=== PATIENT | female | born 1950 | race Caucasian/White ===

== ENCOUNTER 2018-09-15 07:32 | Day surgery (SDC) | payer MEDICARE ==
[2018-09-11 17:18] VITALS: BMI 37.2
[~2018-09-15 07:32] MED LIST: DEXAMETHASONE SOD PHOSPHATE 10 MG/ML 1 ML VIAL IV ONE; HEPARIN SODIUM,PORCINE 5,000 UNIT/ML 1 ML VIAL SQ ONE; HYDROmorphone 1 MG/ML 1 ML SYRINGE IVP PRN; LACTATED RINGERS 1,000 ML IV SCH; MIDAZOLAM 2 MG/2 ML VIAL IV PRN; NA PHOS,M-B/NA PHOS,DI-BA 133 ML ENEMA RECTAL ONE; ONDANSETRON 4 MG/2 ML VIAL IVP ONE; ceFAZolin IN SWFI 2 GM/20 ML SYRINGE IVP ONE
[2018-09-15] MEDS ORDERED: LIDOCAINE 1% 20 ML VIAL (10MG/ML) FOR IV START INTRADERMA ONE (08:50)
--- NOTE | 2018-09-15 08:50 | P.GSHP ---
History of Present Illness H&P Date: 09/15/18 Chief Complaint: Rectal mass This is a 68-year-old female who presents today for transanal resection of a rectal mass. Patient was recently diagnosed with a neck roll inflammatory mass of the colon. This was diagnosed on colonoscopy. Patient had a very small sample performed. Patient presents today for a larger biopsy of this mass. Past Medical History Past Medical History: Cancer, GERD/Reflux Additional Past Medical History / Comment(s): Hx Cervical cancer in the ; Varicose Veins History of Any Multi-Drug Resistant Organisms: None Reported Past Surgical History: Adenoidectomy, Appendectomy, Hernia Repair, Tonsillectomy Additional Past Surgical History / Comment(s): recent EGD,colonoscopy Past Anesthesia/Blood Transfusion Reactions: No Reported Reaction Smoking Status: Never smoker - Past Family History Mother Family Medical History: No Reported History Medications and Allergies Home Medications Medication Instructions Recorded Confirmed Type Ranitidine HCl [Zantac] 150 mg PO BID #20 tab 05/03/16 09/15/18 Rx Aspirin [Adult Low Dose Aspirin EC] 81 mg PO DAILY 08/28/18 09/11/18 History Multivitamins, Thera [Multivitamin 1 tab PO DAILY 08/28/18 09/15/18 History (formulary)] Acetaminophen [Tylenol Arthritis] 650 mg PO Q6H PRN 09/11/18 09/15/18 History Allergies Allergy/AdvReac Type Severity Reaction Status Date / Time ciprofloxacin [From Cipro] Allergy Rash/Hives Verified 09/11/18 17:03 ciprofloxacin HCl Allergy Rash/Hives Verified 09/11/18 17:03 [From Cipro] Surgical - Exam Vital Signs Temp Pulse Resp BP Pulse Ox 99.8 F H 77 16 153/70 98 09/15/18 08:05 09/15/18 08:05 09/15/18 08:05 09/15/18 08:05 09/15/18 08:05 - General well developed, no distress - Eyes PERRL - ENT normal pinna - Neck no masses - Respiratory normal expansion - Cardiovascular Rhythm: regular - Abdomen Abdomen: soft, non tender Assessment and Plan Assessment: Rectal mass. We'll perform transanal excision.
[2018-09-15] MEDS ORDERED: fentaNYL (PF) 50 MCG/ML 2 ML AMP ONE (09:20)
[2018-09-15] MEDS ORDERED: LIDOCAINE 1% INJ 10MG/ML (20 ML MDV) ONE (09:20)
[2018-09-15] MEDS ORDERED: PROPOFOL 10 MG/ML 20 ML VIAL IV ONE (09:20)
[2018-09-15] MEDS ORDERED: SUCCINYLCHOLINE CHLORIDE 100 MG/5 ML SYR IV ONE (09:20)
[2018-09-15] MEDS ORDERED: MIDAZOLAM 2 MG/2 ML VIAL ONE (09:20)
[2018-09-15] MEDS ORDERED: KETOROLAC 30 MG/ML 1 ML VIAL ONE (09:20)
--- NOTE | 2018-09-15 10:06 | P.OP ---
Date of Procedure: 09/15/18 Preoperative Diagnosis: Echo mass Postoperative Diagnosis: Rectal mass Procedure(s) Performed: Transanal excision of chronic inflammatory mass Anesthesia: DANISH Surgeon: Ajay Samuels Estimated Blood Loss (ml): 20 Pathology: other (Necrotic tumor mass) Condition: stable Description of Procedure: The patient's placed on the operative table in the prone jackknife position she received general anesthesia. The bivalved anal retractors placed in the anus. The inflammatory necrotic rectal mass was located approximately 10 cm from anal verge. This was grasped with a pair of Allis clamps. Several pieces of the tumor were removed just with the Allis clamp. The tumor was quite necrotic. The specimen sent to pathology. Surgicel powder was placed on the inflammatory mass for hemostasis. There is no bleeding seen. Top procedure well she was sent to recovery in stable condition.
[2018-09-15 10:24] VITALS: TEMP 97.6
[2018-09-15] MEDS ORDERED: LACTATED RINGERS 1,000 ML IV ONE (10:36)
[2018-09-15 14:41] VITALS: BP 137/83; PULSE 96; RESP 18
== END 2018-09-15 16:30 | disposition home or self-care (01) ==
LOC: OR 07:32
PROVIDERS: ATTEND Surgery
DX: C20 Malignant neoplasm of rectum (principal); I96 Gangrene, not elsewhere classified; K21.9 Gastro-esophageal reflux disease without esophagitis; Z85.41 Personal history of malignant neoplasm of cervix uteri; Z79.82 Long term (current) use of aspirin; Z79.899 Other long term (current) drug therapy; Z88.1 Allergy status to other antibiotic agents
CPT/HCPCS: 88309; 45171; J2250; J1644; J1100; J2405; J2001; J3010; J1885; J0330; J2704; J0690

== ENCOUNTER → 2018-09-23 | Outpatient (CLI) | payer MEDICARE ==
[2018-09-23 15:06] LABS: Blood Urea Nitrogen 9 mg/dL (7-17)
--- NOTE | 2018-09-23 22:10 | CT ---
EXAMINATION TYPE: CT abdomen pelvis w con DATE OF EXAM: 09/23/2018 COMPARISON: NONE HISTORY: 68-year-old female abnormal biopsy from colonoscopy, rectal cancer. Hx of cervical CA TECHNIQUE: Contiguous axial scanning of the abdomen and pelvis following administration of 100 ml Iso sonja 300 IV contrast. Delayed images through the kidneys and coronal/sagittal reconstructions perform ed. CT DLP: 1530.5 mGycm Automated exposure control for dose reduction was used. FINDINGS: Heart normal size without pericardial effusion. Strandy atelectasis at the right base and inferior li ngula. No pleural effusion. No focal liver lesion or biliary ductal dilatation. Portal venous system is patent. Gallbladder, adrenal glands, spleen, and pancreas show no gross abnormality. Symmetric uptake and excretion of contrast from both kidneys. Hypodense lesion is present in each kid kendy, largest measuring 1.3 cm posteriorly on the right, both too small fractured CT characterization and probably representing cysts. There is a right paramedian mid abdominal wall hernia with a sac containing mesenteric fat in a short loop of small bowel. The hernia sac measures 4.1 cm in the neck measures 2.7 cm wide. There is some mild adjacent fat stranding in the subcutaneous fat and small bowel proximal to this herniated loop m easures up to 2.8 cm and is filled with fluid. Oral contrast has not yet reached this level. The ente shaun limb from the distal ileum and is relatively collapsed. There is a staple line at the mid transverse colon from prior resection and anastomosis. There is irregular appearance with soft tissue thickening at the rectum which could reflect underlyin g neoplasm or postsurgical change and further clinical correlation is recommended. This spans approxi mately 4.8 cm. There is presacral edema. Mildly prominent right renal lymph node is borderline in siz e at 1.5 cm. Otherwise, no mesenteric or retroperitoneal lymphadenopathy although evidence for any additional pelv ic lymphadenopathy. Uterus is either absent or very small compatible with postmenopausal state. Small ovaries are suggest ed. Bones: Degenerative changes at the hips and pubic symphysis. Heterogeneous density of the visualized sacrum could reflect sequela of prior injury or severe underlying osteopenia. IMPRESSION: 1. IRREGULAR AND THICKENED APPEARANCE TO THE RECTUM SPANNING 4.8 CM LIKELY CORRESPONDS TO THE PATIENT 'S BIOPSY-PROVEN RECTAL CANCER. 2. BORDERLINE SIZED RIGHT INGUINAL LYMPH NODE AT 1.5 CM IS NONSPECIFIC AND PROBABLY REACTIVE. THIS CA N BE FOLLOWED CLINICALLY 3. RIGHT PARAMEDIAN MID ABDOMINAL WALL HERNIA WITH THE HERNIA NECK MEASURING 2.7 CM WIDE AND THE KARLA IA SAC CONTAINING A SHORT LOOP OF DISTAL ILEUM. THE SMALL BOWEL PROXIMAL TO THIS HERNIA MEASURES PROM INENT AT 2.8 CM AND IS FLUID-FILLED. THE EFFERENT LIMB IS COLLAPSED. A PARTIAL OBSTRUCTION IS DIFFICU LT TO EXCLUDE.
== END | disposition home or self-care (01) ==
LOC: RADCTMAIN 14:35
PROVIDERS: ATTEND Surgery
DX: C20 Malignant neoplasm of rectum (principal); K43.9 Ventral hernia without obstruction or gangrene
CPT/HCPCS: 82565; 84520; 74177; 36415; Q9967

== ENCOUNTER 2018-11-07 09:15 | Inpatient (IN) | payer MEDICARE ==
[~2018-11-07 09:15] MED LIST changes: -HYDROmorphone 1 MG/ML 1 ML SYRINGE IVP PRN; -LACTATED RINGERS 1,000 ML IV SCH; +LIDOCAINE 1% 20 ML VIAL (10MG/ML) FOR IV START INTRADERMA PRN; +MIDAZOLAM (PF) 2 MG/2 ML VIAL IV PRN; -MIDAZOLAM 2 MG/2 ML VIAL IV PRN; -NA PHOS,M-B/NA PHOS,DI-BA 133 ML ENEMA RECTAL ONE; -ONDANSETRON 4 MG/2 ML VIAL IVP ONE; +fentaNYL (PF) 50 MCG/ML 2 ML AMP IV PRN; +fentaNYL (PF) 50 MCG/ML 2 ML AMP IVP PRN; +metroNIDAZOLE-NS PMX 500 MG in SALINE 1 100ML.BAG IVPB ONE
[2018-11-07] MEDS ORDERED: ONDANSETRON 4 MG/2 ML VIAL IVP ONE (11:15)
[2018-11-07] MEDS ORDERED: DEXAMETHASONE SOD PHOSPHATE 10 MG/ML 1 ML VIAL IV ONE (11:15)
[2018-11-07] MEDS: LACTATED RINGERS 1,000 ML IV SCH ×9 (11:15→23:11)
[2018-11-07] MEDS ORDERED: fentaNYL (PF) 50 MCG/ML 2 ML AMP IVP ONE (11:32)
[2018-11-07] MEDS ORDERED: MIDAZOLAM 2 MG/2 ML VIAL IVP ONE (11:32)
--- NOTE | 2018-11-07 11:36 | P.GSHP ---
History of Present Illness H&P Date: 11/07/18 Chief Complaint: Rectal cancer This is a 68-year-old female who's recently diagnosed with rectal cancer. Patient had a previous history of pelvic radiation related to cervical cancer. Patient presents today for low anterior section possible abdominal perineal resection. Patient's aware the risk of colostomy, bladder injury, ureteral injury Past Medical History Past Medical History: Cancer, GERD/Reflux Additional Past Medical History / Comment(s): Hx Cervical cancer in the ; Varicose Veins History of Any Multi-Drug Resistant Organisms: None Reported Past Surgical History: Adenoidectomy, Appendectomy, Hernia Repair, Tonsillectomy Additional Past Surgical History / Comment(s): recent EGD,colonoscopy Past Anesthesia/Blood Transfusion Reactions: No Reported Reaction Additional Past Anesthesia/Blood Transfusion Reaction / Comment(s): WOKE UP DURING COLONOSCOPY Smoking Status: Never smoker - Past Family History Mother Family Medical History: No Reported History Medications and Allergies Home Medications Medication Instructions Recorded Confirmed Type Ranitidine HCl [Zantac] 150 mg PO BID #20 tab 05/03/16 11/07/18 Rx Aspirin [Adult Low Dose Aspirin EC] 81 mg PO DAILY 08/28/18 10/30/18 History Multivitamins, Thera [Multivitamin 1 tab PO DAILY 08/28/18 10/30/18 History (formulary)] Acetaminophen [Tylenol Arthritis] 650 mg PO Q6H PRN 09/11/18 11/07/18 History Allergies Allergy/AdvReac Type Severity Reaction Status Date / Time ciprofloxacin [From Cipro] Allergy Rash/Hives Verified 11/07/18 11:13 ciprofloxacin HCl Allergy Rash/Hives Verified 11/07/18 11:13 [From Cipro] Surgical - Exam Vital Signs Temp Pulse Resp BP Pulse Ox 99.7 F H 79 16 155/74 98 11/07/18 11:13 11/07/18 11:13 11/07/18 11:13 11/07/18 11:13 11/07/18 11:13 - General well developed, well nourished, no distress - Eyes PERRL - ENT normal pinna - Neck no masses - Respiratory normal expansion - Cardiovascular Rhythm: regular - Abdomen Ventral hernia Abdomen: soft, non tender Assessment and Plan Assessment: History of rectal cancer. Patient will undergo low anterior section with possible abdominal perineal resection. Patient is aware the risk of colostomy and injury to the bladder, ureter.
[2018-11-07] MEDS ORDERED: NALOXONE 0.4 MG/ML 1 ML VIAL IV PRN (12:03)
[2018-11-07] MEDS ORDERED: ROCURONIUM BROMIDE 10 MG/ML 10 ML VIAL IV ONE (12:52)
[2018-11-07] MEDS ORDERED: HYDROmorphone (PF) 1 MG/ML ONE (12:52)
[2018-11-07] MEDS ORDERED: PROPOFOL 10 MG/ML 20 ML VIAL IV ONE (12:52)
[2018-11-07] MEDS ORDERED: LIDOCAINE 1% INJ 10MG/ML (20 ML MDV) ONE (12:52)
[2018-11-07] MEDS ORDERED: fentaNYL (PF) 50 MCG/ML 2 ML AMP ONE (12:52)
[2018-11-07] MEDS ORDERED: GLYCOPYRROLATE 0.2 MG/ML 2 ML VIAL ONE (12:52)
[2018-11-07] MEDS ORDERED: MIDAZOLAM 2 MG/2 ML VIAL ONE (12:52)
[2018-11-07] MEDS ORDERED: NEOSTIGMINE 1 MG/ML 10 ML VIAL ONE (12:52)
[2018-11-07] MEDS ORDERED: LACTATED RINGERS 1,000 ML IV ONE (13:35)
[2018-11-07] MEDS ORDERED: ONDANSETRON 4 MG/2 ML VIAL IVP PRN (15:18)
[2018-11-07] MEDS ORDERED: HYDROmorphone 1 MG/ML 1 ML SYRINGE IVP PRN (15:18)
[2018-11-07] MEDS ORDERED: METOCLOPRAMIDE 5 MG/ML 2 ML VIAL IVP PRN (15:18)
--- NOTE | 2018-11-07 15:18 | P.OP ---
Date of Procedure: 11/07/18 Preoperative Diagnosis: Rectal cancer Postoperative Diagnosis: Rectal cancer Procedure(s) Performed: Low anterior section Protective loop ileostomy Repair of incisional hernia Anesthesia: DANISH Surgeon: Ajay Samuels Estimated Blood Loss (ml): 25 Pathology: other (Rectum) Condition: stable Disposition: PACU Description of Procedure: The patient's placed on the operative table in the supine position. She received general anesthesia. Her abdomen and perineum were prepped and draped usual sterile fashion. She was then placed in dorsal 5 position. The abdomen was entered through a low midline incision. The Bookwalter retractors placed in the wound. The abdominal wall was retracted. The abdomen was explored. The liver was palpated there. No evidence of any abnormalities. The small bowel appeared normal. The right colon, transverse colon descending colon and sigmoid colon appeared normal. In the rectum at the peritoneal reflection there was a intraluminal mass. At this point the proximal rectum was transected with a GI stapler and the mesentery was divided. The bowel was packed out of the pelvis. And then the mesial rectum was divided. Peritoneal reflection was divided. And then the Enseal device is used to divide the mesial rectum. The rectal dissection continued approximately 4 cm past the mass. The rectum was then transected with the contour stapler. At this point the proximal rectum was opened with enterotomy in the staple anvil for the 25 mm EEA stapler was placed into the colon. And then the colon was transected with a GI stapler and the mesial colon was divided with the Enseal device. The anvil was then driven through the EEA staple line. The stapler placed into the patient's anus and then the spike was driven through the rectal staple line. The anvil was connected to the stapler the stapler is then closed. The stapler then fired. The stapler then withdrawn. 2 intact tissue rings were withdrawn from the stapler. The proximal colon was then occluded with a hydroureter. Using a rigid sigmoidoscope the rectum was insufflated. There was a small amount of extravasation of air. Due to the extremely low anastomosis. This area could not be sutured. At this point a protective loop ileostomy brought out in the right lower quadrant. The abdomen was irrigated. Using clean instruments the fascia was closed with looped #1 PDS suture. Skin was closed wilton. The ileostomy was matured with 3-0 Vicryl suture. Patient tolerated procedure well and sent to recovery room. Sponge and instrument count was reported as correct.
[2018-11-07] MEDS: ROPIVACAINE 250 MG, HYDROMORPHONE (PF) 5 MG in SODIUM CHLORIDE 0.9% 200 ML EPIDURAL PRN ×2 (15:25→15:59)
[2018-11-07 16:53] LABS: Basophils % (A) 0 %; Eosinophils % (A) 0 %; HCT 41.8 % (34.0-46.0); HGB 13.3 gm/dL (11.4-16.0); Lymphocytes # (A) 0.7 k/uL (1.0-4.8); Lymphocytes % (A) 7 %; MCH 29.2 pg (25.0-35.0); MCHC 31.8 g/dL (31.0-37.0); MCV 91.9 fL (80.0-100.0); Mean Platelet Volume 7.2; Monocytes # (A) 0.1 k/uL (0-1.0); Monocytes % (A) 1 %; Neutrophils # (A) 10.1 k/uL (1.3-7.7); Neutrophils % (A) 92 %; Platelet Count 262 k/uL (150-450); RBC 4.55 m/uL (3.80-5.40); RDW 13.6 % (11.5-15.5)
[2018-11-07 17:07] LABS: Anion Gap 7 mmol/L; Blood Urea Nitrogen 10 mg/dL (7-17); Calcium 8.6 mg/dL (8.4-10.2); Carbon Dioxide 22 mmol/L (22-30); Chloride 110 mmol/L (98-107); Glucose 138 mg/dL (74-99); Potassium 3.8 mmol/L (3.5-5.1); Sodium 139 mmol/L (137-145)
[2018-11-07 17:27] VITALS: BMI 36.3
[2018-11-07] MEDS: D5-0.45% NACL WITH KCL 20MEQ/L 1,000 ML IV SCH (18:04)
[2018-11-07] MEDS: FAMOTIDINE 20 MG/2 ML VIAL IV SCH (21:13)
[2018-11-07] MEDS: ALVIMOPAN 12 MG CAPSULE PO SCH (21:13)
[2018-11-08] MEDS: D5-0.45% NACL WITH KCL 20MEQ/L 1,000 ML IV SCH ×4 (00:55→23:50)
--- NOTE | 2018-11-08 07:12 | P.PN ---
Progress Note - Text Progress Note Date: 11/08/18 Postoperative day # 1 status post low anterior resection ,epidural catheter placed for postoperative analgesia, patient doing well epidural site okay, patient currently on combination of epidural infusion solution of Ropivacaine 0.0625% and Dilaudid 20 g per mL the infusion rate at 10 ml per hour , patient had no motor deficit epidural site okay , vital signs stable ,VAS 3-4 /10 , Assessment and plan= post operative day #1 patient doing well ,pain well controlled , there is no anesthesia related complications
[2018-11-08] MEDS: ROPIVACAINE 250 MG, HYDROMORPHONE (PF) 5 MG in SODIUM CHLORIDE 0.9% 200 ML EPIDURAL PRN (10:18)
[2018-11-08] MEDS: FAMOTIDINE 20 MG/2 ML VIAL IV SCH ×2 (10:20→21:53)
[2018-11-08] MEDS: ALVIMOPAN 12 MG CAPSULE PO SCH ×2 (10:20→21:53)
--- NOTE | 2018-11-08 15:38 | P.CONS ---
History of Present Illness - Reason for Consult Consult date: 11/08/18 Medical management - Chief Complaint Rectal cancer - History of Present Illness This is a 68-year-old female who's recently diagnosed with rectal cancer. Patient had a previous history of pelvic radiation related to cervical cancer. Patient presents today for low anterior section possible abdominal perineal resection. Patient's aware the risk of colostomy, bladder injury, ureteral injury Patient underwent colectomy with colostomy and is postoperative day #1 Review of Systems REVIEW OF SYSTEMS: CONSTITUTIONAL: No fever, no malaise, no fatigue. HEENT: No recent visual problems or hearing problems. Denied any sore throat. CARDIOVASCULAR: No chest pain, orthopnea, PND, no palpitations, no syncope. PULMONARY: No shortness of breath, no cough, no hemoptysis. GASTROINTESTINAL: No diarrhea, no nausea, no vomiting, no abdominal pain. NEUROLOGICAL: No headaches, no weakness, no numbness. HEMATOLOGICAL: Denies any bleeding or petechiae. GENITOURINARY: Denies any burning micturition, frequency, or urgency. MUSCULOSKELETAL/RHEUMATOLOGICAL: Denies any joint pain, swelling, or any muscle pain. ENDOCRINE: Denies any polyuria or polydipsia. The rest of the 14-point review of systems is negative. Past Medical History Past Medical History: Cancer, GERD/Reflux Additional Past Medical History / Comment(s): Hx Cervical cancer in the s; Varicose Veins History of Any Multi-Drug Resistant Organisms: None Reported Past Surgical History: Adenoidectomy, Appendectomy, Hernia Repair, Tonsillectomy Additional Past Surgical History / Comment(s): recent EGD,colonoscopy Past Anesthesia/Blood Transfusion Reactions: No Reported Reaction Additional Past Anesthesia/Blood Transfusion Reaction / Comm: WOKE UP DURING COLONOSCOPY Past Psychological History: No Psychological Hx Reported Smoking Status: Former smoker Past Alcohol Use History: None Reported Past Drug Use History: None Reported - Past Family History Mother Family Medical History: No Reported History Medications and Allergies Home Medications Medication Instructions Recorded Confirmed Type Ranitidine HCl [Zantac] 150 mg PO BID #20 tab 05/03/16 11/07/18 Rx Aspirin [Adult Low Dose Aspirin EC] 81 mg PO DAILY 08/28/18 11/07/18 History Multivitamins, Thera [Multivitamin 1 tab PO DAILY 08/28/18 11/07/18 History (formulary)] Acetaminophen [Tylenol Arthritis] 650 mg PO Q6H PRN 09/11/18 11/07/18 History Allergies Allergy/AdvReac Type Severity Reaction Status Date / Time ciprofloxacin [From Cipro] Allergy Rash/Hives Verified 11/07/18 15:28 ciprofloxacin HCl Allergy Rash/Hives Verified 11/07/18 15:28 [From Cipro] Physical Exam Vitals: Vital Signs Temp Pulse Pulse Resp BP BP Pulse Ox 11/08/18 07:00 98.5 F 94 18 117/80 97 11/08/18 00:35 97.3 F L 16 115/68 98 11/07/18 20:30 97.3 F L 60 16 104/69 100 11/07/18 18:21 65 103/68 100 11/07/18 18:06 59 L 99/67 100 11/07/18 17:51 59 L 103/69 99 11/07/18 17:36 62 14 100/67 99 11/07/18 17:21 64 105/70 100 11/07/18 17:06 58 L 100/68 100 11/07/18 16:51 52 L 102/68 100 11/07/18 16:36 53 L 110/66 100 11/07/18 16:22 97.6 F 53 L 16 101/63 100 11/07/18 15:58 63 16 105/53 92 L 11/07/18 15:41 66 16 118/56 100 11/07/18 15:27 64 16 126/56 100 11/07/18 15:11 97.3 F L 84 16 133/63 100 11/07/18 11:47 82 16 117/57 97 11/07/18 11:13 99.7 F H 79 16 155/74 98 Intake and Output 11/07/18 11/08/18 11/08/18 22:59 06:59 14:59 Intake Total 910 750 Output Total 500 Balance 910 250 Intake: IV 160 Intake, IV Titration 750 750 Amount D5-0.45% NaCl with KCl 750 750 20Meq/l 1,000 ml @ 125 mls/hr IV .Q8H [facility] Rx#: [id number] Output: Urine 500 Other: Voiding Method Indwelling Catheter Indwelling Catheter Weight 92.986 kg - Constitutional General appearance: Present: average body habitus, cooperative, no acute distress - EENT Eyes: Present: anicteric sclerae, EOMI, PERRLA, normal appearance ENT: Present: hearing grossly normal, normal oropharynx Ears: bilateral: normal - Neck Neck: Present: normal ROM. Absent: lymphadenopathy, rigidity, thyromegaly Carotids: negative: bruit present Thyroid: bilateral: normal size, negative: enlarged, nodule - Respiratory Respiratory: bilateral: CTA, negative: rales, rhonchi, wheezing - Cardiovascular Rhythm: regular Heart sounds: normal: S1, S2 Abnormal Heart Sounds: Absent: systolic murmur, diastolic murmur - Gastrointestinal General gastrointestinal: Present: normal bowel sounds, soft. Absent: distended , organomegaly, tenderness - Genitourinary Genitourinary Comment(s): deferred - Integumentary Integumentary: Present: normal turgor. Absent: jaundiced, rash, ulcer - Neurologic Neurologic: Present: CNII-XII intact. Absent: focal deficits - Musculoskeletal Musculoskeletal: Present: gait normal, strength equal bilaterally - Psychiatric Psychiatric: Present: A&O x's 3, appropriate affect, intact judgment & insight Results CBC & Chem 7: 11/07/18 16:08 11/07/18 16:08 Labs: Abnormal Lab Results - Last 24 Hours (Table) 11/07/18 11/07/18 Range/Units 16:08 16:08 WBC 11.0 H (3.8-10.6) k/uL Neutrophils # 10.1 H (1.3-7.7) k/uL Lymphocytes # 0.7 L (1.0-4.8) k/uL Chloride 110 H (98-107) mmol/L Glucose 138 H (74-99) mg/dL Assessment and Plan Assessment: 1. Rectal cancer; patient is status post low anterior resection; POD 1 - Patient has currently epidural catheter for postoperative analgesia and is clinically stable - We will continue with IV fluid hydration and incentive spirometry - Follow the patient with you - Continue with IV Pepcid for GI prophylaxis - Hold home dose of aspirin to stable Time with Patient: Greater than 30
[2018-11-08] MEDS: LACTATED RINGERS 1,000 ML IV SCH (21:51)
[2018-11-09 07:26] LABS: Basophils % (A) 0 %; Eosinophils # (A) 0.1 k/uL (0-0.7); Eosinophils % (A) 0 %; HCT 36.1 % (34.0-46.0); HGB 11.2 gm/dL (11.4-16.0); Lymphocytes # (A) 1.1 k/uL (1.0-4.8); Lymphocytes % (A) 9 %; MCH 28.5 pg (25.0-35.0); Mean Platelet Volume 6.3; Monocytes # (A) 0.9 k/uL (0-1.0); Monocytes % (A) 8 %; Neutrophils # (A) 9.9 k/uL (1.3-7.7); Neutrophils % (A) 82 %; Platelet Count 257 k/uL (150-450); RBC 3.92 m/uL (3.80-5.40); RDW 13.5 % (11.5-15.5); WBC 12.2 k/uL (3.8-10.6)
[2018-11-09] MEDS: ROPIVACAINE 250 MG, HYDROMORPHONE (PF) 5 MG in SODIUM CHLORIDE 0.9% 200 ML EPIDURAL PRN (07:28)
[2018-11-09 07:43] LABS: Anion Gap 3 mmol/L; Blood Urea Nitrogen 8 mg/dL (7-17); Calcium 8.9 mg/dL (8.4-10.2); Carbon Dioxide 29 mmol/L (22-30); Chloride 104 mmol/L (98-107); Glucose 98 mg/dL (74-99); Potassium 4.9 mmol/L (3.5-5.1); Sodium 136 mmol/L (137-145)
[2018-11-09] MEDS: D5-0.45% NACL WITH KCL 20MEQ/L 1,000 ML IV SCH ×2 (10:08→18:23)
[2018-11-09] MEDS: FAMOTIDINE 20 MG/2 ML VIAL IV SCH (10:09)
[2018-11-09] MEDS: ALVIMOPAN 12 MG CAPSULE PO SCH ×2 (10:10→20:03)
--- NOTE | 2018-11-09 11:25 | P.PN ---
Subjective Progress Note Date: 11/08/18 CHIEF COMPLAINT: Colorectal cancer HISTORY OF PRESENT ILLNESS: The patient is a 68-year-old female with low-lying colorectal cancer. She is status post lower anterior resection with protective ileostomy, 11/07/2018. She is postop day 1. Pain is controlled with epidural. No reports of nausea or vomiting. PHYSICAL EXAM: VITAL SIGNS: Reviewed GENERAL: Well-developed in no acute distress. HEENT: No sclera icterus. Extraocular movements grossly intact. Moist buccal mucosa. Head is atraumatic, normocephalic. Hears conversational speech. No nasal drainage. NECK: Supple without lymphadenopathy. CHEST: Non-labored respirations and equal bilateral excursions. CARDIOVASCULAR: Palpable 2+ radial pulses. Regular rate and regular rhythm ABDOMEN: Soft. Nondistended. No peritonitis. Dressing clean dry and intact. Ostomy patent and pink. MUSCULOSKELETAL: No clubbing, cyanosis or edema. NEUROLOGIC: No focal or lateralizing signs. Cranial nerves II through XII grossly intact. PSYCH: Appropriate affect. Alert and oriented to person, place and time. SKIN: Well perfused. Good skin turgor. LABS: Reviewed ASSESSMENT: 1. Colorectal cancer status post low anterior resection PLAN: 1. Continue epidural for optimal pain management 2. Incentive spirometry for pulmonary toilet 3. Ostomy nurse care teaching 4. Ambulation 4 times daily 5. Entereg for bowel function Objective - Vital Signs Vital signs: Vital Signs Temp 98.9 F 11/09/18 07:00 Pulse 86 11/09/18 07:00 Resp 18 11/09/18 07:00 BP 104/69 11/09/18 07:00 Pulse Ox 93 L 11/09/18 07:00 Intake & Output 11/08/18 11/09/18 11/09/18 18:59 06:59 18:59 Intake Total 750 1025 211.667 Output Total 100 1700 Balance 650 1025 -1488.333 Weight 92.986 kg Intake: Intake, IV Titration 750 1025 211.667 Amount D5-0.45% NaCl with KCl 750 1025 20Meq/l 1,000 ml @ 125 mls/hr IV .Q8H [facility] Rx#: [id number] Ropivacaine 250 mg 211.667 Hydromorphone (Pf) 5 mg In Sodium Chloride 0.9% 200 ml @ Per Protocol EPIDURAL .Q0M PRN Rx#: [id number] Output: Urine 100 1700 Other: Voiding Method Indwelling Catheter Indwelling Catheter - Labs CBC & Chem 7: 11/09/18 06:45 11/09/18 06:45 Labs: Abnormal Lab Results - Last 24 Hours (Table) 11/09/18 11/09/18 Range/Units 06:45 06:45 WBC 12.2 H (3.8-10.6) k/uL Hgb 11.2 L (11.4-16.0) gm/dL Neutrophils # 9.9 H (1.3-7.7) k/uL Sodium 136 L (137-145) mmol/L Assessment and Plan (1) Rectal carcinoma Current Visit: Yes Status: Acute Code(s): C20 - MALIGNANT NEOPLASM OF RECTUM SNOMED Code(s): 611984389 (2) S/P colectomy Current Visit: Yes Status: Acute Code(s): Z90.49 - ACQUIRED ABSENCE OF OTHER SPECIFIED PARTS OF DIGESTIVE TRACT SNOMED Code(s): 397699731 (3) Ileostomy status Current Visit: Yes Status: Acute Code(s): Z93.2 - ILEOSTOMY STATUS SNOMED Code(s): 935692250 (4) Morbid obesity due to excess calories Current Visit: Yes Status: Acute Code(s): E66.01 - MORBID (SEVERE) OBESITY DUE TO EXCESS CALORIES SNOMED Code(s): 949442601 (5) BMI 36.0-36.9,adult Current Visit: Yes Status: Acute Code(s): Z68.36 - BODY MASS INDEX (BMI) 36.0-36.9, ADULT SNOMED Code(s): 603586252
--- NOTE | 2018-11-09 11:29 | P.PN ---
Subjective Progress Note Date: 11/09/18 Principal diagnosis: Rectal cancer; status post low anterior resection 68-year-old female who's recently diagnosed with rectal cancer. Patient had a previous history of pelvic radiation related to cervical cancer. Patient presents today for low anterior section possible abdominal perineal resection. Patient's aware the risk of colostomy, bladder injury, ureteral injury 11/09/2018 Patient underwent colectomy with colostomy and is postoperative day #2; patient has been started on clear liquid diet with a plan to advance as tolerated Patient is seen and evaluated in follow-up at bedside; vital signs are reviewed and are stable with a temperature of 98.9 pulse 86 and a blood pressure of 104/ 69; patient is saturating 93% on room air Review of blood work indicates a slight elevation in the blood white blood count of 12.2 with an elevated neutrophils at 9.9 which is improved from yesterday at 10.1; patient is afebrile and has no signs of infection; we will hold off on antibiotics at this time and will continue to monitor CBC closely Objective - Vital Signs Vital signs: Vital Signs Temp 98.9 F 11/09/18 07:00 Pulse 86 11/09/18 07:00 Resp 18 11/09/18 07:00 BP 104/69 11/09/18 07:00 Pulse Ox 93 L 11/09/18 07:00 Intake & Output 11/08/18 11/09/18 11/09/18 18:59 06:59 18:59 Intake Total 750 1025 211.667 Output Total 100 1700 Balance 650 1025 -1488.333 Weight 92.986 kg Intake: Intake, IV Titration 750 1025 211.667 Amount D5-0.45% NaCl with KCl 750 1025 20Meq/l 1,000 ml @ 125 mls/hr IV .Q8H [facility] Rx#: [id number] Ropivacaine 250 mg 211.667 Hydromorphone (Pf) 5 mg In Sodium Chloride 0.9% 200 ml @ Per Protocol EPIDURAL .Q0M PRN Rx#: [id number] Output: Urine 100 1700 Other: Voiding Method Indwelling Catheter Indwelling Catheter - Exam - Constitutional General appearance: Present: average body habitus, cooperative, no acute distress - EENT Eyes: Present: anicteric sclerae, EOMI, PERRLA, normal appearance ENT: Present: hearing grossly normal, normal oropharynx Ears: bilateral: normal - Neck Neck: Present: normal ROM. Absent: lymphadenopathy, rigidity, thyromegaly Carotids: negative: bruit present Thyroid: bilateral: normal size, negative: enlarged, nodule - Respiratory Respiratory: bilateral: CTA, negative: rales, rhonchi, wheezing - Cardiovascular Rhythm: regular Heart sounds: normal: S1, S2 Abnormal Heart Sounds: Absent: systolic murmur, diastolic murmur - Gastrointestinal General gastrointestinal: Present: normal bowel sounds, soft. Absent: distended , organomegaly, tenderness - Genitourinary Genitourinary Comment(s): deferred - Integumentary Integumentary: Present: normal turgor. Absent: jaundiced, rash, ulcer - Neurologic Neurologic: Present: CNII-XII intact. Absent: focal deficits - Musculoskeletal Musculoskeletal: Present: gait normal, strength equal bilaterally - Psychiatric Psychiatric: Present: A&O x's 3, appropriate affect, intact judgment & insight - Labs CBC & Chem 7: 11/09/18 06:45 11/09/18 06:45 Labs: Abnormal Lab Results - Last 24 Hours (Table) 11/09/18 11/09/18 Range/Units 06:45 06:45 WBC 12.2 H (3.8-10.6) k/uL Hgb 11.2 L (11.4-16.0) gm/dL Neutrophils # 9.9 H (1.3-7.7) k/uL Sodium 136 L (137-145) mmol/L Assessment and Plan Assessment: 1. Rectal cancer; patient is status post low anterior resection; POD 1 - Patient has currently epidural catheter for postoperative analgesia and is clinically stable - We will continue with IV fluid hydration and incentive spirometry - Follow the patient with you - Continue with IV Pepcid for GI prophylaxis - Hold home dose of aspirin to stable Time with Patient: Greater than 30
--- NOTE | 2018-11-09 14:35 | P.PN ---
Subjective Progress Note Date: 11/09/18 CHIEF COMPLAINT: Colorectal cancer HISTORY OF PRESENT ILLNESS: The patient is a 68-year-old female with low-lying colorectal cancer. She is status post lower anterior resection with protective ileostomy, 11/07/2018. She is postop day 2. She had spillage from her ostomy bag onto her midline incision. Otherwise, pain is controlled. PHYSICAL EXAM: VITAL SIGNS: Reviewed GENERAL: Well-developed in no acute distress. HEENT: No sclera icterus. Extraocular movements grossly intact. Moist buccal mucosa. Head is atraumatic, normocephalic. Hears conversational speech. No nasal drainage. NECK: Supple without lymphadenopathy. CHEST: Non-labored respirations and equal bilateral excursions. CARDIOVASCULAR: Palpable 2+ radial pulses. Regular rate and regular rhythm ABDOMEN: Soft. Protuberant. Dressing saturated in liquid stool and serosanguinous. Ostomy patent and functioning. MUSCULOSKELETAL: No clubbing, cyanosis or edema. NEUROLOGIC: No focal or lateralizing signs. Cranial nerves II through XII grossly intact. PSYCH: Appropriate affect. Alert and oriented to person, place and time. SKIN: Well perfused. Good skin turgor. LABS: Reviewed ASSESSMENT: 1. Colorectal cancer status post low anterior resection PLAN: 1. Change dressing 2. Will need ostomy nurse care teaching 3. Continue epidural Objective - Vital Signs Vital signs: Vital Signs Temp 98.9 F 11/09/18 07:00 Pulse 86 11/09/18 07:00 Resp 18 11/09/18 07:00 BP 104/69 11/09/18 07:00 Pulse Ox 93 L 11/09/18 07:00 Intake & Output 11/08/18 11/09/18 11/09/18 18:59 06:59 18:59 Intake Total 750 1025 211.667 Output Total 100 1700 Balance 650 1025 -1488.333 Weight 92.986 kg Intake: Intake, IV Titration 750 1025 211.667 Amount D5-0.45% NaCl with KCl 750 1025 20Meq/l 1,000 ml @ 125 mls/hr IV .Q8H [facility] Rx#: [id number] Ropivacaine 250 mg 211.667 Hydromorphone (Pf) 5 mg In Sodium Chloride 0.9% 200 ml @ Per Protocol EPIDURAL .Q0M PRN Rx#: [id number] Output: Urine 100 1700 Other: Voiding Method Indwelling Catheter Indwelling Catheter - Labs CBC & Chem 7: 11/09/18 06:45 11/09/18 06:45 Labs: Abnormal Lab Results - Last 24 Hours (Table) 11/09/18 11/09/18 Range/Units 06:45 06:45 WBC 12.2 H (3.8-10.6) k/uL Hgb 11.2 L (11.4-16.0) gm/dL Neutrophils # 9.9 H (1.3-7.7) k/uL Sodium 136 L (137-145) mmol/L Assessment and Plan (1) Rectal carcinoma Current Visit: Yes Status: Acute Code(s): C20 - MALIGNANT NEOPLASM OF RECTUM SNOMED Code(s): 845713933 (2) S/P colectomy Current Visit: Yes Status: Acute Code(s): Z90.49 - ACQUIRED ABSENCE OF OTHER SPECIFIED PARTS OF DIGESTIVE TRACT SNOMED Code(s): 351996649 (3) Ileostomy status Current Visit: Yes Status: Acute Code(s): Z93.2 - ILEOSTOMY STATUS SNOMED Code(s): 470510757 (4) Morbid obesity due to excess calories Current Visit: Yes Status: Acute Code(s): E66.01 - MORBID (SEVERE) OBESITY DUE TO EXCESS CALORIES SNOMED Code(s): 457369045 (5) BMI 36.0-36.9,adult Current Visit: Yes Status: Acute Code(s): Z68.36 - BODY MASS INDEX (BMI) 36.0-36.9, ADULT SNOMED Code(s): 257260117
[2018-11-09] MEDS: LACTATED RINGERS 1,000 ML IV SCH (17:57)
[2018-11-10] MEDS: D5-0.45% NACL WITH KCL 20MEQ/L 1,000 ML IV SCH ×2 (00:56→15:17)
[2018-11-10] MEDS: ROPIVACAINE 250 MG, HYDROMORPHONE (PF) 5 MG in SODIUM CHLORIDE 0.9% 200 ML EPIDURAL PRN ×2 (03:05→23:10)
[2018-11-10 06:32] LABS: Basophils % (A) 0 %; Eosinophils # (A) 0.1 k/uL (0-0.7); Eosinophils % (A) 1 %; HCT 33.1 % (34.0-46.0); HGB 10.8 gm/dL (11.4-16.0); Lymphocytes # (A) 1.1 k/uL (1.0-4.8); Lymphocytes % (A) 12 %; MCH 29.4 pg (25.0-35.0); MCHC 32.5 g/dL (31.0-37.0); MCV 90.7 fL (80.0-100.0); Mean Platelet Volume 7.2; Monocytes # (A) 0.9 k/uL (0-1.0); Monocytes % (A) 9 %; Neutrophils # (A) 6.9 k/uL (1.3-7.7); Neutrophils % (A) 76 %; Platelet Count 204 k/uL (150-450); RBC 3.65 m/uL (3.80-5.40); RDW 13.6 % (11.5-15.5); WBC 9.1 k/uL (3.8-10.6)
[2018-11-10 06:47] LABS: Anion Gap 2 mmol/L; Blood Urea Nitrogen 4 mg/dL (7-17); Calcium 8.3 mg/dL (8.4-10.2); Carbon Dioxide 30 mmol/L (22-30); Chloride 104 mmol/L (98-107); Glucose 100 mg/dL (74-99); Potassium 4.4 mmol/L (3.5-5.1); Sodium 136 mmol/L (137-145)
--- NOTE | 2018-11-10 06:50 | P.PN ---
Progress Note - Text Progress Note Date: 11/09/18 POD 2 patient denies any complaints Pain well controlled Epidural solution continued at current rate, will remove tmw.
--- NOTE | 2018-11-10 06:51 | P.PN ---
Progress Note - Text Progress Note Date: 11/10/18 POD 3 Epidural will be removed today discuss with primary team
[2018-11-10] MEDS: FAMOTIDINE 20 MG/2 ML VIAL IV SCH (10:29)
[2018-11-10] MEDS: ALVIMOPAN 12 MG CAPSULE PO SCH ×2 (10:29→20:42)
--- NOTE | 2018-11-10 10:45 | P.PN ---
Subjective Progress Note Date: 11/10/18 CHIEF COMPLAINT: Colorectal cancer HISTORY OF PRESENT ILLNESS: The patient is a 68-year-old female with low-lying colorectal cancer. She is status post lower anterior resection with protective ileostomy, 11/07/2018. Patient examined at the bedside this morning. She states her pain is tolerable this morning. She does complain of some pain near her epidural site. Anesthesia is planning to discontinue epidural today. Ostomy with stool noted. WBC 9.1. She is afebrile. PHYSICAL EXAM: VITAL SIGNS: Reviewed GENERAL: Well-developed in no acute distress. HEENT: No sclera icterus. Extraocular movements grossly intact. Moist buccal mucosa. Head is atraumatic, normocephalic. Hears conversational speech. No nasal drainage. NECK: Supple without lymphadenopathy. CHEST: Non-labored respirations and equal bilateral excursions. CARDIOVASCULAR: Palpable 2+ radial pulses. Regular rate and regular rhythm ABDOMEN: Soft. Bowel sounds present. No pain or tenderness noted. Ostomy patent and functioning. MUSCULOSKELETAL: No clubbing, cyanosis or edema. NEUROLOGIC: No focal or lateralizing signs. Cranial nerves II through XII grossly intact. PSYCH: Appropriate affect. Alert and oriented to person, place and time. SKIN: Well perfused. Good skin turgor. LABS: Reviewed ASSESSMENT: 1. Colorectal cancer status post low anterior resection PLAN: 1. May advance diet to full liquid 2. Continue ostomy teaching 3. Anesthesia to remove epidural today. May discontinue pina catheter post epidural removal 4. Possible discharge within the next 24-48 hours Nurse practitioner note has been reviewed by physician. Signing provider agrees with the documented findings, assessment, and plan of care. Objective - Vital Signs Vital signs: Vital Signs Temp 98.7 F 11/10/18 08:12 Pulse 91 11/10/18 08:12 Resp 16 11/10/18 08:12 BP 135/84 11/10/18 08:12 Pulse Ox 95 11/10/18 08:12 Intake & Output 11/09/18 11/10/18 11/10/18 18:59 06:59 18:59 Intake Total 713.182 2147.167 Output Total 5500 2050 700 Balance -5288.333 -728.833 -700 Weight 92.986 kg Intake: Intake, IV Titration 061.955 1443.167 Amount D5-0.45% NaCl with KCl 1125 20Meq/l 1,000 ml @ 125 mls/hr IV .Q8H [facility] Rx#: [id number] Ropivacaine 250 mg 211.667 196.167 Hydromorphone (Pf) 5 mg In Sodium Chloride 0.9% 200 ml @ Per Protocol EPIDURAL .Q0M PRN Rx#: [id number] Output: Urine 5100 1850 450 Stool 400 200 250 Other: Voiding Method Indwelling Catheter Indwelling Catheter - Labs CBC & Chem 7: 11/10/18 06:08 11/10/18 06:08 Labs: Abnormal Lab Results - Last 24 Hours (Table) 11/10/18 11/10/18 Range/Units 06:08 06:08 RBC 3.65 L (3.80-5.40) m/uL Hgb 10.8 L (11.4-16.0) gm/dL Hct 33.1 L (34.0-46.0) % Sodium 136 L (137-145) mmol/L BUN 4 L (7-17) mg/dL Creatinine 0.47 L (0.52-1.04) mg/dL Glucose 100 H (74-99) mg/dL Calcium 8.3 L (8.4-10.2) mg/dL
[2018-11-10] MEDS: FAMOTIDINE 20 MG TAB PO SCH (20:42)
--- NOTE | 2018-11-10 20:48 | P.PN ---
Subjective Progress Note Date: 11/10/18 Progress note being dictated for . Interval history:68-year-old female who's recently diagnosed with rectal cancer. Patient had a previous history of pelvic radiation related to cervical cancer. Patient presents today for low anterior section possible abdominal perineal resection. Patient's aware the risk of colostomy, bladder injury, ureteral injury 11/09/2018 Patient underwent colectomy with colostomy and is postoperative day #2; patient has been started on clear liquid diet with a plan to advance as tolerated Patient is seen and evaluated in follow-up at bedside; vital signs are reviewed and are stable with a temperature of 98.9 pulse 86 and a blood pressure of 104/ 69; patient is saturating 93% on room air Review of blood work indicates a slight elevation in the blood white blood count of 12.2 with an elevated neutrophils at 9.9 which is improved from yesterday at 10.1; patient is afebrile and has no signs of infection; we will hold off on antibiotics at this time and will continue to monitor CBC closely 11/10/2018 afebrile, T-max 100.1, WBCs 9.1. Reports ongoing left leg weakness, epidural scheduled for DC. Pain currently controlled. Tolerating full liquid diet with no nausea, vomiting. Denies lightheadedness dizziness or focal deficits. Denies chest pain, palpitations or shortness of breath. Objective - Vital Signs Vital signs: Vital Signs Temp 97.4 F L 11/10/18 20:04 Pulse 86 11/10/18 20:04 Resp 16 11/10/18 20:04 BP 142/73 11/10/18 20:04 Pulse Ox 92 L 11/10/18 20:04 Intake & Output 11/10/18 11/10/18 11/11/18 06:59 18:59 06:59 Intake Total 1321.167 Output Total 2049 2124 Balance -728.833 -2125 Weight 92.986 kg Intake: Intake, IV Titration 1321.167 Amount D5-0.45% NaCl with KCl 1125 20Meq/l 1,000 ml @ 125 mls/hr IV .Q8H [facility] Rx#: [id number] Ropivacaine 250 mg 196.167 Hydromorphone (Pf) 5 mg In Sodium Chloride 0.9% 200 ml @ Per Protocol EPIDURAL .Q0M PRN Rx#: [id number] Output: Urine 1850 1025 Stool 200 1100 Other: Voiding Method Indwelling Catheter Indwelling Catheter - Exam PHYSICAL EXAM: VITAL SIGNS: As above GENERAL: Sitting up in chair, no acute distress HEENT: Conjunctivae normal. eyes normal. Oral mucosa moist NECK: No JVD. No thyroid enlargement. No LNs CARDIOVASCULAR: S1, S2 muffled. No murmur RESPIRATION: Breath sounds diminished in the bases. No rhonchi or crackles. ABDOMEN: Soft, nontender . Nondistended, status post surgery. Functioning ostomy. LEGS: No edema. no swelling. PSYCHIATRY: Alert and oriented -3, mood and affect normal. NERVOUS SYSTEM: Cranial N 2-12 grossly normal. Moves all 4 limbs. Diffuse weakness greater with left lower extremity. No focal deficits. Skin: no ulcer no rash - Labs CBC & Chem 7: 11/10/18 06:08 11/10/18 06:08 Labs: Abnormal Lab Results - Last 24 Hours (Table) 11/10/18 11/10/18 Range/Units 06:08 06:08 RBC 3.65 L (3.80-5.40) m/uL Hgb 10.8 L (11.4-16.0) gm/dL Hct 33.1 L (34.0-46.0) % Sodium 136 L (137-145) mmol/L BUN 4 L (7-17) mg/dL Creatinine 0.47 L (0.52-1.04) mg/dL Glucose 100 H (74-99) mg/dL Calcium 8.3 L (8.4-10.2) mg/dL Assessment and Plan Assessment: -Rectal cancer; patient is status post low anterior resection -Gastroesophageal reflux disease -History of cervical cancer -Remote history of nicotine abuse Plan: Continue on current medication regime ,monitoring and symptomatic treatment. Aggressive pulmonary toileting with incentive spirometer re- enforced. Pain management/diet advancement as per surgery. Ongoing left leg numbness with close watch of epidural as per anesthesia- surgery mentioned being dc'd today. PT/OT.Ostomy teaching. GI prophylaxis in place. SCDs/ compression stockings for DVT prophylaxis. The impression and plan of care has been dictated as directed. : I performed a history and examination of this patient, discussed the same with the dictator. I agree with the dictator's note ,documented as a scribe. Any additional findings or plans will be noted.
[2018-11-10] MEDS ORDERED: HEPARIN SODIUM,PORCINE 5,000 UNIT/ML 1 ML VIAL SQ SCH (21:00)
[2018-11-10] MEDS: LACTATED RINGERS 1,000 ML IV SCH (21:56)
[2018-11-11] MEDS: D5-0.45% NACL WITH KCL 20MEQ/L 1,000 ML IV SCH ×2 (02:43→10:32)
[2018-11-11 08:10] VITALS: RESP 12
[2018-11-11] MEDS ORDERED: HYDROcodone/APAP 5-325MG 1 EACH TAB PO PRN (08:19)
[2018-11-11] MEDS: FAMOTIDINE 20 MG TAB PO SCH (10:32)
[2018-11-11] MEDS: ALVIMOPAN 12 MG CAPSULE PO SCH (10:32)
--- NOTE | 2018-11-11 10:44 | P.PN ---
Subjective Progress Note Date: 11/11/18 CHIEF COMPLAINT: Colorectal cancer HISTORY OF PRESENT ILLNESS: The patient is a 68-year-old female with low-lying colorectal cancer. She is status post lower anterior resection with protective ileostomy, 11/07/2018. Patient examined at the bedside this morning. She states her pain is tolerable this morning. Her epidural is still infusing. Asked nursing to discontinue epidural ELADIA. Patient tolerating full liquid diet. Ostomy with stool noted. PHYSICAL EXAM: VITAL SIGNS: Reviewed GENERAL: Well-developed in no acute distress. HEENT: No sclera icterus. Extraocular movements grossly intact. Moist buccal mucosa. Head is atraumatic, normocephalic. Hears conversational speech. No nasal drainage. NECK: Supple without lymphadenopathy. CHEST: Non-labored respirations and equal bilateral excursions. CARDIOVASCULAR: Palpable 2+ radial pulses. Regular rate and regular rhythm ABDOMEN: Soft. Bowel sounds present. No pain or tenderness noted. Ostomy patent and functioning. MUSCULOSKELETAL: No clubbing, cyanosis or edema. NEUROLOGIC: No focal or lateralizing signs. Cranial nerves II through XII grossly intact. PSYCH: Appropriate affect. Alert and oriented to person, place and time. SKIN: Well perfused. Good skin turgor. LABS: Reviewed ASSESSMENT: 1. Colorectal cancer status post low anterior resection PLAN: 1. Advance diet 2. Continue ostomy teaching 3. Discontinue epidural 4. Discontinue pina 5. Begin Shushan for pain 6. Increase activity 7. Anticipate discharge this afternoon with home care Nurse practitioner note has been reviewed by physician. Signing provider agrees with the documented findings, assessment, and plan of care. Objective - Vital Signs Vital signs: Vital Signs Temp 97.6 F 11/11/18 08:09 Pulse 85 11/11/18 08:09 Resp 12 11/11/18 08:09 BP 111/70 11/11/18 08:09 Pulse Ox 95 11/11/18 08:09 Intake & Output 11/10/18 11/11/18 11/11/18 18:59 06:59 18:59 Intake Total 480.833 Output Total 4579 291 2700 Balance -2125 -239.167 -2700 Weight 92.986 kg Intake: Intake, IV Titration 200.833 Amount Ropivacaine 250 mg 200.833 Hydromorphone (Pf) 5 mg In Sodium Chloride 0.9% 200 ml @ Per Protocol EPIDURAL .Q0M PRN Rx#: [id number] Oral 280 Output: Urine 1025 2700 Stool 1100 720 Other: Voiding Method Indwelling Catheter Indwelling Catheter - Labs CBC & Chem 7: 11/10/18 06:08 11/10/18 06:08
[2018-11-11 16:14] VITALS: BP 122/74; PULSE 80; TEMP 98.6
--- NOTE | 2018-11-11 23:16 | P.PN ---
Subjective Progress Note Date: 11/11/18 Progress note being dictated for Interval history:68-year-old female who's recently diagnosed with rectal cancer. Patient had a previous history of pelvic radiation related to cervical cancer. Patient presents today for low anterior section possible abdominal perineal resection. Patient's aware the risk of colostomy, bladder injury, ureteral injury 11/09/2018 Patient underwent colectomy with colostomy and is postoperative day #2; patient has been started on clear liquid diet with a plan to advance as tolerated Patient is seen and evaluated in follow-up at bedside; vital signs are reviewed and are stable with a temperature of 98.9 pulse 86 and a blood pressure of 104/ 69; patient is saturating 93% on room air Review of blood work indicates a slight elevation in the blood white blood count of 12.2 with an elevated neutrophils at 9.9 which is improved from yesterday at 10.1; patient is afebrile and has no signs of infection; we will hold off on antibiotics at this time and will continue to monitor CBC closely 11/10/2018 afebrile, T-max 100.1, WBCs 9.1. Reports ongoing left leg weakness, epidural scheduled for DC. Pain currently controlled. Tolerating full liquid diet with no nausea, vomiting. Denies lightheadedness dizziness or focal deficits. Denies chest pain, palpitations or shortness of breath. 11/11/2018 Epidural discontinued this morning. Pain controlled. Tolerating full liquid diet, functioning ostomy. T-max 99.4. Denies chest pain, palpitations or increasing shortness of breath. Denies lightheadedness or dizziness or focal deficits. Objective - Vital Signs Vital signs: Vital Signs Temp 97.6 F 11/11/18 08:09 Pulse 85 11/11/18 08:09 Resp 12 11/11/18 08:09 BP 111/70 11/11/18 08:09 Pulse Ox 95 11/11/18 08:09 Intake & Output 11/10/18 11/11/18 11/11/18 18:59 06:59 18:59 Intake Total 480.833 Output Total 6818 893 2700 Balance -2125 -239.167 -2700 Weight 92.986 kg Intake: Intake, IV Titration 200.833 Amount Ropivacaine 250 mg 200.833 Hydromorphone (Pf) 5 mg In Sodium Chloride 0.9% 200 ml @ Per Protocol EPIDURAL .Q0M PRN Rx#: [id number] Oral 280 Output: Urine 1025 2700 Stool 1100 720 Other: Voiding Method Indwelling Catheter Indwelling Catheter # Voids 0 - Exam PHYSICAL EXAM: VITAL SIGNS: As above GENERAL: Sitting up in chair, visiting with significant other, no acute distress HEENT: Conjunctivae normal. eyes normal. Oral mucosa moist NECK: No JVD. No thyroid enlargement. No LNs CARDIOVASCULAR: S1, S2 muffled. No murmur RESPIRATION: Breath sounds diminished in the bases. No rhonchi or crackles. ABDOMEN: Soft, Nondistended, status post surgery. Functioning ostomy. LEGS: No edema. no swelling. PSYCHIATRY: Alert and oriented -3, mood and affect normal. NERVOUS SYSTEM: Cranial N 2-12 grossly normal. Moves all 4 limbs. No focal deficits. Skin: no rash - Labs CBC & Chem 7: 11/10/18 06:08 11/10/18 06:08 Assessment and Plan Assessment: -Rectal cancer; patient is status post low anterior resection -Gastroesophageal reflux disease -History of cervical cancer -Remote history of nicotine abuse Plan: Continue on current medication regime ,monitoring and symptomatic treatment. Diet advanced as per surgery.Aggressive pulmonary toileting with incentive spirometer re-enforced. Pain management. Increase ambulation as tolerated. Discharge planning in progress for today as per surgery. Follow-up with PCP in 1 week. Further recommendations to follow The impression and plan of care has been dictated as directed. : I performed a history and examination of this patient, discussed the same with the dictator. I agree with the dictator's note ,documented as a scribe. Any additional findings or plans will be noted.
== END 2018-11-11 16:18 | disposition home health service (06) | DRG 331 ==
LOC: 2ORMAIN 10:19 → 4SSUR 14:52
PROVIDERS: ADMIT Surgery; ATTEND Surgery
PROC: 0D1B0Z4 Bypass Ileum to Cutaneous, Open Approach (ICD-10-PCS; 2018-11-07)
PROC: 0DBN0ZZ Excision of Sigmoid Colon, Open Approach (ICD-10-PCS; 2018-11-07)
PROC: 0WQF0ZZ Repair Abdominal Wall, Open Approach (ICD-10-PCS; 2018-11-07)
PROC: 0DBP0ZZ Excision of Rectum, Open Approach (ICD-10-PCS; principal; 2018-11-07 12:30)
DX: C19 Malignant neoplasm of rectosigmoid junction (principal); E66.01 Morbid (severe) obesity due to excess calories; Z68.36 Body mass index [BMI] 36.0-36.9, adult; K21.9 Gastro-esophageal reflux disease without esophagitis; K43.2 Incisional hernia without obstruction or gangrene; Z79.82 Long term (current) use of aspirin; Z85.41 Personal history of malignant neoplasm of cervix uteri; Z87.891 Personal history of nicotine dependence; Z88.1 Allergy status to other antibiotic agents; Z92.3 Personal history of irradiation; K63.5 Polyp of colon
CPT/HCPCS: 80048; 80051; 85025; 85027; 86850; 86870; 86880; 86900; 86901; 86902; 88309

== ENCOUNTER → 2018-11-24 | Outpatient (CLI) | payer MEDICARE ==
[2018-11-24 10:56] VITALS: BP 137/88; PULSE 106; RESP 16; TEMP 98.1
== END ==
LOC: PROCWHC3 10:38
PROVIDERS: ATTEND Surgery
DX: C20 Malignant neoplasm of rectum (principal)
CPT/HCPCS: 99213

== ENCOUNTER 2018-12-13 04:13 | Emergency (ER) | payer MEDICARE ==
[2018-12-13 04:21] VITALS: TEMP 98
[2018-12-13] MEDS ORDERED: SODIUM CHLORIDE 0.9% 1,000 ML IV STA (04:37)
--- NOTE | 2018-12-13 04:37 | ED ---
General Adult HPI - General Chief complaint: Dizziness Stated complaint: Dizziness/Weakness Time Seen by Provider: 12/13/18 04:36 Source: patient, family Mode of arrival: ambulatory Limitations: no limitations - History of Present Illness Initial comments: Cindy is a pleasant 68 yo female who presents to the ED today for evaluation of lightheadedness. Patient reports that she was very busy throughout the day yesterday out running errands with her . She states that she did not drink much fluids due to being so busy. Patient reports that she woke during the night and stood to use the restroom and upon standing felt very lightheaded and as though she would pass out. She was able use the restroom ambulate back to the bathroom. When she woke again during the night use the restroom she again felt very lightheaded and as though she would pass out she became concerned that she would fall to the floor. At this time she alerted her decided to bring her to the hospital for evaluation. Patient states she had no chest pain, palpitations or shortness of breath with these episodes. She does not have any vertiginous symptoms or symptoms of room spinning around her when she turns her head. She reports she is feeling better now resting in bed. - Related Data Home Medications Medication Instructions Recorded Confirmed Multivitamins, Thera [Multivitamin 1 tab PO DAILY 08/28/18 11/24/18 (formulary)] Acetaminophen [Tylenol Arthritis] 650 mg PO Q6H PRN 09/11/18 11/24/18 Previous Rx's Medication Instructions Recorded Ranitidine HCl [Zantac] 150 mg PO BID #20 tab 05/03/16 HYDROcodone/APAP 7.5-325MG [[place] 1 tab PO Q4H PRN 3 Days #18 tab 11/11/18 7.5-325] Allergies Allergy/AdvReac Type Severity Reaction Status Date / Time ciprofloxacin [From Cipro] Allergy Rash/Hives Verified 12/13/18 04:21 ciprofloxacin HCl Allergy Rash/Hives Verified 12/13/18 04:21 [From Cipro] Review of Systems ROS Statement: Those systems with pertinent positive or pertinent negative responses have been documented in the HPI. ROS Other: All systems not noted in ROS Statement are negative. Past Medical History Past Medical History: Cancer, GERD/Reflux Additional Past Medical History / Comment(s): Hx Cervical cancer in the 80s; Varicose Veins History of Any Multi-Drug Resistant Organisms: None Reported Past Surgical History: Adenoidectomy, Appendectomy, Bowel Resection, Hernia Repair, Tonsillectomy Additional Past Surgical History / Comment(s): recent EGD,colonoscopy Past Anesthesia/Blood Transfusion Reactions: No Reported Reaction Additional Past Anesthesia/Blood Transfusion Reaction / Comment(s): WOKE UP DURING COLONOSCOPY Past Psychological History: No Psychological Hx Reported Smoking Status: Former smoker Past Alcohol Use History: None Reported Past Drug Use History: None Reported - Past Family History Mother Family Medical History: No Reported History General Exam - General Exam Comments Initial Comments: Physical Exam GENERAL: Patient is well-developed and well-nourished. Patient is nontoxic and well- hydrated and is in no distress. HENT: Normocephalic, Atraumatic. EYES: PERRL, EOMI PULMONARY: Unlabored respirations. No audible rales rhonchi or wheezing was noted. CARDIOVASCULAR: There is a regular rate and rhythm without any murmurs gallops or rubs. ABDOMEN: Soft and nontender with normal bowel sounds. SKIN: Skin is clear with no lesions or rashes and otherwise unremarkable. : Deferred NEUROLOGIC: Patient is alert and oriented x3. Moving all extremities spontaneously Cranial nerves II through XII grossly intact No nystagmus on evaluation MUSCULOSKELETAL: Normal extremities with adequate strength and full range of motion. No lower extremity swelling or edema. No calf tenderness. PSYCHIATRIC: Normal psychiatric evaluation. Limitations: no limitations Limitations: no limitations Course Vital Signs 12/13/18 12/13/18 12/13/18 04:16 04:26 04:30 Temperature 98 F Pulse Rate 82 92 Respiratory 20 20 Rate Blood Pressure 148/82 150/80 O2 Sat by Pulse 100 92 L 99 Oximetry 12/13/18 12/13/18 12/13/18 05:00 05:30 06:00 Temperature Pulse Rate 72 84 68 Respiratory 19 18 17 Rate Blood Pressure 150/80 146/71 149/73 O2 Sat by Pulse 99 100 Oximetry 12/13/18 06:30 Temperature Pulse Rate 65 Respiratory 19 Rate Blood Pressure 133/55 O2 Sat by Pulse 99 Oximetry EKG Findings - EKG Comments: EKG Findings:: EKG obtained at 4:32 AM, rate is 85 rhythm is sinus there is left axis deviation and there are normal intervals, WA 102, QRS 94, QTC 454 there are no acute ST elevations or depressions and no evidence of acute ischemia or infarction or arrhythmia. Medical Decision Making - Medical Decision Making Patient was seen and evaluated history was obtained from the patient patient with what sounds to be orthostatic hypotension sign labs and imaging were ordered IV fluids were ordered Vital signs were repeated, after IV fluids patient did not have positive orthostatic vital signs D-dimer was elevated, CT angiography of the chest was ordered CT with no evidence of PE or acute pathology - results discussed with patient who is feeling better but reports she got somewhat lightheaded when she stood from CT to walk back to the room - additional 1L IVF ordered Patient feeling better after IVF, agreeable to plan for discharge home All questions pertaining to care were answered to the best of my ability and the patient was discharged home in stable condition. - Lab Data Result diagrams: 12/13/18 04:36 12/13/18 04:36 Lab Results 12/13/18 12/13/18 12/13/18 Range/Units 04:36 04:36 04:36 WBC 5.6 (3.8-10.6) k/uL RBC 5.00 (3.80-5.40) m/uL Hgb 14.3 D (11.4-16.0) gm/dL Hct 44.2 (34.0-46.0) % MCV 88.5 (80.0-100.0) fL MCH 28.5 (25.0-35.0) pg MCHC 32.2 (31.0-37.0) g/dL RDW 13.6 (11.5-15.5) % Plt Count 264 (150-450) k/uL Neutrophils % 64 % Lymphocytes % 22 % Monocytes % 8 % Eosinophils % 3 % Basophils % 1 % Neutrophils # 3.6 (1.3-7.7) k/uL Lymphocytes # 1.3 (1.0-4.8) k/uL Monocytes # 0.5 (0-1.0) k/uL Eosinophils # 0.2 (0-0.7) k/uL Basophils # 0.0 (0-0.2) k/uL PT (9.0-12.0) sec INR (<1.2) APTT (22.0-30.0) sec D-Dimer (<0.60) mg/L FEU Sodium 140 (137-145) mmol/L Potassium 4.4 (3.5-5.1) mmol/L Chloride 108 H (98-107) mmol/L Carbon Dioxide 25 (22-30) mmol/L Anion Gap 7 mmol/L BUN 12 (7-17) mg/dL Creatinine 0.57 (0.52-1.04) mg/dL Est GFR (CKD-EPI)AfAm >90 (>60 ml/min/1.73 sqM) Est GFR (CKD-EPI)NonAf >90 (>60 ml/min/1.73 sqM) Glucose 97 (74-99) mg/dL Calcium 9.4 (8.4-10.2) mg/dL Magnesium 2.1 (1.6-2.3) mg/dL Total Bilirubin 0.6 (0.2-1.3) mg/dL AST 58 H (14-36) U/L ALT 91 H (9-52) U/L Alkaline Phosphatase 70 (38-126) U/L Total Creatine Kinase 62 (30-135) U/L CK-MB (CK-2) 1.4 (0.0-2.4) ng/mL CK-MB (CK-2) Rel Index 2.3 Troponin I <0.012 (0.000-0.034) ng/mL NT-Pro-B Natriuret Pep pg/mL Total Protein 7.0 (6.3-8.2) g/dL Albumin 4.0 (3.5-5.0) g/dL 12/13/18 12/13/18 Range/Units 04:36 04:36 WBC (3.8-10.6) k/uL RBC (3.80-5.40) m/uL Hgb (11.4-16.0) gm/dL Hct (34.0-46.0) % MCV (80.0-100.0) fL MCH (25.0-35.0) pg MCHC (31.0-37.0) g/dL RDW (11.5-15.5) % Plt Count (150-450) k/uL Neutrophils % % Lymphocytes % % Monocytes % % Eosinophils % % Basophils % % Neutrophils # (1.3-7.7) k/uL Lymphocytes # (1.0-4.8) k/uL Monocytes # (0-1.0) k/uL Eosinophils # (0-0.7) k/uL Basophils # (0-0.2) k/uL PT 9.8 (9.0-12.0) sec INR 0.9 (<1.2) APTT 23.2 (22.0-30.0) sec D-Dimer 0.83 H (<0.60) mg/L FEU Sodium (137-145) mmol/L Potassium (3.5-5.1) mmol/L Chloride (98-107) mmol/L Carbon Dioxide (22-30) mmol/L Anion Gap mmol/L BUN (7-17) mg/dL Creatinine (0.52-1.04) mg/dL Est GFR (CKD-EPI)AfAm (>60 ml/min/1.73 sqM) Est GFR (CKD-EPI)NonAf (>60 ml/min/1.73 sqM) Glucose (74-99) mg/dL Calcium (8.4-10.2) mg/dL Magnesium (1.6-2.3) mg/dL Total Bilirubin (0.2-1.3) mg/dL AST (14-36) U/L ALT (9-52) U/L Alkaline Phosphatase (38-126) U/L Total Creatine Kinase (30-135) U/L CK-MB (CK-2) (0.0-2.4) ng/mL CK-MB (CK-2) Rel Index Troponin I (0.000-0.034) ng/mL NT-Pro-B Natriuret Pep 95 pg/mL Total Protein (6.3-8.2) g/dL Albumin (3.5-5.0) g/dL Disposition Clinical Impression: Episodic lightheadedness Disposition: HOME SELF-CARE Condition: Good Instructions (If sedation given, give patient instructions): Dizziness (ED) Is patient prescribed a controlled substance at d/c from ED?: No Referrals: Francois Rincon MD [Primary Care Provider] - 1-2 days
[2018-12-13 04:49] LABS: Basophils % (A) 1 %; Eosinophils # (A) 0.2 k/uL (0-0.7); Eosinophils % (A) 3 %; HCT 44.2 % (34.0-46.0); Lymphocytes # (A) 1.3 k/uL (1.0-4.8); Lymphocytes % (A) 22 %; MCH 28.5 pg (25.0-35.0); MCHC 32.2 g/dL (31.0-37.0); MCV 88.5 fL (80.0-100.0); Mean Platelet Volume 6.3; Monocytes # (A) 0.5 k/uL (0-1.0); Monocytes % (A) 8 %; Neutrophils # (A) 3.6 k/uL (1.3-7.7); Neutrophils % (A) 64 %; Platelet Count 264 k/uL (150-450); RDW 13.6 % (11.5-15.5); WBC 5.6 k/uL (3.8-10.6)
[2018-12-13 04:58] LABS: HGB 14.3 gm/dL (11.4-16.0)
--- NOTE | 2018-12-13 05:00 | XR ---
EXAM: XR Chest, 2 Views CLINICAL HISTORY: ITS.REASON XR Reason: Chest Pain TECHNIQUE: Frontal and lateral views of the chest. COMPARISON: No relevant prior studies available. FINDINGS: Lungs: Unremarkable. No consolidation. Pleural space: Unremarkable. No pneumothorax. Heart: Unremarkable. No cardiomegaly. Mediastinum: Unremarkable. Bones/joints: Degenerative changes of the spine. Vasculature: Ectatic thoracic aortic arch. IMPRESSION: No acute cardiopulmonary disease.
[2018-12-13 05:01] LABS: Anion Gap 7 mmol/L; Calcium 9.4 mg/dL (8.4-10.2); Carbon Dioxide 25 mmol/L (22-30); Chloride 108 mmol/L (98-107); Glucose 97 mg/dL (74-99); Sodium 140 mmol/L (137-145); Total Bilirubin 0.6 mg/dL (0.2-1.3)
[2018-12-13 05:02] LABS: INR 0.9 (<1.2); Partial Thromboplastin Time 23.2 sec (22.0-30.0); Prothrombin Time 9.8 sec (9.0-12.0)
[2018-12-13 05:05] LABS: D-Dimer 0.83 mg/L FEU (<0.60)
[2018-12-13 05:11] LABS: Creatine Kinase 62 U/L (30-135)
[2018-12-13 05:14] LABS: ALT 91 U/L (9-52); AST 58 U/L (14-36); Alkaline Phosphatase 70 U/L (38-126); Blood Urea Nitrogen 12 mg/dL (7-17); Magnesium 2.1 mg/dL (1.6-2.3)
[2018-12-13 05:15] LABS: Potassium 4.4 mmol/L (3.5-5.1)
[2018-12-13 05:24] LABS: Creatine Kinase MB 1.4 ng/mL (0.0-2.4); Troponin I <0.012 ng/mL (0.000-0.034)
--- NOTE | 2018-12-13 06:05 | CT ---
EXAM: CT Angiography Chest With Intravenous Contrast CLINICAL HISTORY: ITS.REASON CT Reason: Pain TECHNIQUE: Axial computed tomographic angiography images of the chest with intravenous contrast using pulmonary embolism protocol. CTDI is 9.2 mGy and DLP is 331.60 mGy-cm. This CT exam was performed using one or more of the following dose reduction techniques: automated exposure control, adjustment of the mA and/or kV according to patient size, and/or use of iterative reconstruction technique. MIP reconstructed images were created and reviewed. COMPARISON: Chest radiography 12/13/[address] abdomen pelvis 09/23/18. FINDINGS: Pulmonary arteries: Unremarkable. No pulmonary embolism. Aorta: No acute findings. No thoracic aortic aneurysm. Lungs: Unremarkable. No mass. No consolidation. Pleural space: Unremarkable. No significant effusion. No pneumothorax. Heart: Unremarkable. No cardiomegaly. No significant pericardial effusion. No evidence of RV dysfunction. Bones/joints: No acute fracture. No dislocation. Soft tissues: Right paramidline small umbilical region hernia which contains fat. Lymph nodes: Unremarkable. No enlarged lymph nodes. IMPRESSION: No PE or other acute cardiopulmonary disease.
[2018-12-13] MEDS ORDERED: SODIUM CHLORIDE 0.9% 1,000 ML IV ONE (06:08)
[2018-12-13 06:51] VITALS: BP 133/55; PULSE 65; RESP 19
== END 2018-12-13 07:15 | disposition home or self-care (01) ==
LOC: EC 04:13
DX: R42 Dizziness and giddiness (principal); R53.1 Weakness; R79.89 Other specified abnormal findings of blood chemistry; Z88.1 Allergy status to other antibiotic agents; Z87.891 Personal history of nicotine dependence; Z85.41 Personal history of malignant neoplasm of cervix uteri; Z90.89 Acquired absence of other organs
CPT/HCPCS: 36415; 93005; 85379; 83880; 80053; 82550; 82553; 83735; 84484; 85025; 85610; 85730; 71046; 71275; 99284; 96360; 96361; Q9967

== ENCOUNTER → 2018-12-25 | Outpatient (CLI) | payer MEDICARE | LOC: LABPAT 11:52 | PROVIDERS: ATTEND Surgery | DX: Z01.812 Encounter for preprocedural laboratory examination (principal) | CPT/HCPCS: 36415; 86850; 86870; 86880; 86900; 86901; 86902 ==

== ENCOUNTER 2019-11-04 08:02 | Day surgery (SDC) | payer MEDICARE ==
[2019-10-29 17:43] VITALS: BMI 29.4
[~2019-11-04 08:02] MED LIST changes: -DEXAMETHASONE SOD PHOSPHATE 10 MG/ML 1 ML VIAL IV ONE; -HEPARIN SODIUM,PORCINE 5,000 UNIT/ML 1 ML VIAL SQ ONE; +LACTATED RINGERS 1,000 ML IV SCH; -MIDAZOLAM (PF) 2 MG/2 ML VIAL IV PRN; -ceFAZolin IN SWFI 2 GM/20 ML SYRINGE IVP ONE; -fentaNYL (PF) 50 MCG/ML 2 ML AMP IV PRN; -fentaNYL (PF) 50 MCG/ML 2 ML AMP IVP PRN; -metroNIDAZOLE-NS PMX 500 MG in SALINE 1 100ML.BAG IVPB ONE
[2019-11-04 08:16] VITALS: TEMP 98.8
[2019-11-04] MEDS ORDERED: LIDOCAINE 1% INJ 10MG/ML (20 ML MDV) ONE (08:58)
[2019-11-04] MEDS ORDERED: PROPOFOL 10 MG/ML 20 ML VIAL IV ONE (08:58)
--- NOTE | 2019-11-04 09:05 | P.GSHP ---
History of Present Illness H&P Date: 11/04/19 Chief Complaint: History of colon cancer This a 69-year-old female been safe for colonoscopy. Patient appears history of colon cancer. She's had a previous low anterior resection. Past Medical History Past Medical History: Cancer, GERD/Reflux, Osteoarthritis (OA) Additional Past Medical History / Comment(s): Hx Cervical cancer in the ; Varicose Veins, rectal cancer 2018, finished chemo 06-05-19 History of Any Multi-Drug Resistant Organisms: None Reported Past Surgical History: Adenoidectomy, Appendectomy, Bowel Resection, Hernia Repair, Tonsillectomy Additional Past Surgical History / Comment(s): EGD,colonoscopy, ileostomy 11/07/18, hiatal hernia repair, reversal ileostomy December 2018 Past Anesthesia/Blood Transfusion Reactions: No Reported Reaction Additional Past Anesthesia/Blood Transfusion Reaction / Comment(s): WOKE UP DURING COLONOSCOPY Smoking Status: Former smoker - Past Family History Mother Family Medical History: AFIB, Hypertension Additional Family Medical History / Comment(s): Memory impairment Father Additional Family Medical History / Comment(s): from blood disorder Medications and Allergies Home Medications Medication Instructions Recorded Confirmed Type Ranitidine HCl [Zantac] 150 mg PO BID #20 tab 05/03/16 11/04/19 Rx Allergies Allergy/AdvReac Type Severity Reaction Status Date / Time ciprofloxacin [From Cipro] Allergy Rash/Hives Verified 10/29/19 17:41 ciprofloxacin HCl Allergy Rash/Hives Verified 10/29/19 17:41 [From Cipro] Surgical - Exam Vital Signs Temp Pulse Resp BP Pulse Ox 98.8 F 93 16 134/65 99 11/04/19 08:15 11/04/19 08:15 11/04/19 08:15 11/04/19 08:15 11/04/19 08:15 - General well developed, well nourished, no distress - Eyes PERRL - ENT normal pinna - Neck no masses - Respiratory normal expansion - Cardiovascular Rhythm: regular - Abdomen Abdomen: soft, non tender Assessment and Plan Assessment: History ON Cancer. We'll perform colonoscopy.
--- NOTE | 2019-11-04 09:16 | P.OP ---
Date of Procedure: 11/04/19 Preoperative Diagnosis: History of rectal cancer Postoperative Diagnosis: Anastomotic stricture No evidence of recurrent cancer Procedure(s) Performed: Colonoscopy Anesthesia: MAC Surgeon: Ajay Samuels Pathology: other (Rectal anastomosis) Condition: stable Disposition: PACU Description of Procedure: The patient's placed on the endoscopy table in the lateral position. She received IV sedation. The digital rectal exam was performed. This revealed an anastomotic stricture. At this point the colonoscope was switched to the pediatric colonoscope. The colonoscope was then placed patient anus and passed throughout the entire colon. Ileocecal valve lesions. The cecum, ascending and transverse colon appeared normal. In the descending colon was a few scattered diverticula. Scope was then brought back into the rectum. There was a slight stricture of the anastomosis. Scope was easily passed through this there was a area of some granulation tissue at the anastomosis there is biopsied. Scope was withdrawn for patient.
[2019-11-04 09:43] VITALS: BP 112/68; PULSE 70; RESP 18
== END 2019-11-04 10:03 | disposition home or self-care (01) ==
LOC: OR 08:02 → EDSTATUS 08:30 → UNDODISIN 10:03 → OR 10:03
PROVIDERS: ATTEND Surgery
DX: K91.858 Other complications of intestinal pouch (principal); K62.4 Stenosis of anus and rectum; K62.6 Ulcer of anus and rectum; K62.89 Other specified diseases of anus and rectum; Z85.048 Personal history of other malignant neoplasm of rectum, rectosigmoid junction, and anus; I83.90 Asymptomatic varicose veins of unspecified lower extremity; K21.9 Gastro-esophageal reflux disease without esophagitis; M19.90 Unspecified osteoarthritis, unspecified site; Z85.41 Personal history of malignant neoplasm of cervix uteri; Z92.21 Personal history of antineoplastic chemotherapy; Z90.49 Acquired absence of other specified parts of digestive tract; Z90.89 Acquired absence of other organs; Z98.890 Other specified postprocedural states; Z87.891 Personal history of nicotine dependence; Z79.899 Other long term (current) drug therapy; Z88.1 Allergy status to other antibiotic agents; Z87.19 Personal history of other diseases of the digestive system; Z82.49 Family history of ischemic heart disease and other diseases of the circulatory system; Z82.0 Family history of epilepsy and other diseases of the nervous system
CPT/HCPCS: 88305; 45380; J2001; J2704

== ENCOUNTER 2020-12-08 07:53 | Day surgery (SDC) | payer MEDICARE ==
[2020-12-05 16:00] VITALS: BMI 29.6
[~2020-12-08 07:53] MED LIST changes: -LIDOCAINE 1% 20 ML VIAL (10MG/ML) FOR IV START INTRADERMA PRN
[2020-12-08 08:51] VITALS: RESP 16; TEMP 98.1
[2020-12-08] MEDS ORDERED: LIDOCAINE 1% (10MG/ML) FOR IV START INTRADERMA ONE (08:57)
[2020-12-08] MEDS ORDERED: PROPOFOL 10 MG/ML 20 ML VIAL IV ONE (09:12)
--- NOTE | 2020-12-08 09:15 | P.GSHP ---
History of Present Illness H&P Date: 12/08/20 Chief Complaint: History of colon cancer This a 62-year-old female with previous history of colon cancer. Patient presents today for colonoscopy. She denies a significant GI complaints. Past Medical History Past Medical History: Cancer, GERD/Reflux, Osteoarthritis (OA) Additional Past Medical History / Comment(s): Hx Cervical cancer in the ; Varicose Veins, rectal cancer 2018, finished chemo 06-05-19 History of Any Multi-Drug Resistant Organisms: None Reported Past Surgical History: Adenoidectomy, Appendectomy, Bowel Resection, Hernia Repair, Tonsillectomy Additional Past Surgical History / Comment(s): EGD,colonoscopy, ileostomy 11/07/18, hiatal hernia repair, reversal ileostomy December 2018 Past Anesthesia/Blood Transfusion Reactions: Previous Problems w/ Anesthesia Additional Past Anesthesia/Blood Transfusion Reaction / Comment(s): WOKE UP DURING COLONOSCOPY Smoking Status: Former smoker - Past Family History Mother Family Medical History: AFIB, Hypertension Additional Family Medical History / Comment(s): Memory impairment Father Additional Family Medical History / Comment(s): from blood disorder Medications and Allergies Home Medications Medication Instructions Recorded Confirmed Type Aspirin [Adult Low Dose Aspirin EC] 81 mg PO DAILY 12/05/20 12/08/20 History Multivitamins, Thera [Multivitamin 1 tab PO DAILY 12/05/20 12/08/20 History (formulary)] Allergies Allergy/AdvReac Type Severity Reaction Status Date / Time ciprofloxacin [From Cipro] Allergy Rash/Hives Verified 12/08/20 08:44 ciprofloxacin HCl Allergy Rash/Hives Verified 12/08/20 08:44 [From Cipro] Surgical - Exam Vital Signs Temp Pulse Resp BP Pulse Ox 98.1 F 102 H 16 158/83 99 12/08/20 08:49 12/08/20 08:49 12/08/20 08:49 12/08/20 08:49 12/08/20 08:49 - General well developed, well nourished, no distress - Eyes PERRL - ENT normal pinna - Neck no masses - Respiratory normal expansion - Cardiovascular Rhythm: regular - Abdomen Abdomen: soft, non tender Assessment and Plan Plan: History of colon cancer. We'll perform colonoscopy.
--- NOTE | 2020-12-08 09:32 | P.OP ---
Date of Procedure: 12/08/20 Preoperative Diagnosis: History of rectal cancer Postoperative Diagnosis: Anastomotic stricture Right colon biopsy Procedure(s) Performed: Colonoscopy Anesthesia: MAC Surgeon: Ajay Samuels Pathology: other (Right colon polyp, rectal biopsy) Condition: stable Disposition: PACU Description of Procedure: The patient's placed on the endoscopy table in the lateral position. She received IV sedation. Digital rectal exam was performed. The anastomosis could be palpated with the digital exam. There appeared to be evidence of stricture. The colonoscope was then substituted for pediatric colonoscope. The flexible scope was then placed patient anus and passed throughout the entire colon. The ileocecal valve was visualized. Scope was withdrawn. In the right colon there was a polyp seen this removed with the snare. The remainder the ascending colon transverse colon descending colon appeared normal. The colorectal anastomosis visualized. There is evidence of scarring. A biopsy of the area performed. There was some minor bleeding seen. The distal rectum was examined this appeared normal. Scope was withdrawn for patient.
[2020-12-08 09:49] VITALS: BP 117/78; PULSE 73
== END 2020-12-08 10:03 | disposition home or self-care (01) ==
LOC: ORWHC2ENDO 07:53
PROVIDERS: ATTEND Surgery
DX: Z12.11 Encounter for screening for malignant neoplasm of colon (principal); D12.2 Benign neoplasm of ascending colon; C20 Malignant neoplasm of rectum; Z98.0 Intestinal bypass and anastomosis status; K21.9 Gastro-esophageal reflux disease without esophagitis; M19.90 Unspecified osteoarthritis, unspecified site; Z85.41 Personal history of malignant neoplasm of cervix uteri; I83.90 Asymptomatic varicose veins of unspecified lower extremity; Z85.048 Personal history of other malignant neoplasm of rectum, rectosigmoid junction, and anus; Z90.89 Acquired absence of other organs; Z90.49 Acquired absence of other specified parts of digestive tract; Z98.890 Other specified postprocedural states; Z87.891 Personal history of nicotine dependence; Z82.49 Family history of ischemic heart disease and other diseases of the circulatory system; Z83.2 Family history of diseases of the blood and blood-forming organs and certain disorders involving the immune mechanism; Z81.8 Family history of other mental and behavioral disorders; Z79.82 Long term (current) use of aspirin; Z88.1 Allergy status to other antibiotic agents
CPT/HCPCS: 88305; 45380; 45385; J2704

== ENCOUNTER 2021-02-22 10:28 | Day surgery (SDC) | payer MEDICARE ==
[2021-02-20 13:34] VITALS: BMI 31.1
[~2021-02-22 10:28] MED LIST changes: +ACETAMINOPHEN TAB 500 MG TAB PO PRN; +HEPARIN SODIUM,PORCINE/PF 5,000 UNIT/0.5 ML SYRINGE SQ PRN; +HYDROmorphone 0.5 MG/0.5 ML SYRINGE IVP PRN; +LIDOCAINE 1% (10MG/ML) FOR IV START INTRADERMA PRN; +MIDAZOLAM 2 MG/2 ML VIAL IV PRN; +Pre Op ABX Message 1 EACH MISC MISCELLANE ONE
[2021-02-22 10:43] VITALS: TEMP 97.8
[2021-02-22] MEDS ORDERED: LACTATED RINGERS 1,000 ML IV ONE (10:43)
[2021-02-22] MEDS ORDERED: ONDANSETRON 4 MG/2 ML VIAL IVP ONE (10:51)
--- NOTE | 2021-02-22 12:26 | P.GSHP ---
History of Present Illness H&P Date: 02/22/21 Chief Complaint: History of rectal cancer This is a 62-year-old female. His rectal cancer. Patient rents today for Port-A-Cath insertion. Past Medical History Past Medical History: Cancer, GERD/Reflux, Osteoarthritis (OA) Additional Past Medical History / Comment(s): Hx Cervical cancer in the , varicose Veins, hx rectal cancer 2018, finished chemo 06-05-19, recent recurrance of rectal cancer. History of Any Multi-Drug Resistant Organisms: None Reported Past Surgical History: Adenoidectomy, Appendectomy, Bowel Resection, Hernia Repair, Tonsillectomy Additional Past Surgical History / Comment(s): EGD, colonoscopies, ileostomy, hiatal hernia repair, reversal of ileostomy. Past Anesthesia/Blood Transfusion Reactions: Previous Problems w/ Anesthesia Additional Past Anesthesia/Blood Transfusion Reaction / Comment(s): WOKE UP DURING COLONOSCOPY X1. Past Psychological History: No Psychological Hx Reported Smoking Status: Former smoker Past Alcohol Use History: None Reported Additional Past Alcohol Use History / Comment(s): Quit smoking in 1973, smoked < 1 pack/week, for 4 yrs. Past Drug Use History: None Reported - Past Family History Mother Family Medical History: AFIB, Hypertension, Memory Impairment Additional Family Medical History / Comment(s): Memory impairment Father Family Medical History: Cancer Additional Family Medical History / Comment(s): " from blood cancer." Medications and Allergies Home Medications Medication Instructions Recorded Confirmed Type Aspirin [Adult Low Dose Aspirin EC] 81 mg PO DAILY 12/05/20 02/20/21 History Multivitamins, Thera [Multivitamin 1 tab PO DAILY 12/05/20 02/20/21 History (formulary)] Allergies Allergy/AdvReac Type Severity Reaction Status Date / Time ciprofloxacin [From Cipro] Allergy Rash/Hives Verified 02/20/21 13:23 ciprofloxacin HCl Allergy Rash/Hives Verified 02/20/21 13:23 [From Cipro] Surgical - Exam Vital Signs Temp Pulse Resp BP Pulse Ox 97.8 F 79 18 163/90 99 02/22/21 10:42 02/22/21 10:42 02/22/21 10:42 02/22/21 10:42 02/22/21 10:42 - General well developed, well nourished, no distress - Eyes PERRL - ENT normal pinna - Neck no masses - Respiratory normal expansion - Cardiovascular Rhythm: regular - Abdomen Abdomen: soft, non tender Assessment and Plan Assessment: History of rectal cancer. We'll perform Port-A-Cath insertion.
[2021-02-22] MEDS ORDERED: MIDAZOLAM 2 MG/2 ML VIAL ONE (13:07)
[2021-02-22] MEDS ORDERED: PROPOFOL 10 MG/ML 20 ML VIAL IV ONE (13:07)
[2021-02-22] MEDS ORDERED: fentaNYL (PF) 50 MCG/ML 2 ML AMP ONE (13:07)
[2021-02-22] MEDS ORDERED: KETAMINE 10 MG/ML 20 ML VIAL ONE (13:07)
[2021-02-22] MEDS ORDERED: SODIUM CHLORIDE 0.9% 50 ML with ceFAZolin 2,000 MG IV ONE ×2 (13:11)
[2021-02-22] MEDS ORDERED: BUPIVACAINE (PF) 0.5% 30 ML VIAL SQ ONE (13:26)
[2021-02-22] MEDS ORDERED: HEPARIN SODIUM,PORCINE 100 UNIT/ML 5 ML VIAL IV ONE (13:27)
--- NOTE | 2021-02-22 13:57 | P.OP ---
Date of Procedure: 02/22/21 Preoperative Diagnosis: History of rectal cancer Postoperative Diagnosis: History of rectal cancer Procedure(s) Performed: Right subclavian Mediport Anesthesia: MAC Surgeon: Ajay Samuels Pathology: none sent Condition: stable Disposition: PACU Description of Procedure: MThe patient was placed on the operating table in the supine position. The patient received IV sedation. The patient's chest was prepped and draped in the usual sterile fashion. A roll had been placed between the shoulder blades in a longitudinal fashion. After prepping and draping the skin was anesthetized 1% local Xylocaine. And then using the Seldinger technique the subclavian vein was cannulated. A wire was placed into the vein and fluoroscopy position the wire at the atrial caval junction. Next the dilator sheath was placed over top the wire and the wire was withdrawn. The catheter was positioned at the atriocaval position. The catheter was placed through the sheath after the dilator was withdrawn. The sheath was then withdrawn. Position of the catheter was confirmed with fluoroscopy. The Port-A-Cath was connected to the catheter. The Port-A-Cath was flushed with saline and then heparinized saline. The skin was closed interrupted 3-0 Monocryl suture. Dermabond was applied. Patient tolerated procedure well and was sent to recovery room stable condition.
[2021-02-22 14:01] VITALS: RESP 16
--- NOTE | 2021-02-22 14:04 | FL ---
EXAMINATION TYPE: FL guided central line placemt DATE OF EXAM: 02/22/2021 CLINICAL HISTORY: Port-A-Cath insertion. TECHNIQUE: Fluoroscopy. COMPARISON: None. FINDINGS: Fluoroscopic guidance was provided during procedure Port-A-Cath insertion performed by Dr. Samuels. A total of 5 seconds of fluoroscopic time was utilized during the procedure and 0 spot im ages saved to PACS. IMPRESSION: As Above.
--- NOTE | 2021-02-22 14:29 | XR ---
EXAMINATION TYPE: XR chest 1V portable DATE OF EXAM: 02/22/2021 COMPARISON: NONE HISTORY: Line placement TECHNIQUE: Single frontal view of the chest is obtained. FINDINGS: Right-sided Mediport catheter seen with the tip overlying the SVC. No sizable pneumothorax . Heart size normal. Hypertrophic and degenerative change of the spine. Atherosclerotic change aorta. No overt failure. No consolidation. IMPRESSION: Right-sided Mediport seen with the tip overlying the SVC and no pneumothorax.
[2021-02-22 14:45] VITALS: BP 114/77; PULSE 65
== END 2021-02-22 15:20 | disposition home or self-care (01) ==
LOC: OR 10:28
PROVIDERS: ATTEND Surgery
DX: C20 Malignant neoplasm of rectum (principal); M19.90 Unspecified osteoarthritis, unspecified site; K21.9 Gastro-esophageal reflux disease without esophagitis; I83.90 Asymptomatic varicose veins of unspecified lower extremity; Z86.19 Personal history of other infectious and parasitic diseases; Z87.891 Personal history of nicotine dependence; Z85.41 Personal history of malignant neoplasm of cervix uteri; Z92.21 Personal history of antineoplastic chemotherapy; Z98.890 Other specified postprocedural states; Z90.89 Acquired absence of other organs; Z80.9 Family history of malignant neoplasm, unspecified; Z90.49 Acquired absence of other specified parts of digestive tract; Z82.49 Family history of ischemic heart disease and other diseases of the circulatory system; Z80.8 Family history of malignant neoplasm of other organs or systems; Z79.82 Long term (current) use of aspirin; Z88.1 Allergy status to other antibiotic agents
CPT/HCPCS: 77001; 71045; 36561; C1788; J2250; J1642; J2405; J0690; J3010; J2704; J1644

== ENCOUNTER → 2021-11-02 | Outpatient (CLI) | payer OTHER ==
--- NOTE | 2021-11-06 13:19 | MM ---
Reason for exam: screening (asymptomatic). Last mammogram was performed 2 years and 7 months ago. History: Patient is postmenopausal and has history of other cancer at age 71. Physical Findings: A clinical breast exam by your physician is recommended on an annual basis and results should be correlated with mammographic findings. MG 3D Screening Mammo W/Cad Bilateral CC, MLO, and XCCL view(s) were taken. Prior study comparison: March 24, 2019, mammogram. September 23, 2013, mammogram. There are scattered fibroglandular densities. No significant changes when compared with prior studies. ASSESSMENT: Benign, BI-RAD 2 RECOMMENDATION: Routine screening mammogram of both breasts in 1 year.
== END | disposition home or self-care (01) ==
LOC: RADMAMWWP 13:10
DX: Z12.31 Encounter for screening mammogram for malignant neoplasm of breast (principal); Z78.0 Asymptomatic menopausal state
CPT/HCPCS: 77063; 77067

== ENCOUNTER → 2022-01-26 | Outpatient (CLI) | payer MEDICARE ==
--- NOTE | 2022-01-27 11:46 | PE ---
EXAMINATION TYPE: PET CT fusion skull to thigh DATE OF EXAM: 01/26/2022 COMPARISON: Outside whole-body CT April 07, 2021 HISTORY: Colorectal cancer had surgical excision September 2021 completed radiation treatment July and chemotherapy in May 2021. TECHNIQUE: Following the intravenous administration of 9.78 mCi of F-18 FDG, whole body images are p erformed from the skull base to the midthigh. Images are reviewed on the computer in the coronal, ax ial, and sagittal planes. Reconstructed rotating images are created on independent workstation and r eviewed on the computer. A localization and attenuation correction CT is performed in conjunction w ith the PET scan. Blood glucose level equals 127. SCAN: Initial Scan FINDINGS: SKULL BASE AND NECK: Cervical paraspinal muscle mild hypermetabolic uptake possible inflammatory dov ology. Prominent uptake at the level of the anterior tongue extending to left of midline. Max SUV is 13.69 CHEST, MEDIASTINUM, AND HILAR REGION: Mild hypermetabolic uptake left thoracic and proximal upper ext remity muscles presumed inflammatory. No additional abnormal hypermetabolic uptake. ABDOMEN AND PELVIS: New right-sided ostomy. New surgical change to the sigmoid rectal colon. Persiste nt central thin-walled fluid collection with nondependent air. Some increased hypermetabolic uptake a long the periphery. For example max SUV left aspect is 5.49 on axial image 189 and max SUV inferior t o this right aspect is 6.29 on axial image 195. Abnormal soft tissue presacral space does not show si gnificant increased hypermetabolic uptake. Nonspecific right pelvic mild hypermetabolic uptake in muscle presumed inflammatory. OSSEOUS STRUCTURES: No areas of abnormal hypermetabolic uptake. OTHER CT: Stable right subclavian Mediport catheter. Mild to moderate coronary artery calcification i n the LAD distribution is redemonstrated. Prominent facet arthropathy in the lower lumbar spine. Sclerosis and trabeculation the sacrum could r eflect post radiation treatment changes. IMPRESSION: Suboptimal study due to muscular uptake. Postsurgical changes to the pelvis with thin-wal led fluid collection in the presacral space containing nondependent air and rim hypermetabolic uptake is concerning for infectious process or developing abscess. Correlate clinically. Abnormal uptake at anterior tongue base is presumed some sort of artifact but should be correlated with direct physical examination. No convincing evidence of residual or new metastatic malignancy.
== END | disposition home or self-care (01) ==
LOC: RADPETMAIN 14:43
PROVIDERS: ATTEND Internal Medicine Hematology & Oncology
DX: C20 Malignant neoplasm of rectum (principal)
CPT/HCPCS: 78815; A9552

== ENCOUNTER 2022-02-06 22:05 | Inpatient (IN) | payer MEDICARE ==
[2022-02-06] MEDS ORDERED: SODIUM CHLORIDE 0.9% 500 ML 500 ML IV STA ×2 (22:11→23:38)
[2022-02-06 22:28] LABS: ABG Base Excess -8.2 mmol/L; ABG HCO3 15 mmol/L (21-25); ABG Oxygen Saturation 99.7 % (94-97); ABG PCO2 20 mmHg (35-45); ABG PH 7.48 (7.35-7.45); ABG PO2 329 mmHg (83-108); ABG TCO2 16 mmol/L (19-24); Allen Test Performed? Yes
[2022-02-06 22:35] LABS: Anisocytosis Slight; Basophils % (A) 0 %; Eosinophils % (A) 0 %; HCT 35.9 % (34.0-46.0); HGB 12.3 gm/dL (11.4-16.0); Lymphocytes # (A) 0.2 k/uL (1.0-4.8); Lymphocytes % (A) 1 %; MCHC 34.4 g/dL (31.0-37.0); MCV 90.2 fL (80.0-100.0); Mean Platelet Volume 9.8; Monocytes # (A) 0.3 k/uL (0-1.0); Monocytes % (A) 2 %; Neutrophils # (A) 17.5 k/uL (1.3-7.7); Neutrophils % (A) 96 %; RBC 3.98 m/uL (3.80-5.40); RDW 17.3 % (11.5-15.5); WBC 18.2 k/uL (3.8-10.6)
[2022-02-06 22:40] LABS: Albumin 3.7 g/dL (3.5-5.0); Calcium 8.8 mg/dL (8.4-10.2); Magnesium 2.2 mg/dL (1.6-2.3); Potassium 5.3 mmol/L (3.5-5.1); Total Bilirubin 0.5 mg/dL (0.2-1.3); Total Protein 6.5 g/dL (6.3-8.2)
--- NOTE | 2022-02-06 22:40 | XR ---
EXAMINATION TYPE: XR chest 1V portable DATE OF EXAM: 02/06/2022 COMPARISON: 02/22/2021 HISTORY: Short of breath TECHNIQUE: Single view FINDINGS: Heart is normal. Lungs are clear of infiltrate. There is no heart failure. There are no hil ar masses. There are chest leads. There is right-sided central venous catheter with the tip in the landis perior vena cava. IMPRESSION: No active cardiopulmonary disease. No change.
[2022-02-06 22:46] LABS: Prothrombin Time 10.6 sec (9.0-12.0)
[2022-02-06 22:55] LABS: Partial Thromboplastin Time 18.8 sec (22.0-30.0)
[2022-02-06 23:18] LABS: Anisocytosis (M) Present; Large Platelets Present; Poikilocytosis (M) Present
[2022-02-06 23:20] LABS: Platelet Count 49 k/uL (150-450)
[2022-02-06] MEDS ORDERED: SODIUM CHLORIDE 0.9% 1,000 ML IV STA (23:38)
--- NOTE | 2022-02-06 23:40 | ED ---
SOB HPI - General Chief Complaint: Shortness of Breath Stated Complaint: REBEKAH Time Seen by Provider: 02/06/22 22:11 Source: EMS Mode of arrival: EMS Limitations: altered mental status - History of Present Illness Initial Comments: This patient is a 71-year-old woman who is transferred to the emergency department by EMS. They state they were called to the patient's home as she was having low blood pressure. On arrival, the patient is not able to give much history. She does not know why family called EMS. When I question her she states she is short of breath but feels better since being placed on oxygen by EMS. She states she has some chronic pains otherwise not able to provide much additional history. - Related Data Home Medications Medication Instructions Recorded Confirmed No Known Home Medications 02/06/22 02/06/22 Allergies Allergy/AdvReac Type Severity Reaction Status Date / Time ciprofloxacin [From Cipro] Allergy Rash/Hives Verified 02/06/22 23:00 ciprofloxacin HCl Allergy Rash/Hives Verified 02/06/22 23:00 [From Cipro] Review of Systems ROS Statement: Those systems with pertinent positive or pertinent negative responses have been documented in the HPI. ROS Other: All systems not noted in ROS Statement are negative. Limitations: ROS unobtainable due to patients medical condition Past Medical History Past Medical History: Cancer, GERD/Reflux, Osteoarthritis (OA) Additional Past Medical History / Comment(s): Hx Cervical cancer in the s, varicose Veins, hx rectal cancer 2018, finished chemo 06-05-19, recent recurrance of rectal cancer. History of Any Multi-Drug Resistant Organisms: None Reported Past Surgical History: Adenoidectomy, Appendectomy, Bowel Resection, Hernia Repair, Tonsillectomy Additional Past Surgical History / Comment(s): EGD, colonoscopies, ileostomy, hiatal hernia repair, reversal of ileostomy. Past Anesthesia/Blood Transfusion Reactions: Previous Problems w/ Anesthesia Additional Past Anesthesia/Blood Transfusion Reaction / Comment(s): WOKE UP DURING COLONOSCOPY X1. Past Psychological History: No Psychological Hx Reported Smoking Status: Former smoker - Past Family History Mother Family Medical History: AFIB, Hypertension, Memory Impairment Additional Family Medical History / Comment(s): Memory impairment Father Family Medical History: Cancer Additional Family Medical History / Comment(s): " from blood cancer." General Exam Limitations: no limitations General appearance: anxious, obtunded, in distress, cachectic Head exam: Present: atraumatic, normocephalic Eye exam: Present: normal appearance, PERRL, EOMI. Absent: scleral icterus, conjunctival injection ENT exam: Present: mucous membranes dry Neck exam: Present: full ROM. Absent: tenderness Respiratory exam: Present: respiratory distress, rhonchi, accessory muscle use. Absent: wheezes, rales, stridor Cardiovascular Exam: Present: normal rhythm, tachycardia, normal heart sounds. Absent: systolic murmur, diastolic murmur, rubs, gallop GI/Abdominal exam: Present: soft, other (Right-sided ileostomy). Absent: distended, tenderness, guarding, rebound, rigid, mass Extremities exam: Present: normal inspection, normal capillary refill. Absent: pedal edema, calf tenderness Back exam: Present: other (There is an approximately 6 cm diameter roughly circular eschar overlying decubitus ulcer on the sacrum. There does not appear to be any secondary infection. No erythema or warmth or drainage). Absent: CVA tenderness (R), CVA tenderness (L), paraspinal tenderness, vertebral tenderness Neurological exam: Present: altered, CN II-XII intact. Absent: oriented X3, motor sensory deficit Skin exam: Present: warm, dry, mottled. Absent: intact (Sacral decubitus ulcer as above), rash Course Vital Signs 02/06/22 02/06/22 02/07/22 22:06 23:21 00:00 Temperature 98.0 F Pulse Rate 120 H 108 H 102 H Respiratory 24 18 18 Rate Blood Pressure 126/102 85/63 96/65 O2 Sat by Pulse 99 100 100 Oximetry 02/07/22 02/07/22 02/07/22 02:00 03:00 04:00 Temperature Pulse Rate 96 99 Respiratory 20 20 Rate Blood Pressure 82/62 88/56 94/58 O2 Sat by Pulse 98 98 Oximetry 02/07/22 02/07/22 02/07/22 04:28 06:00 06:15 Temperature Pulse Rate 114 H Respiratory 20 20 Rate Blood Pressure 73/54 70/51 O2 Sat by Pulse 98 99 Oximetry 02/07/22 02/07/22 02/07/22 06:47 07:00 07:30 Temperature Pulse Rate 102 H 97 Respiratory 16 18 Rate Blood Pressure 81/53 78/51 64/49 O2 Sat by Pulse 99 98 95 Oximetry 02/07/22 02/07/22 02/07/22 07:45 08:45 09:00 Temperature 94.4 F L Pulse Rate 102 H 107 H Respiratory 25 H 19 Rate Blood Pressure 84/26 84/49 88/45 O2 Sat by Pulse 95 98 Oximetry Procedures - Central Line Placement Right Femoral Consent Obtained: verbal consent Patient Placed on Monitor/Pulse Ox: Yes MD Prep: mask, gown, gloves Central Line Prep: Chlorhexidine scrub Local Anesthesia Used: Lidocaine 1% Central Line Lumen Inserted: triple Bloods Obtained for Lab: Yes Central Line Position: good blood return, all ports aspirated, flushed, capped, sutured in place with 2-0 silk Dressing Applied: Tegaderm Patient Tolerated Procedure: well Complications: none - Sepsis Sepsis Focused Exam #1 Sepsis Focused Exam Date: 02/07/22 Sepsis Focused Exam Time: 04:00 Sepsis Focused Exam Complete: Yes Vital Signs & RN Notes Reviewed: Yes Capillary Refill: < 2 Seconds: Fingers Peripheral Pulses: Normal: Radial (R) Skin Color: Flushed Respiratory Exam: rhonchi Cardiovascular Exam: regular rate, normal rhythm Medical Decision Making - Medical Decision Making This patient is a 71-year-old woman brought by ambulance after she had possible episode of hematemesis. The patient is severely cachectic and very dehydrated by exam. Family has arrived and provided additional history that the patient is basically not taking anything by mouth for 4-5 days now. Family is not able to further clarify her history of recurrent cancer stage her treatment. I discussed with them that the patient is severely, critically ill and they state that at this point she is a full code. They would like her to be admitted here in town rather than transferred to . The patient following fluids and oxygen is more alert and does not want to be transferred either at this moment. Patient once alert is only complaining of pain to the low back basically where her sacral decubitus ulcer is. Family reports that the patient is taking an antibiotic for this but they do not know which one it is and they state that she has taken so far 8 of the 10 doses that she was prescribed. The patient had multiple liters fluid bolus. She was intermittently hypotensive and then was hypotensive following the bolus therefore after discussion with family pressors are started. Case also discussed with the sap analyst, Dr. Rodriguez and with regarding the apparent bowel obstruction. Central line is placed to facilitate fluids, antibiotics, pressors after discussion with family regarding risks and benefits. - Lab Data Result diagrams: 02/10/22 04:05 02/10/22 04:05 Lab Results 02/06/22 02/06/22 02/06/22 Range/Units 22:18 22:20 22:20 WBC 18.2 H (3.8-10.6) k/uL RBC 3.98 (3.80-5.40) m/uL Hgb 12.3 (11.4-16.0) gm/dL Hct 35.9 (34.0-46.0) % MCV 90.2 (80.0-100.0) fL MCH 31.0 (25.0-35.0) pg MCHC 34.4 (31.0-37.0) g/dL RDW 17.3 H (11.5-15.5) % Plt Count 49 L (150-450) k/uL MPV 9.8 Neutrophils % 96 % Lymphocytes % 1 % Monocytes % 2 % Eosinophils % 0 % Basophils % 0 % Neutrophils # 17.5 H (1.3-7.7) k/uL Lymphocytes # 0.2 L (1.0-4.8) k/uL Monocytes # 0.3 (0-1.0) k/uL Eosinophils # 0.0 (0-0.7) k/uL Basophils # 0.0 (0-0.2) k/uL Manual Slide Review Performed Large Platelets Present Poikilocytosis (manual Present Anisocytosis Slight Anisocytosis (manual) Present PT 10.6 (9.0-12.0) sec INR 1.0 (<1.2) APTT 18.8 L (22.0-30.0) sec Sample Site rbrac ABG pH 7.48 H (7.35-7.45) ABG pCO2 20 L (35-45) mmHg ABG pO2 329 H (83-108) mmHg ABG HCO3 15 L (21-25) mmol/L ABG Total CO2 16 L (19-24) mmol/L ABG O2 Saturation 99.7 H (94-97) % ABG Base Excess -8.2 mmol/L Isra Test Yes FiO2 60 % Sodium (137-145) mmol/L Potassium (3.5-5.1) mmol/L Chloride (98-107) mmol/L Carbon Dioxide (22-30) mmol/L Anion Gap mmol/L BUN (7-17) mg/dL Creatinine (0.52-1.04) mg/dL Est GFR (CKD-EPI)AfAm (>60 ml/min/1.73 sqM) Est GFR (CKD-EPI)NonAf (>60 ml/min/1.73 sqM) Glucose (74-99) mg/dL Lactic Ac Sepsis Rflx Plasma Lactic Acid Mazin (0.7-2.0) mmol/L Calcium (8.4-10.2) mg/dL Magnesium (1.6-2.3) mg/dL Total Bilirubin (0.2-1.3) mg/dL AST (14-36) U/L ALT (4-34) U/L Alkaline Phosphatase (38-126) U/L Troponin I (0.000-0.034) ng/mL NT-Pro-B Natriuret Pep pg/mL Total Protein (6.3-8.2) g/dL Albumin (3.5-5.0) g/dL 02/06/22 02/06/22 02/06/22 Range/Units 22:20 22:20 22:20 WBC (3.8-10.6) k/uL RBC (3.80-5.40) m/uL Hgb (11.4-16.0) gm/dL Hct (34.0-46.0) % MCV (80.0-100.0) fL MCH (25.0-35.0) pg MCHC (31.0-37.0) g/dL RDW (11.5-15.5) % Plt Count (150-450) k/uL MPV Neutrophils % % Lymphocytes % % Monocytes % % Eosinophils % % Basophils % % Neutrophils # (1.3-7.7) k/uL Lymphocytes # (1.0-4.8) k/uL Monocytes # (0-1.0) k/uL Eosinophils # (0-0.7) k/uL Basophils # (0-0.2) k/uL Manual Slide Review Large Platelets Poikilocytosis (manual Anisocytosis Anisocytosis (manual) PT (9.0-12.0) sec INR (<1.2) APTT (22.0-30.0) sec Sample Site ABG pH (7.35-7.45) ABG pCO2 (35-45) mmHg ABG pO2 (83-108) mmHg ABG HCO3 (21-25) mmol/L ABG Total CO2 (19-24) mmol/L ABG O2 Saturation (94-97) % ABG Base Excess mmol/L Isra Test FiO2 % Sodium 117 L* (137-145) mmol/L Potassium 5.3 H (3.5-5.1) mmol/L Chloride 80 L (98-107) mmol/L Carbon Dioxide 16 L (22-30) mmol/L Anion Gap 21 mmol/L BUN 177 H* (7-17) mg/dL Creatinine 6.47 H (0.52-1.04) mg/dL Est GFR (CKD-EPI)AfAm 7 (>60 ml/min/1.73 sqM) Est GFR (CKD-EPI)NonAf 6 (>60 ml/min/1.73 sqM) Glucose 118 H (74-99) mg/dL Lactic Ac Sepsis Rflx Plasma Lactic Acid Mazin 2.4 H* (0.7-2.0) mmol/L Calcium 8.8 (8.4-10.2) mg/dL Magnesium 2.2 (1.6-2.3) mg/dL Total Bilirubin 0.5 (0.2-1.3) mg/dL AST 30 (14-36) U/L ALT 22 (4-34) U/L Alkaline Phosphatase 61 (38-126) U/L Troponin I 0.132 H* (0.000-0.034) ng/mL NT-Pro-B Natriuret Pep pg/mL Total Protein 6.5 (6.3-8.2) g/dL Albumin 3.7 (3.5-5.0) g/dL 02/06/22 02/06/22 Range/Units 22:20 22:51 WBC (3.8-10.6) k/uL RBC (3.80-5.40) m/uL Hgb (11.4-16.0) gm/dL Hct (34.0-46.0) % MCV (80.0-100.0) fL MCH (25.0-35.0) pg MCHC (31.0-37.0) g/dL RDW (11.5-15.5) % Plt Count (150-450) k/uL MPV Neutrophils % % Lymphocytes % % Monocytes % % Eosinophils % % Basophils % % Neutrophils # (1.3-7.7) k/uL Lymphocytes # (1.0-4.8) k/uL Monocytes # (0-1.0) k/uL Eosinophils # (0-0.7) k/uL Basophils # (0-0.2) k/uL Manual Slide Review Large Platelets Poikilocytosis (manual Anisocytosis Anisocytosis (manual) PT (9.0-12.0) sec INR (<1.2) APTT (22.0-30.0) sec Sample Site ABG pH (7.35-7.45) ABG pCO2 (35-45) mmHg ABG pO2 (83-108) mmHg ABG HCO3 (21-25) mmol/L ABG Total CO2 (19-24) mmol/L ABG O2 Saturation (94-97) % ABG Base Excess mmol/L Isra Test FiO2 % Sodium (137-145) mmol/L Potassium (3.5-5.1) mmol/L Chloride (98-107) mmol/L Carbon Dioxide (22-30) mmol/L Anion Gap mmol/L BUN (7-17) mg/dL Creatinine (0.52-1.04) mg/dL Est GFR (CKD-EPI)AfAm (>60 ml/min/1.73 sqM) Est GFR (CKD-EPI)NonAf (>60 ml/min/1.73 sqM) Glucose (74-99) mg/dL Lactic Ac Sepsis Rflx Y Plasma Lactic Acid Mazin (0.7-2.0) mmol/L Calcium (8.4-10.2) mg/dL Magnesium (1.6-2.3) mg/dL Total Bilirubin (0.2-1.3) mg/dL AST (14-36) U/L ALT (4-34) U/L Alkaline Phosphatase (38-126) U/L Troponin I (0.000-0.034) ng/mL NT-Pro-B Natriuret Pep 9770 pg/mL Total Protein (6.3-8.2) g/dL Albumin (3.5-5.0) g/dL - EKG Data -: EKG Interpreted by Me EKG shows normal: sinus rhythm (With PVC), axis (Indeterminate), intervals (Normal), QRS complexes (Possible old anterior/inferior NE), ST-T waves (Normal) Rate: tachycardia (Rate 108 bpm) Interpretation: other (Low voltage QRS complex) Critical Care Time Critical Care Time: Yes (45 minutes) Disposition Clinical Impression: Altered mental status, Severe dehydration, Acute kidney injury, Gastrointestinal bleeding, Hyponatremia, Leukocytosis, Elevated troponin Disposition: ADMITTED IP TO THIS [facility] Condition: Serious Is patient prescribed a controlled substance at d/c from ED?: No
[2022-02-07] MEDS ORDERED: NALOXONE 0.4 MG/ML 1 ML VIAL IV PRN (01:45)
[2022-02-07] MEDS ORDERED: MORPHINE SULFATE 4 MG/ML SYRINGE IV PRN (01:45)
[2022-02-07] MEDS: SODIUM CHLORIDE 0.9% 1,000 ML IV SCH ×3 (02:22→18:24)
[2022-02-07] MEDS ORDERED: LORazepam 2 MG/ML INJ IV STA (04:02)
[2022-02-07] MEDS ORDERED: SODIUM CHLORIDE 0.9% 500 ML 500 ML IV STA (05:44)
[2022-02-07] MEDS ORDERED: PANTOPRAZOLE 40 MG/10 ML VIAL IVP STA (05:53)
[2022-02-07 06:29] LABS: Anisocytosis Slight; Basophils % (A) 0 %; Eosinophils % (A) 0 %; HCT 33.9 % (34.0-46.0); HGB 11.6 gm/dL (11.4-16.0); Lymphocytes # (A) 0.2 k/uL (1.0-4.8); Lymphocytes % (A) 1 %; MCH 30.9 pg (25.0-35.0); MCHC 34.2 g/dL (31.0-37.0); MCV 90.3 fL (80.0-100.0); Mean Platelet Volume 9.6; Monocytes # (A) 0.5 k/uL (0-1.0); Monocytes % (A) 3 %; Neutrophils # (A) 16.4 k/uL (1.3-7.7); Neutrophils % (A) 96 %; RBC 3.75 m/uL (3.80-5.40); RDW 16.4 % (11.5-15.5); WBC 17.2 k/uL (3.8-10.6)
[2022-02-07 06:34] LABS: Platelet Count 43 k/uL (150-450)
[2022-02-07 06:41] LABS: Appearance,Urine Cloudy (Clear); Bilirubin,Urine Negative (Negative); Blood,Urine Large (Negative); Color,Urine Yellow; Glucose,Urine (UA) Negative (Negative); Ketones,Urine Negative (Negative); Leukocyte Esterase,Urine Negative (Negative); Mucus,Urine Rare /hpf; Nitrite,Urine Negative (Negative); Protein,Urine Trace (Negative); Specific Gravity,Urine 1.015 (1.001-1.035); Urobilinogen,Urine <2.0 mg/dL (<2.0)
[2022-02-07 06:42] LABS: Albumin 3.2 g/dL (3.5-5.0); Calcium 8.4 mg/dL (8.4-10.2); Potassium 5.1 mmol/L (3.5-5.1); Total Bilirubin 0.6 mg/dL (0.2-1.3)
[2022-02-07 06:49] LABS: Bacteria,Urine Rare /hpf
[2022-02-07 06:51] LABS: RBC,Urine 161 /hpf (0-5); WBC,Urine 2 /hpf (0-5)
[2022-02-07 06:52] LABS: Budding Yeast,Urine Many /hpf; Hyaline Casts,Urine 4 /lpf (0-2)
--- NOTE | 2022-02-07 07:01 | CT ---
EXAMINATION TYPE: CT abdomen pelvis wo con DATE OF EXAM: 02/07/2022 COMPARISON: 04/07/2021 and 01/26/2022 HISTORY: GI bleeding CT DLP: 455 mGycm Automated exposure control for dose reduction was used. Images obtained from the diaphragm to the floor of the pelvis without contrast. Lung bases are clear of infiltrate. Heart size is normal. There is no pericardial effusion. There is no pleural effusion. Liver is intact. There is markedly dilated fluid-filled stomach. There are multi ple dilated fluid-filled loops of small bowel in the mid abdomen. The urinary bladder is large and me asures 13.5 cm in length. Lumbar vertebra appear intact. No compression fracture. Bony pelvis appears intact. Hip joint spaces are fairly normal. There is no evidence of free air. There is a stoma over the right side of the mid abdomen.. There is a large bowel fluid down to the rectum. No evidence of free air. There is no adrenal mass. The kidneys show mild bilateral hydronephrosis. No obstructing calculus see n. IMPRESSION: Likely dilated stomach and multiple dilated small bowel loops suggestive of mechanical high-grade bow el obstruction. There is ostomy in the right mid abdomen that should be correlated with the surgical history. This appears to be a loop ileostomy on the CT scan of 01/26/2010. The dilated stomach and bowel is a significant adverse change compared to recent CT scan of 01/26/2022. Dilated urinary bladder and mild hydronephrosis probably related to urinary retention.
[2022-02-07] MEDS: NOREPINEPHRINE 4 MG in SODIUM CHLORIDE 0.9% 250 ML IV SCH ×2 (07:16→15:04)
[2022-02-07 08:19] LABS: Anisocytosis Slight; Basophils % (A) 0 %; Eosinophils % (A) 0 %; HGB 11.4 gm/dL (11.4-16.0); Lymphocytes # (A) 0.2 k/uL (1.0-4.8); Lymphocytes % (A) 1 %; MCH 31.5 pg (25.0-35.0); MCHC 34.6 g/dL (31.0-37.0); MCV 91.2 fL (80.0-100.0); Mean Platelet Volume 10.4; Monocytes # (A) 0.3 k/uL (0-1.0); Monocytes % (A) 2 %; Neutrophils # (A) 14.5 k/uL (1.3-7.7); Neutrophils % (A) 97 %; RBC 3.63 m/uL (3.80-5.40); RDW 17.3 % (11.5-15.5); WBC 15.1 k/uL (3.8-10.6)
[2022-02-07 08:22] LABS: Platelet Count 38 k/uL (150-450)
[2022-02-07 08:29] LABS: Albumin 2.9 g/dL (3.5-5.0); Calcium 7.8 mg/dL (8.4-10.2); Potassium 4.6 mmol/L (3.5-5.1); Total Bilirubin 0.5 mg/dL (0.2-1.3); Total Protein 5.6 g/dL (6.3-8.2)
--- NOTE | 2022-02-07 08:47 | XR ---
EXAMINATION TYPE: XR chest 1V confirm line [facility] DATE OF EXAM: 02/07/2022 COMPARISON: X-ray dated 02/06/2022 HISTORY: Post NGT TECHNIQUE: Single frontal view of the chest is obtained. FINDINGS: Interval insertion of an NG tube with the tip is seen within the distended stomach. Unchan ged position of the right-sided Port-A-Cath with the tip seen at the atriocaval junction. Hyper trans lucent lungs suggestive of COPD. No sizable pleural effusion or definite pneumothorax. No gross cardiomegaly. Aortic atherosclerotic c alcifications. Marked gaseous distention of the bowel in the upper abdomen, ileus cannot be excluded, please correlate clinically. IMPRESSION: As above.
[2022-02-07 08:51] LABS: Glucose,Whole Blood 110 mg/dL (75-99)
[2022-02-07] MEDS ORDERED: FAMOTIDINE 20 MG TAB PO SCH ×2 (09:00)
[2022-02-07] MEDS ORDERED: SODIUM CHLORIDE 0.9% 1,000 ML IV ONE ×3 (09:13→14:17)
[2022-02-07] MEDS ORDERED: SODIUM BICARB 8.4% 50 ML SYR (1 MEQ/ML) IV STA (09:24)
--- NOTE | 2022-02-07 09:27 | P.NPCON ---
History of Present Illness - Reason for Consult acute renal failure, hyponatremia - History of Present Illness Reason for consultation: Acute kidney injury and hyponatremia History of present illness: Patient is a 71-year-old female seen today in consultation for acute kidney injury and hyponatremia. Patient's creatinine on admission was 6.47 and is 5.4 today. Baseline creatinine 0.7 from March 2021. Patient's sodium level was 117 on admission and came up to 123 and then as of 8:15 AM today was 121. Patient presented to the hospital due to low blood pressure and overall not feeling well. She was brought by the EMS. Patient currently has an NG tube in place and she is on vasopressor support. She did receive 3 L of normal saline bolus on admission and is currently maintained on normal saline at 1 30 mL an hour. Omalley catheter will be placed. She underwent CAT scan of the abdomen and pelvis which showed mild bilateral hydronephrosis and also small bowel obstruction. She was having episodes of coffee ground emesis per the nurse. Blood pressure has been in the systolic 60s to 90s. Unsure of home medications. Vital signs are stable. General: Lethargic. HEENT: NG tube noted. LUNGS: Breath sounds decreased. HEART: Tachycardic. ABDOMEN: Distention noted. EXTREMITITES: No edema. Past Medical History Past Medical History: Cancer, GERD/Reflux, Osteoarthritis (OA) Additional Past Medical History / Comment(s): Hx Cervical cancer in the ', varicose Veins, hx rectal cancer 2018, finished chemo 06-05-19, recent recurrance of rectal cancer. History of Any Multi-Drug Resistant Organisms: None Reported Past Surgical History: Adenoidectomy, Appendectomy, Bowel Resection, Hernia Repair, Tonsillectomy Additional Past Surgical History / Comment(s): EGD, colonoscopies, ileostomy, hiatal hernia repair, reversal of ileostomy. Past Anesthesia/Blood Transfusion Reactions: Previous Problems w/ Anesthesia Additional Past Anesthesia/Blood Transfusion Reaction / Comment(s): WOKE UP DURING COLONOSCOPY X1. Past Psychological History: No Psychological Hx Reported Smoking Status: Former smoker - Past Family History Mother Family Medical History: AFIB, Hypertension, Memory Impairment Additional Family Medical History / Comment(s): Memory impairment Father Family Medical History: Cancer Additional Family Medical History / Comment(s): " from blood cancer." Medications and Allergies Home Medications Medication Instructions Recorded Confirmed Type No Known Home Medications 02/06/22 02/06/22 History Allergies Allergy/AdvReac Type Severity Reaction Status Date / Time ciprofloxacin [From [facility]] Allergy Rash/Hives Verified 02/06/22 23:00 ciprofloxacin HCl Allergy Rash/Hives Verified 02/06/22 23:00 [From [facility]] Physical Exam Vitals: Vital Signs Temp Pulse Resp BP Pulse Ox 02/07/22 08:45 102 H 25 H 84/49 95 02/07/22 07:45 84/26 02/07/22 07:30 64/49 95 02/07/22 07:00 97 18 78/51 98 02/07/22 06:47 102 H 16 81/53 99 02/07/22 06:15 70/51 02/07/22 06:00 114 H 20 73/54 99 02/07/22 04:28 20 98 02/07/22 04:00 99 20 94/58 98 02/07/22 03:00 96 20 88/56 98 02/07/22 02:00 82/62 02/07/22 00:00 102 H 18 96/65 100 02/06/22 23:21 108 H 18 85/63 100 02/06/22 22:06 98.0 F 120 H 24 126/102 99 Intake and Output 02/06/22 02/07/22 02/07/22 22:59 06:59 14:59 Intake Total 13.005 Output Total 800 1300 Balance -800 -1286.995 Intake: Intake, IV Titration 13.005 Amount Norepinephrine 4 mg In 13.005 Sodium Chloride 0.9% 250 ml @ 0.05 MCG/KG/MIN 9. 073 mls/hr IV .Q24H [facility] Rx#:[id number] Output: Urine 800 1300 Straight 400 1300 Other: Weight 47.627 kg Results - Lab Results Most recent lab results ABG pH 7.48 (7.35-7.45) H 02/06/22 22:18 ABG pCO2 20 mmHg (35-45) L 02/06/22 22:18 ABG pO2 329 mmHg (83-108) H 02/06/22 22:18 ABG HCO3 15 mmol/L (21-25) L 02/06/22 22:18 ABG O2 Saturation 99.7 % (94-97) H 02/06/22 22:18 Calcium 7.8 mg/dL (8.4-10.2) L 02/07/22 08:15 Magnesium 2.2 mg/dL (1.6-2.3) 02/06/22 22:20 02/07/22 08:15 02/07/22 08:15 Assessment and Plan Plan: Assessment: 1. Acute kidney injury secondary to ATN secondary to hypotension. Creatinine was 6.47 on admission and 5.4 this morning. Creatinine 0.7 in March 2021. Mild bilateral hydronephrosis noted on CAT scan. 2. Small bowel obstruction. Surgery consulted. Has NG tube. 3. Hypovolemic hyponatremia. Improved with IV hydration. 4. Metabolic acidosis secondary to acute kidney injury and lactic acidosis. 5. Shock maintained on Levophed. Plan: Maintain IV fluids. 2 A of sodium bicarb IV push now. Repeat BMP this afternoon. Omalley catheter will be inserted. Strict I's and O's. Follow-up cultures. Kidney ultrasound pending. If shows hydronephrosis, will consult urology. Continue to assess daily for need for renal replacement therapy. Thank you for the consultation. I will continue to follow patient with you during her hospital stay.
[2022-02-07] MEDS ORDERED: HYDROmorphone 1 MG/ML 1 ML SYRINGE ONE (09:40)
[2022-02-07] MEDS ORDERED: HYDROmorphone 1 MG/ML 1 ML SYRINGE IVP STA (09:43)
[2022-02-07] MEDS ORDERED: IPRATROPIUM-ALBUTEROL 3 ML NEB INHALATION PRN (09:50)
[2022-02-07] MEDS: PANTOPRAZOLE 40 MG/10 ML VIAL IVP SCH (10:01)
[2022-02-07] MEDS: PIPERACILLIN-TAZOBACTAM 3.375 GM in SODIUM CHLORIDE 0.9% 100 ML IVPB SCH ×2 (10:02→20:14)
--- NOTE | 2022-02-07 10:05 | US ---
EXAMINATION TYPE: US kidneys/renal and bladder DATE OF EXAM: 02/07/2022 COMPARISON: CT dated 02/07/2022 CLINICAL HISTORY: hydronephrosis. Exam done portable in ICU EXAM MEASUREMENTS: Right Kidney: 8.8 x 4.5 x 4.2 cm Left Kidney: 8.6 x 4.5 x 4.4 cm Difficult and limited study due to patient position and overlying bowel gas Right Kidney: hydronephrosis, 0.5cm echogenic focus inferior pole, 4.8 x 2.4 x 2.4cm hypoechoic area inferior to kidney - ? Renal cyst vs. separate from kidney Left Kidney: visualized portions wnl, limited by overlying bowel gas Bladder: not seen IMPRESSION: Suspected 5 mm right lower renal pole nonobstructing calculus. Slightly dilated right renal collectin g system with dilated right renal pelvis, probably representing extrarenal pelvis however mild hydron ephrosis cannot be excluded. No definite distal obstructing stone on the previous recent CT scan. Rec ommend correlation with urinalysis results and renal function tests. Further renal scintigraphy can b e considered if clinically required. The described cystic structure inferior to the right kidney could represent a fluid-filled bowel. Sub optimal visualization of the left kidney without significant abnormality.
[2022-02-07 11:13] LABS: ABG Base Excess -5.1 mmol/L; ABG HCO3 19 mmol/L (21-25); ABG Oxygen Saturation 99.1 % (94-97); ABG PCO2 27 mmHg (35-45); ABG PH 7.45 (7.35-7.45); ABG PO2 169 mmHg (83-108); ABG TCO2 20 mmol/L (19-24)
--- NOTE | 2022-02-07 11:13 | P.CNPUL ---
History of Present Illness Consult date: 02/07/22 Requesting physician: Juan Bernard Reason for consult: other (Critical care management) Chief complaint: Altered mental status, hypotension History of present illness: This is a 71-year-old female patient who has a known history of R's to arthritis, gastroesophageal reflux disease, colorectal adenocarcinoma diagnosed in November 2020.. She initially had surgery here and had undergone chemot herapy here. She has a right sided Port-A-Cath. She did have proton at [facility] and a second surgery at [facility] with an ileostomy placement. PET scan dated 01/27/2022 revealed a suboptimal study due to muscular uptake. There is postsurgical changes the pelvis within well to fluid collection in the presacral space containing none dependent here and REM hypermetabolic uptake is concerning for infectious process or developing abscess. About 1 week ago her states that she stopped eating and drinking. She presented to the emergency room last evening with altered mental status and shortness of breath. Computed tomography scan of the abdomen and pelvis revealed likely dilated stomach and multiple dilated small bowel loops suggestive of mechanical high-grade bowel obstruction. There is ostomy in the right mid abdomen. Dilated urinary bladder and mild hydronephrosis secondary to urinary retention. Nasogastric tube was inserted and she had 900 mL of coffee-ground return. Chest x-ray reveals no sizable pleural effusions or definitive pneumothorax. No gross cardiomegaly. Marketed gaseous distention of the bowel in the upper abdomen. White count 15.1. Hemoglobin 14.4. Platelet count 38,000. Sodium 121. Potassium 4.6. Bicarb 15. BUN 164. Creatinine 5.40. Glucose 106. Troponin 0.12, 0.14, 0.14. Albumin 2.9. Urinalysis is cloudy with large amount of blood and rare bacteria. She's been initiated on Zosyn. She has received 3-1/2 L of fluid resuscitation. Normal saline at 130 ML's per hour. She is requiring norepinephrine at 0.12 mcg/kg/m. She is on Protonix. She is seen today in the intensive care unit. Her is at the bedside. She is maintaining O2 saturations in the 90s on 2 L/m per nasal cannula. Initial temperature 94.4 axillary. Currently 97.5. Warming blanket has been applied. Current blood pressure 92/55 with a mean of 67. In sinus rhythm with occasional PVCs. Review of Systems ROS unobtainable: due to mental status Past Medical History Past Medical History: Cancer, GERD/Reflux, Osteoarthritis (OA) Additional Past Medical History / Comment(s): Hx Cervical cancer in the 's, varicose Veins, hx rectal cancer 2018, finished chemo 06-05-19, recent recurrance of rectal cancer. History of Any Multi-Drug Resistant Organisms: None Reported Past Surgical History: Adenoidectomy, Appendectomy, Bowel Resection, Hernia Repair, Tonsillectomy Additional Past Surgical History / Comment(s): EGD, colonoscopies, ileostomy, hiatal hernia repair, reversal of ileostomy. Past Anesthesia/Blood Transfusion Reactions: Previous Problems w/ Anesthesia Additional Past Anesthesia/Blood Transfusion Reaction / Comment(s): WOKE UP DURING COLONOSCOPY X1. Past Psychological History: No Psychological Hx Reported Smoking Status: Former smoker - Past Family History Mother Family Medical History: AFIB, Hypertension, Memory Impairment Additional Family Medical History / Comment(s): Memory impairment Father Family Medical History: Cancer Additional Family Medical History / Comment(s): " from blood cancer." Medications and Allergies Home Medications Medication Instructions Recorded Confirmed Type No Known Home Medications 02/06/22 02/06/22 History Allergies Allergy/AdvReac Type Severity Reaction Status Date / Time ciprofloxacin [From Cipro] Allergy Rash/Hives Verified 02/06/22 23:00 ciprofloxacin HCl Allergy Rash/Hives Verified 02/06/22 23:00 [From Cipro] Physical Exam Vitals: Vital Signs Temp Pulse Resp BP Pulse Ox 02/07/22 10:30 85 10 L 92/55 96 02/07/22 10:15 94 10 L 92/55 96 02/07/22 10:00 97.5 F L 90 16 92/55 97 02/07/22 09:45 108 H 13 92/55 97 02/07/22 09:30 86 14 89/67 99 02/07/22 09:15 98 15 97/76 99 02/07/22 09:00 94.4 F L 107 H 19 88/45 98 02/07/22 08:45 102 H 25 H 84/49 95 02/07/22 07:45 84/26 02/07/22 07:30 64/49 95 02/07/22 07:00 97 18 78/51 98 02/07/22 06:47 102 H 16 81/53 99 02/07/22 06:15 70/51 02/07/22 06:00 114 H 20 73/54 99 02/07/22 04:28 20 98 02/07/22 04:00 99 20 94/58 98 02/07/22 03:00 96 20 88/56 98 02/07/22 02:00 82/62 02/07/22 00:00 102 H 18 96/65 100 02/06/22 23:21 108 H 18 85/63 100 02/06/22 22:06 98.0 F 120 H 24 126/102 99 Intake and Output 02/06/22 02/07/22 02/07/22 22:59 06:59 14:59 Intake Total 2421.092 Output Total 800 2280 Balance -800 141.092 Intake: Intake, IV Titration 2421.092 Amount Norepinephrine 4 mg In 61.092 Sodium Chloride 0.9% 250 ml @ 0.05 MCG/KG/MIN 9. 073 mls/hr IV .Q24H [facility] Rx#:[id number] Piperacillin-Tazobactam 3 100 .375 gm In Sodium Chloride 0.9% 100 ml @ 25 mls/hr IVPB Q12HR [facility] Rx #:[id number] Sodium Chloride 0.9% 1, 260 000 ml @ 130 mls/hr IV . Q7H42M [facility] Rx#:[id number] Sodium Chloride 0.9% 1, 1000 000 ml @ 999 mls/hr IV . Q1H1M [facility] Rx#:[id number] Sodium Chloride 0.9% 1, 1000 000 ml @ 999 mls/hr IV . Q1H1M [facility] Rx#:[id number] Output: Gastric Drainage 900 Urine 800 1380 Straight 400 1300 Other: Weight 47.627 kg ABP, PAP, CO, CI - Last 8 Hours Arterial Blood Pressure 87/40 Arterial Blood Pressure 81/40 Arterial Blood Pressure 97/50 Arterial Blood Pressure 103/64 GENERAL EXAM: Arousable, drifts off easily 71-year-old female patient, on 2 L nasal cannula, frail, cachectic. HEAD: Normocephalic. EYES: Normal reaction of pupils, equal size. NOSE: Nasogastric tube secured in place. Clear with pink turbinates. THROAT: No erythema or exudates. NECK: No masses, no JVD. CHEST: Right-sided Port-A-Cath in place. No chest wall deformity. LUNGS: Equal air entry with no crackles, wheeze, rhonchi or dullness. CVS: S1 and S2 normal with no audible murmur, regular rhythm. ABDOMEN: Right-sided ileostomy in place with minimal output No hepatosplenomega ly, normal bowel sounds, no guarding or rigidity. SPINE: No scoliosis or deformity SKIN: No rashes CENTRAL NERVOUS SYSTEM: No focal deficits, tone is normal in all 4 extremities. EXTREMITIES: Right femoral vein triple-lumen catheter in place. Left brachial arterial line in place. There is no peripheral edema. No clubbing, no cyanosis. Peripheral pulses are intact. Results - Laboratory Findings CBC and BMP: 02/07/22 08:15 02/07/22 08:15 ABG ABG pH 7.48 (7.35-7.45) H 02/06/22 22:18 ABG pCO2 20 mmHg (35-45) L 02/06/22 22:18 ABG pO2 329 mmHg (83-108) H 02/06/22 22:18 ABG O2 Saturation 99.7 % (94-97) H 02/06/22 22:18 PT/INR, D-dimer PT 10.6 sec (9.0-12.0) 02/06/22 22:20 INR 1.0 (<1.2) 02/06/22 22:20 Abnormal lab findings: Abnormal Labs 02/06/22 02/06/22 02/06/22 22:18 22:20 22:20 WBC 18.2 H RBC Hct RDW 17.3 H Plt Count 49 L Neutrophils # 17.5 H Lymphocytes # 0.2 L APTT 18.8 L ABG pH 7.48 H ABG pCO2 20 L ABG pO2 329 H ABG HCO3 15 L ABG Total CO2 16 L ABG O2 Saturation 99.7 H Sodium Potassium Chloride Carbon Dioxide BUN Creatinine Glucose POC Glucose (mg/dL) Plasma Lactic Acid Mazin Calcium Troponin I Total Protein Albumin Urine Appearance Urine Protein Urine Blood Urine RBC Urine Bacteria Hyaline Casts Urine Mucus Urine Yeast (Budding) 02/06/22 02/06/22 02/06/22 22:20 22:20 22:20 WBC RBC Hct RDW Plt Count Neutrophils # Lymphocytes # APTT ABG pH ABG pCO2 ABG pO2 ABG HCO3 ABG Total CO2 ABG O2 Saturation Sodium 117 L* Potassium 5.3 H Chloride 80 L Carbon Dioxide 16 L BUN 177 H* Creatinine 6.47 H Glucose 118 H POC Glucose (mg/dL) Plasma Lactic Acid Mazin 2.4 H* Calcium Troponin I 0.132 H* Total Protein Albumin Urine Appearance Urine Protein Urine Blood Urine RBC Urine Bacteria Hyaline Casts Urine Mucus Urine Yeast (Budding) 02/07/22 02/07/22 02/07/22 03:04 06:00 06:00 WBC 17.2 H RBC 3.75 L Hct 33.9 L RDW 16.4 H Plt Count 43 L Neutrophils # 16.4 H Lymphocytes # 0.2 L APTT ABG pH ABG pCO2 ABG pO2 ABG HCO3 ABG Total CO2 ABG O2 Saturation Sodium Potassium Chloride Carbon Dioxide BUN Creatinine Glucose POC Glucose (mg/dL) Plasma Lactic Acid Mazin Calcium Troponin I 0.121 H* 0.141 H* Total Protein Albumin Urine Appearance Urine Protein Urine Blood Urine RBC Urine Bacteria Hyaline Casts Urine Mucus Urine Yeast (Budding) 02/07/22 02/07/22 02/07/22 06:00 06:15 08:15 WBC 15.1 H RBC 3.63 L Hct 33.0 L RDW 17.3 H Plt Count 38 L Neutrophils # 14.5 H Lymphocytes # 0.2 L APTT ABG pH ABG pCO2 ABG pO2 ABG HCO3 ABG Total CO2 ABG O2 Saturation Sodium 123 L Potassium Chloride 87 L Carbon Dioxide 18 L BUN 167 H* Creatinine 5.40 H Glucose 104 H POC Glucose (mg/dL) Plasma Lactic Acid Mazin Calcium Troponin I Total Protein 6.0 L Albumin 3.2 L Urine Appearance Cloudy H Urine Protein Trace H Urine Blood Large H Urine RBC 161 H Urine Bacteria Rare H Hyaline Casts 4 H Urine Mucus Rare H Urine Yeast (Budding) Many H 02/07/22 02/07/22 02/07/22 08:15 08:15 08:15 WBC RBC Hct RDW Plt Count Neutrophils # Lymphocytes # APTT 20.1 L ABG pH ABG pCO2 ABG pO2 ABG HCO3 ABG Total CO2 ABG O2 Saturation Sodium 121 L Potassium Chloride 90 L Carbon Dioxide 15 L BUN 164 H* Creatinine 5.40 H Glucose 106 H POC Glucose (mg/dL) Plasma Lactic Acid Mazin Calcium 7.8 L Troponin I 0.144 H* Total Protein 5.6 L Albumin 2.9 L Urine Appearance Urine Protein Urine Blood Urine RBC Urine Bacteria Hyaline Casts Urine Mucus Urine Yeast (Budding) 02/07/22 08:50 WBC RBC Hct RDW Plt Count Neutrophils # Lymphocytes # APTT ABG pH ABG pCO2 ABG pO2 ABG HCO3 ABG Total CO2 ABG O2 Saturation Sodium Potassium Chloride Carbon Dioxide BUN Creatinine Glucose POC Glucose (mg/dL) 110 H Plasma Lactic Acid Mazin Calcium Troponin I Total Protein Albumin Urine Appearance Urine Protein Urine Blood Urine RBC Urine Bacteria Hyaline Casts Urine Mucus Urine Yeast (Budding) - Diagnostic Findings Chest x-ray: image reviewed Assessment and Plan Assessment: 1 Acute mechanical high-grade bowel obstruction. Nasogastric tube placed with 900 ML's of immediate coffee-ground fluid returned. 2 Acute renal failure secondary to acute tubular necrosis from hypotension and dehydration and poor appetite 1 week. With presenting creatinine 6.47, currently 5.40 3 Hyponatremia with presenting sodium 117. Currently 121. 4 Troponin leak. 5 Lactic acidosis secondary to above 6 Leukocytosis secondary to blood 7 Thrombocytopenia initial platelets 49,000, currently 38,000 8 History of colorectal cancer initially diagnosed in 2018, with previous surgery 2 with a right-sided ileostomy. Status post chemotherapy, proton therapy 9 New-onset brief episode of atrial fibrillation 10 History of osteoarthritis 11 History of gastroesophageal reflux disease 12 History of cervical cancer back in the 1980s 13 Former smoker Plan: The patient was seen and evaluated CAT scan, chest x-ray, labs reviewed Continue Zosyn Add DuoNeb inhalations Continue GI prophylaxis Left brachial arterial line inserted Continue with fluid resuscitation Titrate the norepinephrine as tolerated Plan is for surgical intervention later today Patient is definitely high risk and may return to the ICU on the mechanical ventilator The patient's was at the bedside and spoke with Dr. Rodriguez in detail Prognosis is guarded We will continue to follow and make further recommendations based on her clinical status I have personally seen and examined the patient, performed the documentation and the assessment and plan as written. Number of minutes spent on the visit: 20.
[2022-02-07 11:15] LABS: Allen Test Performed? no
[2022-02-07] MEDS: IPRATROPIUM-ALBUTEROL 3 ML NEB INHALATION SCH ×3 (11:59→19:39)
--- NOTE | 2022-02-07 12:17 | P.GSCN ---
History of Present Illness Consult date: 02/07/22 Reason for Consult: Abdominal pain History of present illness: This a 71-year-old female who has a 5-7 day history of abdominal pain nausea vom iting. The patient has undergone previous colon cancer surgery at [facility] in September this year. She has an ileostomy. The patient's states that she has not been eating or drinking for prostate 5-7 days. The patient was worked up and returned. Patient has a high-grade small bowel structure. The patient was extremely acidotic hypotensive in the emergency. She received fluid resuscitation overnight. She is requiring mucosectomy table and blood pressure. Patient is also hypothyroid. Past Medical History Past Medical History: Cancer, GERD/Reflux, Osteoarthritis (OA) Additional Past Medical History / Comment(s): Hx Cervical cancer in the , varicose Veins, hx rectal cancer 2017, finished chemo 06-05-19, recent recurrance of rectal cancer. History of Any Multi-Drug Resistant Organisms: None Reported Past Surgical History: Adenoidectomy, Appendectomy, Bowel Resection, Hernia Repair, Tonsillectomy Additional Past Surgical History / Comment(s): EGD, colonoscopies, ileostomy, hiatal hernia repair, reversal of ileostomy. Past Anesthesia/Blood Transfusion Reactions: Previous Problems w/ Anesthesia Additional Past Anesthesia/Blood Transfusion Reaction / Comm: WOKE UP DURING CO LONOSCOPY X1. Past Psychological History: No Psychological Hx Reported Smoking Status: Former smoker - Past Family History Mother Family Medical History: AFIB, Hypertension, Memory Impairment Additional Family Medical History / Comment(s): Memory impairment Father Family Medical History: Cancer Additional Family Medical History / Comment(s): " from blood cancer." Medications and Allergies Home Medications Medication Instructions Recorded Confirmed Type No Known Home Medications 02/06/22 02/06/22 History Allergies Allergy/AdvReac Type Severity Reaction Status Date / Time ciprofloxacin [From Cipro] Allergy Rash/Hives Verified 02/06/22 23:00 ciprofloxacin HCl Allergy Rash/Hives Verified 02/06/22 23:00 [From Cipro] Surgical - Exam Vital Signs Temp Pulse Resp BP Pulse Ox 98.0 F 120 H 24 126/102 99 02/06/22 22:06 02/06/22 22:06 02/06/22 22:06 02/06/22 22:06 02/06/22 22:06 - General Patient is unable to give any information. She is obtunded - Abdomen Abdomen is minimally distended. It is diffusely tender. There is no output through the ileostomy. Results - Labs 02/07/22 08:15 02/07/22 08:15 Abnormal Lab Results - Last 24 Hours (Table) 02/06/22 02/06/22 02/06/22 Range/Units 22:18 22:20 22:20 WBC 18.2 H (3.8-10.6) k/uL RBC (3.80-5.40) m/uL Hct (34.0-46.0) % RDW 17.3 H (11.5-15.5) % Plt Count 49 L (150-450) k/uL Neutrophils # 17.5 H (1.3-7.7) k/uL Lymphocytes # 0.2 L (1.0-4.8) k/uL APTT 18.8 L (22.0-30.0) sec ABG pH 7.48 H (7.35-7.45) ABG pCO2 20 L (35-45) mmHg ABG pO2 329 H (83-108) mmHg ABG HCO3 15 L (21-25) mmol/L ABG Total CO2 16 L (19-24) mmol/L ABG O2 Saturation 99.7 H (94-97) % Sodium (137-145) mmol/L Potassium (3.5-5.1) mmol/L Chloride (98-107) mmol/L Carbon Dioxide (22-30) mmol/L BUN (7-17) mg/dL Creatinine (0.52-1.04) mg/dL Glucose (74-99) mg/dL POC Glucose (mg/dL) (75-99) mg/dL Plasma Lactic Acid Mazin (0.7-2.0) mmol/L Calcium (8.4-10.2) mg/dL Troponin I (0.000-0.034) ng/mL Total Protein (6.3-8.2) g/dL Albumin (3.5-5.0) g/dL Urine Appearance (Clear) Urine Protein (Negative) Urine Blood (Negative) Urine RBC (0-5) /hpf Urine Bacteria (None) /hpf Hyaline Casts (0-2) /lpf Urine Mucus (None) /hpf Urine Yeast (Budding) (None) /hpf 02/06/22 02/06/22 02/06/22 Range/Units 22:20 22:20 22:20 WBC (3.8-10.6) k/uL RBC (3.80-5.40) m/uL Hct (34.0-46.0) % RDW (11.5-15.5) % Plt Count (150-450) k/uL Neutrophils # (1.3-7.7) k/uL Lymphocytes # (1.0-4.8) k/uL APTT (22.0-30.0) sec ABG pH (7.35-7.45) ABG pCO2 (35-45) mmHg ABG pO2 (83-108) mmHg ABG HCO3 (21-25) mmol/L ABG Total CO2 (19-24) mmol/L ABG O2 Saturation (94-97) % Sodium 117 L* (137-145) mmol/L Potassium 5.3 H (3.5-5.1) mmol/L Chloride 80 L (98-107) mmol/L Carbon Dioxide 16 L (22-30) mmol/L BUN 177 H* (7-17) mg/dL Creatinine 6.47 H (0.52-1.04) mg/dL Glucose 118 H (74-99) mg/dL POC Glucose (mg/dL) (75-99) mg/dL Plasma Lactic Acid Mazin 2.4 H* (0.7-2.0) mmol/L Calcium (8.4-10.2) mg/dL Troponin I 0.132 H* (0.000-0.034) ng/mL Total Protein (6.3-8.2) g/dL Albumin (3.5-5.0) g/dL Urine Appearance (Clear) Urine Protein (Negative) Urine Blood (Negative) Urine RBC (0-5) /hpf Urine Bacteria (None) /hpf Hyaline Casts (0-2) /lpf Urine Mucus (None) /hpf Urine Yeast (Budding) (None) /hpf 02/07/22 02/07/22 02/07/22 Range/Units 03:04 06:00 06:00 WBC 17.2 H (3.8-10.6) k/uL RBC 3.75 L (3.80-5.40) m/uL Hct 33.9 L (34.0-46.0) % RDW 16.4 H (11.5-15.5) % Plt Count 43 L (150-450) k/uL Neutrophils # 16.4 H (1.3-7.7) k/uL Lymphocytes # 0.2 L (1.0-4.8) k/uL APTT (22.0-30.0) sec ABG pH (7.35-7.45) ABG pCO2 (35-45) mmHg ABG pO2 (83-108) mmHg ABG HCO3 (21-25) mmol/L ABG Total CO2 (19-24) mmol/L ABG O2 Saturation (94-97) % Sodium (137-145) mmol/L Potassium (3.5-5.1) mmol/L Chloride (98-107) mmol/L Carbon Dioxide (22-30) mmol/L BUN (7-17) mg/dL Creatinine (0.52-1.04) mg/dL Glucose (74-99) mg/dL POC Glucose (mg/dL) (75-99) mg/dL Plasma Lactic Acid Mazin (0.7-2.0) mmol/L Calcium (8.4-10.2) mg/dL Troponin I 0.121 H* 0.141 H* (0.000-0.034) ng/mL Total Protein (6.3-8.2) g/dL Albumin (3.5-5.0) g/dL Urine Appearance (Clear) Urine Protein (Negative) Urine Blood (Negative) Urine RBC (0-5) /hpf Urine Bacteria (None) /hpf Hyaline Casts (0-2) /lpf Urine Mucus (None) /hpf Urine Yeast (Budding) (None) /hpf 02/07/22 02/07/22 02/07/22 Range/Units 06:00 06:15 08:15 WBC 15.1 H (3.8-10.6) k/uL RBC 3.63 L (3.80-5.40) m/uL Hct 33.0 L (34.0-46.0) % RDW 17.3 H (11.5-15.5) % Plt Count 38 L (150-450) k/uL Neutrophils # 14.5 H (1.3-7.7) k/uL Lymphocytes # 0.2 L (1.0-4.8) k/uL APTT (22.0-30.0) sec ABG pH (7.35-7.45) ABG pCO2 (35-45) mmHg ABG pO2 (83-108) mmHg ABG HCO3 (21-25) mmol/L ABG Total CO2 (19-24) mmol/L ABG O2 Saturation (94-97) % Sodium 123 L (137-145) mmol/L Potassium (3.5-5.1) mmol/L Chloride 87 L (98-107) mmol/L Carbon Dioxide 18 L (22-30) mmol/L BUN 167 H* (7-17) mg/dL Creatinine 5.40 H (0.52-1.04) mg/dL Glucose 104 H (74-99) mg/dL POC Glucose (mg/dL) (75-99) mg/dL Plasma Lactic Acid Mazin (0.7-2.0) mmol/L Calcium (8.4-10.2) mg/dL Troponin I (0.000-0.034) ng/mL Total Protein 6.0 L (6.3-8.2) g/dL Albumin 3.2 L (3.5-5.0) g/dL Urine Appearance Cloudy H (Clear) Urine Protein Trace H (Negative) Urine Blood Large H (Negative) Urine RBC 161 H (0-5) /hpf Urine Bacteria Rare H (None) /hpf Hyaline Casts 4 H (0-2) /lpf Urine Mucus Rare H (None) /hpf Urine Yeast (Budding) Many H (None) /hpf 02/07/22 02/07/22 02/07/22 Range/Units 08:15 08:15 08:15 WBC (3.8-10.6) k/uL RBC (3.80-5.40) m/uL Hct (34.0-46.0) % RDW (11.5-15.5) % Plt Count (150-450) k/uL Neutrophils # (1.3-7.7) k/uL Lymphocytes # (1.0-4.8) k/uL APTT 20.1 L (22.0-30.0) sec ABG pH (7.35-7.45) ABG pCO2 (35-45) mmHg ABG pO2 (83-108) mmHg ABG HCO3 (21-25) mmol/L ABG Total CO2 (19-24) mmol/L ABG O2 Saturation (94-97) % Sodium 121 L (137-145) mmol/L Potassium (3.5-5.1) mmol/L Chloride 90 L (98-107) mmol/L Carbon Dioxide 15 L (22-30) mmol/L BUN 164 H* (7-17) mg/dL Creatinine 5.40 H (0.52-1.04) mg/dL Glucose 106 H (74-99) mg/dL POC Glucose (mg/dL) (75-99) mg/dL Plasma Lactic Acid Mazin (0.7-2.0) mmol/L Calcium 7.8 L (8.4-10.2) mg/dL Troponin I 0.144 H* (0.000-0.034) ng/mL Total Protein 5.6 L (6.3-8.2) g/dL Albumin 2.9 L (3.5-5.0) g/dL Urine Appearance (Clear) Urine Protein (Negative) Urine Blood (Negative) Urine RBC (0-5) /hpf Urine Bacteria (None) /hpf Hyaline Casts (0-2) /lpf Urine Mucus (None) /hpf Urine Yeast (Budding) (None) /hpf 02/07/22 02/07/22 Range/Units 08:50 11:11 WBC (3.8-10.6) k/uL RBC (3.80-5.40) m/uL Hct (34.0-46.0) % RDW (11.5-15.5) % Plt Count (150-450) k/uL Neutrophils # (1.3-7.7) k/uL Lymphocytes # (1.0-4.8) k/uL APTT (22.0-30.0) sec ABG pH (7.35-7.45) ABG pCO2 27 L (35-45) mmHg ABG pO2 169 H (83-108) mmHg ABG HCO3 19 L (21-25) mmol/L ABG Total CO2 (19-24) mmol/L ABG O2 Saturation 99.1 H (94-97) % Sodium (137-145) mmol/L Potassium (3.5-5.1) mmol/L Chloride (98-107) mmol/L Carbon Dioxide (22-30) mmol/L BUN (7-17) mg/dL Creatinine (0.52-1.04) mg/dL Glucose (74-99) mg/dL POC Glucose (mg/dL) 110 H (75-99) mg/dL Plasma Lactic Acid Mazin (0.7-2.0) mmol/L Calcium (8.4-10.2) mg/dL Troponin I (0.000-0.034) ng/mL Total Protein (6.3-8.2) g/dL Albumin (3.5-5.0) g/dL Urine Appearance (Clear) Urine Protein (Negative) Urine Blood (Negative) Urine RBC (0-5) /hpf Urine Bacteria (None) /hpf Hyaline Casts (0-2) /lpf Urine Mucus (None) /hpf Urine Yeast (Budding) (None) /hpf Diabetes panel 02/06/22 02/07/22 02/07/22 Range/Units 22:20 06:00 08:15 Sodium 117 L* 123 L 121 L (137-145) mmol/L Potassium 5.3 H 5.1 4.6 (3.5-5.1) mmol/L Chloride 80 L 87 L 90 L (98-107) mmol/L Carbon Dioxide 16 L 18 L 15 L (22-30) mmol/L BUN 177 H* 167 H* 164 H* (7-17) mg/dL Creatinine 6.47 H 5.40 H 5.40 H (0.52-1.04) mg/dL Glucose 118 H 104 H 106 H (74-99) mg/dL Calcium 8.8 8.4 7.8 L (8.4-10.2) mg/dL AST 30 35 32 (14-36) U/L ALT 22 22 19 (4-34) U/L Alkaline Phosphatase 61 55 50 (38-126) U/L Total Protein 6.5 6.0 L 5.6 L (6.3-8.2) g/dL Albumin 3.7 3.2 L 2.9 L (3.5-5.0) g/dL Calcium panel 02/06/22 02/07/22 02/07/22 Range/Units 22:20 06:00 08:15 Calcium 8.8 8.4 7.8 L (8.4-10.2) mg/dL Albumin 3.7 3.2 L 2.9 L (3.5-5.0) g/dL Pituitary panel 02/06/22 02/07/22 02/07/22 Range/Units 22: 06:00 08:15 Sodium 117 L* 123 L 121 L (137-145) mmol/L Potassium 5.3 H 5.1 4.6 (3.5-5.1) mmol/L Chloride 80 L 87 L 90 L (98-107) mmol/L Carbon Dioxide 16 L 18 L 15 L (22-30) mmol/L BUN 177 H* 167 H* 164 H* (7-17) mg/dL Creatinine 6.47 H 5.40 H 5.40 H (0.52-1.04) mg/dL Glucose 118 H 104 H 106 H (74-99) mg/dL Calcium 8.8 8.4 7.8 L (8.4-10.2) mg/dL Adrenal panel 02/06/22 02/07/22 02/07/22 Range/Units : 06:00 08:15 Sodium 117 L* 123 L 121 L (137-145) mmol/L Potassium 5.3 H 5.1 4.6 (3.5-5.1) mmol/L Chloride 80 L 87 L 90 L (98-107) mmol/L Carbon Dioxide 16 L 18 L 15 L (22-30) mmol/L BUN 177 H* 167 H* 164 H* (7-17) mg/dL Creatinine 6.47 H 5.40 H 5.40 H (0.52-1.04) mg/dL Glucose 118 H 104 H 106 H (74-99) mg/dL Calcium 8.8 8.4 7.8 L (8.4-10.2) mg/dL Total Bilirubin 0.5 0.6 0.5 (0.2-1.3) mg/dL AST 30 35 32 (14-36) U/L ALT 22 22 19 (4-34) U/L Alkaline Phosphatase 61 55 50 (38-126) U/L Total Protein 6.5 6.0 L 5.6 L (6.3-8.2) g/dL Albumin 3.7 3.2 L 2.9 L (3.5-5.0) g/dL Assessment and Plan Plan: High-grade small bowel obstruction. Severe volume depletion. Patient will receive fluid resuscitation. Have ordered several more liters this morning for her. I had a lengthy discussion with the she's . Her prognosis is very poor. Given the fact that she is hypotensive hypothermic. I did give the option of comfort care. The patient does wish to proceed with surgery. The patient will undergo exploratory laparotomy today.
--- NOTE | 2022-02-07 12:42 | P.HPIM ---
History of Present Illness H&P Date: 02/07/22 This is a 71-year-old female presents to the emergency room from home, family called EMS. Medical history taken from family and patients chart. Patient has not been eating and drinking for about the last week per . Per , she has also not had stool from her ileostomy for the last 4 to 5 days as well, patient has had increasing confusion since last saturday to the point where he sates she did not know where she was. also reports she has an ulcer on her tailbone that was found about 2 weeks ago at home which she has been on oral antibiotics from the [facility], today was the last day of antibiotics. The day before admission patient drank water, had a few bites of banana and had a small amount of emesis per family who reports it seemed dark in color and thought it was blood. Patient follows with dr Titus in the office for history of rectal cancer. Patient was initially diagnosed about 4 years ago and underwent bowel resection with ileostomy with subsequent reversal. She underwent chemoradiation at that time. In October of 2020 there was reoccurrence of cancer, she was taking oral chemo and had a secondy bowel resection with ileostomy placement in September of 2021. Patients surgeon is Dr. Garcia out of [facility], family reports she has been to the office 1 time since surgery, family reports they were planning for ileostomy reversal around March of this year. She presents to the EC with hypotension and shock she is maintained on levophed infusion as well as empiric antibiotic coverage with IV Zosyn. She received 3 L of saline bolus in the EC and is now maintained on saline at 130 mls per hour. Blood cultures are currently pending. Patient had abdominal pelvis CT which did show high-grade mechanical bowel obstruction for which she has NG tube placed and surgical co nsult. There has been 900 mls of output from NG tube so far. Additional labs show sodium 117 which has improved some to 123. Troponin elevation at 0.141, 0.144. BUN today 55, creatinine 5.40 for which nephrology was consulted. There is evidence of some hydronephrosis with possible urinary retention found on computed tomography scan continue bladder ultrasound is requested and pending. Urinalysis showing cloudy urine, trace protein, large blood, RBC 161, rare bacteria, rate mucus, many yeast. Other pertinent medical history includes GERD osteoarthritis, cervical cancer in the 80s, EGD colonoscopies, former smoker very remote not since the . She is afebrile, heart rate 102, blood press ure 84/49, on 5 L nasal cannula which she initially required BiPAP. Patient received IV ativan in the EC as well as IV dilaudid. Upon assessment she is lethargic and not responding to verbal stimuli. She moans with physical touch. Currently tripp hugger has been applied, temperature was 94.4, and has improved to 97.4. Discussed case with oncology who reports that per her most recent PET scan there was no evidence of cancer, possibly some fluid collection around the ileostomy site. Patient will be evaluated by infectious disease as well. She is currently admitted to the intensive care unit. -Reviewed external medication history and recent prescriptions include Unable to complete a review of systems as patient is lethargic and obtunded. PHYSICAL EXAMINATION: GENERAL: The patient is lethargic and obtunded, moaning. Appears frail thin built. HEENT: Pupils are round and equally reacting to light. EOMI. No scleral icterus. No conjunctival pallor. Normocephalic, atraumatic. No pharyngeal erythema. No thyromegaly. CARDIOVASCULAR: S1 and S2 present. No murmurs, rubs, or gallops. PULMONARY: Chest is clear to auscultation, no wheezing or crackles. Diminshed. ABDOMEN: Soft, nontender, distended, hypoactive bowel sounds. No palpable organomegaly. Ileostomy present. MUSCULOSKELETAL: No joint swelling or deformity. EXTREMITIES: No cyanosis, clubbing, or pedal edema. NEUROLOGICAL: Unable to complete neurological exam. SKIN: Ecchymosis on upper chest wall, appears as chronic. Reported sacral decub assessment deferred, tripp hugger in place Assessment and Plan Assessment 1 Acute mechanical high grade obstruction, currently with NG tube placed with 900 mls of output. Patient also had episode of possible coffee ground emesis at home with no stool from the ostomy in 4-5 days. Surgical consult is pending. -Acute renal failure secondary to acute tubular necrosis secondary to hypotension and severe dehydration. Currently with indwelling catheter in place, pending ultrasound for possible hydronephrosis. Nephrology is on consult. Creatinine 5.40. -Elevated troponins, cardiology is on consult. -Hyponatremia, hypovolemic on admission secondary to severe dehydration from poor oral intake. Sodium currently 121 maintained on normal saline at 130 mls per hour -Shock septic vs hypovolemic, blood culture, urine culture currently pending. Patient is monitored in the ICU and is currently maintained on vasopressin support -Lactic acidosis secondary to dehydration -Altered mental status secondary to acute metabolic encephalopathy with significant uremia -Leukocytosis secondary to above -Reported sacral decub -History of colorectal cancer diagnosed in 2018 status post bowel resection x 2, last surgery in Sep with right sided ileostomy present. -History of gastroesophageal reflux disease -History of cervical cancer in the 80s. -Remote history of smoking GI Prophylaxis Full Code Plan Continue on vasopressin support Continue on IV fluids CT scan of chest has been ordered 2D Echo pending Continue empiric coverage with zosyn NG tube in place Patient is scheduled for tentative surgery today for bowel obstruction. Patient is a high risk for surgery which was discussed with in the ICU waiting room. Patient will return to the ICU post surgery for close monitoring. Continue with strict I&O. Complete wound/skin assessment Follow up CMP later today Repeat labs in the morning Multiple consultations including supervisor propellant charge loading, oncology, surgical, nephrology, infectious disease Prognosis guarded. The impression and plan of care has been dictated by Maya Bonilla, Nurse Practitioner as directed. Dr. Clotilde MD I have performed a history and physical examination and medical decision making of this patient, discussed the same with the dictator, and agree with the dictators assessment and plan as written, documented as a scribe. Based on total visit time, I have performed more than 50% of this visit. Past Medical History Past Medical History: Cancer, GERD/Reflux, Osteoarthritis (OA) Additional Past Medical History / Comment(s): Hx Cervical cancer in the 80's, varicose Veins, hx rectal cancer 2018, finished chemo 06-05-19, recent recurrance of rectal cancer. History of Any Multi-Drug Resistant Organisms: None Reported Past Surgical History: Adenoidectomy, Appendectomy, Bowel Resection, Hernia Repair, Tonsillectomy Additional Past Surgical History / Comment(s): EGD, colonoscopies, ileostomy, hiatal hernia repair, reversal of ileostomy. Past Anesthesia/Blood Transfusion Reactions: Previous Problems w/ Anesthesia Additional Past Anesthesia/Blood Transfusion Reaction / Comment(s): WOKE UP DURING COLONOSCOPY X1. Past Psychological History: No Psychological Hx Reported Smoking Status: Former smoker - Past Family History Mother Family Medical History: AFIB, Hypertension, Memory Impairment Additional Family Medical History / Comment(s): Memory impairment Father Family Medical History: Cancer Additional Family Medical History / Comment(s): " from blood cancer." Medications and Allergies Home Medications Medication Instructions Recorded Confirmed Type No Known Home Medications 02/06/22 02/06/22 History Allergies Allergy/AdvReac Type Severity Reaction Status Date / Time ciprofloxacin [From Cipro] Allergy Rash/Hives Verified 02/06/22 23:00 ciprofloxacin HCl Allergy Rash/Hives Verified 02/06/22 23:00 [From Cipro] Physical Exam Vitals: Vital Signs Temp Pulse Resp BP Pulse Ox 02/07/22 08:45 102 H 25 H 84/49 95 02/07/22 07:45 84/26 02/07/22 07:30 64/49 95 02/07/22 07:00 97 18 78/51 98 02/07/22 06:47 102 H 16 81/53 99 02/07/22 06:15 70/51 02/07/22 06:00 114 H 20 73/54 99 02/07/22 04:28 20 98 02/07/22 04:00 99 20 94/58 98 02/07/22 03:00 96 20 88/56 98 02/07/22 02:00 82/62 02/07/22 00:00 102 H 18 96/65 100 02/06/22 23:21 108 H 18 85/63 100 02/06/22 22:06 98.0 F 120 H 24 126/102 99 Intake and Output 02/06/22 02/07/22 02/07/22 22:59 06:59 14:59 Intake Total 13.005 Output Total 800 1300 Balance -800 -1286.995 Intake: Intake, IV Titration 13.005 Amount Norepinephrine 4 mg In 13.005 Sodium Chloride 0.9% 250 ml @ 0.05 MCG/KG/MIN 9. 073 mls/hr IV .Q24H [facility] Rx#:[id number] Output: Urine 800 1300 Straight 400 1300 Other: Weight 47.627 kg Results CBC & Chem 7: 02/07/22 08:15 02/07/22 08:15 Labs: Abnormal Lab Results - Last 24 Hours (Table) 02/06/22 02/06/22 02/06/22 Range/Units 22:18 22:20 22:20 WBC 18.2 H (3.8-10.6) k/uL RBC (3.80-5.40) m/uL Hct (34.0-46.0) % RDW 17.3 H (11.5-15.5) % Plt Count 49 L (150-450) k/uL Neutrophils # 17.5 H (1.3-7.7) k/uL Lymphocytes # 0.2 L (1.0-4.8) k/uL APTT 18.8 L (22.0-30.0) sec ABG pH 7.48 H (7.35-7.45) ABG pCO2 20 L (35-45) mmHg ABG pO2 329 H (83-108) mmHg ABG HCO3 15 L (21-25) mmol/L ABG Total CO2 16 L (19-24) mmol/L ABG O2 Saturation 99.7 H (94-97) % Sodium (137-145) mmol/L Potassium (3.5-5.1) mmol/L Chloride (98-107) mmol/L Carbon Dioxide (22-30) mmol/L BUN (7-17) mg/dL Creatinine (0.52-1.04) mg/dL Glucose (74-99) mg/dL POC Glucose (mg/dL) (75-99) mg/dL Plasma Lactic Acid Mazin (0.7-2.0) mmol/L Calcium (8.4-10.2) mg/dL Troponin I (0.000-0.034) ng/mL Total Protein (6.3-8.2) g/dL Albumin (3.5-5.0) g/dL Urine Appearance (Clear) Urine Protein (Negative) Urine Blood (Negative) Urine RBC (0-5) /hpf Urine Bacteria (None) /hpf Hyaline Casts (0-2) /lpf Urine Mucus (None) /hpf Urine Yeast (Budding) (None) /hpf 02/06/22 02/06/22 02/06/22 Range/Units 22:20 22:20 22:20 WBC (3.8-10.6) k/uL RBC (3.80-5.40) m/uL Hct (34.0-46.0) % RDW (11.5-15.5) % Plt Count (150-450) k/uL Neutrophils # (1.3-7.7) k/uL Lymphocytes # (1.0-4.8) k/uL APTT (22.0-30.0) sec ABG pH (7.35-7.45) ABG pCO2 (35-45) mmHg ABG pO2 (83-108) mmHg ABG HCO3 (21-25) mmol/L ABG Total CO2 (19-24) mmol/L ABG O2 Saturation (94-97) % Sodium 117 L* (137-145) mmol/L Potassium 5.3 H (3.5-5.1) mmol/L Chloride 80 L (98-107) mmol/L Carbon Dioxide 16 L (22-30) mmol/L BUN 177 H* (7-17) mg/dL Creatinine 6.47 H (0.52-1.04) mg/dL Glucose 118 H (74-99) mg/dL POC Glucose (mg/dL) (75-99) mg/dL Plasma Lactic Acid Mazin 2.4 H* (0.7-2.0) mmol/L Calcium (8.4-10.2) mg/dL Troponin I 0.132 H* (0.000-0.034) ng/mL Total Protein (6.3-8.2) g/dL Albumin (3.5-5.0) g/dL Urine Appearance (Clear) Urine Protein (Negative) Urine Blood (Negative) Urine RBC (0-5) /hpf Urine Bacteria (None) /hpf Hyaline Casts (0-2) /lpf Urine Mucus (None) /hpf Urine Yeast (Budding) (None) /hpf 02/07/22 02/07/22 02/07/22 Range/Units 03:04 06:00 06:00 WBC 17.2 H (3.8-10.6) k/uL RBC 3.75 L (3.80-5.40) m/uL Hct 33.9 L (34.0-46.0) % RDW 16.4 H (11.5-15.5) % Plt Count 43 L (150-450) k/uL Neutrophils # 16.4 H (1.3-7.7) k/uL Lymphocytes # 0.2 L (1.0-4.8) k/uL APTT (22.0-30.0) sec ABG pH (7.35-7.45) ABG pCO2 (35-45) mmHg ABG pO2 (83-108) mmHg ABG HCO3 (21-25) mmol/L ABG Total CO2 (19-24) mmol/L ABG O2 Saturation (94-97) % Sodium (137-145) mmol/L Potassium (3.5-5.1) mmol/L Chloride (98-107) mmol/L Carbon Dioxide (22-30) mmol/L BUN (7-17) mg/dL Creatinine (0.52-1.04) mg/dL Glucose (74-99) mg/dL POC Glucose (mg/dL) (75-99) mg/dL Plasma Lactic Acid Mazin (0.7-2.0) mmol/L Calcium (8.4-10.2) mg/dL Troponin I 0.121 H* 0.141 H* (0.000-0.034) ng/mL Total Protein (6.3-8.2) g/dL Albumin (3.5-5.0) g/dL Urine Appearance (Clear) Urine Protein (Negative) Urine Blood (Negative) Urine RBC (0-5) /hpf Urine Bacteria (None) /hpf Hyaline Casts (0-2) /lpf Urine Mucus (None) /hpf Urine Yeast (Budding) (None) /hpf 02/07/22 02/07/22 02/07/22 Range/Units 06:00 06:15 08:15 WBC 15.1 H (3.8-10.6) k/uL RBC 3.63 L (3.80-5.40) m/uL Hct 33.0 L (34.0-46.0) % RDW 17.3 H (11.5-15.5) % Plt Count 38 L (150-450) k/uL Neutrophils # 14.5 H (1.3-7.7) k/uL Lymphocytes # 0.2 L (1.0-4.8) k/uL APTT (22.0-30.0) sec ABG pH (7.35-7.45) ABG pCO2 (35-45) mmHg ABG pO2 (83-108) mmHg ABG HCO3 (21-25) mmol/L ABG Total CO2 (19-24) mmol/L ABG O2 Saturation (94-97) % Sodium 123 L (137-145) mmol/L Potassium (3.5-5.1) mmol/L Chloride 87 L (98-107) mmol/L Carbon Dioxide 18 L (22-30) mmol/L BUN 167 H* (7-17) mg/dL Creatinine 5.40 H (0.52-1.04) mg/dL Glucose 104 H (74-99) mg/dL POC Glucose (mg/dL) (75-99) mg/dL Plasma Lactic Acid Mazin (0.7-2.0) mmol/L Calcium (8.4-10.2) mg/dL Troponin I (0.000-0.034) ng/mL Total Protein 6.0 L (6.3-8.2) g/dL Albumin 3.2 L (3.5-5.0) g/dL Urine Appearance Cloudy H (Clear) Urine Protein Trace H (Negative) Urine Blood Large H (Negative) Urine RBC 161 H (0-5) /hpf Urine Bacteria Rare H (None) /hpf Hyaline Casts 4 H (0-2) /lpf Urine Mucus Rare H (None) /hpf Urine Yeast (Budding) Many H (None) /hpf 02/07/22 02/07/22 02/07/22 Range/Units 08:15 08:15 08:15 WBC (3.8-10.6) k/uL RBC (3.80-5.40) m/uL Hct (34.0-46.0) % RDW (11.5-15.5) % Plt Count (150-450) k/uL Neutrophils # (1.3-7.7) k/uL Lymphocytes # (1.0-4.8) k/uL APTT 20.1 L (22.0-30.0) sec ABG pH (7.35-7.45) ABG pCO2 (35-45) mmHg ABG pO2 (83-108) mmHg ABG HCO3 (21-25) mmol/L ABG Total CO2 (19-24) mmol/L ABG O2 Saturation (94-97) % Sodium 121 L (137-145) mmol/L Potassium (3.5-5.1) mmol/L Chloride 90 L (98-107) mmol/L Carbon Dioxide 15 L (22-30) mmol/L BUN 164 H* (7-17) mg/dL Creatinine 5.40 H (0.52-1.04) mg/dL Glucose 106 H (74-99) mg/dL POC Glucose (mg/dL) (75-99) mg/dL Plasma Lactic Acid Mazin (0.7-2.0) mmol/L Calcium 7.8 L (8.4-10.2) mg/dL Troponin I 0.144 H* (0.000-0.034) ng/mL Total Protein 5.6 L (6.3-8.2) g/dL Albumin 2.9 L (3.5-5.0) g/dL Urine Appearance (Clear) Urine Protein (Negative) Urine Blood (Negative) Urine RBC (0-5) /hpf Urine Bacteria (None) /hpf Hyaline Casts (0-2) /lpf Urine Mucus (None) /hpf Urine Yeast (Budding) (None) /hpf 02/07/22 Range/Units 08:50 WBC (3.8-10.6) k/uL RBC (3.80-5.40) m/uL Hct (34.0-46.0) % RDW (11.5-15.5) % Plt Count (150-450) k/uL Neutrophils # (1.3-7.7) k/uL Lymphocytes # (1.0-4.8) k/uL APTT (22.0-30.0) sec ABG pH (7.35-7.45) ABG pCO2 (35-45) mmHg ABG pO2 (83-108) mmHg ABG HCO3 (21-25) mmol/L ABG Total CO2 (19-24) mmol/L ABG O2 Saturation (94-97) % Sodium (137-145) mmol/L Potassium (3.5-5.1) mmol/L Chloride (98-107) mmol/L Carbon Dioxide (22-30) mmol/L BUN (7-17) mg/dL Creatinine (0.52-1.04) mg/dL Glucose (74-99) mg/dL POC Glucose (mg/dL) 110 H (75-99) mg/dL Plasma Lactic Acid Mazin (0.7-2.0) mmol/L Calcium (8.4-10.2) mg/dL Troponin I (0.000-0.034) ng/mL Total Protein (6.3-8.2) g/dL Albumin (3.5-5.0) g/dL Urine Appearance (Clear) Urine Protein (Negative) Urine Blood (Negative) Urine RBC (0-5) /hpf Urine Bacteria (None) /hpf Hyaline Casts (0-2) /lpf Urine Mucus (None) /hpf Urine Yeast (Budding) (None) /hpf Assessment and Plan Time with Patient: Greater than 30
--- NOTE | 2022-02-07 12:59 | ECHOF ---
Referral Reason:afib runs, critically ill MEASUREMENTS -------- HEIGHT: 157.5 cm WEIGHT: 46.3 kg BP: RVIDd: 2.2 cm (< 3.3) IVSd: 1.1 cm (0.6 - 1.1) LVIDd: 2.8 cm (3.9 - 5.3) LVPWd: 1.5 cm (0.6 - 1.1) IVSs: 1.4 cm LVIDs: 1.1 cm LVPWs: 1.2 cm Ao Diam: 3.4 cm (2.0 - 3.7) AV Cusp: 2.0 cm (1.5 - 2.6) LA Diam: 2.9 cm (2.7 - 3.8) MV EXCURSION: 9.436 mm (> 18.000) MV EF SLOPE: 54 mm/s (70 - 150) EPSS: 0.6 cm MV E Randy: 0.70 m/s MV DecT: 145 ms MV A Randy: 0.84 m/s MV E/A Ratio: 0.84 AR PHT: 412 ms RAP: 5.00 mmHg RVSP: 19.56 mmHg FINDINGS -------- This was a technically adequate study. The left ventricular size is normal. There is mild concentric left ventricular hypertrophy. Overa ll left ventricular systolic function is normal with, an EF between 55 - 60 %. The right ventricle is normal in size. The left atrial size is normal. The right atrial size is normal. The aortic valve is trileaflet and appears structurally normal. Trace amount of aortic regurgitatio n. The mitral valve is normal. There is trace mitral regurgitation. The tricuspid valve appears structurally normal. Trace tricuspid regurgitation present. Right peri tricular systolic pressure is normal at < 35 mmHg. The pulmonic valve was not well visualized. The aortic root size is normal. IVC Not well visulized. There is a small, generalized pericardial effusion present. CONCLUSIONS -------- 1. The left ventricular size is normal. 2. There is mild concentric left ventricular hypertrophy. 3. Overall left ventricular systolic function is normal with, an EF between 55 - 60 %. 4. Trace amount of aortic regurgitation. 5. There is trace mitral regurgitation. 6. Trace tricuspid regurgitation present. 7. There is a small, generalized pericardial effusion present. AUTO TECH: Pina Kwok RDCS
[2022-02-07] MEDS ORDERED: PHENYLEPHRINE-0.9% NACL SYG 1,000 MCG/10 ML SYRINGE ONE (13:35)
[2022-02-07] MEDS ORDERED: fentaNYL (PF) 50 MCG/ML 2 ML AMP ONE (13:35)
[2022-02-07] MEDS ORDERED: ROCURONIUM 10 MG/ML (5 ML VIAL) IV ONE (13:35)
[2022-02-07] MEDS ORDERED: ETOMIDATE 2 MG/ML 10 ML VIAL ONE (13:35)
[2022-02-07] MEDS ORDERED: SODIUM BICARB 8.4% 50 ML SYR (1 MEQ/ML) ONE (13:35)
[2022-02-07] MEDS ORDERED: SUCCINYLCHOLINE CHLORIDE 100 MG/5 ML SYR IV ONE (13:35)
[2022-02-07] MEDS ORDERED: MIDAZOLAM 2 MG/2 ML VIAL ONE (13:35)
--- NOTE | 2022-02-07 14:42 | P.OP ---
Date of Procedure: 02/07/22 Preoperative Diagnosis: Bowel obstruction Postoperative Diagnosis: Bowel obstruction secondary to adhesive band Procedure(s) Performed: Exploratory laparotomy Lysis of adhesion Anesthesia: DANISH Surgeon: Ajay Samuels Estimated Blood Loss (ml): 10 Pathology: none sent Condition: stable Disposition: PACU Description of Procedure: The patient's placed on the operative table in the supine position. She received general endotracheal anesthesia. Her abdomen was prepped and draped in sterile fashion. The skin was incised in the midline position. His left cautery the subcu tissue divided. The fascia was then divided. The abdominal wall retractors placed a wound. The small bowel appeared to be dilated. The small bowel was then followed to the level of an adhesive band next to the ileostomy site. This was causing complete obstruction. Patient had a loop ileostomy in the right upper quadrant. The adhesion was lysed with sharp dissection. The small bowel was then run and the risk asked seen exiting through the ileostomy site. This point the area was irrigated there is no bleeding seen. The fascia was closed with looped #1 PDS suture. The skin was closed wilton. Patient was sent back to the ICU intubated.
[2022-02-07 15:24] LABS: Glucose,Whole Blood 99 mg/dL (75-99)
--- NOTE | 2022-02-07 15:31 | XR ---
EXAMINATION TYPE: XR chest 1V portable DATE OF EXAM: 02/07/2022 COMPARISON: X-ray dated 02/07/2022 at 8:23 AM HISTORY: Endotracheal tube placement TECHNIQUE: Single frontal view of the chest is obtained. FINDINGS: Interval insertion of an endotracheal tube with the tip is about 3.1 cm proximal to the keely. Uncha nged position of the right chest wall Port-A-Cath and NG tube. Less gaseous distention of the stomach with persistent gaseous distention of the small bowel in the upper abdomen. Newly seen free air under the diaphragm, likely related to the recent interval intervention/explorati on. Minimal atelectasis in the left mid to lower lung zones. Unchanged cardiomediastinal silhouette a nd bony thoracic cage. IMPRESSION: Interval changes as described above.
[2022-02-07] MEDS: NOREPINEPHRINE 8 MG in SODIUM CHLORIDE 0.9% 250 ML IV SCH (15:33)
[2022-02-07 15:35] LABS: ABG HCO3 19 mmol/L (21-25); ABG Oxygen Saturation 99.6 % (94-97); ABG PCO2 37 mmHg (35-45); ABG PH 7.32 (7.35-7.45); ABG PO2 >400 mmHg (83-108); ABG TCO2 20 mmol/L (19-24)
[2022-02-07 15:37] LABS: Allen Test Performed? no
[2022-02-07] MEDS: SODIUM CHLORIDE 0.9% 150 ML with VASOPRESSIN 60 UNIT IV SCH ×2 (16:21)
[2022-02-07 16:40] LABS: Anisocytosis Slight; Basophils % (A) 0 %; Eosinophils % (A) 0 %; HCT 29.8 % (34.0-46.0); HGB 10.3 gm/dL (11.4-16.0); Lymphocytes # (A) 0.2 k/uL (1.0-4.8); Lymphocytes % (A) 1 %; MCH 31.6 pg (25.0-35.0); MCHC 34.5 g/dL (31.0-37.0); MCV 91.6 fL (80.0-100.0); Mean Platelet Volume 10.6; Monocytes # (A) 0.3 k/uL (0-1.0); Monocytes % (A) 2 %; Neutrophils # (A) 14.1 k/uL (1.3-7.7); Neutrophils % (A) 97 %; RBC 3.26 m/uL (3.80-5.40); RDW 17.4 % (11.5-15.5); WBC 14.7 k/uL (3.8-10.6)
[2022-02-07 16:42] LABS: Platelet Count 46 k/uL (150-450)
[2022-02-07 16:53] LABS: Albumin 2.3 g/dL (3.5-5.0); Calcium 6.7 mg/dL (8.4-10.2); Potassium 3.6 mmol/L (3.5-5.1); Total Bilirubin 0.5 mg/dL (0.2-1.3); Total Protein 4.6 g/dL (6.3-8.2)
[2022-02-07] MEDS ORDERED: POTASSIUM CHLORIDE 20 MEQ in WATER FOR INJECTION 1 100ML.BAG IVPB ONE ×2 (17:22→19:30)
[2022-02-07] MEDS: DEXTROSE 5% IN WATER 1,000 ML IV SCH (17:29)
--- NOTE | 2022-02-07 18:23 | P.CONS ---
History of Present Illness - Reason for Consult Consult date: 02/07/22 Hx colon adenocarcinoma Requesting physician: Coleman Grace - Chief Complaint severe dehydration - History of Present Illness Ms. Lazcano is a pleasant white female, with overall well-controlled medical problems. The patient had a routine screening colonoscopy on 09/02/18, found to have a large villous mass in the second portion of duodenum, this was biopsied as well as another mass that appeared to be nearly obstructing, in the rectum, at 10 cm from the anal verge. This was necrotic. The duodenal polyp was a tubular adenoma. Other biopsy showed necroinflammatory material with fragments of severely dysplastic colonic mucosa. Repeat procedure on 09/15/18, bulk of t his tumor was a excise transanally. Pathology moderately differentiated adenocarcinoma with extensive necrosis. Staging CT AP, negative except for a borderline right inguinal node at 1.5 cm. EUS [facility] 09/29/18, revealed T3 N0 tumor. NCCN guidelines recommended neoadjuvant Xeloda with r adiation. However, there was concern regarding her ability to have more radiation given her prior history. XRT was contraindicated per Dr. Collazo with pt history. She proceeded to surgery on 11/07/18, LAR, revealing a 6.8 x 3.8 x 1.5 cm, G2, T3 tumor with 0/7 lymph nodes involved She took adjuvant xeloda x 6 cycles, completed 06/05/19. She was then placed on observation. 12/18 f/u colonoscopy and pathology, stricture had been noted and the anastomosis that was biopsied, this came back positive for recurrent colorectal adenocarcinoma. A right colon polyp was also removed, positive for tubular adenoma. PET confirmed local recurrence, no evidence of metastatic disease. EUS at [facility], showing the bulk of the tumor to be intra-mural and extending into the pericolonic fat. There didn't appear to be involvement of adjacent organs or obvious adenopathy. Was referred to colorectal surgery, Dr. Whitlock. Colorectal surgery, felt that while surgery was possible, it was likely not optimal given the local extent of the tumor. It was recommended that the patient have full dose systemic therapy neoadjuvantly, as she had previously been determined not to be a candidate for conventional RT. She started FOLFOX on 03/06/21, completed 8 cycles 06/29/21. She did end up having short course of proton beam radiation, completed in early 08/17. [facility] discussed her case, found to be appropriate for surgery. Surgery 10/17. Path revealed a 3 cm tumor, T3, with 0/8 nodes involved. Margins were n egative. Patient was MSI stable. Pathology indicated no significant response to neoadjuvant treatment. She had an uneventful postoperative course, had an ostomy placed during surgery. However since discharge, she has struggled with appetite, wt maintenance, general failure to thrive. She has lost about 35-40 pounds. Ostomy output is persistently liquid and greenish. She was seen in the office, stool studies were checked, negative. She was given hydration. Antidiarrheals were recommended. Patient did not have any significant response to interventions. PET was done 01/26 to see if there was any recurrence and there was not, concerns for stricture. She is admitted for severe dehydration, failure to thrive. Surgery has seen pt. Review of Systems unable to assess, pt very lethargic, not responding to questions Past Medical History Past Medical History: Cancer, GERD/Reflux, Osteoarthritis (OA) Additional Past Medical History / Comment(s): Hx Cervical cancer in the , varicose Veins, hx rectal cancer 2018, finished chemo 06-05-19, recent recurrance of rectal cancer. History of Any Multi-Drug Resistant Organisms: None Reported Past Surgical History: Adenoidectomy, Appendectomy, Bowel Resection, Hernia Repair, Tonsillectomy Additional Past Surgical History / Comment(s): EGD, colonoscopies, ileostomy, hiatal hernia repair, reversal of ileostomy. Past Anesthesia/Blood Transfusion Reactions: Previous Problems w/ Anesthesia Additional Past Anesthesia/Blood Transfusion Reaction / Comm: WOKE UP DURING COLONOSCOPY X1. Past Psychological History: No Psychological Hx Reported Smoking Status: Former smoker - Past Family History Mother Family Medical History: AFIB, Hypertension, Memory Impairment Additional Family Medical History / Comment(s): Memory impairment Father Family Medical History: Cancer Additional Family Medical History / Comment(s): " from blood cancer." Medications and Allergies Home Medications Medication Instructions Recorded Confirmed Type No Known Home Medications 02/06/22 02/06/22 History Allergies Allergy/AdvReac Type Severity Reaction Status Date / Time ciprofloxacin [From Cipro] Allergy Rash/Hives Verified 02/06/22 23:00 ciprofloxacin HCl Allergy Rash/Hives Verified 02/06/22 23:00 [From [facility]] Physical Exam Vitals: Vital Signs Temp Pulse Resp BP Pulse Ox 02/07/22 07:45 84/26 02/07/22 07:30 64/49 95 02/07/22 07:00 97 18 78/51 98 02/07/22 06:47 102 H 16 81/53 99 02/07/22 06:15 70/51 02/07/22 06:00 114 H 20 73/54 99 02/07/22 04:28 20 98 02/07/22 04:00 99 20 94/58 98 02/07/22 03:00 96 20 88/56 98 02/07/22 02:00 82/62 02/07/22 00:00 102 H 18 96/65 100 02/06/22 23:21 108 H 18 85/63 100 02/06/22 22:06 98.0 F 120 H 24 126/102 99 Intake and Output 02/06/22 02/07/22 02/07/22 22:59 06:59 14:59 Intake Total 13.005 Output Total 800 Balance -800 13.005 Intake: Intake, IV Titration 13.005 Amount Norepinephrine 4 mg In 13.005 Sodium Chloride 0.9% 250 ml @ 0.05 MCG/KG/MIN 9. 073 mls/hr IV .Q24H [facility] Rx#:[id number] Output: Urine 800 Straight 400 Other: Weight 47.627 kg - Constitutional General appearance: no acute distress, thin - EENT Eyes: anicteric sclerae - Neck Neck: no lymphadenopathy - Respiratory Respiratory: bilateral: CTA - Cardiovascular Rhythm: irregularly irregular Heart sounds: normal: S1, S2 Abnormal Heart Sounds: no systolic murmur, no diastolic murmur, no rub, no S3 Gallop, no S4 Gallop, no click, no other leg Peripheral Edema: bilateral: None - Gastrointestinal General gastrointestinal: decreased bowel sounds, soft - Musculoskeletal Musculoskeletal: generalized weakness - Psychiatric Psychiatric: no A&O x's 3, no appropriate affect, no intact judgment & insight Results CBC & Chem 7: 02/07/22 16:30 02/07/22 16:30 Labs: Abnormal Lab Results - Last 24 Hours (Table) 02/06/22 02/06/22 02/06/22 Range/Units 22:18 22:20 22:20 WBC 18.2 H (3.8-10.6) k/uL RBC (3.80-5.40) m/uL Hct (34.0-46.0) % RDW 17.3 H (11.5-15.5) % Plt Count 49 L (150-450) k/uL Neutrophils # 17.5 H (1.3-7.7) k/uL Lymphocytes # 0.2 L (1.0-4.8) k/uL APTT 18.8 L (22.0-30.0) sec ABG pH 7.48 H (7.35-7.45) ABG pCO2 20 L (35-45) mmHg ABG pO2 329 H (83-108) mmHg ABG HCO3 15 L (21-25) mmol/L ABG Total CO2 16 L (19-24) mmol/L ABG O2 Saturation 99.7 H (94-97) % Sodium (137-145) mmol/L Potassium (3.5-5.1) mmol/L Chloride (98-107) mmol/L Carbon Dioxide (22-30) mmol/L BUN (7-17) mg/dL Creatinine (0.52-1.04) mg/dL Glucose (74-99) mg/dL Plasma Lactic Acid Mazin (0.7-2.0) mmol/L Calcium (8.4-10.2) mg/dL Troponin I (0.000-0.034) ng/mL Total Protein (6.3-8.2) g/dL Albumin (3.5-5.0) g/dL Urine Appearance (Clear) Urine Protein (Negative) Urine Blood (Negative) Urine RBC (0-5) /hpf Urine Bacteria (None) /hpf Hyaline Casts (0-2) /lpf Urine Mucus (None) /hpf Urine Yeast (Budding) (None) /hpf 02/06/22 02/06/22 02/06/22 Range/Units 22:20 22:20 22:20 WBC (3.8-10.6) k/uL RBC (3.80-5.40) m/uL Hct (34.0-46.0) % RDW (11.5-15.5) % Plt Count (150-450) k/uL Neutrophils # (1.3-7.7) k/uL Lymphocytes # (1.0-4.8) k/uL APTT (22.0-30.0) sec ABG pH (7.35-7.45) ABG pCO2 (35-45) mmHg ABG pO2 (83-108) mmHg ABG HCO3 (21-25) mmol/L ABG Total CO2 (19-24) mmol/L ABG O2 Saturation (94-97) % Sodium 117 L* (137-145) mmol/L Potassium 5.3 H (3.5-5.1) mmol/L Chloride 80 L (98-107) mmol/L Carbon Dioxide 16 L (22-30) mmol/L BUN 177 H* (7-17) mg/dL Creatinine 6.47 H (0.52-1.04) mg/dL Glucose 118 H (74-99) mg/dL Plasma Lactic Acid Mazin 2.4 H* (0.7-2.0) mmol/L Calcium (8.4-10.2) mg/dL Troponin I 0.132 H* (0.000-0.034) ng/mL Total Protein (6.3-8.2) g/dL Albumin (3.5-5.0) g/dL Urine Appearance (Clear) Urine Protein (Negative) Urine Blood (Negative) Urine RBC (0-5) /hpf Urine Bacteria (None) /hpf Hyaline Casts (0-2) /lpf Urine Mucus (None) /hpf Urine Yeast (Budding) (None) /hpf 02/07/22 02/07/22 02/07/22 Range/Units 03:04 06:00 06:00 WBC 17.2 H (3.8-10.6) k/uL RBC 3.75 L (3.80-5.40) m/uL Hct 33.9 L (34.0-46.0) % RDW 16.4 H (11.5-15.5) % Plt Count 43 L (150-450) k/uL Neutrophils # 16.4 H (1.3-7.7) k/uL Lymphocytes # 0.2 L (1.0-4.8) k/uL APTT (22.0-30.0) sec ABG pH (7.35-7.45) ABG pCO2 (35-45) mmHg ABG pO2 (83-108) mmHg ABG HCO3 (21-25) mmol/L ABG Total CO2 (19-24) mmol/L ABG O2 Saturation (94-97) % Sodium (137-145) mmol/L Potassium (3.5-5.1) mmol/L Chloride (98-107) mmol/L Carbon Dioxide (22-30) mmol/L BUN (7-17) mg/dL Creatinine (0.52-1.04) mg/dL Glucose (74-99) mg/dL Plasma Lactic Acid Mazin (0.7-2.0) mmol/L Calcium (8.4-10.2) mg/dL Troponin I 0.121 H* 0.141 H* (0.000-0.034) ng/mL Total Protein (6.3-8.2) g/dL Albumin (3.5-5.0) g/dL Urine Appearance (Clear) Urine Protein (Negative) Urine Blood (Negative) Urine RBC (0-5) /hpf Urine Bacteria (None) /hpf Hyaline Casts (0-2) /lpf Urine Mucus (None) /hpf Urine Yeast (Budding) (None) /hpf 02/07/22 02/07/22 02/07/22 Range/Units 06:00 06:15 08:15 WBC 15.1 H (3.8-10.6) k/uL RBC 3.63 L (3.80-5.40) m/uL Hct 33.0 L (34.0-46.0) % RDW 17.3 H (11.5-15.5) % Plt Count 38 L (150-450) k/uL Neutrophils # 14.5 H (1.3-7.7) k/uL Lymphocytes # 0.2 L (1.0-4.8) k/uL APTT (22.0-30.0) sec ABG pH (7.35-7.45) ABG pCO2 (35-45) mmHg ABG pO2 (83-108) mmHg ABG HCO3 (21-25) mmol/L ABG Total CO2 (19-24) mmol/L ABG O2 Saturation (94-97) % Sodium 123 L (137-145) mmol/L Potassium (3.5-5.1) mmol/L Chloride 87 L (98-107) mmol/L Carbon Dioxide 18 L (22-30) mmol/L BUN 167 H* (7-17) mg/dL Creatinine 5.40 H (0.52-1.04) mg/dL Glucose 104 H (74-99) mg/dL Plasma Lactic Acid Mazin (0.7-2.0) mmol/L Calcium (8.4-10.2) mg/dL Troponin I (0.000-0.034) ng/mL Total Protein 6.0 L (6.3-8.2) g/dL Albumin 3.2 L (3.5-5.0) g/dL Urine Appearance Cloudy H (Clear) Urine Protein Trace H (Negative) Urine Blood Large H (Negative) Urine RBC 161 H (0-5) /hpf Urine Bacteria Rare H (None) /hpf Hyaline Casts 4 H (0-2) /lpf Urine Mucus Rare H (None) /hpf Urine Yeast (Budding) Many H (None) /hpf 02/07/22 Range/Units 08:15 WBC (3.8-10.6) k/uL RBC (3.80-5.40) m/uL Hct (34.0-46.0) % RDW (11.5-15.5) % Plt Count (150-450) k/uL Neutrophils # (1.3-7.7) k/uL Lymphocytes # (1.0-4.8) k/uL APTT (22.0-30.0) sec ABG pH (7.35-7.45) ABG pCO2 (35-45) mmHg ABG pO2 (83-108) mmHg ABG HCO3 (21-25) mmol/L ABG Total CO2 (19-24) mmol/L ABG O2 Saturation (94-97) % Sodium 121 L (137-145) mmol/L Potassium (3.5-5.1) mmol/L Chloride 90 L (98-107) mmol/L Carbon Dioxide 15 L (22-30) mmol/L BUN 164 H* (7-17) mg/dL Creatinine 5.40 H (0.52-1.04) mg/dL Glucose 106 H (74-99) mg/dL Plasma Lactic Acid Mazin (0.7-2.0) mmol/L Calcium 7.8 L (8.4-10.2) mg/dL Troponin I (0.000-0.034) ng/mL Total Protein 5.6 L (6.3-8.2) g/dL Albumin 2.9 L (3.5-5.0) g/dL Urine Appearance (Clear) Urine Protein (Negative) Urine Blood (Negative) Urine RBC (0-5) /hpf Urine Bacteria (None) /hpf Hyaline Casts (0-2) /lpf Urine Mucus (None) /hpf Urine Yeast (Budding) (None) /hpf Comments: abdomen/bladder ultrasound report reviewed Chest x-ray: report reviewed CT scan - abdomen: report reviewed CT scan - pelvis: report reviewed Assessment and Plan Plan: Dr. Titus discussed the case with the Critical Care team, Internal Medicine and the family. Patient's acute condition appears to be more related to postoperative complications, most suggestive of a stricture. Surgery is seeing the patient and is going to take the patient to surgery as soon as she is hemodynamically stable enough to tolerate. At this time, no evidence to suggest that her condition is related to a progressive malignancy. We will continue to follow up on her hospital course. Agree with the plan of care as directed by Critical Care and multiple specialty Consulting teams. Doctor attests: I performed a history and physical examination of this patient, developed impression and plan of care, discussed with dictator. I agree with dictators note, documented as a scribe.
--- NOTE | 2022-02-07 19:48 | PCN ---
PROCEDURE NOTE OPERATIVE REPORT: Placement of the left brachial arterial line. PREOPERATIVE DIAGNOSIS: Hypotension, bowel obstruction. POSTOPERATIVE DIAGNOSIS: Hypotension, bowel obstruction. ANESTHESIA: None deployed. PROCEDURE DETAILS: The patient was placed in a supine position, the left brachial region was prepared in a sterile fashion and drapes were applied. The left brachial artery was palpated, cannulated easily, and a guidewire was placed. A Cook catheter was inserted over the guidewire, and the guidewire was removed. Good blood flow, good waveform noted, no complications, line was secured using 3.0 silk sutures. MMODL / IJN: [id number] /
[2022-02-07 20:10] LABS: Calcium 6.7 mg/dL (8.4-10.2); Potassium 4.2 mmol/L (3.5-5.1)
--- NOTE | 2022-02-07 23:11 | P.CONS ---
History of Present Illness - Reason for Consult Consult date: 02/07/22 Sepsis Requesting physician: Ac Mabry - Chief Complaint Shortness of breath and weakness x few days - History of Present Illness Patient is 71-year female with a past medical he significant for rectal cancer initially diagnosed about 4 days ago in this patient underwent bowel resection and ileostomy with subsequent reversal, patient underwent chemoradiation therapy at that point in October 2020 patient was noticed to have recurrence of her cancer she was taking oral chemo and had a second bowel resection with ileostomy placement in September 2021 out of [facility] patient has been brought into the ER last night for evaluation of weakness i ncreasing shortness of breath apparently the patient has been eating or drinking for about a week and patient did not have any stool from the ostomy for about 4 to 5 days patient was noticed to have increasing confusion with the center the patient was brought into the ER on arrival to the ER patient was afebrile subsequently have an episode of hypothermia temperature of 94.4 she is hypotensive on multiple pressor support patient did have white count of 15.2 with a left shift did have elevated BUN and creatinine were normal, urine was mildly positive patient did have a abdominal pelvis CT and it shows evidence of dilated stomach and multiple dilated small bowel loops suggestive mechanical hig h-grade bowel obstruction ostomy the right mid abdominal dilated bladder and mild hydronephrosis patient was started on Zosyn she got admitted ICU currently on the vent most information has been obtained from review the chart and talking to nursing staff as the patient could not provide any history Review of Systems Positive points has been mentioned in HPI complete review could not be obtained because patient is sedated on the vent Past Medical History Past Medical History: Cancer, GERD/Reflux, Osteoarthritis (OA) Additional Past Medical History / Comment(s): Hx Cervical cancer in the 's, varicose Veins, hx rectal cancer 2018, finished chemo 06-05-19, recent recurrance of rectal cancer. History of Any Multi-Drug Resistant Organisms: None Reported Past Surgical History: Adenoidectomy, Appendectomy, Bowel Resection, Hernia Repair, Tonsillectomy Additional Past Surgical History / Comment(s): EGD, colonoscopies, ileostomy, hiatal hernia repair, reversal of ileostomy. Past Anesthesia/Blood Transfusion Reactions: Previous Problems w/ Anesthesia Additional Past Anesthesia/Blood Transfusion Reaction / Comm: WOKE UP DURING COLONOSCOPY X1. Past Psychological History: No Psychological Hx Reported Smoking Status: Former smoker - Past Family History Mother Family Medical History: AFIB, Hypertension, Memory Impairment Additional Family Medical History / Comment(s): Memory impairment Father Family Medical History: Cancer Additional Family Medical History / Comment(s): " from blood cancer." Medications and Allergies Home Medications Medication Instructions Recorded Confirmed Type No Known Home Medications 02/06/22 02/06/22 History Allergies Allergy/AdvReac Type Severity Reaction Status Date / Time ciprofloxacin [From Cipro] Allergy Rash/Hives Verified 02/06/22 23:00 ciprofloxacin HCl Allergy Rash/Hives Verified 02/06/22 23:00 [From Cipro] Physical Exam Vitals: Vital Signs Temp Pulse Resp BP Pulse Ox 02/07/22 13:00 97.6 F 91 10 L 99 02/07/22 12:45 81 14 97 02/07/22 12:30 90 16 98 02/07/22 12:15 92 16 97 02/07/22 12:00 97.4 F L 87 14 97 02/07/22 11:45 84 14 97 02/07/22 11:30 85 16 97 02/07/22 11:15 80 14 97 02/07/22 11:00 97.4 F L 81 16 97 02/07/22 10:45 81 16 97 02/07/22 10:30 85 10 L 92/55 96 02/07/22 10:15 94 10 L 92/55 96 02/07/22 10:00 97.5 F L 90 16 92/55 97 02/07/22 09:45 108 H 13 92/55 97 02/07/22 09:30 86 14 89/67 99 02/07/22 09:15 98 15 97/76 99 02/07/22 09:00 94.4 F L 107 H 19 88/45 98 02/07/22 08:45 102 H 25 H 84/49 95 02/07/22 07:45 84/26 02/07/22 07:30 64/49 95 02/07/22 07:00 97 18 78/51 98 02/07/22 06:47 102 H 16 81/53 99 02/07/22 06:15 70/51 02/07/22 06:00 114 H 20 73/54 99 02/07/22 04:28 20 98 02/07/22 04:00 99 20 94/58 98 02/07/22 03:00 96 20 88/56 98 02/07/22 02:00 82/62 02/07/22 00:00 102 H 18 96/65 100 02/06/22 23:21 108 H 18 85/63 100 02/06/22 22:06 98.0 F 120 H 24 126/102 99 Intake and Output 02/06/22 02/07/22 02/07/22 22:59 06:59 14:59 Intake Total 2681.092 Output Total 800 2470 Balance -800 211.092 Intake: Intake, IV Titration 2681.092 Amount Norepinephrine 4 mg In 61.092 Sodium Chloride 0.9% 250 ml @ 0.05 MCG/KG/MIN 9. 073 mls/hr IV .Q24H TIM Rx#:[id number] Piperacillin-Tazobactam 3 100 .375 gm In Sodium Chloride 0.9% 100 ml @ 25 mls/hr IVPB Q12HR TIM Rx #:[id number] Sodium Chloride 0.9% 1, 520 000 ml @ 130 mls/hr IV . Q7H42M TIM Rx#:[id number] Sodium Chloride 0.9% 1, 1000 000 ml @ 999 mls/hr IV . Q1H1M ONE Rx#:[id number] Sodium Chloride 0.9% 1, 1000 000 ml @ 999 mls/hr IV . Q1H1M ONE Rx#:[id number] Output: Gastric Drainage 900 Urine 800 1570 Straight 400 1300 Other: Weight 47.627 kg 47.627 kg ABP, PAP, CO, CI - Last 8 Hours Arterial Blood Pressure 96/52 Arterial Blood Pressure 97/52 Arterial Blood Pressure 100/49 Arterial Blood Pressure 96/51 Arterial Blood Pressure 100/52 Arterial Blood Pressure 94/48 Arterial Blood Pressure 91/46 Arterial Blood Pressure 88/43 Arterial Blood Pressure 86/43 Arterial Blood Pressure 90/43 Arterial Blood Pressure 87/40 Arterial Blood Pressure 81/40 Arterial Blood Pressure 97/50 Arterial Blood Pressure 103/64 GENERAL DESCRIPTION: An elderly female intubated on vent. No tachypnea or accessory muscle of respiration use. HEENT: Shows Pallor , no scleral icterus. Oral mucous membrane is dry. No pharyngeal erythema or thrush NECK: Trachea central, no thyromegaly. LUNGS: Unlabored breathing. Decreased intensive breath sounds. No wheeze or crackle. HEART: S1, S2, regular rate and rhythm. No loud murmur ABDOMEN: Soft, distended midline incision is intact EXTREMITIES: No edema of feet. SKIN: No rash, no masses palpable. NEUROLOGICAL: The patient is sedated on the vent Results CBC & Chem 7: 02/07/22 16:30 02/07/22 22:50 Labs: Abnormal Lab Results - Last 24 Hours (Table) 02/06/22 02/06/22 02/06/22 Range/Units 22:18 22:20 22:20 WBC 18.2 H (3.8-10.6) k/uL RBC (3.80-5.40) m/uL Hct (34.0-46.0) % RDW 17.3 H (11.5-15.5) % Plt Count 49 L (150-450) k/uL Neutrophils # 17.5 H (1.3-7.7) k/uL Lymphocytes # 0.2 L (1.0-4.8) k/uL APTT 18.8 L (22.0-30.0) sec ABG pH 7.48 H (7.35-7.45) ABG pCO2 20 L (35-45) mmHg ABG pO2 329 H (83-108) mmHg ABG HCO3 15 L (21-25) mmol/L ABG Total CO2 16 L (19-24) mmol/L ABG O2 Saturation 99.7 H (94-97) % Sodium (137-145) mmol/L Potassium (3.5-5.1) mmol/L Chloride (98-107) mmol/L Carbon Dioxide (22-30) mmol/L BUN (7-17) mg/dL Creatinine (0.52-1.04) mg/dL Glucose (74-99) mg/dL POC Glucose (mg/dL) (75-99) mg/dL Plasma Lactic Acid Mazin (0.7-2.0) mmol/L Calcium (8.4-10.2) mg/dL Troponin I (0.000-0.034) ng/mL Total Protein (6.3-8.2) g/dL Albumin (3.5-5.0) g/dL Urine Appearance (Clear) Urine Protein (Negative) Urine Blood (Negative) Urine RBC (0-5) /hpf Urine Bacteria (None) /hpf Hyaline Casts (0-2) /lpf Urine Mucus (None) /hpf Urine Yeast (Budding) (None) /hpf 02/06/22 02/06/22 02/06/22 Range/Units 22:20 22:20 22:20 WBC (3.8-10.6) k/uL RBC (3.80-5.40) m/uL Hct (34.0-46.0) % RDW (11.5-15.5) % Plt Count (150-450) k/uL Neutrophils # (1.3-7.7) k/uL Lymphocytes # (1.0-4.8) k/uL APTT (22.0-30.0) sec ABG pH (7.35-7.45) ABG pCO2 (35-45) mmHg ABG pO2 (83-108) mmHg ABG HCO3 (21-25) mmol/L ABG Total CO2 (19-24) mmol/L ABG O2 Saturation (94-97) % Sodium 117 L* (137-145) mmol/L Potassium 5.3 H (3.5-5.1) mmol/L Chloride 80 L (98-107) mmol/L Carbon Dioxide 16 L (22-30) mmol/L BUN 177 H* (7-17) mg/dL Creatinine 6.47 H (0.52-1.04) mg/dL Glucose 118 H (74-99) mg/dL POC Glucose (mg/dL) (75-99) mg/dL Plasma Lactic Acid Mazin 2.4 H* (0.7-2.0) mmol/L Calcium (8.4-10.2) mg/dL Troponin I 0.132 H* (0.000-0.034) ng/mL Total Protein (6.3-8.2) g/dL Albumin (3.5-5.0) g/dL Urine Appearance (Clear) Urine Protein (Negative) Urine Blood (Negative) Urine RBC (0-5) /hpf Urine Bacteria (None) /hpf Hyaline Casts (0-2) /lpf Urine Mucus (None) /hpf Urine Yeast (Budding) (None) /hpf 02/07/22 02/07/22 02/07/22 Range/Units 03:04 06:00 06:00 WBC 17.2 H (3.8-10.6) k/uL RBC 3.75 L (3.80-5.40) m/uL Hct 33.9 L (34.0-46.0) % RDW 16.4 H (11.5-15.5) % Plt Count 43 L (150-450) k/uL Neutrophils # 16.4 H (1.3-7.7) k/uL Lymphocytes # 0.2 L (1.0-4.8) k/uL APTT (22.0-30.0) sec ABG pH (7.35-7.45) ABG pCO2 (35-45) mmHg ABG pO2 (83-108) mmHg ABG HCO3 (21-25) mmol/L ABG Total CO2 (19-24) mmol/L ABG O2 Saturation (94-97) % Sodium (137-145) mmol/L Potassium (3.5-5.1) mmol/L Chloride (98-107) mmol/L Carbon Dioxide (22-30) mmol/L BUN (7-17) mg/dL Creatinine (0.52-1.04) mg/dL Glucose (74-99) mg/dL POC Glucose (mg/dL) (75-99) mg/dL Plasma Lactic Acid Mazin (0.7-2.0) mmol/L Calcium (8.4-10.2) mg/dL Troponin I 0.121 H* 0.141 H* (0.000-0.034) ng/mL Total Protein (6.3-8.2) g/dL Albumin (3.5-5.0) g/dL Urine Appearance (Clear) Urine Protein (Negative) Urine Blood (Negative) Urine RBC (0-5) /hpf Urine Bacteria (None) /hpf Hyaline Casts (0-2) /lpf Urine Mucus (None) /hpf Urine Yeast (Budding) (None) /hpf 02/07/22 02/07/22 02/07/22 Range/Units 06:00 06:15 08:15 WBC 15.1 H (3.8-10.6) k/uL RBC 3.63 L (3.80-5.40) m/uL Hct 33.0 L (34.0-46.0) % RDW 17.3 H (11.5-15.5) % Plt Count 38 L (150-450) k/uL Neutrophils # 14.5 H (1.3-7.7) k/uL Lymphocytes # 0.2 L (1.0-4.8) k/uL APTT (22.0-30.0) sec ABG pH (7.35-7.45) ABG pCO2 (35-45) mmHg ABG pO2 (83-108) mmHg ABG HCO3 (21-25) mmol/L ABG Total CO2 (19-24) mmol/L ABG O2 Saturation (94-97) % Sodium 123 L (137-145) mmol/L Potassium (3.5-5.1) mmol/L Chloride 87 L (98-107) mmol/L Carbon Dioxide 18 L (22-30) mmol/L BUN 167 H* (7-17) mg/dL Creatinine 5.40 H (0.52-1.04) mg/dL Glucose 104 H (74-99) mg/dL POC Glucose (mg/dL) (75-99) mg/dL Plasma Lactic Acid Mazin (0.7-2.0) mmol/L Calcium (8.4-10.2) mg/dL Troponin I (0.000-0.034) ng/mL Total Protein 6.0 L (6.3-8.2) g/dL Albumin 3.2 L (3.5-5.0) g/dL Urine Appearance Cloudy H (Clear) Urine Protein Trace H (Negative) Urine Blood Large H (Negative) Urine RBC 161 H (0-5) /hpf Urine Bacteria Rare H (None) /hpf Hyaline Casts 4 H (0-2) /lpf Urine Mucus Rare H (None) /hpf Urine Yeast (Budding) Many H (None) /hpf 02/07/22 02/07/22 02/07/22 Range/Units 08:15 08:15 08:15 WBC (3.8-10.6) k/uL RBC (3.80-5.40) m/uL Hct (34.0-46.0) % RDW (11.5-15.5) % Plt Count (150-450) k/uL Neutrophils # (1.3-7.7) k/uL Lymphocytes # (1.0-4.8) k/uL APTT 20.1 L (22.0-30.0) sec ABG pH (7.35-7.45) ABG pCO2 (35-45) mmHg ABG pO2 (83-108) mmHg ABG HCO3 (21-25) mmol/L ABG Total CO2 (19-24) mmol/L ABG O2 Saturation (94-97) % Sodium 121 L (137-145) mmol/L Potassium (3.5-5.1) mmol/L Chloride 90 L (98-107) mmol/L Carbon Dioxide 15 L (22-30) mmol/L BUN 164 H* (7-17) mg/dL Creatinine 5.40 H (0.52-1.04) mg/dL Glucose 106 H (74-99) mg/dL POC Glucose (mg/dL) (75-99) mg/dL Plasma Lactic Acid Mazin (0.7-2.0) mmol/L Calcium 7.8 L (8.4-10.2) mg/dL Troponin I 0.144 H* (0.000-0.034) ng/mL Total Protein 5.6 L (6.3-8.2) g/dL Albumin 2.9 L (3.5-5.0) g/dL Urine Appearance (Clear) Urine Protein (Negative) Urine Blood (Negative) Urine RBC (0-5) /hpf Urine Bacteria (None) /hpf Hyaline Casts (0-2) /lpf Urine Mucus (None) /hpf Urine Yeast (Budding) (None) /hpf 02/07/22 02/07/22 Range/Units 08:50 11:11 WBC (3.8-10.6) k/uL RBC (3.80-5.40) m/uL Hct (34.0-46.0) % RDW (11.5-15.5) % Plt Count (150-450) k/uL Neutrophils # (1.3-7.7) k/uL Lymphocytes # (1.0-4.8) k/uL APTT (22.0-30.0) sec ABG pH (7.35-7.45) ABG pCO2 27 L (35-45) mmHg ABG pO2 169 H (83-108) mmHg ABG HCO3 19 L (21-25) mmol/L ABG Total CO2 (19-24) mmol/L ABG O2 Saturation 99.1 H (94-97) % Sodium (137-145) mmol/L Potassium (3.5-5.1) mmol/L Chloride (98-107) mmol/L Carbon Dioxide (22-30) mmol/L BUN (7-17) mg/dL Creatinine (0.52-1.04) mg/dL Glucose (74-99) mg/dL POC Glucose (mg/dL) 110 H (75-99) mg/dL Plasma Lactic Acid Mazin (0.7-2.0) mmol/L Calcium (8.4-10.2) mg/dL Troponin I (0.000-0.034) ng/mL Total Protein (6.3-8.2) g/dL Albumin (3.5-5.0) g/dL Urine Appearance (Clear) Urine Protein (Negative) Urine Blood (Negative) Urine RBC (0-5) /hpf Urine Bacteria (None) /hpf Hyaline Casts (0-2) /lpf Urine Mucus (None) /hpf Urine Yeast (Budding) (None) /hpf Assessment and Plan (1) Leukocytosis Current Visit: Yes Status: Acute Code(s): D72.829 - ELEVATED WHITE BLOOD CELL COUNT, UNSPECIFIED SNOMED Code(s): 175111032 Plan: 1patient presented to hospital with sepsis in this we did have a significant elevated white count elevated lactic acid and hypotension requiring multiple pressor support source likely abdominal in this patient who do have a history of rectal cancer with a history of chemoradiation now with abnormal CT suspicious for high-grade small bowel obstruction need to cover for the enteric gram- negative both aerobes and anaerobes, patient has been evaluated by general surgery and planning for surgical intervention this afternoon. 2Zosyn 3.375 g every 12 hours. 3IV fluids and pressors per photo mask pattern generator. We will follow on clinical condition and cultures to further adjust medication if needed Thank you for this consultation will follow this patient along with you Time with Patient: Greater than 30
[2022-02-08] MEDS: IPRATROPIUM-ALBUTEROL 3 ML NEB INHALATION SCH ×6 (01:43→20:12)
[2022-02-08] MEDS: NOREPINEPHRINE 8 MG in SODIUM CHLORIDE 0.9% 250 ML IV SCH ×4 (02:18→23:19)
[2022-02-08] MEDS: DEXTROSE 5% IN WATER 1,000 ML IV SCH (03:44)
[2022-02-08] MEDS: SODIUM CHLORIDE 0.9% 1,000 ML IV SCH (04:52)
[2022-02-08 05:15] LABS: Anisocytosis Slight; Basophils % (A) 0 %; Eosinophils % (A) 0 %; HCT 27.7 % (34.0-46.0); HGB 9.5 gm/dL (11.4-16.0); Lymphocytes # (A) 0.2 k/uL (1.0-4.8); Lymphocytes % (A) 2 %; MCH 31.9 pg (25.0-35.0); MCHC 34.2 g/dL (31.0-37.0); MCV 93.3 fL (80.0-100.0); Mean Platelet Volume 9.9; Monocytes # (A) 0.3 k/uL (0-1.0); Monocytes % (A) 2 %; Neutrophils # (A) 11.5 k/uL (1.3-7.7); Neutrophils % (A) 95 %; RBC 2.97 m/uL (3.80-5.40); RDW 17.8 % (11.5-15.5); WBC 12.1 k/uL (3.8-10.6)
[2022-02-08 05:19] LABS: Platelet Count 43 k/uL (150-450)
[2022-02-08 05:25] LABS: Albumin 2.3 g/dL (3.5-5.0); Calcium 6.9 mg/dL (8.4-10.2); Magnesium 1.7 mg/dL (1.6-2.3); Potassium 3.9 mmol/L (3.5-5.1); Total Bilirubin 0.5 mg/dL (0.2-1.3); Total Protein 4.6 g/dL (6.3-8.2)
[2022-02-08 05:46] LABS: ABG HCO3 17 mmol/L (21-25); ABG Oxygen Saturation 99.5 % (94-97); ABG PCO2 25 mmHg (35-45); ABG PH 7.45 (7.35-7.45); ABG PO2 172 mmHg (83-108); ABG TCO2 18 mmol/L (19-24); Allen Test Performed? Yes
--- NOTE | 2022-02-08 08:06 | XR ---
"EXAMINATION TYPE: XR chest 1V portable DATE OF EXAM: 02/08/2022 COMPARISON: X-ray dated 02/07/2022 HISTORY: Follow-up TECHNIQUE: Single frontal view of the chest is obtained. FINDINGS: The tip of endotracheal tube is about 2.1 cm proximal to the keely. NG tube is seen with the tip is below the diaphragm likely within the stomach. Unchanged position of a right-sided Port-A- Cath. Smaller amount of free peritoneal air seen under the diaphragm. Apparent progressive infiltration in the left lung base which could represent pneumonia however aspir ation can't be excluded, please correlate clinically. Suspected newly seen focal lucency in the left hemithoracic apex suggestive of pneumothorax measuring 11 mm. No gross cardiomegaly. Aortic atherosclerotic calcifications. IMPRESSION: 1. Suspected newly seen small left apical pneumothorax, please correlate clinically. Short-term follo w-up is required. 2. Progressive infiltration in the left lung base which could represent pneumonia however aspiration cannot be excluded, please correlate clinically. Other interval changes as described above. A Red level critical message alert has been initiated for Leon Rodriguez MD~[id number] via the thePlatform 0 | Critical Results System on 02/08/2022 8:04 AM. This message alert has been sent to Leon Rodriguez MD ~[id number] via the preferences provided by the clinician for the receipt of Radiology Critical Findings. Message ID [id number]."
--- NOTE | 2022-02-08 09:13 | P.PN ---
Subjective Patient is seen in follow-up for acute kidney injury. Renal function improving. Urine output 40-50 mL an hour. Sodium level was 127 this morning. She did receive D5W last night due to rapid correction of the sodium level. She is currently maintained on normal saline at 50 mL an hour. She is on Levophed and vasopressin. Vital signs are stable. HEENT: Intubated. LUNGS: Breath sounds decreased. HEART: Rate and Rhythm are regular. ABDOMEN: Soft, no distention. EXTREMITITES: No edema. Objective - Vital Signs Vital signs: Vital Signs Temp 98.1 F 02/08/22 04:00 Pulse 98 02/08/22 07:40 Resp 10 L 02/08/22 07:40 BP 93/63 02/08/22 07:00 Pulse Ox 99 02/08/22 07:00 Intake & Output 02/07/22 02/08/22 02/08/22 18:59 06:59 18:59 Intake Total 3764.029 1580.520 50 Output Total 2795 780 50 Balance 969.029 800.520 0 Weight 47.627 kg 54.3 kg Intake: IV 200 Intake, IV Titration 3564.029 1580.520 50 Amount Dextrose 5% in Water 1, 75 1025 000 ml @ 125 mls/hr IV . Q8H TIM Rx#:[id number] Norepinephrine 4 mg In 204.717 Sodium Chloride 0.9% 250 ml @ 0.05 MCG/KG/MIN 9. 073 mls/hr IV .Q24H TIM Rx#:[id number] Norepinephrine 8 mg In 81.805 257.340 Sodium Chloride 0.9% 250 ml @ 0.35 MCG/KG/MIN 32. 255 mls/hr IV .Q8H TIM Rx #:[id number] Piperacillin-Tazobactam 3 100 100 .375 gm In Sodium Chloride 0.9% 100 ml @ 25 mls/hr IVPB Q12HR TIM Rx #:[id number] Potassium Chloride 20 meq 100 In Water For Injection 1 100ml.bag @ 50 mls/hr IVPB ONCE ONE Rx#: [id number] Sodium Chloride 0.9% 1, 975 000 ml @ 130 mls/hr IV . Q7H42M TIM Rx#:[id number] Sodium Chloride 0.9% 1, 150 50 000 ml @ 50 mls/hr IV . Q20H TIM Rx#:[id number] Sodium Chloride 0.9% 1, 1000 000 ml @ 999 mls/hr IV . Q1H1M ONE Rx#:[id number] Sodium Chloride 0.9% 1, 1000 000 ml @ 999 mls/hr IV . Q1H1M ONE Rx#:[id number] Sodium Chloride 0.9% 150 9.2 4.6 ml @ 0.03 UNITS/MIN 4.59 mls/hr IV .Q24H TIM with Vasopressin 60 unit Rx#: [id number] propofoL 1,000 mg In 18.307 43.580 Empty Bag 1 bag @ 5 MCG/ KG/MIN 1.429 mls/hr IV . Q24H TIM Rx#:[id number] Output: Gastric Drainage 900 120 Urine 1870 660 50 Straight 1300 Estimated Blood Loss 25 Other: Voiding Method Indwelling Catheter Indwelling Catheter ABP, PAP, CO, CI - Last Documented Arterial Blood Pressure 94/56 - Labs CBC & Chem 7: 02/08/22 04:57 02/08/22 04:57 Labs: Abnormal Lab Results - Last 24 Hours (Table) 02/07/22 02/07/22 02/07/22 Range/Units 11:11 15:34 16:30 WBC (3.8-10.6) k/uL RBC (3.80-5.40) m/uL Hgb (11.4-16.0) gm/dL Hct (34.0-46.0) % RDW (11.5-15.5) % Plt Count (150-450) k/uL Neutrophils # (1.3-7.7) k/uL Lymphocytes # (1.0-4.8) k/uL ABG pH 7.32 L (7.35-7.45) ABG pCO2 27 L (35-45) mmHg ABG pO2 169 H >400 H (83-108) mmHg ABG HCO3 19 L 19 L (21-25) mmol/L ABG Total CO2 (19-24) mmol/L ABG O2 Saturation 99.1 H 99.6 H (94-97) % Sodium 132 L (137-145) mmol/L Carbon Dioxide 15 L (22-30) mmol/L BUN 131 H* (7-17) mg/dL Creatinine 3.68 H (0.52-1.04) mg/dL Glucose 114 H (74-99) mg/dL Calcium 6.7 L (8.4-10.2) mg/dL Total Protein 4.6 L (6.3-8.2) g/dL Albumin 2.3 L (3.5-5.0) g/dL 02/07/22 02/07/22 02/07/22 Range/Units 16:30 19:50 22:50 WBC 14.7 H (3.8-10.6) k/uL RBC 3.26 L (3.80-5.40) m/uL Hgb 10.3 L (11.4-16.0) gm/dL Hct 29.8 L (34.0-46.0) % RDW 17.4 H (11.5-15.5) % Plt Count 46 L (150-450) k/uL Neutrophils # 14.1 H (1.3-7.7) k/uL Lymphocytes # 0.2 L (1.0-4.8) k/uL ABG pH (7.35-7.45) ABG pCO2 (35-45) mmHg ABG pO2 (83-108) mmHg ABG HCO3 (21-25) mmol/L ABG Total CO2 (19-24) mmol/L ABG O2 Saturation (94-97) % Sodium 131 L 130 L (137-145) mmol/L Carbon Dioxide 15 L (22-30) mmol/L BUN 127 H* (7-17) mg/dL Creatinine 3.61 H (0.52-1.04) mg/dL Glucose 160 H (74-99) mg/dL Calcium 6.7 L (8.4-10.2) mg/dL Total Protein (6.3-8.2) g/dL Albumin (3.5-5.0) g/dL 02/08/22 02/08/22 02/08/22 Range/Units 01:05 03:15 04:57 WBC (3.8-10.6) k/uL RBC (3.80-5.40) m/uL Hgb (11.4-16.0) gm/dL Hct (34.0-46.0) % RDW (11.5-15.5) % Plt Count (150-450) k/uL Neutrophils # (1.3-7.7) k/uL Lymphocytes # (1.0-4.8) k/uL ABG pH (7.35-7.45) ABG pCO2 (35-45) mmHg ABG pO2 (83-108) mmHg ABG HCO3 (21-25) mmol/L ABG Total CO2 (19-24) mmol/L ABG O2 Saturation (94-97) % Sodium 129 L 127 L 127 L (137-145) mmol/L Carbon Dioxide 17 L (22-30) mmol/L BUN 108 H* (7-17) mg/dL Creatinine 2.90 H (0.52-1.04) mg/dL Glucose 257 H (74-99) mg/dL Calcium 6.9 L (8.4-10.2) mg/dL Total Protein 4.6 L (6.3-8.2) g/dL Albumin 2.3 L (3.5-5.0) g/dL 02/08/22 02/08/22 Range/Units 04:57 05:43 WBC 12.1 H (3.8-10.6) k/uL RBC 2.97 L (3.80-5.40) m/uL Hgb 9.5 L (11.4-16.0) gm/dL Hct 27.7 L (34.0-46.0) % RDW 17.8 H (11.5-15.5) % Plt Count 43 L (150-450) k/uL Neutrophils # 11.5 H (1.3-7.7) k/uL Lymphocytes # 0.2 L (1.0-4.8) k/uL ABG pH (7.35-7.45) ABG pCO2 25 L (35-45) mmHg ABG pO2 172 H (83-108) mmHg ABG HCO3 17 L (21-25) mmol/L ABG Total CO2 18 L (19-24) mmol/L ABG O2 Saturation 99.5 H (94-97) % Sodium (137-145) mmol/L Carbon Dioxide (22-30) mmol/L BUN (7-17) mg/dL Creatinine (0.52-1.04) mg/dL Glucose (74-99) mg/dL Calcium (8.4-10.2) mg/dL Total Protein (6.3-8.2) g/dL Albumin (3.5-5.0) g/dL Microbiology - Last 24 Hours (Table) 02/07/22 00:11 Blood Culture - Preliminary Blood No Growth after 24 hours 02/06/22 23:55 Blood Culture - Preliminary Blood No Growth after 24 hours Assessment and Plan Plan: Assessment: 1. Acute kidney injury secondary to ATN secondary to hypotension/septic shock. Creatinine was 6.47 on admission and 2.9 this morning. Creatinine 0.7 in March 2021. Mild bilateral hydronephrosis noted on CAT scan. Kidneys atrophic. 2. Small bowel obstruction. Status post expiratory laparotomy with lysis of adhesions 02/07/2022. 3. Hypovolemic hyponatremia improved with IV hydration. She did receive D5W yesterday due to fast correction of the sodium level. Stable at 127 this morning. 4. Metabolic acidosis secondary to acute kidney injury and lactic acidosis. Also compensatory for respiratory alkalosis. 5. Shock maintained on Levophed and vasopressin. Plan: Maintain IV fluids. Repeat BMP this evening. Continue to monitor renal function and urine output. Follow-up cultures. Consult urology for the hydronephrosis. Wean FiO2 and vasopressors.
[2022-02-08] MEDS: PIPERACILLIN-TAZOBACTAM 3.375 GM in SODIUM CHLORIDE 0.9% 100 ML IVPB SCH ×2 (10:47→20:53)
[2022-02-08] MEDS: PANTOPRAZOLE 40 MG/10 ML VIAL IVP SCH (10:47)
--- NOTE | 2022-02-08 12:47 | P.PN ---
Subjective Progress Note Date: 02/08/22 Principal diagnosis: Acute bowel obstruction This is a 71-year-old female patient who has a known history of R's to arthritis, gastroesophageal reflux disease, colorectal adenocarcinoma diagnosed in November 2020.. She initially had surgery here and had undergone chemotherapy here. She has a right sided Port-A-Cath. She did have proton at [facility] and a second surgery at [facility] with an ileostomy placement. PET scan dated 01/27/2022 revealed a suboptimal study due to muscular uptake. There is postsurgical changes the pelvis within well to fluid collection in the presacral space containing none dependent here and REM hypermetabolic uptake is concerning for infectious process or developing abscess. About 1 week ago her states that she stopped eating and drinking. She presented to the emergency room last evening with altered mental status and shortness of breath. Computed tomography scan of the abdomen and pelvis revealed likely dilated stomach and multiple dilated small bowel loops suggestive of mechanical high-grade bowel obstruction. There is ostomy in the right mid abdomen. Dilated urinary bladder and mild hydronephrosis secondary to urinary retention. Nasogastric tube was inserted and she had 900 mL of coffee- ground return. Chest x-ray reveals no sizable pleural effusions or definitive pneumothorax. No gross cardiomegaly. Marketed gaseous distention of the bowel in the upper abdomen. White count 15.1. Hemoglobin 14.4. Platelet count 38,000. Sodium 121. Potassium 4.6. Bicarb 15. BUN 164. Creatinine 5.40. Glucose 106. Troponin 0.12, 0.14, 0.14. Albumin 2.9. Urinalysis is cloudy with large amount of blood and rare bacteria. She's been initiated on Zosyn. She has received 3-1/2 L of fluid resuscitation. Normal saline at 130 ML's per hour. She is requiring norepinephrine at 0.12 mcg/kg/m. She is on Protonix. She is seen today in the intensive care unit. Her is at the bedside. She is maintaining O2 saturations in the 90s on 2 L/m per nasal cannula. Initial temperature 94.4 axillary. Currently 97.5. Warming blanket has been applied. Current blood pressure 92/55 with a mean of 67. In sinus rhythm with occasional PVCs. Patient was reevaluated today on 01/26/2022, patient underwent exploratory laparotomy yesterday, she was found to have bowel obstruction secondary to adhesive band. Patient had lysis of adhesions with sharp dissection. She had a relatively uneventful surgery. Nonetheless the patient remains intubated, and mechanically ventilated. She is hypotensive requiring norepinephrine and Vasopressin. Patient is on assist control rate of 10, LDL volume is 400, FiO2 40% PEEP of 5. Cut down her FiO2 down to 35%. ABG showed a pO2 of 172 pCO2 of 25 pH of 7.45. This was on 40% FiO2. Patient is still on vasopressin at 0.03 units per minute, on propofol at 35 mcg/kg/m, norepinephrine at 0.33 mcg/kg/m she will be started on TPN today. And I have increased his IV fluid to 100 mL per hour. Labs were reviewed, sodium is 127 potassium is 3.9 BUN is 108 crea tinine 2.9, steadily improving with hydration. Lactic acid is down to 1.4. And liver enzymes are basically unremarkable. Chest x-ray questioned a small tiny left apical pneumothorax, hence I'm recommending a follow-up x-ray, clinically I doubt pneumothorax. Nonetheless, if the patient does have one that is expanding, may have to consider a chest tube placement on the left side. Objective - Vital Signs Vital signs: Vital Signs Temp 98.8 F 02/08/22 08:00 Pulse 111 H 02/08/22 11:51 Resp 18 02/08/22 11:51 BP 102/67 02/08/22 11:00 Pulse Ox 100 02/08/22 11:00 Intake & Output 02/07/22 02/08/22 02/08/22 18:59 06:59 18:59 Intake Total 3764.029 1580.520 270.634 Output Total 2795 780 50 Balance 969.029 800.520 220.634 Weight 47.627 kg 54.3 kg 54.3 kg Intake: IV 200 Intake, IV Titration 3564.029 1580.520 270.634 Amount Dextrose 5% in Water 1, 75 1025 000 ml @ 125 mls/hr IV . Q8H [facility] Rx#:[id number] Norepinephrine 4 mg In 204.717 Sodium Chloride 0.9% 250 ml @ 0.05 MCG/KG/MIN 9. 073 mls/hr IV .Q24H [facility] Rx#:[id number] Norepinephrine 8 mg In 81.805 257.340 120.634 Sodium Chloride 0.9% 250 ml @ 0.35 MCG/KG/MIN 32. 255 mls/hr IV .Q8H [facility] Rx #:[id number] Piperacillin-Tazobactam 3 100 100 .375 gm In Sodium Chloride 0.9% 100 ml @ 25 mls/hr IVPB Q12HR [facility] Rx #:[id number] Potassium Chloride 20 meq 100 In Water For Injection 1 100ml.bag @ 50 mls/hr IVPB ONCE ONE Rx#: [id number] Sodium Chloride 0.9% 1, 975 000 ml @ 130 mls/hr IV . Q7H42M [facility] Rx#:[id number] Sodium Chloride 0.9% 1, 150 50 000 ml @ 50 mls/hr IV . Q20H [facility] Rx#:[id number] Sodium Chloride 0.9% 1, 1000 000 ml @ 999 mls/hr IV . Q1H1M [facility] Rx#:[id number] Sodium Chloride 0.9% 1, 1000 000 ml @ 999 mls/hr IV . Q1H1M [facility] Rx#:[id number] Sodium Chloride 0.9% 150 9.2 4.6 ml @ 0.03 UNITS/MIN 4.59 mls/hr IV .Q24H [facility] with Vasopressin 60 unit Rx#: [id number] propofoL 1,000 mg In 18.307 43.580 100 Empty Bag 1 bag @ 5 MCG/ KG/MIN 1.429 mls/hr IV . Q24H [facility] Rx#:[id number] Output: Gastric Drainage 900 120 Urine 1870 660 50 Straight 1300 Estimated Blood Loss 25 Other: Voiding Method Indwelling Catheter Indwelling Catheter ABP, PAP, CO, CI - Last Documented Arterial Blood Pressure 98/64 - Exam Physical Exam: Revealed a 71-year-old female sedated, intubated, mechanically ventilated, in no distress. Head: Atraumatic, normocephalic endotracheal tube and orogastric tube are intact. HEENT:[Neck is supple.] [No neck masses.] [No thyromegaly.] [No JVD.] Chest: Normal fine crackles at the bases no rhonchi and no wheezes Cardiac Exam: [Normal S1 and S2, no S3 gallop, no murmur.] Abdomen: Postsurgical, likely tender, surgical dressing seems to be clean, dry, ileostomy is intact, no bowel sounds. Extremities: [No clubbing, no edema, no cyanosis.] Neurological Exam: Cannot assess, patient is sedated with propofol. However a rousable, opens eyes, but does not follow instructions. Psychiatric: Could not assess. Musculoskeletal: Significant muscle wasting is noted, no deformities otherwise. Skin: Multiple areas of bruises noted. And ecchymosis. - Labs CBC & Chem 7: 02/08/22 04:57 02/08/22 04:57 Labs: Abnormal Lab Results - Last 24 Hours (Table) 02/07/22 02/07/22 02/07/22 Range/Units 15:34 16:30 16:30 WBC 14.7 H (3.8-10.6) k/uL RBC 3.26 L (3.80-5.40) m/uL Hgb 10.3 L (11.4-16.0) gm/dL Hct 29.8 L (34.0-46.0) % RDW 17.4 H (11.5-15.5) % Plt Count 46 L (150-450) k/uL Neutrophils # 14.1 H (1.3-7.7) k/uL Lymphocytes # 0.2 L (1.0-4.8) k/uL ABG pH 7.32 L (7.35-7.45) ABG pCO2 (35-45) mmHg ABG pO2 >400 H (83-108) mmHg ABG HCO3 19 L (21-25) mmol/L ABG Total CO2 (19-24) mmol/L ABG O2 Saturation 99.6 H (94-97) % Sodium 132 L (137-145) mmol/L Carbon Dioxide 15 L (22-30) mmol/L BUN 131 H* (7-17) mg/dL Creatinine 3.68 H (0.52-1.04) mg/dL Glucose 114 H (74-99) mg/dL Calcium 6.7 L (8.4-10.2) mg/dL Total Protein 4.6 L (6.3-8.2) g/dL Albumin 2.3 L (3.5-5.0) g/dL 02/07/22 02/07/22 02/08/22 Range/Units 19:50 22:50 01:05 WBC (3.8-10.6) k/uL RBC (3.80-5.40) m/uL Hgb (11.4-16.0) gm/dL Hct (34.0-46.0) % RDW (11.5-15.5) % Plt Count (150-450) k/uL Neutrophils # (1.3-7.7) k/uL Lymphocytes # (1.0-4.8) k/uL ABG pH (7.35-7.45) ABG pCO2 (35-45) mmHg ABG pO2 (83-108) mmHg ABG HCO3 (21-25) mmol/L ABG Total CO2 (19-24) mmol/L ABG O2 Saturation (94-97) % Sodium 131 L 130 L 129 L (137-145) mmol/L Carbon Dioxide 15 L (22-30) mmol/L BUN 127 H* (7-17) mg/dL Creatinine 3.61 H (0.52-1.04) mg/dL Glucose 160 H (74-99) mg/dL Calcium 6.7 L (8.4-10.2) mg/dL Total Protein (6.3-8.2) g/dL Albumin (3.5-5.0) g/dL 02/08/22 02/08/22 02/08/22 Range/Units 03:15 04:57 04:57 WBC 12.1 H (3.8-10.6) k/uL RBC 2.97 L (3.80-5.40) m/uL Hgb 9.5 L (11.4-16.0) gm/dL Hct 27.7 L (34.0-46.0) % RDW 17.8 H (11.5-15.5) % Plt Count 43 L (150-450) k/uL Neutrophils # 11.5 H (1.3-7.7) k/uL Lymphocytes # 0.2 L (1.0-4.8) k/uL ABG pH (7.35-7.45) ABG pCO2 (35-45) mmHg ABG pO2 (83-108) mmHg ABG HCO3 (21-25) mmol/L ABG Total CO2 (19-24) mmol/L ABG O2 Saturation (94-97) % Sodium 127 L 127 L (137-145) mmol/L Carbon Dioxide 17 L (22-30) mmol/L BUN 108 H* (7-17) mg/dL Creatinine 2.90 H (0.52-1.04) mg/dL Glucose 257 H (74-99) mg/dL Calcium 6.9 L (8.4-10.2) mg/dL Total Protein 4.6 L (6.3-8.2) g/dL Albumin 2.3 L (3.5-5.0) g/dL 02/08/22 Range/Units 05:43 WBC (3.8-10.6) k/uL RBC (3.80-5.40) m/uL Hgb (11.4-16.0) gm/dL Hct (34.0-46.0) % RDW (11.5-15.5) % Plt Count (150-450) k/uL Neutrophils # (1.3-7.7) k/uL Lymphocytes # (1.0-4.8) k/uL ABG pH (7.35-7.45) ABG pCO2 25 L (35-45) mmHg ABG pO2 172 H (83-108) mmHg ABG HCO3 17 L (21-25) mmol/L ABG Total CO2 18 L (19-24) mmol/L ABG O2 Saturation 99.5 H (94-97) % Sodium (137-145) mmol/L Carbon Dioxide (22-30) mmol/L BUN (7-17) mg/dL Creatinine (0.52-1.04) mg/dL Glucose (74-99) mg/dL Calcium (8.4-10.2) mg/dL Total Protein (6.3-8.2) g/dL Albumin (3.5-5.0) g/dL Microbiology - Last 24 Hours (Table) 02/07/22 00:11 Blood Culture - Preliminary Blood No Growth after 24 hours 02/06/22 23:55 Blood Culture - Preliminary Blood No Growth after 24 hours Assessment and Plan Assessment: Impression: Acute mechanical high-grade bowel obstruction secondary to band adhesions, status post exploratory laparotomy and lysis of adhesions. Acute renal failure, suspect mostly dehydration related. Doubt sepsis. Hyponatremia secondary to dehydration and renal failure. Thrombocytopenia, likely chronic, being addressed by oncology/hematology on the case. History of colorectal cancer diagnosed in 2018, previous surgery 2 with a right-sided ileostomy status post chemotherapy Paroxysmal atrial fibrillation. History of degenerative joint disease History of GERD History of cervical cancer Former smoker Postoperative hypoxic respiratory failure requiring mechanical ventilation mostly because of her severe hypotension, possible abdominal sepsis and septic shock. However I clinically believe that the presentation is mostly a presentation of severe and profound dehydration. Again septic shock is not entirely ruled out but felt to be less likely. Patient remains on vasopressin and remains on norepinephrine. Still receiving fluids and she received significant fluid boluses upon her initial presentation Possible left apical pneumothorax, exact etiology is not clear, probably spontaneous or related to barotrauma. hence we will recommend repeat chest x- ray and keep close watch. If the pneumothorax doesn't expand will consider a chest tube placement on the left side Recommendation: Continue ventilatory support. Continue antibiotics/Zosyn Continue GI and DVT prophylaxis. Hematology to address her thrombocytopenia. Start the nutritional support/TPN. Continue updrafts. Continue Protonix. Prognosis remains guarded. Not quite ready for weaning and extubation as long as she is requiring significant hemodynamic support. We will continue to follow. Time with Patient: Greater than 30
--- NOTE | 2022-02-08 13:21 | XR ---
EXAMINATION TYPE: XR chest 1V portable DATE OF EXAM: 02/08/2022 COMPARISON: X-ray dated 02/08/2022 at 5:26 AM HISTORY: Possible pneumothorax TECHNIQUE: Single frontal view of the chest is obtained. FINDINGS: The previously seen suspected left apical pneumothorax is not identified by this x-ray. Persistent sm all infiltration in the left lung base, not progressed compared to the previous. Minimal free air und er the diaphragm. Unchanged remainder of the lungs, right-sided Port-A-Cath, endotracheal tube and NG tube. Unchanged c ardiomediastinal silhouette, aortic atherosclerotic calcifications and bony thoracic cage. IMPRESSION: No obvious pneumothorax identified by this x-ray.
--- NOTE | 2022-02-08 17:00 | P.PN ---
Subjective Progress Note Date: 02/08/22 CHIEF COMPLAINT: Follow obstruction HISTORY OF PRESENT ILLNESS: Patient is postop day #1 status post exploratory laparotomy and lysis of adhesion for bowel obstruction secondary to adhesive band. Patient remains in the ICU and intubated and sedated. She is requiring both vasopressin and Levophed. She does have stool from her ostomy her incision is clean dry and intact. Her temperature has shown improvement. Temperature was 94.4 on admission and is now on up to 98.2. She has had some mild tachyc ardia. WBC 12.1 hemoglobin 9.5 platelets 43 sodium 127 potassium 3.9 creatinine down from 3.61 to 2.90. Patient has received total of 3 L of IV fluid bolus. Her urine output is showing improvement. Patient seen and examined with Dr. connolly PHYSICAL EXAM: VITAL SIGNS: Reviewed. GENERAL: Intubated and sedated HEENT: Head is atraumatic, normocephalic. ABDOMEN: Soft. Nondistended. Incision site clean dry and intact. Incisional dressings with dried blood noted. Ostomy with stool present ASSESSMENT: 1. Status post exploratory laparotomy and lysis of adhesion for bowel obstruction secondary to adhesive band 2. Acute renal failure likely due to dehydration 3. Thrombocytopenia possibly chronic. Followed by oncology 4. History of colorectal cancer PLAN: -Continue ICU management -Continue supportive care -Continue IV fluids -TPN being started for nutrition support Physician Invertebrate Paleontologist note has been reviewed by physician. Signing provider agrees with the documented findings, assessment, and plan of care. Objective - Vital Signs Vital signs: Vital Signs Temp 98.2 F 02/08/22 16:00 Pulse 100 02/08/22 16:22 Resp 18 02/08/22 16:22 BP 102/67 02/08/22 16:00 Pulse Ox 99 02/08/22 16:00 Intake & Output 02/07/22 02/08/22 02/08/22 18:59 06:59 18:59 Intake Total 3764.029 1838.577 1245.243 Output Total 2795 780 320 Balance 969.029 800.520 906.243 Weight 47.627 kg 54.3 kg 54.3 kg Intake: IV 200 800 Sodium Chloride 0.9% 1, 800 000 ml @ 100 mls/hr IV . Q10H [facility] Rx#:[id number] Intake, IV Titration 3564.029 1580.520 426.243 Amount Dextrose 5% in Water 1, 75 1025 000 ml @ 125 mls/hr IV . Q8H [facility] Rx#:[id number] Norepinephrine 4 mg In 204.717 Sodium Chloride 0.9% 250 ml @ 0.05 MCG/KG/MIN 9. 073 mls/hr IV .Q24H [facility] Rx#:[id number] Norepinephrine 8 mg In 81.805 257.340 276.243 Sodium Chloride 0.9% 250 ml @ 0.35 MCG/KG/MIN 32. 255 mls/hr IV .Q8H [facility] Rx #:[id number] Piperacillin-Tazobactam 3 100 100 .375 gm In Sodium Chloride 0.9% 100 ml @ 25 mls/hr IVPB Q12HR [facility] Rx #:[id number] Potassium Chloride 20 meq 100 In Water For Injection 1 100ml.bag @ 50 mls/hr IVPB ONCE ONE Rx#: [id number] Sodium Chloride 0.9% 1, 150 50 000 ml @ 100 mls/hr IV . Q10H [facility] Rx#:[id number] Sodium Chloride 0.9% 1, 975 000 ml @ 130 mls/hr IV . Q7H42M [facility] Rx#:[id number] Sodium Chloride 0.9% 1, 1000 000 ml @ 999 mls/hr IV . Q1H1M [facility] Rx#:[id number] Sodium Chloride 0.9% 1, 1000 000 ml @ 999 mls/hr IV . Q1H1M [facility] Rx#:[id number] Sodium Chloride 0.9% 150 9.2 4.6 ml @ 0.03 UNITS/MIN 4.59 mls/hr IV .Q24H [facility] with Vasopressin 60 unit Rx#: [id number] propofoL 1,000 mg In 18.307 43.580 100 Empty Bag 1 bag @ 5 MCG/ KG/MIN 1.429 mls/hr IV . Q24H [facility] Rx#:[id number] Output: Gastric Drainage 900 120 Urine 1870 660 320 Straight 1300 Estimated Blood Loss 25 Other: Voiding Method Indwelling Catheter Indwelling Catheter Indwelling Catheter ABP, PAP, CO, CI - Last Documented Arterial Blood Pressure 103/55 - Labs CBC & Chem 7: 02/08/22 04:57 02/08/22 04:57 Labs: Abnormal Lab Results - Last 24 Hours (Table) 02/07/22 02/07/22 02/07/22 Range/Units 16:30 19:50 22:50 WBC (3.8-10.6) k/uL RBC (3.80-5.40) m/uL Hgb (11.4-16.0) gm/dL Hct (34.0-46.0) % RDW (11.5-15.5) % Plt Count (150-450) k/uL Neutrophils # (1.3-7.7) k/uL Lymphocytes # (1.0-4.8) k/uL ABG pCO2 (35-45) mmHg ABG pO2 (83-108) mmHg ABG HCO3 (21-25) mmol/L ABG Total CO2 (19-24) mmol/L ABG O2 Saturation (94-97) % Sodium 132 L 131 L 130 L (137-145) mmol/L Carbon Dioxide 15 L 15 L (22-30) mmol/L BUN 131 H* 127 H* (7-17) mg/dL Creatinine 3.68 H 3.61 H (0.52-1.04) mg/dL Glucose 114 H 160 H (74-99) mg/dL Calcium 6.7 L 6.7 L (8.4-10.2) mg/dL Total Protein 4.6 L (6.3-8.2) g/dL Albumin 2.3 L (3.5-5.0) g/dL 02/08/22 02/08/22 02/08/22 Range/Units 01:05 03:15 04:57 WBC (3.8-10.6) k/uL RBC (3.80-5.40) m/uL Hgb (11.4-16.0) gm/dL Hct (34.0-46.0) % RDW (11.5-15.5) % Plt Count (150-450) k/uL Neutrophils # (1.3-7.7) k/uL Lymphocytes # (1.0-4.8) k/uL ABG pCO2 (35-45) mmHg ABG pO2 (83-108) mmHg ABG HCO3 (21-25) mmol/L ABG Total CO2 (19-24) mmol/L ABG O2 Saturation (94-97) % Sodium 129 L 127 L 127 L (137-145) mmol/L Carbon Dioxide 17 L (22-30) mmol/L BUN 108 H* (7-17) mg/dL Creatinine 2.90 H (0.52-1.04) mg/dL Glucose 257 H (74-99) mg/dL Calcium 6.9 L (8.4-10.2) mg/dL Total Protein 4.6 L (6.3-8.2) g/dL Albumin 2.3 L (3.5-5.0) g/dL 02/08/22 02/08/22 Range/Units 04:57 05:43 WBC 12.1 H (3.8-10.6) k/uL RBC 2.97 L (3.80-5.40) m/uL Hgb 9.5 L (11.4-16.0) gm/dL Hct 27.7 L (34.0-46.0) % RDW 17.8 H (11.5-15.5) % Plt Count 43 L (150-450) k/uL Neutrophils # 11.5 H (1.3-7.7) k/uL Lymphocytes # 0.2 L (1.0-4.8) k/uL ABG pCO2 25 L (35-45) mmHg ABG pO2 172 H (83-108) mmHg ABG HCO3 17 L (21-25) mmol/L ABG Total CO2 18 L (19-24) mmol/L ABG O2 Saturation 99.5 H (94-97) % Sodium (137-145) mmol/L Carbon Dioxide (22-30) mmol/L BUN (7-17) mg/dL Creatinine (0.52-1.04) mg/dL Glucose (74-99) mg/dL Calcium (8.4-10.2) mg/dL Total Protein (6.3-8.2) g/dL Albumin (3.5-5.0) g/dL Microbiology - Last 24 Hours (Table) 02/07/22 00:11 Blood Culture - Preliminary Blood No Growth after 24 hours 02/06/22 23:55 Blood Culture - Preliminary Blood No Growth after 24 hours
--- NOTE | 2022-02-08 17:39 | P.PN ---
Subjective Progress Note Date: 02/08/22 Principal diagnosis: Abdominal sepsis Patient is a 71 year female With a past medical history significant for rectal cancer with recent recurrence in this patient who is status post bowel resection with ileostomy placement in the summer of 2020 presented to the hospital with weakness no output from ileostomy noticed to have a high-grade small bowel obstruction patient is status post laparotomy with lysis of adhesion. On today's evaluation is 02/08/2022, the patient is afebrile, the patient is intubated on the vent the patient is requiring Levophed and vasopressin for pressure support no significant purulent secretions with the ordinary changes reported Objective - Vital Signs Vital signs: Vital Signs Temp 98.8 F 02/08/22 08:00 Pulse 111 H 02/08/22 11:51 Resp 18 02/08/22 11:51 BP 102/67 02/08/22 11:00 Pulse Ox 100 02/08/22 11:00 Intake & Output 02/07/22 02/08/22 02/08/22 18:59 06:59 18:59 Intake Total 3764.029 1580.520 270.634 Output Total 2795 780 50 Balance 969.029 800.520 220.634 Weight 47.627 kg 54.3 kg 54.3 kg Intake: IV 200 Intake, IV Titration 3564.029 1580.520 270.634 Amount Dextrose 5% in Water 1, 75 1025 000 ml @ 125 mls/hr IV . Q8H [facility] Rx#:[id number] Norepinephrine 4 mg In 204.717 Sodium Chloride 0.9% 250 ml @ 0.05 MCG/KG/MIN 9. 073 mls/hr IV .Q24H [facility] Rx#:[id number] Norepinephrine 8 mg In 81.805 257.340 120.634 Sodium Chloride 0.9% 250 ml @ 0.35 MCG/KG/MIN 32. 255 mls/hr IV .Q8H [facility] Rx #:[id number] Piperacillin-Tazobactam 3 100 100 .375 gm In Sodium Chloride 0.9% 100 ml @ 25 mls/hr IVPB Q12HR [facility] Rx #:[id number] Potassium Chloride 20 meq 100 In Water For Injection 1 100ml.bag @ 50 mls/hr IVPB ONCE ONE Rx#: [id number] Sodium Chloride 0.9% 1, 975 000 ml @ 130 mls/hr IV . Q7H42M [facility] Rx#:[id number] Sodium Chloride 0.9% 1, 150 50 000 ml @ 50 mls/hr IV . Q20H [facility] Rx#:[id number] Sodium Chloride 0.9% 1, 1000 000 ml @ 999 mls/hr IV . Q1H1M [facility] Rx#:[id number] Sodium Chloride 0.9% 1, 1000 000 ml @ 999 mls/hr IV . Q1H1M [facility] Rx#:[id number] Sodium Chloride 0.9% 150 9.2 4.6 ml @ 0.03 UNITS/MIN 4.59 mls/hr IV .Q24H [facility] with Vasopressin 60 unit Rx#: [id number] propofoL 1,000 mg In 18.307 43.580 100 Empty Bag 1 bag @ 5 MCG/ KG/MIN 1.429 mls/hr IV . Q24H [facility] Rx#:[id number] Output: Gastric Drainage 900 120 Urine 1870 660 50 Straight 1300 Estimated Blood Loss 25 Other: Voiding Method Indwelling Catheter Indwelling Catheter ABP, PAP, CO, CI - Last Documented Arterial Blood Pressure 98/64 - Exam GENERAL DESCRIPTION: An elderly female intubated on the vent RESPIRATORY SYSTEM: Unlabored breathing , decreased breath sounds at bases HEART: S1 S2 regular rate and rhythm , ABDOMEN: Soft , midline incision is currently dressed EXTREMITIES: No edema feet - Labs CBC & Chem 7: 02/08/22 04:57 02/08/22 04:57 Labs: Abnormal Lab Results - Last 24 Hours (Table) 02/07/22 02/07/22 02/07/22 Range/Units 15:34 16:30 16:30 WBC 14.7 H (3.8-10.6) k/uL RBC 3.26 L (3.80-5.40) m/uL Hgb 10.3 L (11.4-16.0) gm/dL Hct 29.8 L (34.0-46.0) % RDW 17.4 H (11.5-15.5) % Plt Count 46 L (150-450) k/uL Neutrophils # 14.1 H (1.3-7.7) k/uL Lymphocytes # 0.2 L (1.0-4.8) k/uL ABG pH 7.32 L (7.35-7.45) ABG pCO2 (35-45) mmHg ABG pO2 >400 H (83-108) mmHg ABG HCO3 19 L (21-25) mmol/L ABG Total CO2 (19-24) mmol/L ABG O2 Saturation 99.6 H (94-97) % Sodium 132 L (137-145) mmol/L Carbon Dioxide 15 L (22-30) mmol/L BUN 131 H* (7-17) mg/dL Creatinine 3.68 H (0.52-1.04) mg/dL Glucose 114 H (74-99) mg/dL Calcium 6.7 L (8.4-10.2) mg/dL Total Protein 4.6 L (6.3-8.2) g/dL Albumin 2.3 L (3.5-5.0) g/dL 02/07/22 02/07/22 02/08/22 Range/Units 19:50 22:50 01:05 WBC (3.8-10.6) k/uL RBC (3.80-5.40) m/uL Hgb (11.4-16.0) gm/dL Hct (34.0-46.0) % RDW (11.5-15.5) % Plt Count (150-450) k/uL Neutrophils # (1.3-7.7) k/uL Lymphocytes # (1.0-4.8) k/uL ABG pH (7.35-7.45) ABG pCO2 (35-45) mmHg ABG pO2 (83-108) mmHg ABG HCO3 (21-25) mmol/L ABG Total CO2 (19-24) mmol/L ABG O2 Saturation (94-97) % Sodium 131 L 130 L 129 L (137-145) mmol/L Carbon Dioxide 15 L (22-30) mmol/L BUN 127 H* (7-17) mg/dL Creatinine 3.61 H (0.52-1.04) mg/dL Glucose 160 H (74-99) mg/dL Calcium 6.7 L (8.4-10.2) mg/dL Total Protein (6.3-8.2) g/dL Albumin (3.5-5.0) g/dL 02/08/22 02/08/22 02/08/22 Range/Units 03:15 04:57 04:57 WBC 12.1 H (3.8-10.6) k/uL RBC 2.97 L (3.80-5.40) m/uL Hgb 9.5 L (11.4-16.0) gm/dL Hct 27.7 L (34.0-46.0) % RDW 17.8 H (11.5-15.5) % Plt Count 43 L (150-450) k/uL Neutrophils # 11.5 H (1.3-7.7) k/uL Lymphocytes # 0.2 L (1.0-4.8) k/uL ABG pH (7.35-7.45) ABG pCO2 (35-45) mmHg ABG pO2 (83-108) mmHg ABG HCO3 (21-25) mmol/L ABG Total CO2 (19-24) mmol/L ABG O2 Saturation (94-97) % Sodium 127 L 127 L (137-145) mmol/L Carbon Dioxide 17 L (22-30) mmol/L BUN 108 H* (7-17) mg/dL Creatinine 2.90 H (0.52-1.04) mg/dL Glucose 257 H (74-99) mg/dL Calcium 6.9 L (8.4-10.2) mg/dL Total Protein 4.6 L (6.3-8.2) g/dL Albumin 2.3 L (3.5-5.0) g/dL 02/08/22 Range/Units 05:43 WBC (3.8-10.6) k/uL RBC (3.80-5.40) m/uL Hgb (11.4-16.0) gm/dL Hct (34.0-46.0) % RDW (11.5-15.5) % Plt Count (150-450) k/uL Neutrophils # (1.3-7.7) k/uL Lymphocytes # (1.0-4.8) k/uL ABG pH (7.35-7.45) ABG pCO2 25 L (35-45) mmHg ABG pO2 172 H (83-108) mmHg ABG HCO3 17 L (21-25) mmol/L ABG Total CO2 18 L (19-24) mmol/L ABG O2 Saturation 99.5 H (94-97) % Sodium (137-145) mmol/L Carbon Dioxide (22-30) mmol/L BUN (7-17) mg/dL Creatinine (0.52-1.04) mg/dL Glucose (74-99) mg/dL Calcium (8.4-10.2) mg/dL Total Protein (6.3-8.2) g/dL Albumin (3.5-5.0) g/dL Microbiology - Last 24 Hours (Table) 02/07/22 00:11 Blood Culture - Preliminary Blood No Growth after 24 hours 02/06/22 23:55 Blood Culture - Preliminary Blood No Growth after 24 hours Assessment and Plan (1) Leukocytosis Current Visit: Yes Status: Acute Code(s): D72.829 - ELEVATED WHITE BLOOD CELL COUNT, UNSPECIFIED SNOMED Code(s): 142375921 Plan: 1patient presented to hospital with sepsis in this we did have a significant elevated white count elevated lactic acid and hypotension requiring multiple pressor support source likely abdominal in this patient who do have a history of rectal cancer with a history of chemoradiation now with abnormal CT suspicious for high-grade small bowel obstruction need to cover for the enteric gram- negative both aerobes and anaerobes, patient is status post laparotomy and lysis of adhesion completed on 02/24/2022 2patient to continue with Zosyn 3.375 g every 12 hours. 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 Patient's son at the bedside questions and concerns were answered Time with Patient: Less than 30
[2022-02-08] MEDS: MVI, ADULT NO.4 WITH VIT K 10 ML, TRACE (CONC-1ML/DOSE) 1 ML in AMINO ACID 5%-D15W+LYTE... IV SCH ×3 (18:23)
[2022-02-08] MEDS: SODIUM CHLORIDE 0.9% 150 ML with VASOPRESSIN 60 UNIT IV SCH ×2 (18:57)
--- NOTE | 2022-02-08 19:33 | CONS ---
CONSULTATION Cindy Lazcano is a 71-year-old lady who has multiple comorbid conditions, including rheumatoid arthritis, gastroesophageal reflux disease, adenocarcinoma of the colon diagnosed in November of last year. She had surgery and chemotherapy. She also had some rectal carcinoma and a second surgery was performed recently at [facility] with ileostomy as well. PET scan was a suboptimal study. She stopped eating a week or so ago and she presented to the emergency room with altered mental status, shortness of breath, was severely dehydrated, and CT scan revealed dilated stomach and abdomen. With all these multiple comorbid conditions, she required IV fluids and also Levophed to support her blood pressure. I was asked to see her because of a short run of atrial fibrillation which occurred in the setting of her critical condition and also had mild troponin elevation. Her clinical picture is that of dehydration and sepsis with recent surgery, including probable rectal carcinoma. Hemoglobin was about 12.3. With hydration it came down to 9.5. She is intubated and I cannot obtain any meaningful history other than the information in the chart. Based on the clinical picture, her troponin elevation does not suggest primary myocardial injury; probably related to some oxygen mismatch and underlying sepsis. Please refer to the detailed notes by medicaid billing specialist Dr. Rodriguez. She also had significant hyponatremia that has also shown significant improvement. Her lactate levels have come down. Troponin was flat at 0.13, then 0.14. Her creatinine is also elevated; it was up to 6.47 and came down to 2.9 after hydration. Physical examination reveals S1, S2 heard normally. Short systolic murmur noted. Lungs reveal diminished air entry. IMPRESSION: 1. Rhythm strip review did not reveal any clear-cut evidence of sustained atrial fibrillation. She had a short run of atrial fibrillation apparently. 2. Sepsis with elevated troponin, not suggestive of primary myocardial injury. RECOMMENDATIONS: No new suggestions from a cardiac standpoint. I will continue to see her as needed. MMODL / IJN: [id number] /
[2022-02-08 19:59] LABS: Potassium 3.9 mmol/L (3.5-5.1)
[2022-02-08] MEDS: CHLORHEXIDINE GLUCONATE 15 ML CUP MUCOUS MEM SCH (20:54)
[2022-02-08 21:41] LABS: Glucose,Whole Blood 306 mg/dL (75-99)
[2022-02-09] MEDS: IPRATROPIUM-ALBUTEROL 3 ML NEB INHALATION SCH ×6 (00:15→19:50)
[2022-02-09 01:52] LABS: Glucose,Whole Blood 107 mg/dL (75-99)
[2022-02-09] MEDS: SODIUM CHLORIDE 0.9% 1,000 ML IV SCH ×3 (02:10→20:25)
[2022-02-09] MEDS: INSULIN ASPART (NovoLOG) 100 UNIT/ML VIAL SQ SCH ×5 (02:11→20:36)
[2022-02-09 03:31] LABS: Glucose,Whole Blood 112 mg/dL (75-99)
[2022-02-09 04:03] LABS: Anisocytosis Slight; Basophils # (A) 0.1 k/uL (0-0.2); Basophils % (A) 0 %; Eosinophils % (A) 0 %; HCT 24.5 % (34.0-46.0); Lymphocytes # (A) 0.2 k/uL (1.0-4.8); Lymphocytes % (A) 2 %; MCH 30.8 pg (25.0-35.0); MCHC 32.4 g/dL (31.0-37.0); Mean Platelet Volume 9.8; Monocytes # (A) 0.3 k/uL (0-1.0); Monocytes % (A) 2 %; Neutrophils # (A) 11.7 k/uL (1.3-7.7); Neutrophils % (A) 94 %; RBC 2.58 m/uL (3.80-5.40); RDW 17.5 % (11.5-15.5); WBC 12.4 k/uL (3.8-10.6)
[2022-02-09 04:04] LABS: HGB 7.9 gm/dL (11.4-16.0); Platelet Count 46 k/uL (150-450)
[2022-02-09 04:21] LABS: Calcium 7.5 mg/dL (8.4-10.2); Magnesium 1.8 mg/dL (1.6-2.3); Phosphorus 2.6 mg/dL (2.5-4.5); Potassium 3.1 mmol/L (3.5-5.1)
[2022-02-09] MEDS ORDERED: Potassium Replacement Protocol 1 EACH MISC MISCELLANE PRN (04:35)
[2022-02-09] MEDS: POTASSIUM CHLORIDE 10 MEQ in WATER FOR INJECTION 1 100ML.BAG IVPB SCH ×4 (04:44→07:49)
[2022-02-09 05:57] LABS: ABG Base Excess -6.6 mmol/L; ABG HCO3 18 mmol/L (21-25); ABG Oxygen Saturation 98.7 % (94-97); ABG PCO2 29 mmHg (35-45); ABG PO2 168 mmHg (83-108); ABG TCO2 19 mmol/L (19-24); Allen Test Performed? Yes
--- NOTE | 2022-02-09 06:05 | XR ---
EXAMINATION TYPE: XR chest 1V portable DATE OF EXAM: 02/09/2022 CLINICAL HISTORY: Difficulty breathing progress study. TECHNIQUE: Single AP portable upright view of the chest is obtained. COMPARISON: Chest x-ray from one day earlier and older studies. FINDINGS: Stable endotracheal and orogastric tubes. Stable right-sided subclavian Mediport catheter. Lungs remain grossly clear without pleural effusion or pneumothorax seen bilaterally. Cardiac silhoue tte size remains within normal limits. Free air under the diaphragm redemonstrated. Osseous structure s are intact. IMPRESSION: No acute pulmonary process. No significant change from most recent prior.
[2022-02-09 06:11] LABS: Glucose,Whole Blood 128 mg/dL (75-99)
[2022-02-09] MEDS ORDERED: Magnesium Replacement Protocol 1 EACH MISC MISCELLANE PRN (07:30)
[2022-02-09] MEDS: PIPERACILLIN-TAZOBACTAM 3.375 GM in SODIUM CHLORIDE 0.9% 100 ML IVPB SCH ×3 (08:48→23:19)
[2022-02-09] MEDS: PANTOPRAZOLE 40 MG/10 ML VIAL IVP SCH (08:48)
[2022-02-09] MEDS: MAGNESIUM SULFATE-D5W PMX 1 GM in DEXTROSE/WATER 1 100ML.BAG IVPB SCH ×2 (08:52→10:07)
[2022-02-09] MEDS: CHLORHEXIDINE GLUCONATE 15 ML CUP MUCOUS MEM SCH (09:07)
[2022-02-09] MEDS: NOREPINEPHRINE 8 MG in SODIUM CHLORIDE 0.9% 250 ML IV SCH ×3 (09:07→23:19)
[2022-02-09] MEDS ORDERED: SODIUM BICARB 8.4% 50 ML SYR (1 MEQ/ML) IV STA (10:05)
--- NOTE | 2022-02-09 10:07 | P.PN ---
Subjective Patient is seen in follow-up for acute kidney injury. Renal function improving. Urine output stable at 40-50 mL an hour. Sodium level was 133 this morning. Remains on Levophed and vasopressin. Intubated. On 30% FiO2. Vital signs are stable. HEENT: Intubated. LUNGS: Breath sounds decreased. HEART: Rate and Rhythm are regular. ABDOMEN: Soft, no distention. EXTREMITITES: No edema. Objective - Vital Signs Vital signs: Vital Signs Temp 98.4 F 02/09/22 07:00 Pulse 80 02/09/22 07:45 Resp 19 02/09/22 07:45 BP 100/75 02/09/22 06:00 Pulse Ox 100 02/09/22 07:00 Intake & Output 02/08/22 02/09/22 02/09/22 18:59 06:59 18:59 Intake Total 1489.554 0092.180 255.335 Output Total 390 1190 50 Balance 1109.664 865.180 205.335 Weight 54.3 kg 56.7 kg 56.7 kg Intake: IV 1000 1690 130 Mvi, Adult No.4 with Vit 390 30 K 10 ml Trace (Conc-1Ml/ Dose) 1 ml In Amino Acid 5%-D15w+Lytes*E* 1,000 ml @ 30 mls/hr IV .Q24H TIM Rx#:[id number] Sodium Chloride 0.9% 1, 1000 1300 100 000 ml @ 100 mls/hr IV . Q10H TIM Rx#:[id number] Intake, IV Titration 499.664 365.180 125.335 Amount Norepinephrine 8 mg In 349.664 197.650 20.735 Sodium Chloride 0.9% 250 ml @ 0.35 MCG/KG/MIN 32. 255 mls/hr IV .Q8H TIM Rx #:[id number] Potassium Chloride 10 meq 100 In Water For Injection 1 100ml.bag @ 100 mls/hr IVPB Q1HR TIM Rx#: [id number] Sodium Chloride 0.9% 1, 50 000 ml @ 100 mls/hr IV . Q10H TIM Rx#:[id number] Sodium Chloride 0.9% 150 4.6 ml @ 0.03 UNITS/MIN 4.59 mls/hr IV .Q24H TIM with Vasopressin 60 unit Rx#: [id number] propofoL 1,000 mg In 100 167.530 Empty Bag 1 bag @ 5 MCG/ KG/MIN 1.429 mls/hr IV . Q24H [facility] Rx#:[id number] Output: Urine 390 990 50 Stool 200 Other: Voiding Method Indwelling Catheter Indwelling Catheter ABP, PAP, CO, CI - Last Documented Arterial Blood Pressure 116/58 - Labs CBC & Chem 7: 02/09/22 03:30 02/09/22 03:30 Labs: Abnormal Lab Results - Last 24 Hours (Table) 02/08/22 02/08/22 02/09/22 Range/Units 19:00 21:39 01:50 WBC (3.8-10.6) k/uL RBC (3.80-5.40) m/uL Hgb (11.4-16.0) gm/dL Hct (34.0-46.0) % RDW (11.5-15.5) % Plt Count (150-450) k/uL Neutrophils # (1.3-7.7) k/uL Lymphocytes # (1.0-4.8) k/uL ABG pCO2 (35-45) mmHg ABG pO2 (83-108) mmHg ABG HCO3 (21-25) mmol/L ABG O2 Saturation (94-97) % Sodium 127 L (137-145) mmol/L Potassium (3.5-5.1) mmol/L Chloride (98-107) mmol/L Carbon Dioxide 16 L (22-30) mmol/L BUN 93 H (7-17) mg/dL Creatinine 2.34 H (0.52-1.04) mg/dL Glucose 458 H (74-99) mg/dL POC Glucose (mg/dL) 306 H 107 H (75-99) mg/dL Calcium 7.0 L (8.4-10.2) mg/dL 02/09/22 02/09/22 02/09/22 Range/Units 03:28 03:30 03:30 WBC 12.4 H (3.8-10.6) k/uL RBC 2.58 L (3.80-5.40) m/uL Hgb 7.9 L D (11.4-16.0) gm/dL Hct 24.5 L (34.0-46.0) % RDW 17.5 H (11.5-15.5) % Plt Count 46 L (150-450) k/uL Neutrophils # 11.7 H (1.3-7.7) k/uL Lymphocytes # 0.2 L (1.0-4.8) k/uL ABG pCO2 (35-45) mmHg ABG pO2 (83-108) mmHg ABG HCO3 (21-25) mmol/L ABG O2 Saturation (94-97) % Sodium 133 L (137-145) mmol/L Potassium 3.1 L (3.5-5.1) mmol/L Chloride 111 H (98-107) mmol/L Carbon Dioxide 18 L (22-30) mmol/L BUN 90 H (7-17) mg/dL Creatinine 1.87 H (0.52-1.04) mg/dL Glucose 100 H (74-99) mg/dL POC Glucose (mg/dL) 112 H (75-99) mg/dL Calcium 7.5 L (8.4-10.2) mg/dL 02/09/22 02/09/22 Range/Units 05:55 06:10 WBC (3.8-10.6) k/uL RBC (3.80-5.40) m/uL Hgb (11.4-16.0) gm/dL Hct (34.0-46.0) % RDW (11.5-15.5) % Plt Count (150-450) k/uL Neutrophils # (1.3-7.7) k/uL Lymphocytes # (1.0-4.8) k/uL ABG pCO2 29 L (35-45) mmHg ABG pO2 168 H (83-108) mmHg ABG HCO3 18 L (21-25) mmol/L ABG O2 Saturation 98.7 H (94-97) % Sodium (137-145) mmol/L Potassium (3.5-5.1) mmol/L Chloride (98-107) mmol/L Carbon Dioxide (22-30) mmol/L BUN (7-17) mg/dL Creatinine (0.52-1.04) mg/dL Glucose (74-99) mg/dL POC Glucose (mg/dL) 128 H (75-99) mg/dL Calcium (8.4-10.2) mg/dL Microbiology - Last 24 Hours (Table) 04/12/22 23:55 Blood Culture - Preliminary Blood No Growth after 48 hours 02/07/22 00:11 Blood Culture - Preliminary Blood No Growth after 48 hours 02/08/22 16:20 Gram Stain - Preliminary Sputum Sputum Culture - Preliminary 02/08/22 18:00 Urine Culture - Preliminary Urine,Catheterized Assessment and Plan Plan: Assessment: 1. Acute kidney injury secondary to ATN secondary to hypotension/septic shock. Creatinine was 6.47 on admission and 1.87 this morning. Creatinine 0.7 in March 2021. Mild bilateral hydronephrosis noted on CAT scan. Urology has been consulted. Kidneys atrophic. 2. Small bowel obstruction. Status post expiratory laparotomy with lysis of adhesions 02/07/2022. 3. Hypovolemic hyponatremia improved with IV hydration. Sodium level 133 this morning. 4. Metabolic acidosis secondary to acute kidney injury and IV fluids. 5. Shock maintained on Levophed and vasopressin. 6. Hypokalemia from poor intake. Magnesium normal. Plan: Maintain IV fluids. Potassium was replaced. 2 A of sodium bicarb IV push today. Continue to monitor renal function and urine output. Follow-up cultures. Wean FiO2 and vasopressors. TPN to be started by surgery.
[2022-02-09 12:17] LABS: Glucose,Whole Blood 218 mg/dL (75-99)
[2022-02-09 12:29] LABS: ABG Base Excess -2.4 mmol/L; ABG HCO3 21 mmol/L (21-25); ABG Oxygen Saturation 98.8 % (94-97); ABG PCO2 28 mmHg (35-45); ABG PH 7.48 (7.35-7.45); ABG PO2 151 mmHg (83-108); ABG TCO2 22 mmol/L (19-24)
--- NOTE | 2022-02-09 12:44 | P.PN ---
Subjective Progress Note Date: 02/09/22 Principal diagnosis: Acute bowel obstruction This is a 71-year-old female patient who has a known history of R's to arthritis, gastroesophageal reflux disease, colorectal adenocarcinoma diagnosed in November 2020.. She initially had surgery here and had undergone chemotherapy here. She has a right sided Port-A-Cath. She did have proton at [facility] and a second surgery at [facility] with an ileostomy placement. PET scan dated 01/27/2022 revealed a suboptimal study due to muscular uptake. There is postsurgical changes the pelvis within well to fluid collection in the presacral space containing none dependent here and REM hypermetabolic uptake is concerning for infectious process or developing abscess. About 1 week ago her states that she stopped eating and drinking. She presented to the emergency room last evening with altered mental status and shortness of breath. Computed tomography scan of the abdomen and pelvis revealed likely dilated stomach and multiple dilated small bowel loops suggestive of mechanical high-grade bowel obstruction. There is ostomy in the right mid abdomen. Dilated urinary bladder and mild hydronephrosis secondary to urinary retention. Nasogastric tube was inserted and she had 900 mL of coffee- ground return. Chest x-ray reveals no sizable pleural effusions or definitive pneumothorax. No gross cardiomegaly. Marketed gaseous distention of the bowel in the upper abdomen. White count 15.1. Hemoglobin 14.4. Platelet count 38,000. Sodium 121. Potassium 4.6. Bicarb 15. BUN 164. Creatinine 5.40. Glucose 106. Troponin 0.12, 0.14, 0.14. Albumin 2.9. Urinalysis is cloudy with large amount of blood and rare bacteria. She's been initiated on Zosyn. She has received 3-1/2 L of fluid resuscitation. Normal saline at 130 ML's per hour. She is requiring norepinephrine at 0.12 mcg/kg/m. She is on Protonix. She is seen today in the intensive care unit. Her is at the bedside. She is maintaining O2 saturations in the 90s on 2 L/m per nasal cannula. Initial temperature 94.4 axillary. Currently 97.5. Warming blanket has been applied. Current blood pressure 92/55 with a mean of 67. In sinus rhythm with occasional PVCs. Patient was reevaluated today on 02/08/2022, patient underwent exploratory laparotomy yesterday, she was found to have bowel obstruction secondary to adhes naveen band. Patient had lysis of adhesions with sharp dissection. She had a relatively uneventful surgery. Nonetheless the patient remains intubated, and mechanically ventilated. She is hypotensive requiring norepinephrine and Vasopressin. Patient is on assist control rate of 10, LDL volume is 400, FiO2 40% PEEP of 5. Cut down her FiO2 down to 35%. ABG showed a pO2 of 172 pCO2 of 25 pH of 7.45. This was on 40% FiO2. Patient is still on vasopressin at 0.03 units per minute, on propofol at 35 mcg/kg/m, norepinephrine at 0.33 mcg/kg/m she will be started on TPN today. And I have increased his IV fluid to 100 mL per hour. Labs were reviewed, sodium is 127 potassium is 3.9 BUN is 108 cre atinine 2.9, steadily improving with hydration. Lactic acid is down to 1.4. And liver enzymes are basically unremarkable. Chest x-ray questioned a small tiny left apical pneumothorax, hence I'm recommending a follow-up x-ray, clinically I doubt pneumothorax. Nonetheless, if the patient does have one that is expanding, may have to consider a chest tube placement on the left side. Patient was reevaluated today on 02/09/2022, patient remains in the ICU, intubated and mechanically ventilated. She is on assist control rate of 14, volume 400 FiO2 30% and PEEP of 5. Her ABG this morning showed pO2 of 151 pCO2 28 pH of 7.48. Hence no changes were made and her ventilator settings labs today were all reviewed. WBC count is 12.4 hemoglobin is 7.9. Basic metabolic profile is normal except for low potassium of 3.1, BUN is coming down to 90 and creatinine is down to 1.87. Chest x-ray this morning showed no evidence of active disease. No infiltrate, no pneumonia, no evidence of congestive heart failure. Patient remains on propofol at 35 mg/kg/m, vasopressin at 0.03, norepinephrine at 0.08, she is also on TPN and her IV fluid is at 100 mL per hour. Hence I'm planning to give the patient a trial of pressure support and CPAP today, and if tolerated and the patient is arousable and able to follow simple instructions, we'll likely proceed with extubating the patient today. Objective - Vital Signs Vital signs: Vital Signs Temp 98.4 F 02/09/22 07:00 Pulse 70 02/09/22 11:54 Resp 19 02/09/22 11:54 BP 102/57 02/09/22 11:00 Pulse Ox 100 02/09/22 11:00 Intake & Output 02/08/22 02/09/22 02/09/22 18:59 06:59 18:59 Intake Total 6524.520 3483.180 1120.041 Output Total 390 1190 250 Balance 1109.664 865.180 870.041 Weight 54.3 kg 56.7 kg 56.7 kg Intake: IV 1000 1690 460 Mvi, Adult No.4 with Vit 390 60 K 10 ml Trace (Conc-1Ml/ Dose) 1 ml In Amino Acid 5%-D15w+Lytes*E* 1,000 ml @ 30 mls/hr IV .Q24H TIM Rx#:[id number] Sodium Chloride 0.9% 1, 1000 1300 400 000 ml @ 100 mls/hr IV . Q10H [facility] Rx#:[id number] Intake, IV Titration 499.664 365.180 660.041 Amount Magnesium Sulfate-D5w Pmx 200 1 gm In Dextrose/Water 1 100ml.bag @ 100 mls/hr IVPB Q1H [facility] Rx#: [id number] Mvi, Adult No.4 with Vit 104 K 10 ml Trace (Conc-1Ml/ Dose) 1 ml In Amino Acid 5%-D15w+Lytes*E* 1,000 ml @ 52 mls/hr IV .BY DURATION TIM Rx#: [id number] Norepinephrine 8 mg In 349.664 197.650 33.054 Sodium Chloride 0.9% 250 ml @ 0.35 MCG/KG/MIN 32. 255 mls/hr IV .Q8H [facility] Rx #:[id number] Piperacillin-Tazobactam 3 100 .375 gm In Sodium Chloride 0.9% 100 ml @ 25 mls/hr IVPB Q8HR [facility] Rx# :[id number] Potassium Chloride 10 meq 100 In Water For Injection 1 100ml.bag @ 100 mls/hr IVPB Q1HR [facility] Rx#: [id number] Sodium Chloride 0.9% 1, 50 000 ml @ 100 mls/hr IV . Q10H [facility] Rx#:[id number] Sodium Chloride 0.9% 150 18.4 ml @ 0.03 UNITS/MIN 4.59 mls/hr IV .Q24H TIM with Vasopressin 60 unit Rx#: [id number] propofoL 1,000 mg In 100 167.530 104.587 Empty Bag 1 bag @ 5 MCG/ KG/MIN 1.429 mls/hr IV . Q24H [facility] Rx#:[id number] Output: Urine 390 990 250 Stool 200 Other: Voiding Method Indwelling Catheter Indwelling Catheter Indwelling Catheter ABP, PAP, CO, CI - Last Documented Arterial Blood Pressure 105/52 - Exam Physical Exam: Revealed a 71-year-old female sedated, intubated, mechanically ventilated, in no distress. Head: Atraumatic, normocephalic endotracheal tube and orogastric tube are int act. HEENT:[Neck is supple.] [No neck masses.] [No thyromegaly.] [No JVD.] Chest: Normal fine crackles at the bases no rhonchi and no wheezes Cardiac Exam: [Normal S1 and S2, no S3 gallop, no murmur.] Abdomen: Postsurgical, likely tender, surgical dressing seems to be clean, dry, ileostomy is intact, no bowel sounds. Extremities: [No clubbing, no edema, no cyanosis.] Neurological Exam: Cannot assess, patient is sedated with propofol. However arousable, opens eyes, but does not follow instructions. Psychiatric: Could not assess. Musculoskeletal: Significant muscle wasting is noted, no deformities otherwise. Skin: Multiple areas of bruises noted. - Labs CBC & Chem 7: 02/09/22 03:30 02/09/22 03:30 Labs: Abnormal Lab Results - Last 24 Hours (Table) 02/08/22 02/08/22 02/09/22 Range/Units 19:00 21:39 01:50 WBC (3.8-10.6) k/uL RBC (3.80-5.40) m/uL Hgb (11.4-16.0) gm/dL Hct (34.0-46.0) % RDW (11.5-15.5) % Plt Count (150-450) k/uL Neutrophils # (1.3-7.7) k/uL Lymphocytes # (1.0-4.8) k/uL ABG pH (7.35-7.45) ABG pCO2 (35-45) mmHg ABG pO2 (83-108) mmHg ABG HCO3 (21-25) mmol/L ABG O2 Saturation (94-97) % Sodium 127 L (137-145) mmol/L Potassium (3.5-5.1) mmol/L Chloride (98-107) mmol/L Carbon Dioxide 16 L (22-30) mmol/L BUN 93 H (7-17) mg/dL Creatinine 2.34 H (0.52-1.04) mg/dL Glucose 458 H (74-99) mg/dL POC Glucose (mg/dL) 306 H 107 H (75-99) mg/dL Calcium 7.0 L (8.4-10.2) mg/dL 02/09/22 02/09/22 02/09/22 Range/Units 03:28 03:30 03:30 WBC 12.4 H (3.8-10.6) k/uL RBC 2.58 L (3.80-5.40) m/uL Hgb 7.9 L D (11.4-16.0) gm/dL Hct 24.5 L (34.0-46.0) % RDW 17.5 H (11.5-15.5) % Plt Count 46 L (150-450) k/uL Neutrophils # 11.7 H (1.3-7.7) k/uL Lymphocytes # 0.2 L (1.0-4.8) k/uL ABG pH (7.35-7.45) ABG pCO2 (35-45) mmHg ABG pO2 (83-108) mmHg ABG HCO3 (21-25) mmol/L ABG O2 Saturation (94-97) % Sodium 133 L (137-145) mmol/L Potassium 3.1 L (3.5-5.1) mmol/L Chloride 111 H (98-107) mmol/L Carbon Dioxide 18 L (22-30) mmol/L BUN 90 H (7-17) mg/dL Creatinine 1.87 H (0.52-1.04) mg/dL Glucose 100 H (74-99) mg/dL POC Glucose (mg/dL) 112 H (75-99) mg/dL Calcium 7.5 L (8.4-10.2) mg/dL 02/09/22 02/09/22 02/09/22 Range/Units 05:55 06:10 12:15 WBC (3.8-10.6) k/uL RBC (3.80-5.40) m/uL Hgb (11.4-16.0) gm/dL Hct (34.0-46.0) % RDW (11.5-15.5) % Plt Count (150-450) k/uL Neutrophils # (1.3-7.7) k/uL Lymphocytes # (1.0-4.8) k/uL ABG pH (7.35-7.45) ABG pCO2 29 L (35-45) mmHg ABG pO2 168 H (83-108) mmHg ABG HCO3 18 L (21-25) mmol/L ABG O2 Saturation 98.7 H (94-97) % Sodium (137-145) mmol/L Potassium (3.5-5.1) mmol/L Chloride (98-107) mmol/L Carbon Dioxide (22-30) mmol/L BUN (7-17) mg/dL Creatinine (0.52-1.04) mg/dL Glucose (74-99) mg/dL POC Glucose (mg/dL) 128 H 218 H (75-99) mg/dL Calcium (8.4-10.2) mg/dL 02/09/22 Range/Units 12:27 WBC (3.8-10.6) k/uL RBC (3.80-5.40) m/uL Hgb (11.4-16.0) gm/dL Hct (34.0-46.0) % RDW (11.5-15.5) % Plt Count (150-450) k/uL Neutrophils # (1.3-7.7) k/uL Lymphocytes # (1.0-4.8) k/uL ABG pH 7.48 H (7.35-7.45) ABG pCO2 28 L (35-45) mmHg ABG pO2 151 H (83-108) mmHg ABG HCO3 (21-25) mmol/L ABG O2 Saturation 98.8 H (94-97) % Sodium (137-145) mmol/L Potassium (3.5-5.1) mmol/L Chloride (98-107) mmol/L Carbon Dioxide (22-30) mmol/L BUN (7-17) mg/dL Creatinine (0.52-1.04) mg/dL Glucose (74-99) mg/dL POC Glucose (mg/dL) (75-99) mg/dL Calcium (8.4-10.2) mg/dL Microbiology - Last 24 Hours (Table) 02/06/22 23:55 Blood Culture - Preliminary Blood No Growth after 48 hours 02/07/22 00:11 Blood Culture - Preliminary Blood No Growth after 48 hours 02/08/22 16:20 Gram Stain - Preliminary Sputum Sputum Culture - Preliminary 02/08/22 18:00 Urine Culture - Preliminary Urine,Catheterized Assessment and Plan Assessment: Impression: Acute mechanical high-grade bowel obstruction secondary to band adhesions, status post exploratory laparotomy and lysis of adhesions. Postoperative day #2. Acute renal failure, suspect mostly dehydration related. Doubt sepsis. Improving and responding to fluids. Hyponatremia secondary to dehydration and renal failure. Resolved. Thrombocytopenia, likely chronic, being addressed by oncology/hematology on the case. History of colorectal cancer diagnosed in 2018, previous surgery 2 with a right-sided ileostomy status post chemotherapy Paroxysmal atrial fibrillation. History of degenerative joint disease History of GERD History of cervical cancer Former smoker Postoperative hypoxic respiratory failure requiring mechanical ventilation mostly because of her severe hypotension, possible abdominal sepsis and septic shock. Recommendation: Continue ventilatory support. Continue antibiotics/Zosyn Continue GI and DVT prophylaxis. Hematology to address her thrombocytopenia. Start the nutritional support/TPN. Continue updrafts. Continue Protonix. Will give the patient today a trial of weaning, and if tolerated, would proceed to extubation. Remains critically ill, critical care time is over 30 minutes. Time with Patient: Greater than 30
--- NOTE | 2022-02-09 12:59 | P.GSCN ---
History of Present Illness Consult date: 02/08/22 Reason for Consult: Hydronephrosis Requesting physician: Justus Steele History of present illness: The patient is a 71-year-old white female diagnosed with rectal cancer in 2017. She underwent a low anterior resection in October 2018. She had a local recurrence in November 2020. She has been treated with chemoradiation. She is now admitted for weakness and dehydration and underwent lysis of adhesions. CT scan shows bilateral hydronephrosis with bladder distention. I am consulted for this reason. Review of Systems ROS unobtainable: due to endotracheal tube Past Medical History Past Medical History: Cancer, GERD/Reflux, Osteoarthritis (OA) Additional Past Medical History / Comment(s): Hx Cervical cancer in the , varicose Veins, hx rectal cancer 2018, finished chemo 06-05-19, recent recurrance of rectal cancer. History of Any Multi-Drug Resistant Organisms: None Reported Past Surgical History: Adenoidectomy, Appendectomy, Bowel Resection, Hernia Repair, Tonsillectomy Additional Past Surgical History / Comment(s): EGD, colonoscopies, ileostomy, hiatal hernia repair, reversal of ileostomy. Past Anesthesia/Blood Transfusion Reactions: Previous Problems w/ Anesthesia Additional Past Anesthesia/Blood Transfusion Reaction / Comm: WOKE UP DURING COLONOSCOPY X1. Past Psychological History: No Psychological Hx Reported Smoking Status: Former smoker - Past Family History Mother Family Medical History: AFIB, Hypertension, Memory Impairment Additional Family Medical History / Comment(s): Memory impairment Father Family Medical History: Cancer Additional Family Medical History / Comment(s): " from blood cancer." Medications and Allergies Home Medications Medication Instructions Recorded Confirmed Type No Known Home Medications 02/06/22 02/06/22 History Allergies Allergy/AdvReac Type Severity Reaction Status Date / Time ciprofloxacin [From Cipro] Allergy Rash/Hives Verified 02/06/22 23:00 ciprofloxacin HCl Allergy Rash/Hives Verified 02/06/22 23:00 [From Cipro] Surgical - Exam Vital Signs Temp Pulse Resp BP Pulse Ox 98.0 F 120 H 24 126/102 99 02/06/22 22:06 02/06/22 22:06 02/06/22 22:06 02/06/22 22:06 02/06/22 22:06 - General well developed, well nourished - Abdomen Soft, non-distended. Incision dry and intact. Results - Labs 02/09/22 03:30 02/09/22 03:30 Abnormal Lab Results - Last 24 Hours (Table) 02/07/22 02/07/22 02/08/22 Range/Units 19:50 22:50 01:05 WBC (3.8-10.6) k/uL RBC (3.80-5.40) m/uL Hgb (11.4-16.0) gm/dL Hct (34.0-46.0) % RDW (11.5-15.5) % Plt Count (150-450) k/uL Neutrophils # (1.3-7.7) k/uL Lymphocytes # (1.0-4.8) k/uL ABG pCO2 (35-45) mmHg ABG pO2 (83-108) mmHg ABG HCO3 (21-25) mmol/L ABG Total CO2 (19-24) mmol/L ABG O2 Saturation (94-97) % Sodium 131 L 130 L 129 L (137-145) mmol/L Carbon Dioxide 15 L (22-30) mmol/L BUN 127 H* (7-17) mg/dL Creatinine 3.61 H (0.52-1.04) mg/dL Glucose 160 H (74-99) mg/dL Calcium 6.7 L (8.4-10.2) mg/dL Total Protein (6.3-8.2) g/dL Albumin (3.5-5.0) g/dL 02/08/22 02/08/22 02/08/22 Range/Units 03:15 04:57 04:57 WBC 12.1 H (3.8-10.6) k/uL RBC 2.97 L (3.80-5.40) m/uL Hgb 9.5 L (11.4-16.0) gm/dL Hct 27.7 L (34.0-46.0) % RDW 17.8 H (11.5-15.5) % Plt Count 43 L (150-450) k/uL Neutrophils # 11.5 H (1.3-7.7) k/uL Lymphocytes # 0.2 L (1.0-4.8) k/uL ABG pCO2 (35-45) mmHg ABG pO2 (83-108) mmHg ABG HCO3 (21-25) mmol/L ABG Total CO2 (19-24) mmol/L ABG O2 Saturation (94-97) % Sodium 127 L 127 L (137-145) mmol/L Carbon Dioxide 17 L (22-30) mmol/L BUN 108 H* (7-17) mg/dL Creatinine 2.90 H (0.52-1.04) mg/dL Glucose 257 H (74-99) mg/dL Calcium 6.9 L (8.4-10.2) mg/dL Total Protein 4.6 L (6.3-8.2) g/dL Albumin 2.3 L (3.5-5.0) g/dL 02/08/22 Range/Units 05:43 WBC (3.8-10.6) k/uL RBC (3.80-5.40) m/uL Hgb (11.4-16.0) gm/dL Hct (34.0-46.0) % RDW (11.5-15.5) % Plt Count (150-450) k/uL Neutrophils # (1.3-7.7) k/uL Lymphocytes # (1.0-4.8) k/uL ABG pCO2 25 L (35-45) mmHg ABG pO2 172 H (83-108) mmHg ABG HCO3 17 L (21-25) mmol/L ABG Total CO2 18 L (19-24) mmol/L ABG O2 Saturation 99.5 H (94-97) % Sodium (137-145) mmol/L Carbon Dioxide (22-30) mmol/L BUN (7-17) mg/dL Creatinine (0.52-1.04) mg/dL Glucose (74-99) mg/dL Calcium (8.4-10.2) mg/dL Total Protein (6.3-8.2) g/dL Albumin (3.5-5.0) g/dL Microbiology - Last 24 Hours (Table) 02/07/22 00:11 Blood Culture - Preliminary Blood No Growth after 24 hours 02/06/22 23:55 Blood Culture - Preliminary Blood No Growth after 24 hours Diabetes panel 02/07/22 02/07/22 02/08/22 Range/Units 19:50 22:50 01:05 Sodium 131 L 130 L 129 L (137-145) mmol/L Potassium 4.2 (3.5-5.1) mmol/L Chloride 103 (98-107) mmol/L Carbon Dioxide 15 L (22-30) mmol/L BUN 127 H* (7-17) mg/dL Creatinine 3.61 H (0.52-1.04) mg/dL Glucose 160 H (74-99) mg/dL Calcium 6.7 L (8.4-10.2) mg/dL AST (14-36) U/L ALT (4-34) U/L Alkaline Phosphatase (38-126) U/L Total Protein (6.3-8.2) g/dL Albumin (3.5-5.0) g/dL 02/08/22 02/08/22 Range/Units 03:15 04:57 Sodium 127 L 127 L (137-145) mmol/L Potassium 3.9 (3.5-5.1) mmol/L Chloride 102 (98-107) mmol/L Carbon Dioxide 17 L (22-30) mmol/L BUN 108 H* (7-17) mg/dL Creatinine 2.90 H (0.52-1.04) mg/dL Glucose 257 H (74-99) mg/dL Calcium 6.9 L (8.4-10.2) mg/dL AST 24 (14-36) U/L ALT 17 (4-34) U/L Alkaline Phosphatase 45 (38-126) U/L Total Protein 4.6 L (6.3-8.2) g/dL Albumin 2.3 L (3.5-5.0) g/dL Calcium panel 02/07/22 02/08/22 02/08/22 Range/Units 19:50 04:57 04:57 Calcium 6.7 L 6.9 L (8.4-10.2) mg/dL Phosphorus 4.3 (2.5-4.5) mg/dL Albumin 2.3 L (3.5-5.0) g/dL Pituitary panel 02/07/22 02/07/22 02/08/22 Range/Units 19:50 22:50 01:05 Sodium 131 L 130 L 129 L (137-145) mmol/L Potassium 4.2 (3.5-5.1) mmol/L Chloride 103 (98-107) mmol/L Carbon Dioxide 15 L (22-30) mmol/L BUN 127 H* (7-17) mg/dL Creatinine 3.61 H (0.52-1.04) mg/dL Glucose 160 H (74-99) mg/dL Calcium 6.7 L (8.4-10.2) mg/dL 02/08/22 02/08/22 Range/Units 03:15 04:57 Sodium 127 L 127 L (137-145) mmol/L Potassium 3.9 (3.5-5.1) mmol/L Chloride 102 (98-107) mmol/L Carbon Dioxide 17 L (22-30) mmol/L BUN 108 H* (7-17) mg/dL Creatinine 2.90 H (0.52-1.04) mg/dL Glucose 257 H (74-99) mg/dL Calcium 6.9 L (8.4-10.2) mg/dL Adrenal panel 02/07/22 02/07/22 02/08/22 Range/Units 19:50 22:50 01:05 Sodium 131 L 130 L 129 L (137-145) mmol/L Potassium 4.2 (3.5-5.1) mmol/L Chloride 103 (98-107) mmol/L Carbon Dioxide 15 L (22-30) mmol/L BUN 127 H* (7-17) mg/dL Creatinine 3.61 H (0.52-1.04) mg/dL Glucose 160 H (74-99) mg/dL Calcium 6.7 L (8.4-10.2) mg/dL Total Bilirubin (0.2-1.3) mg/dL AST (14-36) U/L ALT (4-34) U/L Alkaline Phosphatase (38-126) U/L Total Protein (6.3-8.2) g/dL Albumin (3.5-5.0) g/dL 02/08/22 02/08/22 Range/Units 03:15 04:57 Sodium 127 L 127 L (137-145) mmol/L Potassium 3.9 (3.5-5.1) mmol/L Chloride 102 (98-107) mmol/L Carbon Dioxide 17 L (22-30) mmol/L BUN 108 H* (7-17) mg/dL Creatinine 2.90 H (0.52-1.04) mg/dL Glucose 257 H (74-99) mg/dL Calcium 6.9 L (8.4-10.2) mg/dL Total Bilirubin 0.5 (0.2-1.3) mg/dL AST 24 (14-36) U/L ALT 17 (4-34) U/L Alkaline Phosphatase 45 (38-126) U/L Total Protein 4.6 L (6.3-8.2) g/dL Albumin 2.3 L (3.5-5.0) g/dL - Imaging CT scan - abdomen: report reviewed, image reviewed Assessment and Plan (1) Unspecified hydronephrosis Current Visit: Yes Status: Acute Code(s): N13.30 - UNSPECIFIED HYDRONEPHROSIS SNOMED Code(s): 44232092 (2) Urinary retention Current Visit: Yes Status: Acute Code(s): R33.9 - RETENTION OF URINE, UNSPECIFIED SNOMED Code(s): 245882735 Plan: CT scan shows the bladder to be markedly distended, and I attribute the bilateral hydronephrosis to this. The patient currently has an indwelling Omalley catheter in place, draining clear yellow urine. She will require evaluation of her bladder function once she recovers. In the meantime, the Omalley catheter should remain in place. Time with Patient: Greater than 30
[2022-02-09] MEDS: MVI, ADULT NO.4 WITH VIT K 10 ML, TRACE (CONC-1ML/DOSE) 1 ML in AMINO ACID 5%-D15W+LYTE... IV SCH ×3 (13:04)
--- NOTE | 2022-02-09 15:36 | P.PN ---
Subjective Progress Note Date: 02/09/22 Principal diagnosis: Abdominal sepsis Patient is a 71 year female With a past medical history significant for rectal cancer with recent recurrence in this patient who is status post bowel resection with ileostomy placement in the summer of 2020 presented to the hospital with weakness no output from ileostomy noticed to have a high-grade small bowel obstruction patient is status post laparotomy with lysis of adhesion. On today's evaluation is 02/09/2022, the patient remains to be afebrile, the patient remains to be intubated on the vent however in the process of getting extubated per the nursing staff, the patient is requiring less Levophed but same amount of vasopressin for pressure support comparing to yesterday no significant purulent secretions or any other changes reported by the nursing staff, patient is on the vent and unable to provide any history Objective - Vital Signs Vital signs: Vital Signs Temp 98.4 F 02/09/22 07:00 Pulse 87 02/09/22 13:00 Resp 15 02/09/22 13:00 BP 105/76 02/09/22 13:00 Pulse Ox 100 02/09/22 13:00 Intake & Output 02/08/22 02/09/22 02/09/22 18:59 06:59 18:59 Intake Total 0890.887 4772.180 1608.916 Output Total 390 1190 535 Balance 1109.664 055.932 7165.916 Weight 54.3 kg 56.7 kg 56.7 kg Intake: IV 1000 1690 760 Mvi, Adult No.4 with Vit 390 60 K 10 ml Trace (Conc-1Ml/ Dose) 1 ml In Amino Acid 5%-D15w+Lytes*E* 1,000 ml @ 30 mls/hr IV .Q24H TIM Rx#:[id number] Sodium Chloride 0.9% 1, 1000 1300 700 000 ml @ 100 mls/hr IV . Q10H TIM Rx#:[id number] Intake, IV Titration 499.664 365.180 848.916 Amount Magnesium Sulfate-D5w Pmx 200 1 gm In Dextrose/Water 1 100ml.bag @ 100 mls/hr IVPB Q1H TIM Rx#: [id number] Mvi, Adult No.4 with Vit 104 K 10 ml Trace (Conc-1Ml/ Dose) 1 ml In Amino Acid 5%-D15w+Lytes*E* 1,000 ml @ 52 mls/hr IV .BY DURATION [facility] Rx#: [id number] Norepinephrine 8 mg In 349.664 197.650 52.129 Sodium Chloride 0.9% 250 ml @ 0.35 MCG/KG/MIN 32. 255 mls/hr IV .Q8H TIM Rx #:[id number] Piperacillin-Tazobactam 3 100 .375 gm In Sodium Chloride 0.9% 100 ml @ 25 mls/hr IVPB Q8HR TIM Rx# :[id number] Potassium Chloride 10 meq 100 In Water For Injection 1 100ml.bag @ 100 mls/hr IVPB Q1HR TIM Rx#: [id number] Potassium Phosphate 12 156 mmol Potassium Acetate 20 meq Sodium Acetate 40 meq Magnesium Sulfate gm 1 gm Calcium Chloride 1 gm In Amino Acid 5%-D15w 1,000 ml @ 52 mls/hr IV . BY DURATION [facility] Rx#: [id number] Sodium Chloride 0.9% 1, 50 000 ml @ 100 mls/hr IV . Q10H [facility] Rx#:[id number] Sodium Chloride 0.9% 150 32.2 ml @ 0.03 UNITS/MIN 4.59 mls/hr IV .Q24H ITM with Vasopressin 60 unit Rx#: [id number] propofoL 1,000 mg In 100 167.530 104.587 Empty Bag 1 bag @ 5 MCG/ KG/MIN 1.429 mls/hr IV . Q24H [facility] Rx#:[id number] Output: Urine 390 990 535 Stool 200 Other: Voiding Method Indwelling Catheter Indwelling Catheter Indwelling Catheter ABP, PAP, CO, CI - Last Documented Arterial Blood Pressure 100/46 - Exam GENERAL DESCRIPTION: An elderly female intubated on the vent RESPIRATORY SYSTEM: Unlabored breathing , decreased breath sounds at bases HEART: S1 S2 regular rate and rhythm , ABDOMEN: Soft , midline incision is currently dressed EXTREMITIES: No edema feet - Labs CBC & Chem 7: 02/09/22 03:30 02/09/22 03:30 Labs: Abnormal Lab Results - Last 24 Hours (Table) 02/08/22 02/08/22 02/09/22 Range/Units 19:00 21:39 01:50 WBC (3.8-10.6) k/uL RBC (3.80-5.40) m/uL Hgb (11.4-16.0) gm/dL Hct (34.0-46.0) % RDW (11.5-15.5) % Plt Count (150-450) k/uL Neutrophils # (1.3-7.7) k/uL Lymphocytes # (1.0-4.8) k/uL ABG pH (7.35-7.45) ABG pCO2 (35-45) mmHg ABG pO2 (83-108) mmHg ABG HCO3 (21-25) mmol/L ABG O2 Saturation (94-97) % Sodium 127 L (137-145) mmol/L Potassium (3.5-5.1) mmol/L Chloride (98-107) mmol/L Carbon Dioxide 16 L (22-30) mmol/L BUN 93 H (7-17) mg/dL Creatinine 2.34 H (0.52-1.04) mg/dL Glucose 458 H (74-99) mg/dL POC Glucose (mg/dL) 306 H 107 H (75-99) mg/dL Calcium 7.0 L (8.4-10.2) mg/dL 02/09/22 02/09/22 02/09/22 Range/Units 03:28 03:30 03:30 WBC 12.4 H (3.8-10.6) k/uL RBC 2.58 L (3.80-5.40) m/uL Hgb 7.9 L D (11.4-16.0) gm/dL Hct 24.5 L (34.0-46.0) % RDW 17.5 H (11.5-15.5) % Plt Count 46 L (150-450) k/uL Neutrophils # 11.7 H (1.3-7.7) k/uL Lymphocytes # 0.2 L (1.0-4.8) k/uL ABG pH (7.35-7.45) ABG pCO2 (35-45) mmHg ABG pO2 (83-108) mmHg ABG HCO3 (21-25) mmol/L ABG O2 Saturation (94-97) % Sodium 133 L (137-145) mmol/L Potassium 3.1 L (3.5-5.1) mmol/L Chloride 111 H (98-107) mmol/L Carbon Dioxide 18 L (22-30) mmol/L BUN 90 H (7-17) mg/dL Creatinine 1.87 H (0.52-1.04) mg/dL Glucose 100 H (74-99) mg/dL POC Glucose (mg/dL) 112 H (75-99) mg/dL Calcium 7.5 L (8.4-10.2) mg/dL 02/09/22 02/09/22 02/09/22 Range/Units 05:55 06:10 12:15 WBC (3.8-10.6) k/uL RBC (3.80-5.40) m/uL Hgb (11.4-16.0) gm/dL Hct (34.0-46.0) % RDW (11.5-15.5) % Plt Count (150-450) k/uL Neutrophils # (1.3-7.7) k/uL Lymphocytes # (1.0-4.8) k/uL ABG pH (7.35-7.45) ABG pCO2 29 L (35-45) mmHg ABG pO2 168 H (83-108) mmHg ABG HCO3 18 L (21-25) mmol/L ABG O2 Saturation 98.7 H (94-97) % Sodium (137-145) mmol/L Potassium (3.5-5.1) mmol/L Chloride (98-107) mmol/L Carbon Dioxide (22-30) mmol/L BUN (7-17) mg/dL Creatinine (0.52-1.04) mg/dL Glucose (74-99) mg/dL POC Glucose (mg/dL) 128 H 218 H (75-99) mg/dL Calcium (8.4-10.2) mg/dL 02/09/22 Range/Units 12:27 WBC (3.8-10.6) k/uL RBC (3.80-5.40) m/uL Hgb (11.4-16.0) gm/dL Hct (34.0-46.0) % RDW (11.5-15.5) % Plt Count (150-450) k/uL Neutrophils # (1.3-7.7) k/uL Lymphocytes # (1.0-4.8) k/uL ABG pH 7.48 H (7.35-7.45) ABG pCO2 28 L (35-45) mmHg ABG pO2 151 H (83-108) mmHg ABG HCO3 (21-25) mmol/L ABG O2 Saturation 98.8 H (94-97) % Sodium (137-145) mmol/L Potassium (3.5-5.1) mmol/L Chloride (98-107) mmol/L Carbon Dioxide (22-30) mmol/L BUN (7-17) mg/dL Creatinine (0.52-1.04) mg/dL Glucose (74-99) mg/dL POC Glucose (mg/dL) (75-99) mg/dL Calcium (8.4-10.2) mg/dL Microbiology - Last 24 Hours (Table) 02/06/22 23:55 Blood Culture - Preliminary Blood No Growth after 48 hours 02/07/22 00:11 Blood Culture - Preliminary Blood No Growth after 48 hours 02/08/22 16:20 Gram Stain - Preliminary Sputum Sputum Culture - Preliminary 02/08/22 18:00 Urine Culture - Preliminary Urine,Catheterized Assessment and Plan (1) Leukocytosis Current Visit: Yes Status: Acute Code(s): D72.829 - ELEVATED WHITE BLOOD CELL COUNT, UNSPECIFIED SNOMED Code(s): 523658250 Plan: 1patient presented to hospital with sepsis in this we did have a significant elevated white count elevated lactic acid and hypotension requiring multiple pressor support source likely abdominal in this patient who do have a history of rectal cancer with a history of chemoradiation now with abnormal CT suspicious for high-grade small bowel obstruction need to cover for the enteric gram- negative both aerobes and anaerobes, patient is status post laparotomy and lysis of adhesion completed on 02/24/2022 2patient currently being treated with Zosyn 3.375 g dose to be adjusted keeping in mind her kidney function and monitor clinical course closely Time with Patient: Less than 30
[2022-02-09] MEDS ORDERED: 1: AMINO ACID 5%-D15W+LYTES*E* 1,000 ML 2: MVI, ADULT NO.4 WITH VIT K 10 ML, TRACE (CON IV SCH ×3 (16:00)
--- NOTE | 2022-02-09 16:34 | P.PN ---
Subjective Progress Note Date: 02/09/22 Sleeping during follow-up no evidence obvious infection she is off mech ventilation Objective - Vital Signs Vital signs: Vital Signs Temp 98.4 F 02/09/22 07:00 Pulse 70 02/09/22 11:54 Resp 19 02/09/22 11:54 BP 102/57 02/09/22 11:00 Pulse Ox 100 02/09/22 11:00 Intake & Output 02/08/22 02/09/22 02/09/22 18:59 06:59 18:59 Intake Total 6764.811 9012.180 1120.041 Output Total 390 1190 250 Balance 1109.664 865.180 870.041 Weight 54.3 kg 56.7 kg 56.7 kg Intake: IV 1000 1690 460 Mvi, Adult No.4 with Vit 390 60 K 10 ml Trace (Conc-1Ml/ Dose) 1 ml In Amino Acid 5%-D15w+Lytes*E* 1,000 ml @ 30 mls/hr IV .Q24H [facility] Rx#:[id number] Sodium Chloride 0.9% 1, 1000 1300 400 000 ml @ 100 mls/hr IV . Q10H [facility] Rx#:[id number] Intake, IV Titration 499.664 365.180 660.041 Amount Magnesium Sulfate-D5w Pmx 200 1 gm In Dextrose/Water 1 100ml.bag @ 100 mls/hr IVPB Q1H [facility] Rx#: [id number] Mvi, Adult No.4 with Vit 104 K 10 ml Trace (Conc-1Ml/ Dose) 1 ml In Amino Acid 5%-D15w+Lytes*E* 1,000 ml @ 52 mls/hr IV .BY DURATION [facility] Rx#: [id number] Norepinephrine 8 mg In 349.664 197.650 33.054 Sodium Chloride 0.9% 250 ml @ 0.35 MCG/KG/MIN 32. 255 mls/hr IV .Q8H [facility] Rx #:[id number] Piperacillin-Tazobactam 3 100 .375 gm In Sodium Chloride 0.9% 100 ml @ 25 mls/hr IVPB Q8HR [facility] Rx# :[id number] Potassium Chloride 10 meq 100 In Water For Injection 1 100ml.bag @ 100 mls/hr IVPB Q1HR [facility] Rx#: [id number] Sodium Chloride 0.9% 1, 50 000 ml @ 100 mls/hr IV . Q10H [facility] Rx#:[id number] Sodium Chloride 0.9% 150 18.4 ml @ 0.03 UNITS/MIN 4.59 mls/hr IV .Q24H TIM with Vasopressin 60 unit Rx#: [id number] propofoL 1,000 mg In 100 167.530 104.587 Empty Bag 1 bag @ 5 MCG/ KG/MIN 1.429 mls/hr IV . Q24H [facility] Rx#:[id number] Output: Urine 390 990 250 Stool 200 Other: Voiding Method Indwelling Catheter Indwelling Catheter Indwelling Catheter ABP, PAP, CO, CI - Last Documented Arterial Blood Pressure 105/52 - Exam - Constitutional General appearance: no acute distress, thin, sleeping NG tube - EENT Eyes: anicteric sclerae - Cardiovascular Rhythm: irregularly irregular - Gastrointestinal General gastrointestinal: decreased bowel sounds, soft, ileostomy - Musculoskeletal Musculoskeletal: generalized weakness - Psychiatric Psychiatric:resting awakens to stimuli - Labs CBC & Chem 7: 02/09/22 03:30 02/09/22 17:49 Labs: Abnormal Lab Results - Last 24 Hours (Table) 02/08/22 02/08/22 02/09/22 Range/Units 19:00 21:39 01:50 WBC (3.8-10.6) k/uL RBC (3.80-5.40) m/uL Hgb (11.4-16.0) gm/dL Hct (34.0-46.0) % RDW (11.5-15.5) % Plt Count (150-450) k/uL Neutrophils # (1.3-7.7) k/uL Lymphocytes # (1.0-4.8) k/uL ABG pH (7.35-7.45) ABG pCO2 (35-45) mmHg ABG pO2 (83-108) mmHg ABG HCO3 (21-25) mmol/L ABG O2 Saturation (94-97) % Sodium 127 L (137-145) mmol/L Potassium (3.5-5.1) mmol/L Chloride (98-107) mmol/L Carbon Dioxide 16 L (22-30) mmol/L BUN 93 H (7-17) mg/dL Creatinine 2.34 H (0.52-1.04) mg/dL Glucose 458 H (74-99) mg/dL POC Glucose (mg/dL) 306 H 107 H (75-99) mg/dL Calcium 7.0 L (8.4-10.2) mg/dL 02/09/22 02/09/22 02/09/22 Range/Units 03:28 03:30 03:30 WBC 12.4 H (3.8-10.6) k/uL RBC 2.58 L (3.80-5.40) m/uL Hgb 7.9 L D (11.4-16.0) gm/dL Hct 24.5 L (34.0-46.0) % RDW 17.5 H (11.5-15.5) % Plt Count 46 L (150-450) k/uL Neutrophils # 11.7 H (1.3-7.7) k/uL Lymphocytes # 0.2 L (1.0-4.8) k/uL ABG pH (7.35-7.45) ABG pCO2 (35-45) mmHg ABG pO2 (83-108) mmHg ABG HCO3 (21-25) mmol/L ABG O2 Saturation (94-97) % Sodium 133 L (137-145) mmol/L Potassium 3.1 L (3.5-5.1) mmol/L Chloride 111 H (98-107) mmol/L Carbon Dioxide 18 L (22-30) mmol/L BUN 90 H (7-17) mg/dL Creatinine 1.87 H (0.52-1.04) mg/dL Glucose 100 H (74-99) mg/dL POC Glucose (mg/dL) 112 H (75-99) mg/dL Calcium 7.5 L (8.4-10.2) mg/dL 02/09/22 02/09/22 02/09/22 Range/Units 05:55 06:10 12:15 WBC (3.8-10.6) k/uL RBC (3.80-5.40) m/uL Hgb (11.4-16.0) gm/dL Hct (34.0-46.0) % RDW (11.5-15.5) % Plt Count (150-450) k/uL Neutrophils # (1.3-7.7) k/uL Lymphocytes # (1.0-4.8) k/uL ABG pH (7.35-7.45) ABG pCO2 29 L (35-45) mmHg ABG pO2 168 H (83-108) mmHg ABG HCO3 18 L (21-25) mmol/L ABG O2 Saturation 98.7 H (94-97) % Sodium (137-145) mmol/L Potassium (3.5-5.1) mmol/L Chloride (98-107) mmol/L Carbon Dioxide (22-30) mmol/L BUN (7-17) mg/dL Creatinine (0.52-1.04) mg/dL Glucose (74-99) mg/dL POC Glucose (mg/dL) 128 H 218 H (75-99) mg/dL Calcium (8.4-10.2) mg/dL 02/09/22 Range/Units 12:27 WBC (3.8-10.6) k/uL RBC (3.80-5.40) m/uL Hgb (11.4-16.0) gm/dL Hct (34.0-46.0) % RDW (11.5-15.5) % Plt Count (150-450) k/uL Neutrophils # (1.3-7.7) k/uL Lymphocytes # (1.0-4.8) k/uL ABG pH 7.48 H (7.35-7.45) ABG pCO2 28 L (35-45) mmHg ABG pO2 151 H (83-108) mmHg ABG HCO3 (21-25) mmol/L ABG O2 Saturation 98.8 H (94-97) % Sodium (137-145) mmol/L Potassium (3.5-5.1) mmol/L Chloride (98-107) mmol/L Carbon Dioxide (22-30) mmol/L BUN (7-17) mg/dL Creatinine (0.52-1.04) mg/dL Glucose (74-99) mg/dL POC Glucose (mg/dL) (75-99) mg/dL Calcium (8.4-10.2) mg/dL Microbiology - Last 24 Hours (Table) 02/06/22 23:55 Blood Culture - Preliminary Blood No Growth after 48 hours 02/07/22 00:11 Blood Culture - Preliminary Blood No Growth after 48 hours 02/08/22 16:20 Gram Stain - Preliminary Sputum Sputum Culture - Preliminary 02/08/22 18:00 Urine Culture - Preliminary Urine,Catheterized Assessment and Plan Plan: Comments: abdomen/bladder ultrasound report reviewed Chest x-ray: report reviewed CT scan - abdomen: report reviewed CT scan - pelvis: report reviewed Assessment and Plan Plan: Dr. Titus discussed the case with the Critical Care team, Internal Medicine and the family. Patient's acute condition appears to be more related to postoperative complications, most suggestive of a stricture. Surgery is seeing the patient and is going to take the patient to surgery as soon as she is hemodynamically stable enough to tolerate. At this time, no evidence to suggest that her condition is related to a progr essive malignancy. We will continue to follow up on her hospital course. Agree with the plan of care as directed by Critical Care and surgery teams Surgery regarding advancement of diet Ileostomy active No active infection noted Renal Function continues to improve, Hypokalemia supped per primary team CBC in am Doctor attests: I performed a history and physical examination of this patient, developed impression and plan of care, discussed with dictator. I agree with dictators note, documented as a scribe.
--- NOTE | 2022-02-09 17:29 | P.PN ---
Subjective Progress Note Date: 02/09/22 Principal diagnosis: Bowel obstruction Patient doing well today. Nasogastric tube with no output. She does have ileostomy loose output present. Only mild pain. Objective - Vital Signs Vital signs: Vital Signs Temp 97.8 F 02/09/22 16:00 Pulse 83 02/09/22 16:41 Resp 17 02/09/22 16:00 BP 92/51 02/09/22 16:00 Pulse Ox 100 02/09/22 16:00 Intake & Output 02/08/22 02/09/22 02/09/22 18:59 06:59 18:59 Intake Total 5704.538 6468.180 2033.405 Output Total 390 1190 695 Balance 1109.664 051.847 6599.405 Weight 54.3 kg 56.7 kg 56.7 kg Intake: IV 1000 1690 960 Mvi, Adult No.4 with Vit 390 60 K 10 ml Trace (Conc-1Ml/ Dose) 1 ml In Amino Acid 5%-D15w+Lytes*E* 1,000 ml @ 30 mls/hr IV .Q24H [facility] Rx#:[id number] Sodium Chloride 0.9% 1, 1000 1300 900 000 ml @ 100 mls/hr IV . Q10H [facility] Rx#:[id number] Intake, IV Titration 499.664 053.080 3074.405 Amount Magnesium Sulfate-D5w Pmx 200 1 gm In Dextrose/Water 1 100ml.bag @ 100 mls/hr IVPB Q1H [facility] Rx#: [id number] Mvi, Adult No.4 with Vit 104 K 10 ml Trace (Conc-1Ml/ Dose) 1 ml In Amino Acid 5%-D15w+Lytes*E* 1,000 ml @ 52 mls/hr IV .BY DURATION [facility] Rx#: [id number] Norepinephrine 8 mg In 349.664 197.650 63.418 Sodium Chloride 0.9% 250 ml @ 0.35 MCG/KG/MIN 32. 255 mls/hr IV .Q8H [facility] Rx #:[id number] Piperacillin-Tazobactam 3 100 .375 gm In Sodium Chloride 0.9% 100 ml @ 25 mls/hr IVPB Q12HR [facility] Rx #:[id number] Piperacillin-Tazobactam 3 100 .375 gm In Sodium Chloride 0.9% 100 ml @ 25 mls/hr IVPB Q8HR [facility] Rx# :[id number] Potassium Chloride 10 meq 100 In Water For Injection 1 100ml.bag @ 100 mls/hr IVPB Q1HR [facility] Rx#: [id number] Potassium Phosphate 12 260 mmol Potassium Acetate 20 meq Sodium Acetate 40 meq Magnesium Sulfate gm 1 gm Calcium Chloride 1 gm In Amino Acid 5%-D15w 1,000 ml @ 52 mls/hr IV . BY DURATION [facility] Rx#: [id number] Sodium Chloride 0.9% 1, 50 000 ml @ 100 mls/hr IV . Q10H [facility] Rx#:[id number] Sodium Chloride 0.9% 150 41.4 ml @ 0.03 UNITS/MIN 4.59 mls/hr IV .Q24H [facility] with Vasopressin 60 unit Rx#: [id number] propofoL 1,000 mg In 100 167.530 104.587 Empty Bag 1 bag @ 5 MCG/ KG/MIN 1.429 mls/hr IV . Q24H [facility] Rx#:[id number] Output: Urine 390 990 695 Stool 200 Other: Voiding Method Indwelling Catheter Indwelling Catheter Indwelling Catheter ABP, PAP, CO, CI - Last Documented Arterial Blood Pressure 111/55 - Exam Abdomen: Soft, nondistended, dressing clean and dry, mild tenderness - Labs CBC & Chem 7: 02/09/22 03:30 02/09/22 03:30 Labs: Abnormal Lab Results - Last 24 Hours (Table) 02/08/22 02/08/22 02/09/22 Range/Units 19:00 21:39 01:50 WBC (3.8-10.6) k/uL RBC (3.80-5.40) m/uL Hgb (11.4-16.0) gm/dL Hct (34.0-46.0) % RDW (11.5-15.5) % Plt Count (150-450) k/uL Neutrophils # (1.3-7.7) k/uL Lymphocytes # (1.0-4.8) k/uL ABG pH (7.35-7.45) ABG pCO2 (35-45) mmHg ABG pO2 (83-108) mmHg ABG HCO3 (21-25) mmol/L ABG O2 Saturation (94-97) % Sodium 127 L (137-145) mmol/L Potassium (3.5-5.1) mmol/L Chloride (98-107) mmol/L Carbon Dioxide 16 L (22-30) mmol/L BUN 93 H (7-17) mg/dL Creatinine 2.34 H (0.52-1.04) mg/dL Glucose 458 H (74-99) mg/dL POC Glucose (mg/dL) 306 H 107 H (75-99) mg/dL Calcium 7.0 L (8.4-10.2) mg/dL 02/09/22 02/09/22 02/09/22 Range/Units 03:28 03:30 03:30 WBC 12.4 H (3.8-10.6) k/uL RBC 2.58 L (3.80-5.40) m/uL Hgb 7.9 L D (11.4-16.0) gm/dL Hct 24.5 L (34.0-46.0) % RDW 17.5 H (11.5-15.5) % Plt Count 46 L (150-450) k/uL Neutrophils # 11.7 H (1.3-7.7) k/uL Lymphocytes # 0.2 L (1.0-4.8) k/uL ABG pH (7.35-7.45) ABG pCO2 (35-45) mmHg ABG pO2 (83-108) mmHg ABG HCO3 (21-25) mmol/L ABG O2 Saturation (94-97) % Sodium 133 L (137-145) mmol/L Potassium 3.1 L (3.5-5.1) mmol/L Chloride 111 H (98-107) mmol/L Carbon Dioxide 18 L (22-30) mmol/L BUN 90 H (7-17) mg/dL Creatinine 1.87 H (0.52-1.04) mg/dL Glucose 100 H (74-99) mg/dL POC Glucose (mg/dL) 112 H (75-99) mg/dL Calcium 7.5 L (8.4-10.2) mg/dL 02/09/22 02/09/22 02/09/22 Range/Units 05:55 06:10 12:15 WBC (3.8-10.6) k/uL RBC (3.80-5.40) m/uL Hgb (11.4-16.0) gm/dL Hct (34.0-46.0) % RDW (11.5-15.5) % Plt Count (150-450) k/uL Neutrophils # (1.3-7.7) k/uL Lymphocytes # (1.0-4.8) k/uL ABG pH (7.35-7.45) ABG pCO2 29 L (35-45) mmHg ABG pO2 168 H (83-108) mmHg ABG HCO3 18 L (21-25) mmol/L ABG O2 Saturation 98.7 H (94-97) % Sodium (137-145) mmol/L Potassium (3.5-5.1) mmol/L Chloride (98-107) mmol/L Carbon Dioxide (22-30) mmol/L BUN (7-17) mg/dL Creatinine (0.52-1.04) mg/dL Glucose (74-99) mg/dL POC Glucose (mg/dL) 128 H 218 H (75-99) mg/dL Calcium (8.4-10.2) mg/dL 02/09/22 Range/Units 12:27 WBC (3.8-10.6) k/uL RBC (3.80-5.40) m/uL Hgb (11.4-16.0) gm/dL Hct (34.0-46.0) % RDW (11.5-15.5) % Plt Count (150-450) k/uL Neutrophils # (1.3-7.7) k/uL Lymphocytes # (1.0-4.8) k/uL ABG pH 7.48 H (7.35-7.45) ABG pCO2 28 L (35-45) mmHg ABG pO2 151 H (83-108) mmHg ABG HCO3 (21-25) mmol/L ABG O2 Saturation 98.8 H (94-97) % Sodium (137-145) mmol/L Potassium (3.5-5.1) mmol/L Chloride (98-107) mmol/L Carbon Dioxide (22-30) mmol/L BUN (7-17) mg/dL Creatinine (0.52-1.04) mg/dL Glucose (74-99) mg/dL POC Glucose (mg/dL) (75-99) mg/dL Calcium (8.4-10.2) mg/dL Microbiology - Last 24 Hours (Table) 02/06/22 23:55 Blood Culture - Preliminary Blood No Growth after 48 hours 02/07/22 00:11 Blood Culture - Preliminary Blood No Growth after 48 hours 02/08/22 16:20 Gram Stain - Preliminary Sputum Sputum Culture - Preliminary 02/08/22 18:00 Urine Culture - Preliminary Urine,Catheterized Assessment and Plan (1) Mechanical obstruction of the intestine Narrative/Plan: Patient doing better today. Continue nothing by mouth except for ice chips and popsicles. May remove nasogastric tube. Increase activity as tolerated. Current Visit: Yes Status: Acute Code(s): K56.609 - UNSP INTESTNL OBST, UNSP TO PARTIAL VERSUS COMPLETE OBST SNOMED Code(s): 94425284
[2022-02-09] MEDS: SODIUM CHLORIDE 0.9% 150 ML with VASOPRESSIN 60 UNIT IV SCH ×2 (17:40)
[2022-02-09 17:46] LABS: Glucose,Whole Blood 170 mg/dL (75-99)
[2022-02-09] MEDS: POTASSIUM CHLORIDE 20 MEQ in WATER FOR INJECTION 1 100ML.BAG IVPB SCH ×2 (18:21→20:25)
[2022-02-09 20:47] LABS: Glucose,Whole Blood 146 mg/dL (75-99)
[2022-02-09] MEDS: KETOROLAC 15 MG/ML 1 ML VIAL IVP PRN (21:10)
[2022-02-10] MEDS: IPRATROPIUM-ALBUTEROL 3 ML NEB INHALATION SCH ×5 (01:24→20:01)
[2022-02-10 01:42] LABS: Glucose,Whole Blood 159 mg/dL (75-99)
[2022-02-10] MEDS: INSULIN ASPART (NovoLOG) 100 UNIT/ML VIAL SQ SCH ×5 (01:48→21:04)
[2022-02-10] MEDS: KETOROLAC 15 MG/ML 1 ML VIAL IVP PRN ×2 (02:29→16:56)
[2022-02-10] MEDS ORDERED: SODIUM ACETATE IV SCH ×8 (04:00)
[2022-02-10] MEDS ORDERED: [UNRECOGNIZED DRUG - OTHER] IV SCH ×8 (04:00)
[2022-02-10] MEDS ORDERED: POTASSIUM PHOSPHATE IV SCH ×8 (04:00)
[2022-02-10] MEDS ORDERED: POTASSIUM ACETATE IV SCH ×8 (04:00)
[2022-02-10 04:15] LABS: Anisocytosis Slight; HCT 20.8 % (34.0-46.0); MCH 30.9 pg (25.0-35.0); MCHC 32.2 g/dL (31.0-37.0); MCV 96.1 fL (80.0-100.0); Macrocytosis Slight; Mean Platelet Volume 10.8; RBC 2.16 m/uL (3.80-5.40); WBC 11.9 k/uL (3.8-10.6)
[2022-02-10 04:25] LABS: HGB 6.7 gm/dL (11.4-16.0)
[2022-02-10 04:26] LABS: Platelet Count 47 k/uL (150-450)
[2022-02-10 04:49] LABS: Albumin 1.9 g/dL (3.5-5.0); Calcium 7.2 mg/dL (8.4-10.2); Magnesium 2.2 mg/dL (1.6-2.3); Phosphorus 2.2 mg/dL (2.5-4.5); Potassium 4.3 mmol/L (3.5-5.1); Total Bilirubin 0.5 mg/dL (0.2-1.3)
[2022-02-10] MEDS: SODIUM CHLORIDE 0.9% 1,000 ML IV SCH ×2 (06:05→12:06)
[2022-02-10] MEDS: NOREPINEPHRINE 8 MG in SODIUM CHLORIDE 0.9% 250 ML IV SCH ×3 (06:06→23:14)
[2022-02-10 06:58] LABS: Glucose,Whole Blood 147 mg/dL (75-99)
--- NOTE | 2022-02-10 07:15 | XR ---
EXAMINATION TYPE: XR chest 1V portable DATE OF EXAM: 02/10/2022 HISTORY: Shortness of breath. COMPARISON: 02/09/2022 TECHNIQUE: Single view of the chest is submitted. FINDINGS: Endotracheal and NG tubes have been removed. No evidence for pneumothorax. Right-sided central venous line. Demonstrated are scattered senescent parenchymal change. Increasing density left lower lobe may reflect underlying atelectasis or infiltrate. The heart is stable. Hilar and mediastinal structures are within normal limits. Degenerative changes are seen of the dorsal spine. IMPRESSION: 1. Increasing density left lower lobe may reflect underlying atelectasis or infiltrate.
[2022-02-10] MEDS ORDERED: HYDROCORTISONE SUCCINATE 100 MG/2 ML VIAL IV STA (08:56)
[2022-02-10] MEDS ORDERED: SODIUM PHOSPHATE 10 MMOL in SODIUM CHLORIDE 0.9% 100 ML IVPB ONE (09:00)
[2022-02-10] MEDS: SODIUM CHLORIDE 0.9% 150 ML with VASOPRESSIN 60 UNIT IV SCH ×2 (09:00)
[2022-02-10] MEDS: PIPERACILLIN-TAZOBACTAM 3.375 GM in SODIUM CHLORIDE 0.9% 100 ML IVPB SCH ×3 (10:05→23:05)
[2022-02-10] MEDS: PANTOPRAZOLE 40 MG/10 ML VIAL IVP SCH (10:05)
--- NOTE | 2022-02-10 10:39 | P.PN ---
Subjective Progress Note Date: 02/10/22 Principal diagnosis: Bowel obstruction Patient remains in the ICU. Somewhat lethargic. Pressors are off. Making good urine output. Ostomy continues to function with liquid bile present. No pain. Objective - Vital Signs Vital signs: Vital Signs Temp 97.5 F L 02/10/22 04:00 Pulse 77 02/10/22 07:50 Resp 22 02/10/22 07:00 BP 93/54 02/10/22 06:30 Pulse Ox 98 02/10/22 07:00 Intake & Output 02/09/22 02/10/22 02/10/22 18:59 06:59 18:59 Intake Total 2346.605 2131.514 156.6 Output Total 1200 690 60 Balance 1054.252 1507.514 96.6 Weight 56.7 kg 58.8 kg Intake: IV 1160 1200 100 Mvi, Adult No.4 with Vit 60 K 10 ml Trace (Conc-1Ml/ Dose) 1 ml In Amino Acid 5%-D15w+Lytes*E* 1,000 ml @ 30 mls/hr IV .Q24H [facility] Rx#:[id number] Sodium Chloride 0.9% 1, 1100 1200 100 000 ml @ 100 mls/hr IV . Q10H [facility] Rx#:[id number] Intake, IV Titration 1186.605 931.514 56.6 Amount Magnesium Sulfate-D5w Pmx 200 1 gm In Dextrose/Water 1 100ml.bag @ 100 mls/hr IVPB Q1H [facility] Rx#: [id number] Mvi, Adult No.4 with Vit 104 K 10 ml Trace (Conc-1Ml/ Dose) 1 ml In Amino Acid 5%-D15w+Lytes*E* 1,000 ml @ 52 mls/hr IV .BY DURATION [facility] Rx#: [id number] Mvi, Adult No.4 with Vit 260 52 K 10 ml Trace (Conc-1Ml/ Dose) 1 ml Potassium Phosphate 12 mmol Potassium Acetate 20 meq Sodium Acetate 40 meq Magnesium Sulfate gm 1 gm Calcium Chloride 1 gm In Amino Acid 5%-D15w 1,000 ml @ 52 mls/hr IV .BY DURATION [facility] Rx#: [id number] Norepinephrine 8 mg In 63.418 52.314 Sodium Chloride 0.9% 250 ml @ 0.35 MCG/KG/MIN 32. 255 mls/hr IV .Q8H [facility] Rx #:[id number] Piperacillin-Tazobactam 3 100 .375 gm In Sodium Chloride 0.9% 100 ml @ 25 mls/hr IVPB Q12HR [facility] Rx #:[id number] Piperacillin-Tazobactam 3 100 .375 gm In Sodium Chloride 0.9% 100 ml @ 25 mls/hr IVPB Q8HR [facility] Rx# :[id number] Potassium Chloride 10 meq 100 In Water For Injection 1 100ml.bag @ 100 mls/hr IVPB Q1HR [facility] Rx#: [id number] Potassium Chloride 20 meq 200 In Water For Injection 1 100ml.bag @ 50 mls/hr IVPB Q2H [facility] Rx#: [id number] Potassium Phosphate 12 364 364 mmol Potassium Acetate 20 meq Sodium Acetate 40 meq Magnesium Sulfate gm 1 gm Calcium Chloride 1 gm In Amino Acid 5%-D15w 1,000 ml @ 52 mls/hr IV . BY DURATION [facility] Rx#: [id number] Sodium Chloride 0.9% 150 50.6 55.2 4.6 ml @ 0.03 UNITS/MIN 4.59 mls/hr IV .Q24H [facility] with Vasopressin 60 unit Rx#: [id number] propofoL 1,000 mg In 104.587 Empty Bag 1 bag @ 5 MCG/ KG/MIN 1.429 mls/hr IV . Q24H [facility] Rx#:[id number] Blood Product 0 Rc As-1 Unit 0 [id number] Output: Urine 925 690 60 Stool 275 Other: Voiding Method Indwelling Catheter Indwelling Catheter ABP, PAP, CO, CI - Last Documented Arterial Blood Pressure 104/48 - Exam Abdomen: Soft, nondistended, incision clean dry, ostomy functioning - Labs CBC & Chem 7: 02/10/22 04:05 02/10/22 04:05 Labs: Abnormal Lab Results - Last 24 Hours (Table) 02/07/22 02/09/22 02/09/22 Range/Units 09:55 12:15 12:27 WBC (3.8-10.6) k/uL RBC (3.80-5.40) m/uL Hgb (11.4-16.0) gm/dL Hct (34.0-46.0) % RDW (11.5-15.5) % Plt Count (150-450) k/uL ABG pH 7.48 H (7.35-7.45) ABG pCO2 28 L (35-45) mmHg ABG pO2 151 H (83-108) mmHg ABG O2 Saturation 98.8 H (94-97) % Chloride (98-107) mmol/L BUN (7-17) mg/dL Creatinine (0.52-1.04) mg/dL Glucose (74-99) mg/dL POC Glucose (mg/dL) 218 H (75-99) mg/dL Calcium (8.4-10.2) mg/dL Phosphorus (2.5-4.5) mg/dL Total Protein (6.3-8.2) g/dL Albumin (3.5-5.0) g/dL Crossmatch See Detail 02/09/22 02/09/22 02/10/22 Range/Units 17:44 20:36 01:41 WBC (3.8-10.6) k/uL RBC (3.80-5.40) m/uL Hgb (11.4-16.0) gm/dL Hct (34.0-46.0) % RDW (11.5-15.5) % Plt Count (150-450) k/uL ABG pH (7.35-7.45) ABG pCO2 (35-45) mmHg ABG pO2 (83-108) mmHg ABG O2 Saturation (94-97) % Chloride (98-107) mmol/L BUN (7-17) mg/dL Creatinine (0.52-1.04) mg/dL Glucose (74-99) mg/dL POC Glucose (mg/dL) 170 H 146 H 159 H (75-99) mg/dL Calcium (8.4-10.2) mg/dL Phosphorus (2.5-4.5) mg/dL Total Protein (6.3-8.2) g/dL Albumin (3.5-5.0) g/dL Crossmatch 02/10/22 02/10/22 02/10/22 Range/Units 04:05 04:05 06:56 WBC 11.9 H (3.8-10.6) k/uL RBC 2.16 L (3.80-5.40) m/uL Hgb 6.7 L* (11.4-16.0) gm/dL Hct 20.8 L (34.0-46.0) % RDW 18.0 H (11.5-15.5) % Plt Count 47 L (150-450) k/uL ABG pH (7.35-7.45) ABG pCO2 (35-45) mmHg ABG pO2 (83-108) mmHg ABG O2 Saturation (94-97) % Chloride 115 H (98-107) mmol/L BUN 68 H (7-17) mg/dL Creatinine 1.16 H (0.52-1.04) mg/dL Glucose 134 H (74-99) mg/dL POC Glucose (mg/dL) 147 H (75-99) mg/dL Calcium 7.2 L (8.4-10.2) mg/dL Phosphorus 2.2 L (2.5-4.5) mg/dL Total Protein 4.0 L (6.3-8.2) g/dL Albumin 1.9 L (3.5-5.0) g/dL Crossmatch Microbiology - Last 24 Hours (Table) 02/08/22 16:20 Gram Stain - Final Sputum Sputum Culture - Final 02/06/22 23:55 Blood Culture - Preliminary Blood No Growth after 72 hours 02/07/22 00:11 Blood Culture - Preliminary Blood No Growth after 72 hours 02/08/22 18:00 Urine Culture - Final Urine,Catheterized Assessment and Plan (1) Mechanical obstruction of the intestine Narrative/Plan: Patient seems to be slowly improving. Continue supportive care. Keep nothing by mouth except for ice chips until more alert. Current Visit: Yes Status: Acute Code(s): K56.609 - UNSP INTESTNL OBST, UNSP TO PARTIAL VERSUS COMPLETE OBST SNOMED Code(s): 37873863
--- NOTE | 2022-02-10 11:19 | P.PN ---
Subjective Progress Note Date: 02/10/22 Principal diagnosis: Acute bowel obstruction This is a 71-year-old female patient who has a known history of R's to arthritis, gastroesophageal reflux disease, colorectal adenocarcinoma diagnosed in November 2020.. She initially had surgery here and had undergone chemotherapy here. She has a right sided Port-A-Cath. She did have proton at [facility] and a second surgery at [facility] with an ileostomy placement. PET scan dated 01/27/2022 revealed a suboptimal study due to muscular uptake. There is postsurgical changes the pelvis within well to fluid collection in the presacral space containing none dependent here and REM hypermetabolic uptake is concerning for infectious process or developing abscess. About 1 week ago her states that she stopped eating and drinking. She presented to the emergency room last evening with altered mental status and shortness of breath. Computed tomography scan of the abdomen and pelvis revealed likely dilated stomach and multiple dilated small bowel loops suggestive of mechanical high-grade bowel obstruction. There is ostomy in the right mid abdomen. Dilated urinary bladder and mild hydronephrosis secondary to urinary retention. Nasogastric tube was inserted and she had 900 mL of coffee- ground return. Chest x-ray reveals no sizable pleural effusions or definitive pneumothorax. No gross cardiomegaly. Marketed gaseous distention of the bowel in the upper abdomen. White count 15.1. Hemoglobin 14.4. Platelet count 38,000. Sodium 121. Potassium 4.6. Bicarb 15. BUN 164. Creatinine 5.40. Glucose 106. Troponin 0.12, 0.14, 0.14. Albumin 2.9. Urinalysis is cloudy with large amount of blood and rare bacteria. She's been initiated on Zosyn. She has received 3-1/2 L of fluid resuscitation. Normal saline at 130 ML's per hour. She is requiring norepinephrine at 0.12 mcg/kg/m. She is on Protonix. She is seen today in the intensive care unit. Her is at the bedside. She is maintaining O2 saturations in the 90s on 2 L/m per nasal cannula. Initial temperature 94.4 axillary. Currently 97.5. Warming blanket has been applied. Current blood pressure 92/55 with a mean of 67. In sinus rhythm with occasional PVCs. Patient was reevaluated today on 02/08/2022, patient underwent exploratory laparotomy yesterday, she was found to have bowel obstruction secondary to adhes naveen band. Patient had lysis of adhesions with sharp dissection. She had a relatively uneventful surgery. Nonetheless the patient remains intubated, and mechanically ventilated. She is hypotensive requiring norepinephrine and Vasopressin. Patient is on assist control rate of 10, LDL volume is 400, FiO2 40% PEEP of 5. Cut down her FiO2 down to 35%. ABG showed a pO2 of 172 pCO2 of 25 pH of 7.45. This was on 40% FiO2. Patient is still on vasopressin at 0.03 units per minute, on propofol at 35 mcg/kg/m, norepinephrine at 0.33 mcg/kg/m she will be started on TPN today. And I have increased his IV fluid to 100 mL per hour. Labs were reviewed, sodium is 127 potassium is 3.9 BUN is 108 cre atinine 2.9, steadily improving with hydration. Lactic acid is down to 1.4. And liver enzymes are basically unremarkable. Chest x-ray questioned a small tiny left apical pneumothorax, hence I'm recommending a follow-up x-ray, clinically I doubt pneumothorax. Nonetheless, if the patient does have one that is expanding, may have to consider a chest tube placement on the left side. Patient was reevaluated today on 02/09/2022, patient remains in the ICU, intubated and mechanically ventilated. She is on assist control rate of 14, volume 400 FiO2 30% and PEEP of 5. Her ABG this morning showed pO2 of 151 pCO2 28 pH of 7.48. Hence no changes were made and her ventilator settings labs today were all reviewed. WBC count is 12.4 hemoglobin is 7.9. Basic metabolic profile is normal except for low potassium of 3.1, BUN is coming down to 90 and creatinine is down to 1.87. Chest x-ray this morning showed no evidence of active disease. No infiltrate, no pneumonia, no evidence of congestive heart failure. Patient remains on propofol at 35 mg/kg/m, vasopressin at 0.03, norepinephrine at 0.08, she is also on TPN and her IV fluid is at 100 mL per hour. Hence I'm planning to give the patient a trial of pressure support and CPAP today, and if tolerated and the patient is arousable and able to follow simple instructions, we'll likely proceed with extubating the patient today. Reevaluated today on 02/10/2022, patient remains in the ICU, she was extubated yesterday uneventfully. She is on room air, does not seem to be in any distress. Patient remains on pressors in the form of norepinephrine at 0.09, she still requiring vasopressin at 0.03, today I recommended that he continue IV fluids, 1 dose of Solu-Cortef will be given, she will be given a unit of blood for hemoglobin of 6.7 today, and hopefully we can taper down and discontinue norepinephrine and vasopressin. Patient remains on TPN at 50 MLS per hour. Her urine output is excellent at 40-50 mL per hour. And her mean arterial pressure is 65. Patient remains empirically on Zosyn. Patient is also on GI prophylaxis. Hemoglobin today is 6.7, no clear-cut evidence of bleeding. Platelets remained low at 47,000. Electrolytes are normal BUN is down to 68 creatinine is down to 1.16. This is improving significantly with hydration. And we will continue to hydrate the patient. Objective - Vital Signs Vital signs: Vital Signs Temp 97.5 F L 02/10/22 04:00 Pulse 90 02/10/22 11:04 Resp 22 02/10/22 07:00 BP 93/54 02/10/22 06:30 Pulse Ox 98 02/10/22 07:00 Intake & Output 02/09/22 02/10/22 02/10/22 18:59 06:59 18:59 Intake Total 2346.605 2131.514 156.6 Output Total 1200 690 60 Balance 0292.711 1165.514 96.6 Weight 56.7 kg 58.8 kg Intake: IV 1160 1200 100 Mvi, Adult No.4 with Vit 60 K 10 ml Trace (Conc-1Ml/ Dose) 1 ml In Amino Acid 5%-D15w+Lytes*E* 1,000 ml @ 30 mls/hr IV .Q24H [facility] Rx#:[id number] Sodium Chloride 0.9% 1, 1100 1200 100 000 ml @ 100 mls/hr IV . Q10H [facility] Rx#:[id number] Intake, IV Titration 1186.605 931.514 56.6 Amount Magnesium Sulfate-D5w Pmx 200 1 gm In Dextrose/Water 1 100ml.bag @ 100 mls/hr IVPB Q1H [facility] Rx#: [id number] Mvi, Adult No.4 with Vit 104 K 10 ml Trace (Conc-1Ml/ Dose) 1 ml In Amino Acid 5%-D15w+Lytes*E* 1,000 ml @ 52 mls/hr IV .BY DURATION [facility] Rx#: [id number] Mvi, Adult No.4 with Vit 260 52 K 10 ml Trace (Conc-1Ml/ Dose) 1 ml Potassium Phosphate 12 mmol Potassium Acetate 20 meq Sodium Acetate 40 meq Magnesium Sulfate gm 1 gm Calcium Chloride 1 gm In Amino Acid 5%-D15w 1,000 ml @ 52 mls/hr IV .BY DURATION [facility] Rx#: [id number] Norepinephrine 8 mg In 63.418 52.314 Sodium Chloride 0.9% 250 ml @ 0.35 MCG/KG/MIN 32. 255 mls/hr IV .Q8H [facility] Rx #:[id number] Piperacillin-Tazobactam 3 100 .375 gm In Sodium Chloride 0.9% 100 ml @ 25 mls/hr IVPB Q12HR [facility] Rx #:[id number] Piperacillin-Tazobactam 3 100 .375 gm In Sodium Chloride 0.9% 100 ml @ 25 mls/hr IVPB Q8HR [facility] Rx# :[id number] Potassium Chloride 10 meq 100 In Water For Injection 1 100ml.bag @ 100 mls/hr IVPB Q1HR [facility] Rx#: [id number] Potassium Chloride 20 meq 200 In Water For Injection 1 100ml.bag @ 50 mls/hr IVPB Q2H [facility] Rx#: [id number] Potassium Phosphate 12 364 364 mmol Potassium Acetate 20 meq Sodium Acetate 40 meq Magnesium Sulfate gm 1 gm Calcium Chloride 1 gm In Amino Acid 5%-D15w 1,000 ml @ 52 mls/hr IV . BY DURATION [facility] Rx#: [id number] Sodium Chloride 0.9% 150 50.6 55.2 4.6 ml @ 0.03 UNITS/MIN 4.59 mls/hr IV .Q24H [facility] with Vasopressin 60 unit Rx#: [id number] propofoL 1,000 mg In 104.587 Empty Bag 1 bag @ 5 MCG/ KG/MIN 1.429 mls/hr IV . Q24H [facility] Rx#:[id number] Blood Product 0 Rc As-1 Unit 0 [id number] Output: Urine 925 690 60 Stool 275 Other: Voiding Method Indwelling Catheter Indwelling Catheter ABP, PAP, CO, CI - Last Documented Arterial Blood Pressure 104/48 - Exam Physical Exam: Revealed a 71-year-old female , awake, not in any distress, on room air. Head: Atraumatic, normocephalic , dry mucous membranes noted. HEENT:[Neck is supple.] [No neck masses.] [No thyromegaly.] [No JVD.] Chest: Symmetrical chest expansion fine crackles at the bases. Cardiac Exam: [Normal S1 and S2, no S3 gallop, no murmur.] Abdomen: Postsurgical, likely tender, surgical dressing seems to be clean, dry, ileostomy is intact, no bowel sounds. Extremities: [No clubbing, no edema, no cyanosis.] Neurological Exam: Alert and oriented 3 focal deficits, remained generally weak. Psychiatric: Normal mood affect and normal mental status examination.. Musculoskeletal: Significant muscle wasting is noted, no deformities otherwise. Skin: Multiple areas of ecchymosis is noted bilaterally. - Labs CBC & Chem 7: 02/10/22 04:05 02/10/22 04:05 Labs: Abnormal Lab Results - Last 24 Hours (Table) 02/07/22 02/09/22 02/09/22 Range/Units 09:55 12:15 12:27 WBC (3.8-10.6) k/uL RBC (3.80-5.40) m/uL Hgb (11.4-16.0) gm/dL Hct (34.0-46.0) % RDW (11.5-15.5) % Plt Count (150-450) k/uL ABG pH 7.48 H (7.35-7.45) ABG pCO2 28 L (35-45) mmHg ABG pO2 151 H (83-108) mmHg ABG O2 Saturation 98.8 H (94-97) % Chloride (98-107) mmol/L BUN (7-17) mg/dL Creatinine (0.52-1.04) mg/dL Glucose (74-99) mg/dL POC Glucose (mg/dL) 218 H (75-99) mg/dL Calcium (8.4-10.2) mg/dL Phosphorus (2.5-4.5) mg/dL Total Protein (6.3-8.2) g/dL Albumin (3.5-5.0) g/dL Crossmatch See Detail 02/09/22 02/09/22 02/10/22 Range/Units 17:44 20:36 01:41 WBC (3.8-10.6) k/uL RBC (3.80-5.40) m/uL Hgb (11.4-16.0) gm/dL Hct (34.0-46.0) % RDW (11.5-15.5) % Plt Count (150-450) k/uL ABG pH (7.35-7.45) ABG pCO2 (35-45) mmHg ABG pO2 (83-108) mmHg ABG O2 Saturation (94-97) % Chloride (98-107) mmol/L BUN (7-17) mg/dL Creatinine (0.52-1.04) mg/dL Glucose (74-99) mg/dL POC Glucose (mg/dL) 170 H 146 H 159 H (75-99) mg/dL Calcium (8.4-10.2) mg/dL Phosphorus (2.5-4.5) mg/dL Total Protein (6.3-8.2) g/dL Albumin (3.5-5.0) g/dL Crossmatch 02/10/22 02/10/22 02/10/22 Range/Units 04:05 04:05 06:56 WBC 11.9 H (3.8-10.6) k/uL RBC 2.16 L (3.80-5.40) m/uL Hgb 6.7 L* (11.4-16.0) gm/dL Hct 20.8 L (34.0-46.0) % RDW 18.0 H (11.5-15.5) % Plt Count 47 L (150-450) k/uL ABG pH (7.35-7.45) ABG pCO2 (35-45) mmHg ABG pO2 (83-108) mmHg ABG O2 Saturation (94-97) % Chloride 115 H (98-107) mmol/L BUN 68 H (7-17) mg/dL Creatinine 1.16 H (0.52-1.04) mg/dL Glucose 134 H (74-99) mg/dL POC Glucose (mg/dL) 147 H (75-99) mg/dL Calcium 7.2 L (8.4-10.2) mg/dL Phosphorus 2.2 L (2.5-4.5) mg/dL Total Protein 4.0 L (6.3-8.2) g/dL Albumin 1.9 L (3.5-5.0) g/dL Crossmatch Microbiology - Last 24 Hours (Table) 02/08/22 16:20 Gram Stain - Final Sputum Sputum Culture - Final 02/06/22 23:55 Blood Culture - Preliminary Blood No Growth after 72 hours 02/07/22 00:11 Blood Culture - Preliminary Blood No Growth after 72 hours 02/08/22 18:00 Urine Culture - Final Urine,Catheterized Assessment and Plan Assessment: Impression: Acute mechanical high-grade bowel obstruction secondary to band adhesions, status post exploratory laparotomy and lysis of adhesions. Postoperative day #3 Acute renal failure, suspect mostly dehydration related. Steadily improving. Hyponatremia secondary to dehydration and renal failure. Resolved. Thrombocytopenia, likely chronic, being addressed by oncology/hematology on the case. History of colorectal cancer diagnosed in 2018, previous surgery 2 with a right-sided ileostomy status post chemotherapy Paroxysmal atrial fibrillation. History of degenerative joint disease History of GERD History of cervical cancer Former smoker Postoperative hypoxic respiratory failure requiring mechanical ventilation mostly because of her severe hypotension, no clear-cut evidence of septic shock. Recommendation: Continue to monitor in the ICU, Continue antibiotics/Zosyn Continue GI and DVT prophylaxis. Continue to monitor platelets Continue TPN Continue updrafts. Continue Protonix. We will continue to monitor and follow while in the ICU. Time with Patient: Less than 30
[2022-02-10 12:01] LABS: Glucose,Whole Blood 114 mg/dL (75-99)
--- NOTE | 2022-02-10 12:06 | P.PN ---
Progress Note - Text Progress Note Date: 02/10/22 The patient has been extubated and is resting comfortably. She is minimally responsive. The Omalley catheter is draining clear urine. The serum creatinine level continues to improve and was 1.16 today. I discussed with family members, and the presence of the patient, the fact that she had bilateral hydronephrosis which appears to be due to urinary retention, which is likely chronic. She will be given a voiding trial once her condition has improved, but if the retention persists she may require a chronic indwelling catheter unless she is willing and able to perform intermittent self-catheterization.
--- NOTE | 2022-02-10 12:32 | P.PN ---
Subjective Progress Note Date: 02/10/22 Follow-up for acute kidney injury. Urine output of 1.8 L in the last 24 hours. On low-dose levo fed. Objective - Vital Signs Vital signs: Vital Signs Temp 97.5 F L 02/10/22 04:00 Pulse 90 02/10/22 11:04 Resp 22 02/10/22 07:00 BP 93/54 02/10/22 06:30 Pulse Ox 98 02/10/22 07:00 Intake & Output 02/09/22 02/10/22 02/10/22 18:59 06:59 18:59 Intake Total 2346.605 2131.514 157.748 Output Total 1200 690 60 Balance 7104.123 2277.514 97.748 Weight 56.7 kg 58.8 kg Intake: IV 1160 1200 100 Mvi, Adult No.4 with Vit 60 K 10 ml Trace (Conc-1Ml/ Dose) 1 ml In Amino Acid 5%-D15w+Lytes*E* 1,000 ml @ 30 mls/hr IV .Q24H [facility] Rx#:[id number] Sodium Chloride 0.9% 1, 1100 1200 100 000 ml @ 100 mls/hr IV . Q10H [facility] Rx#:[id number] Intake, IV Titration 1186.605 931.514 57.748 Amount Magnesium Sulfate-D5w Pmx 200 1 gm In Dextrose/Water 1 100ml.bag @ 100 mls/hr IVPB Q1H [facility] Rx#: [id number] Mvi, Adult No.4 with Vit 104 K 10 ml Trace (Conc-1Ml/ Dose) 1 ml In Amino Acid 5%-D15w+Lytes*E* 1,000 ml @ 52 mls/hr IV .BY DURATION [facility] Rx#: [id number] Mvi, Adult No.4 with Vit 260 52 K 10 ml Trace (Conc-1Ml/ Dose) 1 ml Potassium Phosphate 12 mmol Potassium Acetate 20 meq Sodium Acetate 40 meq Magnesium Sulfate gm 1 gm Calcium Chloride 1 gm In Amino Acid 5%-D15w 1,000 ml @ 52 mls/hr IV .BY DURATION [facility] Rx#: [id number] Norepinephrine 8 mg In 63.418 52.314 Sodium Chloride 0.9% 250 ml @ 0.35 MCG/KG/MIN 32. 255 mls/hr IV .Q8H [facility] Rx #:[id number] Piperacillin-Tazobactam 3 100 .375 gm In Sodium Chloride 0.9% 100 ml @ 25 mls/hr IVPB Q12HR [facility] Rx #:[id number] Piperacillin-Tazobactam 3 100 .375 gm In Sodium Chloride 0.9% 100 ml @ 25 mls/hr IVPB Q8HR [facility] Rx# :[id number] Potassium Chloride 10 meq 100 In Water For Injection 1 100ml.bag @ 100 mls/hr IVPB Q1HR [facility] Rx#: [id number] Potassium Chloride 20 meq 200 In Water For Injection 1 100ml.bag @ 50 mls/hr IVPB Q2H [facility] Rx#: [id number] Potassium Phosphate 12 364 364 mmol Potassium Acetate 20 meq Sodium Acetate 40 meq Magnesium Sulfate gm 1 gm Calcium Chloride 1 gm In Amino Acid 5%-D15w 1,000 ml @ 52 mls/hr IV . BY DURATION [facility] Rx#: [id number] Sodium Chloride 0.9% 150 50.6 55.2 4.6 ml @ 0.03 UNITS/MIN 4.59 mls/hr IV .Q24H [facility] with Vasopressin 60 unit Rx#: [id number] Sodium Chloride 0.9% 150 1.148 ml @ 0.03 UNITS/MIN 4.59 mls/hr IV .Q24H [facility] with Vasopressin 60 unit Rx#: [id number] propofoL 1,000 mg In 104.587 Empty Bag 1 bag @ 5 MCG/ KG/MIN 1.429 mls/hr IV . Q24H [facility] Rx#:[id number] Blood Product 0 Rc As-1 Unit 0 [id number] Output: Urine 925 690 60 Stool 275 Other: Voiding Method Indwelling Catheter Indwelling Catheter ABP, PAP, CO, CI - Last Documented Arterial Blood Pressure 104/48 - Exam No acute distress S1-S2 heard Decreased breath sounds No edema - Labs CBC & Chem 7: 02/10/22 04:05 02/10/22 04:05 Labs: Abnormal Lab Results - Last 24 Hours (Table) 02/07/22 02/09/22 02/09/22 Range/Units 09:55 12:27 17:44 WBC (3.8-10.6) k/uL RBC (3.80-5.40) m/uL Hgb (11.4-16.0) gm/dL Hct (34.0-46.0) % RDW (11.5-15.5) % Plt Count (150-450) k/uL ABG pH 7.48 H (7.35-7.45) ABG pCO2 28 L (35-45) mmHg ABG pO2 151 H (83-108) mmHg ABG O2 Saturation 98.8 H (94-97) % Chloride (98-107) mmol/L BUN (7-17) mg/dL Creatinine (0.52-1.04) mg/dL Glucose (74-99) mg/dL POC Glucose (mg/dL) 170 H (75-99) mg/dL Calcium (8.4-10.2) mg/dL Phosphorus (2.5-4.5) mg/dL Total Protein (6.3-8.2) g/dL Albumin (3.5-5.0) g/dL Crossmatch See Detail 02/09/22 02/10/22 02/10/22 Range/Units 20:36 01:41 04:05 WBC (3.8-10.6) k/uL RBC (3.80-5.40) m/uL Hgb (11.4-16.0) gm/dL Hct (34.0-46.0) % RDW (11.5-15.5) % Plt Count (150-450) k/uL ABG pH (7.35-7.45) ABG pCO2 (35-45) mmHg ABG pO2 (83-108) mmHg ABG O2 Saturation (94-97) % Chloride 115 H (98-107) mmol/L BUN 68 H (7-17) mg/dL Creatinine 1.16 H (0.52-1.04) mg/dL Glucose 134 H (74-99) mg/dL POC Glucose (mg/dL) 146 H 159 H (75-99) mg/dL Calcium 7.2 L (8.4-10.2) mg/dL Phosphorus 2.2 L (2.5-4.5) mg/dL Total Protein 4.0 L (6.3-8.2) g/dL Albumin 1.9 L (3.5-5.0) g/dL Crossmatch 02/10/22 02/10/22 02/10/22 Range/Units 04:05 06:56 11:59 WBC 11.9 H (3.8-10.6) k/uL RBC 2.16 L (3.80-5.40) m/uL Hgb 6.7 L* (11.4-16.0) gm/dL Hct 20.8 L (34.0-46.0) % RDW 18.0 H (11.5-15.5) % Plt Count 47 L (150-450) k/uL ABG pH (7.35-7.45) ABG pCO2 (35-45) mmHg ABG pO2 (83-108) mmHg ABG O2 Saturation (94-97) % Chloride (98-107) mmol/L BUN (7-17) mg/dL Creatinine (0.52-1.04) mg/dL Glucose (74-99) mg/dL POC Glucose (mg/dL) 147 H 114 H (75-99) mg/dL Calcium (8.4-10.2) mg/dL Phosphorus (2.5-4.5) mg/dL Total Protein (6.3-8.2) g/dL Albumin (3.5-5.0) g/dL Crossmatch Microbiology - Last 24 Hours (Table) 02/08/22 16:20 Gram Stain - Final Sputum Sputum Culture - Final 02/06/22 23:55 Blood Culture - Preliminary Blood No Growth after 72 hours 02/07/22 00:11 Blood Culture - Preliminary Blood No Growth after 72 hours 02/08/22 18:00 Urine Culture - Final Urine,Catheterized Assessment and Plan Assessment: #1 acute kidney injury secondary to hemodynamic ATN/septic shock. -Admission creatinine 6.47 MG per DL. #2 small bowel obstruction status post surgery #3 hyponatremia resolved. Plan: #1 renal function stable and improving. #2 wean off levo fed. #3 ICU care
[2022-02-10 17:09] LABS: Glucose,Whole Blood 133 mg/dL (75-99)
--- NOTE | 2022-02-10 17:30 | P.PN ---
Subjective Progress Note Date: 02/10/22 Principal diagnosis: Abdominal sepsis Patient is a 71 year female With a past medical history significant for rectal cancer with recent recurrence in this patient who is status post bowel resection with ileostomy placement in the summer of 2020 presented to the hospital with weakness no output from ileostomy noticed to have a high-grade small bowel obstruction patient is status post laparotomy with lysis of adhesion. The patient was extubated on 02/09/2022 On today's evaluation is 02/10/2022, the patient is afebrile, the patient is breathing comfortably on room air, patient is hemodynamically stable requiring less pressor support down to 4 mics of Levophed per the nursing staff patient is slightly sleepy lethargic and did not provide any history however no vomiting diarrhea or any changes were reported Objective - Vital Signs Vital signs: Vital Signs Temp 98.0 F 02/10/22 12:10 Pulse 87 02/10/22 15:19 Resp 18 02/10/22 12:10 BP 102/48 02/10/22 12:10 Pulse Ox 96 02/10/22 12:10 Intake & Output 02/09/22 02/10/22 02/10/22 18:59 06:59 18:59 Intake Total 2346.605 2131.514 1432.826 Output Total 1200 690 260 Balance 4681.175 5533.514 1172.826 Weight 56.7 kg 58.8 kg Intake: IV 1160 1200 935 Amino Acid 5%-D15w+Lytes* 260 E* 1,000 ml @ 52 mls/hr IV .BY DURATION TIM Rx#: [id number] Mvi, Adult No.4 with Vit 60 K 10 ml Trace (Conc-1Ml/ Dose) 1 ml In Amino Acid 5%-D15w+Lytes*E* 1,000 ml @ 30 mls/hr IV .Q24H [facility] Rx#:[id number] Piperacillin-Tazobactam 3 100 .375 gm In Sodium Chloride 0.9% 100 ml @ 25 mls/hr IVPB Q8HR [facility] Rx# :[id number] Sodium Chloride 0.9% 1, 1100 1200 475 000 ml @ 75 mls/hr IV . [id number] TIM Rx#:[id number] Sodium Phosphate 10 mmol 100 In Sodium Chloride 0.9% 100 ml @ 50 mls/hr IVPB ONCE ONE Rx#:[id number] Intake, IV Titration 1186.605 931.514 187.826 Amount Magnesium Sulfate-D5w Pmx 200 1 gm In Dextrose/Water 1 100ml.bag @ 100 mls/hr IVPB Q1H [facility] Rx#: [id number] Mvi, Adult No.4 with Vit 104 K 10 ml Trace (Conc-1Ml/ Dose) 1 ml In Amino Acid 5%-D15w+Lytes*E* 1,000 ml @ 52 mls/hr IV .BY DURATION [facility] Rx#: [id number] Mvi, Adult No.4 with Vit 260 52 K 10 ml Trace (Conc-1Ml/ Dose) 1 ml Potassium Phosphate 12 mmol Potassium Acetate 20 meq Sodium Acetate 40 meq Magnesium Sulfate gm 1 gm Calcium Chloride 1 gm In Amino Acid 5%-D15w 1,000 ml @ 52 mls/hr IV .BY DURATION [facility] Rx#: [id number] Norepinephrine 8 mg In 63.418 52.314 130.078 Sodium Chloride 0.9% 250 ml @ 0.35 MCG/KG/MIN 32. 255 mls/hr IV .Q8H [facility] Rx #:[id number] Piperacillin-Tazobactam 3 100 .375 gm In Sodium Chloride 0.9% 100 ml @ 25 mls/hr IVPB Q12HR [facility] Rx #:[id number] Piperacillin-Tazobactam 3 100 .375 gm In Sodium Chloride 0.9% 100 ml @ 25 mls/hr IVPB Q8HR [facility] Rx# :[id number] Potassium Chloride 10 meq 100 In Water For Injection 1 100ml.bag @ 100 mls/hr IVPB Q1HR [facility] Rx#: [id number] Potassium Chloride 20 meq 200 In Water For Injection 1 100ml.bag @ 50 mls/hr IVPB Q2H [facility] Rx#: [id number] Potassium Phosphate 12 364 364 mmol Potassium Acetate 20 meq Sodium Acetate 40 meq Magnesium Sulfate gm 1 gm Calcium Chloride 1 gm In Amino Acid 5%-D15w 1,000 ml @ 52 mls/hr IV . BY DURATION [facility] Rx#: [id number] Sodium Chloride 0.9% 150 50.6 55.2 4.6 ml @ 0.03 UNITS/MIN 4.59 mls/hr IV .Q24H [facility] with Vasopressin 60 unit Rx#: [id number] Sodium Chloride 0.9% 150 1.148 ml @ 0.03 UNITS/MIN 4.59 mls/hr IV .Q24H [facility] with Vasopressin 60 unit Rx#: [id number] propofoL 1,000 mg In 104.587 Empty Bag 1 bag @ 5 MCG/ KG/MIN 1.429 mls/hr IV . Q24H [facility] Rx#:[id number] Blood Product 310 Rc As-1 Unit 310 [id number] Output: Urine 925 690 260 Stool 275 Other: Voiding Method Indwelling Catheter Indwelling Catheter Indwelling Catheter ABP, PAP, CO, CI - Last Documented Arterial Blood Pressure 104/48 - Exam GENERAL DESCRIPTION: An elderly female lying in bed in no distress RESPIRATORY SYSTEM: Unlabored breathing , decreased breath sounds at bases HEART: S1 S2 regular rate and rhythm , ABDOMEN: Soft , midline incision is currently dressed EXTREMITIES: No edema feet - Labs CBC & Chem 7: 02/10/22 04:05 02/10/22 04:05 Labs: Abnormal Lab Results - Last 24 Hours (Table) 02/07/22 02/09/22 02/09/22 Range/Units 09:55 17:44 20:36 WBC (3.8-10.6) k/uL RBC (3.80-5.40) m/uL Hgb (11.4-16.0) gm/dL Hct (34.0-46.0) % RDW (11.5-15.5) % Plt Count (150-450) k/uL Chloride (98-107) mmol/L BUN (7-17) mg/dL Creatinine (0.52-1.04) mg/dL Glucose (74-99) mg/dL POC Glucose (mg/dL) 170 H 146 H (75-99) mg/dL Calcium (8.4-10.2) mg/dL Phosphorus (2.5-4.5) mg/dL Total Protein (6.3-8.2) g/dL Albumin (3.5-5.0) g/dL Crossmatch See Detail 02/10/22 02/10/22 02/10/22 Range/Units 01:41 04:05 04:05 WBC 11.9 H (3.8-10.6) k/uL RBC 2.16 L (3.80-5.40) m/uL Hgb 6.7 L* (11.4-16.0) gm/dL Hct 20.8 L (34.0-46.0) % RDW 18.0 H (11.5-15.5) % Plt Count 47 L (150-450) k/uL Chloride 115 H (98-107) mmol/L BUN 68 H (7-17) mg/dL Creatinine 1.16 H (0.52-1.04) mg/dL Glucose 134 H (74-99) mg/dL POC Glucose (mg/dL) 159 H (75-99) mg/dL Calcium 7.2 L (8.4-10.2) mg/dL Phosphorus 2.2 L (2.5-4.5) mg/dL Total Protein 4.0 L (6.3-8.2) g/dL Albumin 1.9 L (3.5-5.0) g/dL Crossmatch 02/10/22 02/10/22 02/10/22 Range/Units 06:56 11:59 17:07 WBC (3.8-10.6) k/uL RBC (3.80-5.40) m/uL Hgb (11.4-16.0) gm/dL Hct (34.0-46.0) % RDW (11.5-15.5) % Plt Count (150-450) k/uL Chloride (98-107) mmol/L BUN (7-17) mg/dL Creatinine (0.52-1.04) mg/dL Glucose (74-99) mg/dL POC Glucose (mg/dL) 147 H 114 H 133 H (75-99) mg/dL Calcium (8.4-10.2) mg/dL Phosphorus (2.5-4.5) mg/dL Total Protein (6.3-8.2) g/dL Albumin (3.5-5.0) g/dL Crossmatch Microbiology - Last 24 Hours (Table) 02/08/22 16:20 Gram Stain - Final Sputum Sputum Culture - Final 02/06/22 23:55 Blood Culture - Preliminary Blood No Growth after 72 hours 02/07/22 00:11 Blood Culture - Preliminary Blood No Growth after 72 hours 02/08/22 18:00 Urine Culture - Final Urine,Catheterized Assessment and Plan (1) Leukocytosis Current Visit: Yes Status: Acute Code(s): D72.829 - ELEVATED WHITE BLOOD CELL COUNT, UNSPECIFIED SNOMED Code(s): 274639165 Plan: 1patient presented to hospital with sepsis in this we did have a significant elevated white count elevated lactic acid and hypotension requiring multiple pressor support source likely abdominal in this patient who do have a history of rectal cancer with a history of chemoradiation now with abnormal CT suspicious for high-grade small bowel obstruction need to cover for the enteric gram- negative both aerobes and anaerobes, patient is status post laparotomy and lysis of adhesion completed on 02/07/2022 2patient seemed to have a clinical improvement and will continue with Zosyn and monitor clinical course closely, family the bedside questions were answered Time with Patient: Less than 30
[2022-02-10 17:31] LABS: Anisocytosis Slight; Basophils % (A) 0 %; Eosinophils % (A) 0 %; HCT 25.4 % (34.0-46.0); HGB 8.4 gm/dL (11.4-16.0); Lymphocytes # (A) 0.2 k/uL (1.0-4.8); Lymphocytes % (A) 2 %; MCH 31.2 pg (25.0-35.0); MCV 94.5 fL (80.0-100.0); Macrocytosis Slight; Mean Platelet Volume 9.2; Monocytes # (A) 0.2 k/uL (0-1.0); Monocytes % (A) 2 %; Neutrophils # (A) 11.5 k/uL (1.3-7.7); Neutrophils % (A) 96 %; Platelet Count 57 k/uL (150-450); RBC 2.69 m/uL (3.80-5.40); RDW 18.3 % (11.5-15.5)
[2022-02-10 21:00] LABS: Glucose,Whole Blood 135 mg/dL (75-99)
[2022-02-10] MEDS: POTASSIUM ACETATE IV SCH ×8 (23:04)
[2022-02-10] MEDS: [UNRECOGNIZED DRUG - OTHER] IV SCH ×8 (23:04)
[2022-02-10] MEDS: POTASSIUM PHOSPHATE IV SCH ×8 (23:04)
[2022-02-10] MEDS: SODIUM ACETATE IV SCH ×8 (23:04)
--- NOTE | 2022-02-10 23:50 | P.PN ---
Subjective Progress Note Date: 02/08/22 This is a 71-year-old female presents to the emergency room from home, family called EMS. Medical history taken from family and patients chart. Patient has not been eating and drinking for about the last week per . Per , she has also not had stool from her ileostomy for the last 4 to 5 days as well, patient has had increasing confusion since last saturday to the point where he sates she did not know where she was. also reports she has an ulcer on her tailbone that was found about 2 weeks ago at home which [facility], today was the last day of antibiotics. The day before admission patient drank water, had a few bites of banana and had a small amount of emesis per family who reports it seemed dark in color and thought it was blood. Patient follows with dr Titus in the office for history of rectal cancer. Patient was initially diagnosed about 4 years ago and underwent bowel resection with ileostomy with subsequent reversal. She underwent chemoradiation at that time. In October of 2020 there was reoccurrence of cancer, she was taking oral c hemo and had a secondy bowel resection with ileostomy placement in September of 2021. Patients surgeon is Dr. Garcia out of [facility], family reports she has been to the office 1 time since surgery, family reports they were planning for ileostomy reversal around March of this year. She presents to the [facility] with hypotension and shock she is maintained on levophed infusion as well as empiric antibiotic coverage with IV Zosyn. She received 3 L of saline bolus in the EC and is now maintained on saline at 130 mls per hour. Blood cultures are currently pending. Patient had abdominal pelvis CT which did show high-grade mechanical bowel obstruction for which she has NG tube placed and surgical consult. There has been 900 mls of output from NG tube so far. Additional labs show sodium 117 which has improved some to 123. Troponin elevation at 0.141, 0.144. BUN today 55, creatinine 5.40 for which nephrology was consulted. There is evidence of some hydronephrosis with possible urinary retention found on computed tomography scan continue bladder ultrasound is requested and pending. Urinalysis showing cloudy urine, trace protein, large blood, RBC 161, rare bacteria, rate mucus, many yeast. Other pertinent medical history includes GERD osteoarthritis, cervical cancer in the 80s, EGD colonoscopies, former smoker very remote not since the 1980s. She is afebrile, heart rate 102, blood pressure 84/49, on 5 L nasal cannula which she initially required BiPAP. 02/08/2022 Patient is currently in the MICU. On my current ventilator with assist control tidal volume 400 FiO2 40% and PEEP of 5. Patient remains pressor support with vasopressin and norepinephrine. Patient underwent exploratory laparotomy yesterday and found to have bowel obstruction secondary to adhesive band. Patient had lysis of adhesions. Chest x-ray showed suspected newly seen small left apical pneumothorax. Short- term follow-up is required. Progressive infiltrates in the left lung base which could represent pneumonia however aspiration cannot be excluded. Laboratory data showed WBC 12.1 hemoglobin 9.5 and platelets 43 Sodium 127 potassium 3.9 chloride 102 bicarb is 17 BUN 108 and creatinine down to 2.9 today. Albumin 2.3 Current medications reviewed. Objective - Vital Signs Vital signs: Vital Signs Temp 98.8 F 02/08/22 08:00 Pulse 100 02/08/22 15:00 Resp 16 02/08/22 15:00 BP 104/68 02/08/22 15:00 Pulse Ox 99 02/08/22 12:00 Intake & Output 02/07/22 02/08/22 02/08/22 18:59 06:59 18:59 Intake Total 3764.029 7557.565 7831.243 Output Total 2795 780 290 Balance 969.029 800.520 836.243 Weight 47.627 kg 54.3 kg 54.3 kg Intake: IV 200 700 Sodium Chloride 0.9% 1, 700 000 ml @ 50 mls/hr IV . Q20H [facility] Rx#:[id number] Intake, IV Titration 3564.029 1580.520 426.243 Amount Dextrose 5% in Water 1, 75 1025 000 ml @ 125 mls/hr IV . Q8H [facility] Rx#:[id number] Norepinephrine 4 mg In 204.717 Sodium Chloride 0.9% 250 ml @ 0.05 MCG/KG/MIN 9. 073 mls/hr IV .Q24H [facility] Rx#:[id number] Norepinephrine 8 mg In 81.805 257.340 276.243 Sodium Chloride 0.9% 250 ml @ 0.35 MCG/KG/MIN 32. 255 mls/hr IV .Q8H [facility] Rx #:[id number] Piperacillin-Tazobactam 3 100 100 .375 gm In Sodium Chloride 0.9% 100 ml @ 25 mls/hr IVPB Q12HR [facility] Rx #:[id number] Potassium Chloride 20 meq 100 In Water For Injection 1 100ml.bag @ 50 mls/hr IVPB ONCE ONE Rx#: [id number] Sodium Chloride 0.9% 1, 975 000 ml @ 130 mls/hr IV . Q7H42M [facility] Rx#:[id number] Sodium Chloride 0.9% 1, 150 50 000 ml @ 50 mls/hr IV . Q20H [facility] Rx#:[id number] Sodium Chloride 0.9% 1, 1000 000 ml @ 999 mls/hr IV . Q1H1M [facility] Rx#:[id number] Sodium Chloride 0.9% 1, 1000 000 ml @ 999 mls/hr IV . Q1H1M [facility] Rx#:[id number] Sodium Chloride 0.9% 150 9.2 4.6 ml @ 0.03 UNITS/MIN 4.59 mls/hr IV .Q24H [facility] with Vasopressin 60 unit Rx#: [id number] propofoL 1,000 mg In 18.307 43.580 100 Empty Bag 1 bag @ 5 MCG/ KG/MIN 1.429 mls/hr IV . Q24H [facility] Rx#:[id number] Output: Gastric Drainage 900 120 Urine 1870 660 290 Straight 1300 Estimated Blood Loss 25 Other: Voiding Method Indwelling Catheter Indwelling Catheter Indwelling Catheter ABP, PAP, CO, CI - Last Documented Arterial Blood Pressure 108/59 - Exam PHYSICAL EXAMINATION: Patient is on mechanical ventilator. Sedated.. HEENT: Normocephalic. Neck is supple. Pupils reactive. Nostrils clear. Oral cavity is moist. Neck reveals no JVD, carotid bruits, or thyromegaly. CHEST EXAMINATION: Trachea is central. ET tube in place. Symmetrical expansion. Lung dunbar clear to auscultation and percussion. CARDIAC: Normal S1, S2 with no gallops. No murmurs ABDOMEN: Soft. Bowel sounds sluggish. Surgical site is bandaged. Extremities: reveal no edema. No clubbing or cyanosis Neurologically patient is currently sedated and intubated. No gross focal deficits noted Skin: No rash or skin lesions. Psychiatric: Could not be assessed at this time. Musculoskeletal: No joint swelling or deformity. - Labs CBC & Chem 7: 02/10/22 16:52 02/10/22 04:05 Labs: Abnormal Lab Results - Last 24 Hours (Table) 02/07/22 02/07/22 02/07/22 Range/Units 15:34 16:30 16:30 WBC 14.7 H (3.8-10.6) k/uL RBC 3.26 L (3.80-5.40) m/uL Hgb 10.3 L (11.4-16.0) gm/dL Hct 29.8 L (34.0-46.0) % RDW 17.4 H (11.5-15.5) % Plt Count 46 L (150-450) k/uL Neutrophils # 14.1 H (1.3-7.7) k/uL Lymphocytes # 0.2 L (1.0-4.8) k/uL ABG pH 7.32 L (7.35-7.45) ABG pCO2 (35-45) mmHg ABG pO2 >400 H (83-108) mmHg ABG HCO3 19 L (21-25) mmol/L ABG Total CO2 (19-24) mmol/L ABG O2 Saturation 99.6 H (94-97) % Sodium 132 L (137-145) mmol/L Carbon Dioxide 15 L (22-30) mmol/L BUN 131 H* (7-17) mg/dL Creatinine 3.68 H (0.52-1.04) mg/dL Glucose 114 H (74-99) mg/dL Calcium 6.7 L (8.4-10.2) mg/dL Total Protein 4.6 L (6.3-8.2) g/dL Albumin 2.3 L (3.5-5.0) g/dL 02/07/22 02/07/22 02/08/22 Range/Units 19:50 22:50 01:05 WBC (3.8-10.6) k/uL RBC (3.80-5.40) m/uL Hgb (11.4-16.0) gm/dL Hct (34.0-46.0) % RDW (11.5-15.5) % Plt Count (150-450) k/uL Neutrophils # (1.3-7.7) k/uL Lymphocytes # (1.0-4.8) k/uL ABG pH (7.35-7.45) ABG pCO2 (35-45) mmHg ABG pO2 (83-108) mmHg ABG HCO3 (21-25) mmol/L ABG Total CO2 (19-24) mmol/L ABG O2 Saturation (94-97) % Sodium 131 L 130 L 129 L (137-145) mmol/L Carbon Dioxide 15 L (22-30) mmol/L BUN 127 H* (7-17) mg/dL Creatinine 3.61 H (0.52-1.04) mg/dL Glucose 160 H (74-99) mg/dL Calcium 6.7 L (8.4-10.2) mg/dL Total Protein (6.3-8.2) g/dL Albumin (3.5-5.0) g/dL 02/08/22 02/08/22 02/08/22 Range/Units 03:15 04:57 04:57 WBC 12.1 H (3.8-10.6) k/uL RBC 2.97 L (3.80-5.40) m/uL Hgb 9.5 L (11.4-16.0) gm/dL Hct 27.7 L (34.0-46.0) % RDW 17.8 H (11.5-15.5) % Plt Count 43 L (150-450) k/uL Neutrophils # 11.5 H (1.3-7.7) k/uL Lymphocytes # 0.2 L (1.0-4.8) k/uL ABG pH (7.35-7.45) ABG pCO2 (35-45) mmHg ABG pO2 (83-108) mmHg ABG HCO3 (21-25) mmol/L ABG Total CO2 (19-24) mmol/L ABG O2 Saturation (94-97) % Sodium 127 L 127 L (137-145) mmol/L Carbon Dioxide 17 L (22-30) mmol/L BUN 108 H* (7-17) mg/dL Creatinine 2.90 H (0.52-1.04) mg/dL Glucose 257 H (74-99) mg/dL Calcium 6.9 L (8.4-10.2) mg/dL Total Protein 4.6 L (6.3-8.2) g/dL Albumin 2.3 L (3.5-5.0) g/dL 02/08/22 Range/Units 05:43 WBC (3.8-10.6) k/uL RBC (3.80-5.40) m/uL Hgb (11.4-16.0) gm/dL Hct (34.0-46.0) % RDW (11.5-15.5) % Plt Count (150-450) k/uL Neutrophils # (1.3-7.7) k/uL Lymphocytes # (1.0-4.8) k/uL ABG pH (7.35-7.45) ABG pCO2 25 L (35-45) mmHg ABG pO2 172 H (83-108) mmHg ABG HCO3 17 L (21-25) mmol/L ABG Total CO2 18 L (19-24) mmol/L ABG O2 Saturation 99.5 H (94-97) % Sodium (137-145) mmol/L Carbon Dioxide (22-30) mmol/L BUN (7-17) mg/dL Creatinine (0.52-1.04) mg/dL Glucose (74-99) mg/dL Calcium (8.4-10.2) mg/dL Total Protein (6.3-8.2) g/dL Albumin (3.5-5.0) g/dL Microbiology - Last 24 Hours (Table) 02/07/22 00:11 Blood Culture - Preliminary Blood No Growth after 24 hours 02/06/22 23:55 Blood Culture - Preliminary Blood No Growth after 24 hours Assessment and Plan Assessment: Assessment and Plan Assessment 1 Acute mechanical high grade obstruction. Status post exploratory laparotomy and lysis of additions on 02/07/2022.. -Acute renal failure secondary to acute tubular necrosis secondary to hypotension and severe dehydration. Currently with indwelling catheter in place, pending ultrasound for possible hydronephrosis. Nephrology is on consult. Creatinine 5.40 on admission. -Elevated troponins. -Hyponatremia, hypovolemic on admission secondary to severe dehydration from poor oral intake. Sodium currently 121 maintained on normal saline -Shock septic vs hypovolemic, blood culture, urine culture currently pending. Patient is monitored in the ICU and is currently maintained on vasopressin support -Lactic acidosis secondary to dehydration -Altered mental status secondary to acute metabolic encephalopathy with significant uremia -Leukocytosis secondary to above -Reported sacral decub -History of colorectal cancer diagnosed in 2018 status post bowel resection x 2, last surgery in Sep with right sided ileostomy present. -History of gastroesophageal reflux disease -History of cervical cancer in the 80s. -Remote history of smoking GI Prophylaxis Full Code Plan Continue on vasopressin support Continue on IV fluids Continue empiric coverage with zosyn NG tube in place Continue with strict I&O. Complete wound/skin assessment Follow up CMP Repeat labs in the morning Multiple consultations including claim representative, oncology, surgical, nephrology, infectious disease Prognosis guarded. Time with Patient: Greater than 30
--- NOTE | 2022-02-10 23:55 | P.PN ---
Subjective Progress Note Date: 02/09/22 This is a 71-year-old female presents to the emergency room from home, family called EMS. Medical history taken from family and patients chart. Patient has not been eating and drinking for about the last week per . Per , she has also not had stool from her ileostomy for the last 4 to 5 days as well, patient has had increasing confusion since last saturday to the point where he sates she did not know where she was. also reports she has an ulcer on her tailbone that was found about 2 weeks ago at home which [facility], today was the last day of antibiotics. The day before admission patient drank water, had a few bites of banana and had a small amount of emesis per family who reports it seemed dark in color and thought it was blood. Patient follows with dr Titus in the office for history of rectal cancer. Patient was initially diagnosed about 4 years ago and underwent bowel resection with ileostomy with subsequent reversal. She underwent chemoradiation at that time. In October of 2020 there was reoccurrence of cancer, she was taking oral c hemo and had a secondy bowel resection with ileostomy placement in September of 2021. Patients surgeon is Dr. Garcia out of [facility], family reports she has been to the office 1 time since surgery, family reports they were planning for ileostomy reversal around March of this year. She presents to the EC with hypotension and shock she is maintained on levophed infusion as well as empiric antibiotic coverage with IV Zosyn. She received 3 L of saline bolus in the EC and is now maintained on saline at 130 mls per hour. Blood cultures are currently pending. Patient had abdominal pelvis CT which did show high-grade mechanical bowel obstruction for which she has NG tube placed and surgical consult. There has been 900 mls of output from NG tube so far. Additional labs show sodium 117 which has improved some to 123. Troponin elevation at 0.141, 0.144. BUN today 55, creatinine 5.40 for which nephrology was consulted. There is evidence of some hydronephrosis with possible urinary retention found on computed tomography scan continue bladder ultrasound is requested and pending. Urinalysis showing cloudy urine, trace protein, large blood, RBC 161, rare bacteria, rate mucus, many yeast. Other pertinent medical history includes GERD osteoarthritis, cervical cancer in the 80s, EGD colonoscopies, former smoker very remote not since the 1980s. She is afebrile, heart rate 102, blood pressure 84/49, on 5 L nasal cannula which she initially required BiPAP. 02/08/2022 Patient is currently in the MICU. On my current ventilator with assist control tidal volume 400 FiO2 40% and PEEP of 5. Patient remains pressor support with vasopressin and norepinephrine. Patient underwent exploratory laparotomy yesterday and found to have bowel obstruction secondary to adhesive band. Patient had lysis of adhesions. Chest x-ray showed suspected newly seen small left apical pneumothorax. Short- term follow-up is required. Progressive infiltrates in the left lung base which could represent pneumonia however aspiration cannot be excluded. Laboratory data showed WBC 12.1 hemoglobin 9.5 and platelets 43 Sodium 127 potassium 3.9 chloride 102 bicarb is 17 BUN 108 and creatinine down to 2.9 today. Albumin 2.3 02/09/2022 Patient remains in the MICU and intubated on mechanical ventilator. Requiring p ressor support which is being tapered down.. Patient is status post expiratory laparotomy on 02/07/2022. Chest x-ray showed no acute pulmonary process. No significant change from most recent 5. Laboratory data showed WBC 12.4 hemoglobin 7.9 and platelets 46 sodium 133 potassium 3.1 chloride 101 bicarb is 18 BUN 19 and creatinine 1.87 calcium 7.5 Patient is being continued on antibiotics in the form of Zosyn. Currently on IV hydration and renal function is improving. Current medications reviewed. Objective - Vital Signs Vital signs: Vital Signs Temp 97.6 F 02/09/22 20:00 Pulse 101 H 02/09/22 23:00 Resp 19 02/09/22 23:00 BP 92/49 02/09/22 22:30 Pulse Ox 100 02/09/22 23:00 Intake & Output 02/09/22 02/09/22 02/10/22 06:59 18:59 06:59 Intake Total 2055.180 2346.605 1035.314 Output Total 1190 1200 330 Balance 141.448 3310.605 705.314 Weight 56.7 kg 56.7 kg Intake: IV 1690 1160 500 Mvi, Adult No.4 with Vit 390 60 K 10 ml Trace (Conc-1Ml/ Dose) 1 ml In Amino Acid 5%-D15w+Lytes*E* 1,000 ml @ 30 mls/hr IV .Q24H TIM Rx#:[id number] Sodium Chloride 0.9% 1, 1300 1100 500 000 ml @ 100 mls/hr IV . Q10H TIM Rx#:[id number] Intake, IV Titration 949.948 8371.605 535.314 Amount Magnesium Sulfate-D5w Pmx 200 1 gm In Dextrose/Water 1 100ml.bag @ 100 mls/hr IVPB Q1H TIM Rx#: [id number] Mvi, Adult No.4 with Vit 104 K 10 ml Trace (Conc-1Ml/ Dose) 1 ml In Amino Acid 5%-D15w+Lytes*E* 1,000 ml @ 52 mls/hr IV .BY DURATION [facility] Rx#: [id number] Norepinephrine 8 mg In 197.650 63.418 52.314 Sodium Chloride 0.9% 250 ml @ 0.35 MCG/KG/MIN 32. 255 mls/hr IV .Q8H [facility] Rx #:[id number] Piperacillin-Tazobactam 3 100 .375 gm In Sodium Chloride 0.9% 100 ml @ 25 mls/hr IVPB Q12HR TIM Rx #:[id number] Piperacillin-Tazobactam 3 100 .375 gm In Sodium Chloride 0.9% 100 ml @ 25 mls/hr IVPB Q8HR [facility] Rx# :[id number] Potassium Chloride 10 meq 100 In Water For Injection 1 100ml.bag @ 100 mls/hr IVPB Q1HR TIM Rx#: [id number] Potassium Chloride 20 meq 200 In Water For Injection 1 100ml.bag @ 50 mls/hr IVPB Q2H [facility] Rx#: [id number] Potassium Phosphate 12 364 260 mmol Potassium Acetate 20 meq Sodium Acetate 40 meq Magnesium Sulfate gm 1 gm Calcium Chloride 1 gm In Amino Acid 5%-D15w 1,000 ml @ 52 mls/hr IV . BY DURATION [facility] Rx#: [id number] Sodium Chloride 0.9% 150 50.6 23.0 ml @ 0.03 UNITS/MIN 4.59 mls/hr IV .Q24H TIM with Vasopressin 60 unit Rx#: [id number] propofoL 1,000 mg In 167.530 104.587 Empty Bag 1 bag @ 5 MCG/ KG/MIN 1.429 mls/hr IV . Q24H [facility] Rx#:[id number] Output: Urine 990 925 330 Stool 200 275 Other: Voiding Method Indwelling Catheter Indwelling Catheter Indwelling Catheter ABP, PAP, CO, CI - Last Documented Arterial Blood Pressure 96/50 - Exam PHYSICAL EXAMINATION: Patient is on mechanical ventilator. Sedated.. HEENT: Normocephalic. Neck is supple. Pupils reactive. Nostrils clear. Oral cavity is moist. Neck reveals no JVD, carotid bruits, or thyromegaly. CHEST EXAMINATION: Trachea is central. ET tube in place. Symmetrical e xpansion. Lung dunbar clear to auscultation and percussion. CARDIAC: Normal S1, S2 with no gallops. No murmurs ABDOMEN: Soft. Bowel sounds sluggish. Surgical site is bandaged. Extremities: reveal no edema. No clubbing or cyanosis Neurologically patient is currently sedated and intubated. No gross focal deficits noted Skin: No rash or skin lesions. Psychiatric: Could not be assessed at this time. Musculoskeletal: No joint swelling or deformity. - Labs CBC & Chem 7: 02/10/22 16:52 02/10/22 04:05 Labs: Abnormal Lab Results - Last 24 Hours (Table) 02/09/22 02/09/22 02/09/22 Range/Units 01:50 03:28 03:30 WBC (3.8-10.6) k/uL RBC (3.80-5.40) m/uL Hgb (11.4-16.0) gm/dL Hct (34.0-46.0) % RDW (11.5-15.5) % Plt Count (150-450) k/uL Neutrophils # (1.3-7.7) k/uL Lymphocytes # (1.0-4.8) k/uL ABG pH (7.35-7.45) ABG pCO2 (35-45) mmHg ABG pO2 (83-108) mmHg ABG HCO3 (21-25) mmol/L ABG O2 Saturation (94-97) % Sodium 133 L (137-145) mmol/L Potassium 3.1 L (3.5-5.1) mmol/L Chloride 111 H (98-107) mmol/L Carbon Dioxide 18 L (22-30) mmol/L BUN 90 H (7-17) mg/dL Creatinine 1.87 H (0.52-1.04) mg/dL Glucose 100 H (74-99) mg/dL POC Glucose (mg/dL) 107 H 112 H (75-99) mg/dL Calcium 7.5 L (8.4-10.2) mg/dL 02/09/22 02/09/22 02/09/22 Range/Units 03:30 05:55 06:10 WBC 12.4 H (3.8-10.6) k/uL RBC 2.58 L (3.80-5.40) m/uL Hgb 7.9 L D (11.4-16.0) gm/dL Hct 24.5 L (34.0-46.0) % RDW 17.5 H (11.5-15.5) % Plt Count 46 L (150-450) k/uL Neutrophils # 11.7 H (1.3-7.7) k/uL Lymphocytes # 0.2 L (1.0-4.8) k/uL ABG pH (7.35-7.45) ABG pCO2 29 L (35-45) mmHg ABG pO2 168 H (83-108) mmHg ABG HCO3 18 L (21-25) mmol/L ABG O2 Saturation 98.7 H (94-97) % Sodium (137-145) mmol/L Potassium (3.5-5.1) mmol/L Chloride (98-107) mmol/L Carbon Dioxide (22-30) mmol/L BUN (7-17) mg/dL Creatinine (0.52-1.04) mg/dL Glucose (74-99) mg/dL POC Glucose (mg/dL) 128 H (75-99) mg/dL Calcium (8.4-10.2) mg/dL 02/09/22 02/09/22 02/09/22 Range/Units 12:15 12:27 17:44 WBC (3.8-10.6) k/uL RBC (3.80-5.40) m/uL Hgb (11.4-16.0) gm/dL Hct (34.0-46.0) % RDW (11.5-15.5) % Plt Count (150-450) k/uL Neutrophils # (1.3-7.7) k/uL Lymphocytes # (1.0-4.8) k/uL ABG pH 7.48 H (7.35-7.45) ABG pCO2 28 L (35-45) mmHg ABG pO2 151 H (83-108) mmHg ABG HCO3 (21-25) mmol/L ABG O2 Saturation 98.8 H (94-97) % Sodium (137-145) mmol/L Potassium (3.5-5.1) mmol/L Chloride (98-107) mmol/L Carbon Dioxide (22-30) mmol/L BUN (7-17) mg/dL Creatinine (0.52-1.04) mg/dL Glucose (74-99) mg/dL POC Glucose (mg/dL) 218 H 170 H (75-99) mg/dL Calcium (8.4-10.2) mg/dL 02/09/22 Range/Units 20:36 WBC (3.8-10.6) k/uL RBC (3.80-5.40) m/uL Hgb (11.4-16.0) gm/dL Hct (34.0-46.0) % RDW (11.5-15.5) % Plt Count (150-450) k/uL Neutrophils # (1.3-7.7) k/uL Lymphocytes # (1.0-4.8) k/uL ABG pH (7.35-7.45) ABG pCO2 (35-45) mmHg ABG pO2 (83-108) mmHg ABG HCO3 (21-25) mmol/L ABG O2 Saturation (94-97) % Sodium (137-145) mmol/L Potassium (3.5-5.1) mmol/L Chloride (98-107) mmol/L Carbon Dioxide (22-30) mmol/L BUN (7-17) mg/dL Creatinine (0.52-1.04) mg/dL Glucose (74-99) mg/dL POC Glucose (mg/dL) 146 H (75-99) mg/dL Calcium (8.4-10.2) mg/dL Microbiology - Last 24 Hours (Table) 02/08/22 18:00 Urine Culture - Final Urine,Catheterized 02/06/22 23:55 Blood Culture - Preliminary Blood No Growth after 48 hours 02/07/22 00:11 Blood Culture - Preliminary Blood No Growth after 48 hours 02/08/22 16:20 Gram Stain - Preliminary Sputum Sputum Culture - Preliminary Assessment and Plan Assessment: Assessment 1 Acute mechanical high grade obstruction. Status post exploratory laparotomy and lysis of additions on 02/07/2022.. -Acute renal failure secondary to acute tubular necrosis secondary to hypot ension and severe dehydration. Currently with indwelling catheter in place, pending ultrasound for possible hydronephrosis. Nephrology is on consult. Creatinine 5.40 on admission. -Elevated troponins. -Hyponatremia, hypovolemic on admission secondary to severe dehydration from poor oral intake. Sodium currently 121 maintained on normal saline -Shock septic vs hypovolemic, blood culture, urine culture currently negative. Patient is monitored in the ICU and is currently maintained on vasopressin support -Lactic acidosis secondary to dehydration -Altered mental status secondary to acute metabolic encephalopathy with significant uremia -Leukocytosis secondary to above -Reported sacral decub -History of colorectal cancer diagnosed in 2018 status post bowel resection x 2, last surgery in Sep with right sided ileostomy present. -History of gastroesophageal reflux disease -History of cervical cancer in the 80s. -Remote history of smoking GI Prophylaxis Full Code Plan Continue on vasopressin support Continue on IV fluids Continue empiric coverage with zosyn Status post exploratory laparotomy and lysis of adhesions. Continue with TPN. Continue with strict I&O. Complete wound/skin assessment Follow up CMP Repeat labs in the morning Multiple consultations including dish washer, oncology, surgical, nephrology, infectious disease Prognosis guarded. Time with Patient: Greater than 30
--- NOTE | 2022-02-11 00:04 | P.PN ---
Subjective Progress Note Date: 02/10/22 This is a 71-year-old female presents to the emergency room from home, family called EMS. Medical history taken from family and patients chart. Patient has not been eating and drinking for about the last week per . Per , she has also not had stool from her ileostomy for the last 4 to 5 days as well, patient has had increasing confusion since last saturday to the point where he sates she did not know where she was. also reports she has an ulcer on her tailbone that was found about 2 weeks ago at home which [facility], today was the last day of antibiotics. The day before admission patient drank water, had a few bites of banana and had a small amount of emesis per family who reports it seemed dark in color and thought it was blood. Patient follows with dr Titus in the office for history of rectal cancer. Patient was initially diagnosed about 4 years ago and underwent bowel resection with ileostomy with subsequent reversal. She underwent chemoradiation at that time. In October of 2020 there was reoccurrence of cancer, she was taking oral c hemo and had a secondy bowel resection with ileostomy placement in September of 2021. Patients surgeon is Dr. Garcia out of [facility], family reports she has been to the office 1 time since surgery, family reports they were planning for ileostomy reversal around March of this year. She presents to the EC with hypotension and shock she is maintained on levophed infusion as well as empiric antibiotic coverage with IV Zosyn. She received 3 L of saline bolus in the EC and is now maintained on saline at 130 mls per hour. Blood cultures are currently pending. Patient had abdominal pelvis CT which did show high-grade mechanical bowel obstruction for which she has NG tube placed and surgical consult. There has been 900 mls of output from NG tube so far. Additional labs show sodium 117 which has improved some to 123. Troponin elevation at 0.141, 0.144. BUN today 55, creatinine 5.40 for which nephrology was consulted. There is evidence of some hydronephrosis with possible urinary retention found on computed tomography scan continue bladder ultrasound is requested and pending. Urinalysis showing cloudy urine, trace protein, large blood, RBC 161, rare bacteria, rate mucus, many yeast. Other pertinent medical history includes GERD osteoarthritis, cervical cancer in the 80s, EGD colonoscopies, former smoker very remote not since the 1980s. She is afebrile, heart rate 102, blood pressure 84/49, on 5 L nasal cannula which she initially required BiPAP. 02/08/2022 Patient is currently in the MICU. On my current ventilator with assist control tidal volume 400 FiO2 40% and PEEP of 5. Patient remains pressor support with vasopressin and norepinephrine. Patient underwent exploratory laparotomy yesterday and found to have bowel obstruction secondary to adhesive band. Patient had lysis of adhesions. Chest x-ray showed suspected newly seen small left apical pneumothorax. Short- term follow-up is required. Progressive infiltrates in the left lung base which could represent pneumonia however aspiration cannot be excluded. Laboratory data showed WBC 12.1 hemoglobin 9.5 and platelets 43 Sodium 127 potassium 3.9 chloride 102 bicarb is 17 BUN 108 and creatinine down to 2.9 today. Albumin 2.3 02/09/2022 Patient remains in the MICU and intubated on mechanical ventilator. Requiring p ressor support which is being tapered down.. Patient is status post expiratory laparotomy on 02/07/2022. Chest x-ray showed no acute pulmonary process. No significant change from most recent 5. Laboratory data showed WBC 12.4 hemoglobin 7.9 and platelets 46 sodium 133 potassium 3.1 chloride 101 bicarb is 18 BUN 19 and creatinine 1.87 calcium 7.5 Patient is being continued on antibiotics in the form of Zosyn. Currently on IV hydration and renal function is improving. 02/09/2022 Patient was extubated yesterday. Currently on room air. Otherwise patient is able to move her head with verbal stimuli. Unable to follow simple commands at this time. Still requiring pressor support. Patient was given a dose of hydrocortisone today. Otherwise laboratory data showed WBC 11.9 hemoglobin 6.7 and platelets 47 sodium 139 potassium 4.3 chloride 105 BUN 68 and creatinine 1.16 and albumin 1.9 chest x-ray showed increasing density left lower lobe may reflect underlying atelectasis or infiltrate. Patient remains on antibiotics of Zosyn. Currently on TPN for nutrition. Current medications reviewed. Objective - Vital Signs Vital signs: Vital Signs Temp 97.5 F L 02/10/22 04:00 Pulse 86 02/10/22 15:09 Resp 22 02/10/22 07:00 BP 93/54 02/10/22 06:30 Pulse Ox 98 02/10/22 07:00 Intake & Output 02/09/22 02/10/22 02/10/22 18:59 06:59 18:59 Intake Total 2346.605 2131.514 157.748 Output Total 1200 690 60 Balance 4610.467 3880.514 97.748 Weight 56.7 kg 58.8 kg Intake: IV 1160 1200 100 Mvi, Adult No.4 with Vit 60 K 10 ml Trace (Conc-1Ml/ Dose) 1 ml In Amino Acid 5%-D15w+Lytes*E* 1,000 ml @ 30 mls/hr IV .Q24H TIM Rx#:[id number] Sodium Chloride 0.9% 1, 1100 1200 100 000 ml @ 75 mls/hr IV . [id number] TIM Rx#:[id number] Intake, IV Titration 1186.605 931.514 57.748 Amount Magnesium Sulfate-D5w Pmx 200 1 gm In Dextrose/Water 1 100ml.bag @ 100 mls/hr IVPB Q1H [facility] Rx#: [id number] Mvi, Adult No.4 with Vit 104 K 10 ml Trace (Conc-1Ml/ Dose) 1 ml In Amino Acid 5%-D15w+Lytes*E* 1,000 ml @ 52 mls/hr IV .BY DURATION [facility] Rx#: [id number] Mvi, Adult No.4 with Vit 260 52 K 10 ml Trace (Conc-1Ml/ Dose) 1 ml Potassium Phosphate 12 mmol Potassium Acetate 20 meq Sodium Acetate 40 meq Magnesium Sulfate gm 1 gm Calcium Chloride 1 gm In Amino Acid 5%-D15w 1,000 ml @ 52 mls/hr IV .BY DURATION [facility] Rx#: [id number] Norepinephrine 8 mg In 63.418 52.314 Sodium Chloride 0.9% 250 ml @ 0.35 MCG/KG/MIN 32. 255 mls/hr IV .Q8H [facility] Rx #:[id number] Piperacillin-Tazobactam 3 100 .375 gm In Sodium Chloride 0.9% 100 ml @ 25 mls/hr IVPB Q12HR [facility] Rx #:[id number] Piperacillin-Tazobactam 3 100 .375 gm In Sodium Chloride 0.9% 100 ml @ 25 mls/hr IVPB Q8HR [facility] Rx# :[id number] Potassium Chloride 10 meq 100 In Water For Injection 1 100ml.bag @ 100 mls/hr IVPB Q1HR [facility] Rx#: [id number] Potassium Chloride 20 meq 200 In Water For Injection 1 100ml.bag @ 50 mls/hr IVPB Q2H [facility] Rx#: [id number] Potassium Phosphate 12 364 364 mmol Potassium Acetate 20 meq Sodium Acetate 40 meq Magnesium Sulfate gm 1 gm Calcium Chloride 1 gm In Amino Acid 5%-D15w 1,000 ml @ 52 mls/hr IV . BY DURATION [facility] Rx#: [id number] Sodium Chloride 0.9% 150 50.6 55.2 4.6 ml @ 0.03 UNITS/MIN 4.59 mls/hr IV .Q24H TIM with Vasopressin 60 unit Rx#: [id number] Sodium Chloride 0.9% 150 1.148 ml @ 0.03 UNITS/MIN 4.59 mls/hr IV .Q24H TIM with Vasopressin 60 unit Rx#: [id number] propofoL 1,000 mg In 104.587 Empty Bag 1 bag @ 5 MCG/ KG/MIN 1.429 mls/hr IV . Q24H [facility] Rx#:[id number] Blood Product 0 Rc As-1 Unit 0 [id number] Output: Urine 925 690 60 Stool 275 Other: Voiding Method Indwelling Catheter Indwelling Catheter Indwelling Catheter ABP, PAP, CO, CI - Last Documented Arterial Blood Pressure 104/48 - Exam PHYSICAL EXAMINATION: Patient is is awake. Able to move her head with verbal stimuli. Could not follow commands. On room air. HEENT: Normocephalic. Neck is supple. Pupils reactive. Nostrils clear. Oral cavity is moist. Neck reveals no JVD, carotid bruits, or thyromegaly. CHEST EXAMINATION: Trachea is central.. Symmetrical expansion. Lung dunbar clear to auscultation and percussion. CARDIAC: Normal S1, S2 with no gallops. No murmurs ABDOMEN: Soft. Bowel sounds sluggish. Surgical site is bandaged. Extremities: reveal no edema. No clubbing or cyanosis Neurologically patient is currently lethargic.. No gross focal deficits noted Skin: No rash or skin lesions. Psychiatric: Could not be assessed at this time. Musculoskeletal: No joint swelling or deformity. - Labs CBC & Chem 7: 02/10/22 16:52 02/10/22 04:05 Labs: Abnormal Lab Results - Last 24 Hours (Table) 02/07/22 02/09/22 02/09/22 Range/Units 09:55 17:44 20:36 WBC (3.8-10.6) k/uL RBC (3.80-5.40) m/uL Hgb (11.4-16.0) gm/dL Hct (34.0-46.0) % RDW (11.5-15.5) % Plt Count (150-450) k/uL Chloride (98-107) mmol/L BUN (7-17) mg/dL Creatinine (0.52-1.04) mg/dL Glucose (74-99) mg/dL POC Glucose (mg/dL) 170 H 146 H (75-99) mg/dL Calcium (8.4-10.2) mg/dL Phosphorus (2.5-4.5) mg/dL Total Protein (6.3-8.2) g/dL Albumin (3.5-5.0) g/dL Crossmatch See Detail 02/10/22 02/10/22 02/10/22 Range/Units 01:41 04:05 04:05 WBC 11.9 H (3.8-10.6) k/uL RBC 2.16 L (3.80-5.40) m/uL Hgb 6.7 L* (11.4-16.0) gm/dL Hct 20.8 L (34.0-46.0) % RDW 18.0 H (11.5-15.5) % Plt Count 47 L (150-450) k/uL Chloride 115 H (98-107) mmol/L BUN 68 H (7-17) mg/dL Creatinine 1.16 H (0.52-1.04) mg/dL Glucose 134 H (74-99) mg/dL POC Glucose (mg/dL) 159 H (75-99) mg/dL Calcium 7.2 L (8.4-10.2) mg/dL Phosphorus 2.2 L (2.5-4.5) mg/dL Total Protein 4.0 L (6.3-8.2) g/dL Albumin 1.9 L (3.5-5.0) g/dL Crossmatch 02/10/22 02/10/22 Range/Units 06:56 11:59 WBC (3.8-10.6) k/uL RBC (3.80-5.40) m/uL Hgb (11.4-16.0) gm/dL Hct (34.0-46.0) % RDW (11.5-15.5) % Plt Count (150-450) k/uL Chloride (98-107) mmol/L BUN (7-17) mg/dL Creatinine (0.52-1.04) mg/dL Glucose (74-99) mg/dL POC Glucose (mg/dL) 147 H 114 H (75-99) mg/dL Calcium (8.4-10.2) mg/dL Phosphorus (2.5-4.5) mg/dL Total Protein (6.3-8.2) g/dL Albumin (3.5-5.0) g/dL Crossmatch Microbiology - Last 24 Hours (Table) 02/08/22 16:20 Gram Stain - Final Sputum Sputum Culture - Final 02/06/22 23:55 Blood Culture - Preliminary Blood No Growth after 72 hours 02/07/22 00:11 Blood Culture - Preliminary Blood No Growth after 72 hours 02/08/22 18:00 Urine Culture - Final Urine,Catheterized Assessment and Plan Assessment: Assessment 1 Acute mechanical high grade obstruction. Status post exploratory laparotomy and lysis of additions on 02/07/2022.. -Acute renal failure secondary to acute tubular necrosis secondary to hypotens ion and severe dehydration. Currently with indwelling catheter in place. Nephrology is on consult. Creatinine 5.40 on admission. improving -Elevated troponins. -Hyponatremia, hypovolemic on admission secondary to severe dehydration from poor oral intake. Sodium currently 121 maintained on normal saline -Shock septic vs hypovolemic, blood culture, urine culture currently negative. Patient is monitored in the ICU and is currently maintained on vasopressin support -Lactic acidosis secondary to dehydration -Altered mental status secondary to acute metabolic encephalopathy with significant uremia -Leukocytosis secondary to above -Reported sacral decub -History of colorectal cancer diagnosed in 2018 status post bowel resection x 2, last surgery in Sep with right sided ileostomy present. -History of gastroesophageal reflux disease -History of cervical cancer in the 80s. -Remote history of smoking GI Prophylaxis Full Code Plan Continue on vasopressin support Continue on IV fluids. Transfuse with 1 unit of PRBC. Continue empiric coverage with zosyn Status post exploratory laparotomy and lysis of adhesions. Continue with TPN. Continue with strict I&O. Complete wound/skin assessment Repeat labs in the morning Multiple consultations including film flat inspector, oncology, surgical, nephrology, infectious disease Prognosis guarded. Time with Patient: Greater than 30
[2022-02-11 01:54] LABS: Glucose,Whole Blood 116 mg/dL (75-99)
[2022-02-11] MEDS: INSULIN ASPART (NovoLOG) 100 UNIT/ML VIAL SQ SCH ×5 (02:21→20:12)
[2022-02-11 04:10] LABS: Anisocytosis Slight; HCT 25.9 % (34.0-46.0); HGB 8.1 gm/dL (11.4-16.0); MCH 30.3 pg (25.0-35.0); MCHC 31.5 g/dL (31.0-37.0); MCV 96.2 fL (80.0-100.0); Macrocytosis Slight; Mean Platelet Volume 10.1; RBC 2.69 m/uL (3.80-5.40); RDW 18.2 % (11.5-15.5); WBC 11.5 k/uL (3.8-10.6)
[2022-02-11 04:13] LABS: Platelet Count 66 k/uL (150-450)
[2022-02-11 04:20] LABS: Albumin 1.9 g/dL (3.5-5.0); Calcium 7.6 mg/dL (8.4-10.2); Magnesium 2.2 mg/dL (1.6-2.3); Phosphorus 2.3 mg/dL (2.5-4.5); Potassium 4.1 mmol/L (3.5-5.1); Total Bilirubin 0.6 mg/dL (0.2-1.3); Total Protein 4.2 g/dL (6.3-8.2)
[2022-02-11] MEDS: SODIUM CHLORIDE 0.9% 1,000 ML IV SCH ×2 (05:03→19:56)
[2022-02-11] MEDS: KETOROLAC 15 MG/ML 1 ML VIAL IVP PRN ×3 (05:04→22:47)
[2022-02-11 05:49] LABS: Glucose,Whole Blood 109 mg/dL (75-99)
--- NOTE | 2022-02-11 07:22 | XR ---
EXAMINATION TYPE: XR chest 1V portable DATE OF EXAM: 02/11/2022 HISTORY: Shortness of breath. COMPARISON: 02/10/2022 TECHNIQUE: Single view of the chest is submitted. FINDINGS: Demonstrated are scattered senescent parenchymal change. Increased basilar density may reflect developing infiltrates. Correlate clinically and progress studi es are recommended. The heart is stable. Hilar and mediastinal structures are within normal limits. Degenerative changes are seen of the dorsal spine. IMPRESSION: 1. Increased basilar density may reflect developing infiltrates. Correlate clinically and progress s tudies are recommended.
[2022-02-11] MEDS: IPRATROPIUM-ALBUTEROL 3 ML NEB INHALATION SCH ×4 (08:11→20:18)
--- NOTE | 2022-02-11 09:24 | P.PN ---
Subjective Progress Note Date: 02/11/22 Principal diagnosis: Bowel obstruction Patient remains somewhat lethargic. He has periods where she appears more awake per the nursing staff. Ostomy still with bilious output. White blood cell count 11.5, hemoglobin 8.1. No significant pain. Objective - Vital Signs Vital signs: Vital Signs Temp 97.6 F 02/11/22 04:00 Pulse 73 02/11/22 07:00 Resp 11 L 02/11/22 07:00 BP 114/68 02/11/22 06:15 Pulse Ox 98 02/11/22 07:00 Intake & Output 02/10/22 02/11/22 02/11/22 18:59 06:59 18:59 Intake Total 2316.514 1641.818 Output Total 930 685 Balance 1386.514 956.818 Weight 61.8 kg Intake: IV 1797 1624 Amino Acid 5%-D15w+Lytes* 572 104 E* 1,000 ml @ 52 mls/hr IV .BY DURATION [facility] Rx#: [id number] Piperacillin-Tazobactam 3 200 100 .375 gm In Sodium Chloride 0.9% 100 ml @ 25 mls/hr IVPB Q8HR [facility] Rx# :[id number] Potassium Phosphate 12 520 mmol Potassium Acetate 20 meq Sodium Acetate 40 meq Magnesium Sulfate gm 1 gm Calcium Chloride 1 gm In Amino Acid 5%-D15w 1,000 ml @ 52 mls/hr IV . BY DURATION [facility] Rx#: [id number] Sodium Chloride 0.9% 1, 925 900 000 ml @ 75 mls/hr IV . [id number] [facility] Rx#:[id number] Sodium Phosphate 10 mmol 100 In Sodium Chloride 0.9% 100 ml @ 50 mls/hr IVPB ONCE ONE Rx#:[id number] Intake, IV Titration 209.514 17.818 Amount Mvi, Adult No.4 with Vit 52 K 10 ml Trace (Conc-1Ml/ Dose) 1 ml Potassium Phosphate 12 mmol Potassium Acetate 20 meq Sodium Acetate 40 meq Magnesium Sulfate gm 1 gm Calcium Chloride 1 gm In Amino Acid 5%-D15w 1,000 ml @ 52 mls/hr IV .BY DURATION [facility] Rx#: [id number] Norepinephrine 8 mg In 151.766 17.818 Sodium Chloride 0.9% 250 ml @ 0.35 MCG/KG/MIN 32. 255 mls/hr IV .Q8H [facility] Rx #:[id number] Sodium Chloride 0.9% 150 4.6 ml @ 0.03 UNITS/MIN 4.59 mls/hr IV .Q24H TIM with Vasopressin 60 unit Rx#: [id number] Sodium Chloride 0.9% 150 1.148 ml @ 0.03 UNITS/MIN 4.59 mls/hr IV .Q24H TIM with Vasopressin 60 unit Rx#: [id number] Blood Product 310 Rc As-1 Unit 310 [id number] Output: Urine 630 455 Stool 300 230 Other: Voiding Method Indwelling Catheter Indwelling Catheter ABP, PAP, CO, CI - Last Documented Arterial Blood Pressure 106/41 - Exam Abdomen: Soft, nondistended, incision clean and dry, ostomy functioning - Labs CBC & Chem 7: 02/11/22 03:57 02/11/22 03:57 Labs: Abnormal Lab Results - Last 24 Hours (Table) 02/07/22 02/10/22 02/10/22 Range/Units 09:55 11:59 16:52 WBC 12.0 H (3.8-10.6) k/uL RBC 2.69 L (3.80-5.40) m/uL Hgb 8.4 L D (11.4-16.0) gm/dL Hct 25.4 L (34.0-46.0) % RDW 18.3 H (11.5-15.5) % Plt Count 57 L (150-450) k/uL Neutrophils # 11.5 H (1.3-7.7) k/uL Lymphocytes # 0.2 L (1.0-4.8) k/uL Chloride (98-107) mmol/L Carbon Dioxide (22-30) mmol/L BUN (7-17) mg/dL Glucose (74-99) mg/dL POC Glucose (mg/dL) 114 H (75-99) mg/dL Calcium (8.4-10.2) mg/dL Phosphorus (2.5-4.5) mg/dL AST (14-36) U/L Total Protein (6.3-8.2) g/dL Albumin (3.5-5.0) g/dL Crossmatch See Detail 02/10/22 02/10/22 02/11/22 Range/Units 17:07 20:58 01:52 WBC (3.8-10.6) k/uL RBC (3.80-5.40) m/uL Hgb (11.4-16.0) gm/dL Hct (34.0-46.0) % RDW (11.5-15.5) % Plt Count (150-450) k/uL Neutrophils # (1.3-7.7) k/uL Lymphocytes # (1.0-4.8) k/uL Chloride (98-107) mmol/L Carbon Dioxide (22-30) mmol/L BUN (7-17) mg/dL Glucose (74-99) mg/dL POC Glucose (mg/dL) 133 H 135 H 116 H (75-99) mg/dL Calcium (8.4-10.2) mg/dL Phosphorus (2.5-4.5) mg/dL AST (14-36) U/L Total Protein (6.3-8.2) g/dL Albumin (3.5-5.0) g/dL Crossmatch 02/11/22 02/11/22 02/11/22 Range/Units 03:57 03:57 05:46 WBC 11.5 H (3.8-10.6) k/uL RBC 2.69 L (3.80-5.40) m/uL Hgb 8.1 L (11.4-16.0) gm/dL Hct 25.9 L (34.0-46.0) % RDW 18.2 H (11.5-15.5) % Plt Count 66 L (150-450) k/uL Neutrophils # (1.3-7.7) k/uL Lymphocytes # (1.0-4.8) k/uL Chloride 117 H (98-107) mmol/L Carbon Dioxide 21 L (22-30) mmol/L BUN 61 H (7-17) mg/dL Glucose 113 H (74-99) mg/dL POC Glucose (mg/dL) 109 H (75-99) mg/dL Calcium 7.6 L (8.4-10.2) mg/dL Phosphorus 2.3 L (2.5-4.5) mg/dL AST 42 H (14-36) U/L Total Protein 4.2 L (6.3-8.2) g/dL Albumin 1.9 L (3.5-5.0) g/dL Crossmatch Microbiology - Last 24 Hours (Table) 02/06/22 23:55 Blood Culture - Preliminary Blood No Growth after 96 hours 02/07/22 00:11 Blood Culture - Preliminary Blood No Growth after 96 hours 02/08/22 16:20 Gram Stain - Final Sputum Sputum Culture - Final Assessment and Plan (1) Mechanical obstruction of the intestine Narrative/Plan: Patient continues to exhibit some lethargy. Discussed obtaining swallow evaluation with nursing staff today. Otherwise stay nothing by mouth until more alert. Current Visit: Yes Status: Acute Code(s): K56.609 - UNSP INTESTNL OBST, UNSP TO PARTIAL VERSUS COMPLETE OBST SNOMED Code(s): 29388019
[2022-02-11] MEDS ORDERED: SODIUM PHOSPHATE 10 MMOL in SODIUM CHLORIDE 0.9% 100 ML IVPB ONE (10:00)
[2022-02-11] MEDS: PIPERACILLIN-TAZOBACTAM 3.375 GM in SODIUM CHLORIDE 0.9% 100 ML IVPB SCH ×3 (10:08→23:39)
[2022-02-11] MEDS: PANTOPRAZOLE 40 MG/10 ML VIAL IVP SCH (10:09)
[2022-02-11] MEDS: HYDROCORTISONE SUCCINATE 100 MG/2 ML VIAL IV SCH ×2 (10:09→20:21)
--- NOTE | 2022-02-11 10:33 | P.PN ---
Subjective Progress Note Date: 02/11/22 Principal diagnosis: Acute bowel obstruction This is a 71-year-old female patient who has a known history of R's to arthritis, gastroesophageal reflux disease, colorectal adenocarcinoma diagnosed in November 2020.. She initially had surgery here and had undergone chemotherapy here. She has a right sided Port-A-Cath. She did have proton at [facility] and a second surgery at [facility] with an ileostomy placement. PET scan dated 01/27/2022 revealed a suboptimal study due to muscular uptake. There is postsurgical changes the pelvis within well to fluid collection in the presacral space containing none dependent here and REM hypermetabolic uptake is concerning for infectious process or developing abscess. About 1 week ago her states that she stopped eating and drinking. She presented to the emergency room last evening with altered mental status and shortness of breath. Computed tomography scan of the abdomen and pelvis revealed likely dilated stomach and multiple dilated small bowel loops suggestive of mechanical high-grade bowel obstruction. There is ostomy in the right mid abdomen. Dilated urinary bladder and mild hydronephrosis secondary to urinary retention. Nasogastric tube was inserted and she had 900 mL of coffee- ground return. Chest x-ray reveals no sizable pleural effusions or definitive pneumothorax. No gross cardiomegaly. Marketed gaseous distention of the bowel in the upper abdomen. White count 15.1. Hemoglobin 14.4. Platelet count 38,000. Sodium 121. Potassium 4.6. Bicarb 15. BUN 164. Creatinine 5.40. Glucose 106. Troponin 0.12, 0.14, 0.14. Albumin 2.9. Urinalysis is cloudy with large amount of blood and rare bacteria. She's been initiated on Zosyn. She has received 3-1/2 L of fluid resuscitation. Normal saline at 130 ML's per hour. She is requiring norepinephrine at 0.12 mcg/kg/m. She is on Protonix. She is seen today in the intensive care unit. Her is at the bedside. She is maintaining O2 saturations in the 90s on 2 L/m per nasal cannula. Initial temperature 94.4 axillary. Currently 97.5. Warming blanket has been applied. Current blood pressure 92/55 with a mean of 67. In sinus rhythm with occasional PVCs. Patient was reevaluated today on 02/08/2022, patient underwent exploratory laparotomy yesterday, she was found to have bowel obstruction secondary to adhes naveen band. Patient had lysis of adhesions with sharp dissection. She had a relatively uneventful surgery. Nonetheless the patient remains intubated, and mechanically ventilated. She is hypotensive requiring norepinephrine and Vasopressin. Patient is on assist control rate of 10, LDL volume is 400, FiO2 40% PEEP of 5. Cut down her FiO2 down to 35%. ABG showed a pO2 of 172 pCO2 of 25 pH of 7.45. This was on 40% FiO2. Patient is still on vasopressin at 0.03 units per minute, on propofol at 35 mcg/kg/m, norepinephrine at 0.33 mcg/kg/m she will be started on TPN today. And I have increased his IV fluid to 100 mL per hour. Labs were reviewed, sodium is 127 potassium is 3.9 BUN is 108 cre atinine 2.9, steadily improving with hydration. Lactic acid is down to 1.4. And liver enzymes are basically unremarkable. Chest x-ray questioned a small tiny left apical pneumothorax, hence I'm recommending a follow-up x-ray, clinically I doubt pneumothorax. Nonetheless, if the patient does have one that is expanding, may have to consider a chest tube placement on the left side. Patient was reevaluated today on 02/09/2022, patient remains in the ICU, intubated and mechanically ventilated. She is on assist control rate of 14, volume 400 FiO2 30% and PEEP of 5. Her ABG this morning showed pO2 of 151 pCO2 28 pH of 7.48. Hence no changes were made and her ventilator settings labs today were all reviewed. WBC count is 12.4 hemoglobin is 7.9. Basic metabolic profile is normal except for low potassium of 3.1, BUN is coming down to 90 and creatinine is down to 1.87. Chest x-ray this morning showed no evidence of active disease. No infiltrate, no pneumonia, no evidence of congestive heart failure. Patient remains on propofol at 35 mg/kg/m, vasopressin at 0.03, norepinephrine at 0.08, she is also on TPN and her IV fluid is at 100 mL per hour. Hence I'm planning to give the patient a trial of pressure support and CPAP today, and if tolerated and the patient is arousable and able to follow simple instructions, we'll likely proceed with extubating the patient today. Reevaluated today on 02/10/2022, patient remains in the ICU, she was extubated yesterday uneventfully. She is on room air, does not seem to be in any distress. Patient remains on pressors in the form of norepinephrine at 0.09, she still requiring vasopressin at 0.03, today I recommended that he continue IV fluids, 1 dose of Solu-Cortef will be given, she will be given a unit of blood for hemoglobin of 6.7 today, and hopefully we can taper down and discontinue norepinephrine and vasopressin. Patient remains on TPN at 50 MLS per hour. Her urine output is excellent at 40-50 mL per hour. And her mean arterial pressure is 65. Patient remains empirically on Zosyn. Patient is also on GI prophylaxis. Hemoglobin today is 6.7, no clear-cut evidence of bleeding. Platelets remained low at 47,000. Electrolytes are normal BUN is down to 68 creatinine is down to 1.16. This is improving significantly with hydration. And we will continue to hydrate the patient. Reevaluated today on 02/11/2022, patient remains in the ICU, she is on room air at 98%. Patient is still requiring a small dose of norepinephrine at 0.04 mitral kilo per minute, remains on TPN at 50 mL per hour, remains on IV fluid at 0.9 normal saline 75 mL per hour. Patient seems to be generally weak, her ileostomy is functioning well, she seems to be improving steadily on a regular basis. Patient was given yesterday Solu-Cortef was slight improvement in her blood pressure, today I will recommend 2 doses of Solu-Cortef 100 mg IV push every 12 hours. And we'll try to continue to titrate the norepinephrine. When asked to corporate tax manager evaluate for nutritional support. Labs were reviewed WBC count is 11.5 hemoglobin is 8.20 [place] bicarb 21 BUN is 61 creatinine 0.98, steadily improving since admission, patient came in with acute renal failure/acute kidney injury, felt to be mostly related to dehydration. Objective - Vital Signs Vital signs: Vital Signs Temp 97.6 F 02/11/22 08:00 Pulse 93 02/11/22 08:00 Resp 15 02/11/22 08:00 BP 108/56 02/11/22 07:45 Pulse Ox 99 02/11/22 08:00 Intake & Output 02/10/22 02/11/22 02/11/22 18:59 06:59 18:59 Intake Total 2316.514 1641.818 Output Total 930 685 Balance 1386.514 956.818 Weight 61.8 kg Intake: IV 1797 1624 Amino Acid 5%-D15w+Lytes* 572 104 E* 1,000 ml @ 52 mls/hr IV .BY DURATION [facility] Rx#: [id number] Piperacillin-Tazobactam 3 200 100 .375 gm In Sodium Chloride 0.9% 100 ml @ 25 mls/hr IVPB Q8HR [facility] Rx# :[id number] Potassium Phosphate 12 520 mmol Potassium Acetate 20 meq Sodium Acetate 40 meq Magnesium Sulfate gm 1 gm Calcium Chloride 1 gm In Amino Acid 5%-D15w 1,000 ml @ 52 mls/hr IV . BY DURATION [facility] Rx#: [id number] Sodium Chloride 0.9% 1, 925 900 000 ml @ 75 mls/hr IV . [id number] [facility] Rx#:[id number] Sodium Phosphate 10 mmol 100 In Sodium Chloride 0.9% 100 ml @ 50 mls/hr IVPB ONCE ONE Rx#:[id number] Intake, IV Titration 209.514 17.818 Amount Mvi, Adult No.4 with Vit 52 K 10 ml Trace (Conc-1Ml/ Dose) 1 ml Potassium Phosphate 12 mmol Potassium Acetate 20 meq Sodium Acetate 40 meq Magnesium Sulfate gm 1 gm Calcium Chloride 1 gm In Amino Acid 5%-D15w 1,000 ml @ 52 mls/hr IV .BY DURATION [facility] Rx#: [id number] Norepinephrine 8 mg In 151.766 17.818 Sodium Chloride 0.9% 250 ml @ 0.35 MCG/KG/MIN 32. 255 mls/hr IV .Q8H [facility] Rx #:[id number] Sodium Chloride 0.9% 150 4.6 ml @ 0.03 UNITS/MIN 4.59 mls/hr IV .Q24H TIM with Vasopressin 60 unit Rx#: [id number] Sodium Chloride 0.9% 150 1.148 ml @ 0.03 UNITS/MIN 4.59 mls/hr IV .Q24H TIM with Vasopressin 60 unit Rx#: [id number] Blood Product 310 Rc As-1 Unit 310 [id number] Output: Urine 630 455 Stool 300 230 Other: Voiding Method Indwelling Catheter Indwelling Catheter ABP, PAP, CO, CI - Last Documented Arterial Blood Pressure 138/102 - Exam Physical Exam: Revealed a 71-year-old female , awake, not in any distress, on room air. Head: Atraumatic, normocephalic , dry mucous membranes noted. HEENT:[Neck is supple.] [No neck masses.] [No thyromegaly.] [No JVD.] Chest: Symmetrical chest expansion fine crackles at the bases. Cardiac Exam: [Normal S1 and S2, no S3 gallop, no murmur.] Abdomen: Postsurgical, likely tender, surgical dressing seems to be clean, dry, ileostomy is intact, no bowel sounds. Extremities: [No clubbing, no edema, no cyanosis.] Neurological Exam: Alert and oriented 3 focal deficits, remained generally weak. Psychiatric: Normal mood affect and normal mental status examination.. Musculoskeletal: Significant muscle wasting is noted, no deformities otherwise. Skin: Multiple areas of ecchymosis is noted bilaterally. - Labs CBC & Chem 7: 02/11/22 03:57 02/11/22 03:57 Labs: Abnormal Lab Results - Last 24 Hours (Table) 02/07/22 02/10/22 02/10/22 Range/Units 09:55 11:59 16:52 WBC 12.0 H (3.8-10.6) k/uL RBC 2.69 L (3.80-5.40) m/uL Hgb 8.4 L D (11.4-16.0) gm/dL Hct 25.4 L (34.0-46.0) % RDW 18.3 H (11.5-15.5) % Plt Count 57 L (150-450) k/uL Neutrophils # 11.5 H (1.3-7.7) k/uL Lymphocytes # 0.2 L (1.0-4.8) k/uL Chloride (98-107) mmol/L Carbon Dioxide (22-30) mmol/L BUN (7-17) mg/dL Glucose (74-99) mg/dL POC Glucose (mg/dL) 114 H (75-99) mg/dL Calcium (8.4-10.2) mg/dL Phosphorus (2.5-4.5) mg/dL AST (14-36) U/L Total Protein (6.3-8.2) g/dL Albumin (3.5-5.0) g/dL Crossmatch See Detail 02/10/22 02/10/22 02/11/22 Range/Units 17:07 20:58 01:52 WBC (3.8-10.6) k/uL RBC (3.80-5.40) m/uL Hgb (11.4-16.0) gm/dL Hct (34.0-46.0) % RDW (11.5-15.5) % Plt Count (150-450) k/uL Neutrophils # (1.3-7.7) k/uL Lymphocytes # (1.0-4.8) k/uL Chloride (98-107) mmol/L Carbon Dioxide (22-30) mmol/L BUN (7-17) mg/dL Glucose (74-99) mg/dL POC Glucose (mg/dL) 133 H 135 H 116 H (75-99) mg/dL Calcium (8.4-10.2) mg/dL Phosphorus (2.5-4.5) mg/dL AST (14-36) U/L Total Protein (6.3-8.2) g/dL Albumin (3.5-5.0) g/dL Crossmatch 02/11/22 02/11/22 02/11/22 Range/Units 03:57 03:57 05:46 WBC 11.5 H (3.8-10.6) k/uL RBC 2.69 L (3.80-5.40) m/uL Hgb 8.1 L (11.4-16.0) gm/dL Hct 25.9 L (34.0-46.0) % RDW 18.2 H (11.5-15.5) % Plt Count 66 L (150-450) k/uL Neutrophils # (1.3-7.7) k/uL Lymphocytes # (1.0-4.8) k/uL Chloride 117 H (98-107) mmol/L Carbon Dioxide 21 L (22-30) mmol/L BUN 61 H (7-17) mg/dL Glucose 113 H (74-99) mg/dL POC Glucose (mg/dL) 109 H (75-99) mg/dL Calcium 7.6 L (8.4-10.2) mg/dL Phosphorus 2.3 L (2.5-4.5) mg/dL AST 42 H (14-36) U/L Total Protein 4.2 L (6.3-8.2) g/dL Albumin 1.9 L (3.5-5.0) g/dL Crossmatch Microbiology - Last 24 Hours (Table) 02/06/22 23:55 Blood Culture - Preliminary Blood No Growth after 96 hours 02/07/22 00:11 Blood Culture - Preliminary Blood No Growth after 96 hours 02/08/22 16:20 Gram Stain - Final Sputum Sputum Culture - Final Assessment and Plan Assessment: Impression: Acute mechanical high-grade bowel obstruction secondary to band adhesions, status post exploratory laparotomy and lysis of adhesions. Postoperative day #4 Acute renal failure, suspect mostly dehydration related. Steadily improving. Hyponatremia secondary to dehydration and renal failure. Resolved. Thrombocytopenia, likely chronic, being addressed by oncology/hematology on the case. History of colorectal cancer diagnosed in 2018, previous surgery 2 with a right-sided ileostomy status post chemotherapy Paroxysmal atrial fibrillation. History of degenerative joint disease History of GERD History of cervical cancer Former smoker Postoperative hypoxic respiratory failure requiring mechanical ventilation mostly because of her severe hypotension, no clear-cut evidence of septic shock. Recommendation: Continue to monitor in the ICU, Continue antibiotics/Zosyn Continue GI and DVT prophylaxis. Continue to monitor platelets Continue TPN, dietitian to see for nutritional support and possibly start some enteral feeding. Continue updrafts. Continue Protonix. Continue to titrate and possibly discontinue norepinephrine, Solu-Cortef 100 mg IV push every 12 hours 2 doses only. Will be given today We will continue to monitor and follow while in the ICU. Time with Patient: Less than 30
--- NOTE | 2022-02-11 11:03 | P.PN ---
Progress Note - Text Progress Note Date: 02/11/22 The patient's renal function is normal. The Omalley catheter is draining clear yellow urine. I discussed with her that she appeared to have renal failure due to hydronephrosis, which in turn was due to urinary retention. It would be reasonable to give her a voiding trial when the catheter is no longer medically needed, but I suspect that her incomplete bladder emptying is chronic. If so, she will require a chronic indwelling catheter or intermittent self- catheterization, the latter of which would be my preference.
[2022-02-11 11:31] LABS: Glucose,Whole Blood 102 mg/dL (75-99)
[2022-02-11] MEDS: NOREPINEPHRINE 8 MG in SODIUM CHLORIDE 0.9% 250 ML IV SCH ×3 (15:49→23:38)
[2022-02-11] MEDS: SODIUM CHLORIDE 0.9% 150 ML with VASOPRESSIN 60 UNIT IV SCH ×2 (15:49)
[2022-02-11 17:13] LABS: Glucose,Whole Blood 130 mg/dL (75-99)
--- NOTE | 2022-02-11 17:22 | P.PN ---
Subjective Progress Note Date: 02/11/22 Principal diagnosis: Abdominal sepsis Patient is a 71 year female With a past medical history significant for rectal cancer with recent recurrence in this patient who is status post bowel resection with ileostomy placement in the summer of 2020 presented to the hospital with weakness no output from ileostomy noticed to have a high-grade small bowel obstruction patient is status post laparotomy with lysis of adhesion. The patient was extubated on 02/09/2022 On today's evaluation is 02/11/2022, the patient remains to be afebrile, the patient is breathing comfortably on room air, patient is hemodynamically stable and is requiring minimal pressor support to maintain her blood pressure per the nursing staff patient is awake but did not answer any question no vomiting or diarrhea has been reported, no concern per her at the bedside Objective - Vital Signs Vital signs: Vital Signs Temp 97.6 F 02/11/22 08:00 Pulse 79 02/11/22 15:13 Resp 15 02/11/22 08:00 BP 108/56 02/11/22 07:45 Pulse Ox 99 02/11/22 08:00 Intake & Output 02/10/22 02/11/22 02/11/22 18:59 06:59 18:59 Intake Total 2316.514 3008.485 2809.635 Output Total 930 685 205 Balance 1386.514 081.672 1917.635 Weight 61.8 kg Intake: IV 1797 1624 962 Amino Acid 5%-D15w+Lytes* 572 104 E* 1,000 ml @ 52 mls/hr IV .BY DURATION [facility] Rx#: [id number] Mvi, Adult No.4 with Vit 312 K 10 ml Trace (Conc-1Ml/ Dose) 1 ml Potassium Phosphate 12 mmol Potassium Acetate 20 meq Sodium Acetate 40 meq Magnesium Sulfate gm 1 gm Calcium Chloride 1 gm In Amino Acid 5%-D15w 1,000 ml @ 52 mls/hr IV .BY DURATION TIM Rx#: [id number] Piperacillin-Tazobactam 3 200 100 100 .375 gm In Sodium Chloride 0.9% 100 ml @ 25 mls/hr IVPB Q8HR TIM Rx# :[id number] Potassium Phosphate 12 520 mmol Potassium Acetate 20 meq Sodium Acetate 40 meq Magnesium Sulfate gm 1 gm Calcium Chloride 1 gm In Amino Acid 5%-D15w 1,000 ml @ 52 mls/hr IV . BY DURATION [facility] Rx#: [id number] Sodium Chloride 0.9% 1, 925 900 450 000 ml @ 75 mls/hr IV . [id number] [facility] Rx#:[id number] Sodium Phosphate 10 mmol 100 In Sodium Chloride 0.9% 100 ml @ 50 mls/hr IVPB ONCE ONE Rx#:[id number] Sodium Phosphate 10 mmol 100 In Sodium Chloride 0.9% 100 ml @ 50 mls/hr IVPB ONCE ONE Rx#:[id number] Intake, IV Titration 209.514 17.818 52.635 Amount Mvi, Adult No.4 with Vit 52 K 10 ml Trace (Conc-1Ml/ Dose) 1 ml Potassium Phosphate 12 mmol Potassium Acetate 20 meq Sodium Acetate 40 meq Magnesium Sulfate gm 1 gm Calcium Chloride 1 gm In Amino Acid 5%-D15w 1,000 ml @ 52 mls/hr IV .BY DURATION [facility] Rx#: [id number] Norepinephrine 8 mg In 151.766 17.818 52.635 Sodium Chloride 0.9% 250 ml @ 0.35 MCG/KG/MIN 32. 255 mls/hr IV .Q8H TIM Rx #:[id number] Sodium Chloride 0.9% 150 4.6 ml @ 0.03 UNITS/MIN 4.59 mls/hr IV .Q24H TIM with Vasopressin 60 unit Rx#: [id number] Sodium Chloride 0.9% 150 1.148 ml @ 0.03 UNITS/MIN 4.59 mls/hr IV .Q24H TIM with Vasopressin 60 unit Rx#: [id number] Oral 500 Blood Product 310 Rc As-1 Unit 310 [id number] Output: Urine 630 455 205 Stool 300 230 Other: Voiding Method Indwelling Catheter Indwelling Catheter Indwelling Catheter ABP, PAP, CO, CI - Last Documented Arterial Blood Pressure 138/102 - Exam GENERAL DESCRIPTION: An elderly female lying in bed in no distress RESPIRATORY SYSTEM: Unlabored breathing , decreased breath sounds at bases HEART: S1 S2 regular rate and rhythm , ABDOMEN: Soft , midline incision is currently dressed EXTREMITIES: No edema feet - Labs CBC & Chem 7: 02/11/22 03:57 02/11/22 03:57 Labs: Abnormal Lab Results - Last 24 Hours (Table) 02/07/22 02/10/2222 Range/Units 09:55 16:52 17:07 WBC 12.0 H (3.8-10.6) k/uL RBC 2.69 L (3.80-5.40) m/uL Hgb 8.4 L D (11.4-16.0) gm/dL Hct 25.4 L (34.0-46.0) % RDW 18.3 H (11.5-15.5) % Plt Count 57 L (150-450) k/uL Neutrophils # 11.5 H (1.3-7.7) k/uL Lymphocytes # 0.2 L (1.0-4.8) k/uL Chloride (98-107) mmol/L Carbon Dioxide (22-30) mmol/L BUN (7-17) mg/dL Glucose (74-99) mg/dL POC Glucose (mg/dL) 133 H (75-99) mg/dL Calcium (8.4-10.2) mg/dL Phosphorus (2.5-4.5) mg/dL AST (14-36) U/L Total Protein (6.3-8.2) g/dL Albumin (3.5-5.0) g/dL Crossmatch See Detail 02/10/22 02/11/22 02/11/22 Range/Units 20:58 01:52 03:57 WBC (3.8-10.6) k/uL RBC (3.80-5.40) m/uL Hgb (11.4-16.0) gm/dL Hct (34.0-46.0) % RDW (11.5-15.5) % Plt Count (150-450) k/uL Neutrophils # (1.3-7.7) k/uL Lymphocytes # (1.0-4.8) k/uL Chloride 117 H (98-107) mmol/L Carbon Dioxide 21 L (22-30) mmol/L BUN 61 H (7-17) mg/dL Glucose 113 H (74-99) mg/dL POC Glucose (mg/dL) 135 H 116 H (75-99) mg/dL Calcium 7.6 L (8.4-10.2) mg/dL Phosphorus 2.3 L (2.5-4.5) mg/dL AST 42 H (14-36) U/L Total Protein 4.2 L (6.3-8.2) g/dL Albumin 1.9 L (3.5-5.0) g/dL Crossmatch 02/11/22 02/11/22 02/11/22 Range/Units 03:57 05:46 11:30 WBC 11.5 H (3.8-10.6) k/uL RBC 2.69 L (3.80-5.40) m/uL Hgb 8.1 L (11.4-16.0) gm/dL Hct 25.9 L (34.0-46.0) % RDW 18.2 H (11.5-15.5) % Plt Count 66 L (150-450) k/uL Neutrophils # (1.3-7.7) k/uL Lymphocytes # (1.0-4.8) k/uL Chloride (98-107) mmol/L Carbon Dioxide (22-30) mmol/L BUN (7-17) mg/dL Glucose (74-99) mg/dL POC Glucose (mg/dL) 109 H 102 H (75-99) mg/dL Calcium (8.4-10.2) mg/dL Phosphorus (2.5-4.5) mg/dL AST (14-36) U/L Total Protein (6.3-8.2) g/dL Albumin (3.5-5.0) g/dL Crossmatch Microbiology - Last 24 Hours (Table) 02/06/22 23:55 Blood Culture - Preliminary Blood No Growth after 96 hours 02/07/22 00:11 Blood Culture - Preliminary Blood No Growth after 96 hours Assessment and Plan (1) Leukocytosis Current Visit: Yes Status: Acute Code(s): D72.829 - ELEVATED WHITE BLOOD CELL COUNT, UNSPECIFIED SNOMED Code(s): 012591263 Plan: 1patient presented to hospital with sepsis in this we did have a significant elevated white count elevated lactic acid and hypotension requiring multiple pressor support source likely abdominal in this patient who do have a history of rectal cancer with a history of chemoradiation now with abnormal CT suspicious for high-grade small bowel obstruction need to cover for the enteric gram- negative both aerobes and anaerobes, patient is status post laparotomy and lysis of adhesion completed on 02/07/2022 2patient is slowly clinical improvement and will continue treatment with Zosyn and monitor clinical course closely, at the bedside questions were answered Time with Patient: Less than 30
[2022-02-11] MEDS ORDERED: SODIUM ACETATE IV SCH ×7 (19:00)
[2022-02-11] MEDS ORDERED: POTASSIUM PHOSPHATE IV SCH ×7 (19:00)
[2022-02-11] MEDS ORDERED: MAGNESIUM SULFATE IV SCH ×7 (19:00)
[2022-02-11] MEDS ORDERED: [UNRECOGNIZED DRUG - OTHER] IV SCH ×7 (19:00)
[2022-02-11] MEDS: [UNRECOGNIZED DRUG - OTHER] IV SCH ×8 (19:54)
[2022-02-11] MEDS: POTASSIUM PHOSPHATE IV SCH ×8 (19:54)
[2022-02-11] MEDS: POTASSIUM ACETATE IV SCH ×8 (19:54)
[2022-02-11] MEDS: SODIUM ACETATE IV SCH ×8 (19:54)
[2022-02-11 20:12] LABS: Glucose,Whole Blood 127 mg/dL (75-99)
[2022-02-12 02:01] LABS: Glucose,Whole Blood 144 mg/dL (75-99)
[2022-02-12] MEDS: INSULIN ASPART (NovoLOG) 100 UNIT/ML VIAL SQ SCH ×5 (02:01→23:09)
[2022-02-12 03:56] LABS: Anisocytosis Slight; HCT 26.4 % (34.0-46.0); HGB 8.3 gm/dL (11.4-16.0); MCH 30.7 pg (25.0-35.0); MCHC 31.5 g/dL (31.0-37.0); MCV 97.5 fL (80.0-100.0); Macrocytosis Slight; Mean Platelet Volume 10.5; RDW 18.8 % (11.5-15.5); WBC 8.4 k/uL (3.8-10.6)
[2022-02-12 03:57] LABS: Platelet Count 70 k/uL (150-450)
[2022-02-12 04:28] LABS: Albumin 2.1 g/dL (3.5-5.0); Calcium 7.5 mg/dL (8.4-10.2); Magnesium 2.2 mg/dL (1.6-2.3); Phosphorus 2.9 mg/dL (2.5-4.5); Total Bilirubin 0.6 mg/dL (0.2-1.3); Total Protein 4.5 g/dL (6.3-8.2)
[2022-02-12] MEDS: KETOROLAC 15 MG/ML 1 ML VIAL IVP PRN (05:11)
[2022-02-12] MEDS: NOREPINEPHRINE 8 MG in SODIUM CHLORIDE 0.9% 250 ML IV SCH (06:22)
[2022-02-12 06:38] LABS: Glucose,Whole Blood 143 mg/dL (75-99)
[2022-02-12] MEDS: IPRATROPIUM-ALBUTEROL 3 ML NEB INHALATION SCH ×4 (07:34→19:23)
[2022-02-12] MEDS ORDERED: LACTATED RINGERS 1,000 ML IV SCH (08:30)
[2022-02-12] MEDS ORDERED: POTASSIUM CHLORIDE ER 20 MEQ TAB.ER PO STA (08:47)
[2022-02-12] MEDS: PANTOPRAZOLE 40 MG/10 ML VIAL IVP SCH (09:24)
[2022-02-12] MEDS: PIPERACILLIN-TAZOBACTAM 3.375 GM in SODIUM CHLORIDE 0.9% 100 ML IVPB SCH ×2 (09:25→16:19)
--- NOTE | 2022-02-12 10:24 | P.PN ---
Subjective Progress Note Date: 02/11/22 This is a 71-year-old female presents to the emergency room from home, family called EMS. Medical history taken from family and patients chart. Patient has not been eating and drinking for about the last week per . Per , she has also not had stool from her ileostomy for the last 4 to 5 days as well, patient has had increasing confusion since last saturday to the point where he sates she did not know where she was. also reports she has an ulcer on her tailbone that was found about 2 weeks ago at home which [facility], today was the last day of antibiotics. The day before admission patient drank water, had a few bites of banana and had a small amount of emesis per family who reports it seemed dark in color and thought it was blood. Patient follows with dr Titus in the office for history of rectal cancer. Patient was initially diagnosed about 4 years ago and underwent bowel resection with ileostomy with subsequent reversal. She underwent chemoradiation at that time. In October of 2020 there was reoccurrence of cancer, she was taking oral c hemo and had a secondy bowel resection with ileostomy placement in September of 2021. Patients surgeon is Dr. Garcia out of [facility], family reports she has been to the office 1 time since surgery, family reports they were planning for ileostomy reversal around March of this year. She presents to the [facility] with hypotension and shock she is maintained on levophed infusion as well as empiric antibiotic coverage with IV Zosyn. She received 3 L of saline bolus in the [facility] and is now maintained on saline at 130 mls per hour. Blood cultures are currently pending. Patient had abdominal pelvis CT which did show high-grade mechanical bowel obstruction for which she has NG tube placed and surgical consult. There has been 900 mls of output from NG tube so far. Additional labs show sodium 117 which has improved some to 123. Troponin elevation at 0.141, 0.144. BUN today 55, creatinine 5.40 for which nephrology was consulted. There is evidence of some hydronephrosis with possible urinary retention found on computed tomography scan continue bladder ultrasound is requested and pending. Urinalysis showing cloudy urine, trace protein, large blood, RBC 161, rare bacteria, rate mucus, many yeast. Other pertinent medical history includes GERD osteoarthritis, cervical cancer in the 80s, EGD colonoscopies, former smoker very remote not since the 1980s. She is afebrile, heart rate 102, blood pressure 84/49, on 5 L nasal cannula which she initially required BiPAP. 02/08/2022 Patient is currently in the MICU. On my current ventilator with assist control tidal volume 400 FiO2 40% and PEEP of 5. Patient remains pressor support with vasopressin and norepinephrine. Patient underwent exploratory laparotomy yesterday and found to have bowel obstruction secondary to adhesive band. Patient had lysis of adhesions. Chest x-ray showed suspected newly seen small left apical pneumothorax. Short- term follow-up is required. Progressive infiltrates in the left lung base which could represent pneumonia however aspiration cannot be excluded. Laboratory data showed WBC 12.1 hemoglobin 9.5 and platelets 43 Sodium 127 potassium 3.9 chloride 102 bicarb is 17 BUN 108 and creatinine down to 2.9 today. Albumin 2.3 02/09/2022 Patient remains in the MICU and intubated on mechanical ventilator. Requiring p ressor support which is being tapered down.. Patient is status post expiratory laparotomy on 02/07/2022. Chest x-ray showed no acute pulmonary process. No significant change from most recent 5. Laboratory data showed WBC 12.4 hemoglobin 7.9 and platelets 46 sodium 133 potassium 3.1 chloride 101 bicarb is 18 BUN 19 and creatinine 1.87 calcium 7.5 Patient is being continued on antibiotics in the form of Zosyn. Currently on IV hydration and renal function is improving. 02/09/2022 Patient was extubated yesterday. Currently on room air. Otherwise patient is able to move her head with verbal stimuli. Unable to follow simple commands at this time. Still requiring pressor support. Patient was given a dose of hydrocortisone today. Otherwise laboratory data showed WBC 11.9 hemoglobin 6.7 and platelets 47 sodium 139 potassium 4.3 chloride 105 BUN 68 and creatinine 1.16 and albumin 1.9 chest x-ray showed increasing density left lower lobe may reflect underlying atelectasis or infiltrate. Patient remains on antibiotics of Zosyn. Currently on TPN for nutrition. 02/11/2022 Patient is currently in the MICU. Status post expiratory laparotomy and ileostomy. Currently room air. Patient is still requiring pressor support. Otherwise able to open her eyes with verbal stimuli. Patient is generally weak. Continued on TPN. Patient is being current hydrocortisone IV push. Still hypotensive.. Laboratory data showed WC 11.4 hemoglobin 8.1 and platelets 66 Sodium 143 potassium 4.1 chloride 117 bicarb is 21 BUN 61 and creatinine 0.98 liver enzymes are not elevated albumin 1.9. Patient is being continued IV hydration and antibiotics in the form of Zosyn. Pulmonary and general surgery is on board. Current medications reviewed. Objective - Vital Signs Vital signs: Vital Signs Temp 98.0 F 02/11/22 20:00 Pulse 101 H 02/11/22 22:00 Resp 16 02/11/22 22:00 BP 102/54 02/11/22 22:00 Pulse Ox 96 02/11/22 22:00 Intake & Output 02/11/22 02/11/22 02/12/22 06:59 18:59 06:59 Intake Total 1627.294 3158.635 520.625 Output Total 685 430 165 Balance 727.337 6050.635 355.625 Weight 61.8 kg Intake: IV 1624 1697 352 Amino Acid 5%-D15w+Lytes* 104 E* 1,000 ml @ 52 mls/hr IV .BY DURATION [facility] Rx#: [id number] Mvi, Adult No.4 with Vit 312 K 10 ml Trace (Conc-1Ml/ Dose) 1 ml Potassium Phosphate 12 mmol Potassium Acetate 20 meq Sodium Acetate 40 meq Magnesium Sulfate gm 1 gm Calcium Chloride 1 gm In Amino Acid 5%-D15w 1,000 ml @ 52 mls/hr IV .BY DURATION [facility] Rx#: [id number] Piperacillin-Tazobactam 3 100 200 .375 gm In Sodium Chloride 0.9% 100 ml @ 25 mls/hr IVPB Q8HR TIM Rx# :[id number] Potassium Phosphate 12 520 260 52 mmol Potassium Acetate 20 meq Sodium Acetate 40 meq Magnesium Sulfate gm 1 gm Calcium Chloride 1 gm In Amino Acid 5%-D15w 1,000 ml @ 52 mls/hr IV . BY DURATION [facility] Rx#: [id number] Sodium Chloride 0.9% 1, 900 825 300 000 ml @ 75 mls/hr IV . [id number] [facility] Rx#:[id number] Sodium Phosphate 10 mmol 100 In Sodium Chloride 0.9% 100 ml @ 50 mls/hr IVPB ONCE ONE Rx#:[id number] Intake, IV Titration 17.818 52.635 12.625 Amount Norepinephrine 8 mg In 17.818 52.635 12.625 Sodium Chloride 0.9% 250 ml @ 0.35 MCG/KG/MIN 32. 255 mls/hr IV .Q8H [facility] Rx #:[id number] Oral 500 TPN/PPN 156 Potassium Phosphate 12 156 mmol Potassium Acetate 20 meq Sodium Acetate 40 meq Magnesium Sulfate gm 1 gm Calcium Chloride 1 gm In Amino Acid 5%-D15w 1,000 ml @ 52 mls/hr IV . BY DURATION [facility] Rx#: [id number] Output: Urine 455 430 165 Stool 230 Other: Voiding Method Indwelling Catheter Indwelling Catheter Indwelling Catheter ABP, PAP, CO, CI - Last Documented Arterial Blood Pressure 138/102 - Exam PHYSICAL EXAMINATION: Patient is is awake. Able to move her head with verbal stimuli. Could not follow commands. On room air. HEENT: Normocephalic. Neck is supple. Pupils reactive. Nostrils clear. Oral cavity is moist. Neck reveals no JVD, carotid bruits, or thyromegaly. CHEST EXAMINATION: Trachea is central.. Symmetrical expansion. Lung dunbar clear to auscultation and percussion. CARDIAC: Normal S1, S2 with no gallops. No murmurs ABDOMEN: Soft. Bowel sounds sluggish. Surgical site is bandaged. Extremities: reveal no edema. No clubbing or cyanosis Neurologically patient is currently lethargic.. No gross focal deficits noted Skin: No rash or skin lesions. Psychiatric: Could not be assessed at this time. Musculoskeletal: No joint swelling or deformity. - Labs CBC & Chem 7: 02/12/22 03:40 02/12/22 03:40 Labs: Abnormal Lab Results - Last 24 Hours (Table) 02/11/22 02/11/22 02/11/22 Range/Units 01:52 03:57 03:57 WBC 11.5 H (3.8-10.6) k/uL RBC 2.69 L (3.80-5.40) m/uL Hgb 8.1 L (11.4-16.0) gm/dL Hct 25.9 L (34.0-46.0) % RDW 18.2 H (11.5-15.5) % Plt Count 66 L (150-450) k/uL Chloride 117 H (98-107) mmol/L Carbon Dioxide 21 L (22-30) mmol/L BUN 61 H (7-17) mg/dL Glucose 113 H (74-99) mg/dL POC Glucose (mg/dL) 116 H (75-99) mg/dL Calcium 7.6 L (8.4-10.2) mg/dL Phosphorus 2.3 L (2.5-4.5) mg/dL AST 42 H (14-36) U/L Total Protein 4.2 L (6.3-8.2) g/dL Albumin 1.9 L (3.5-5.0) g/dL 02/11/22 02/11/22 02/11/22 Range/Units 05:46 11:30 17:12 WBC (3.8-10.6) k/uL RBC (3.80-5.40) m/uL Hgb (11.4-16.0) gm/dL Hct (34.0-46.0) % RDW (11.5-15.5) % Plt Count (150-450) k/uL Chloride (98-107) mmol/L Carbon Dioxide (22-30) mmol/L BUN (7-17) mg/dL Glucose (74-99) mg/dL POC Glucose (mg/dL) 109 H 102 H 130 H (75-99) mg/dL Calcium (8.4-10.2) mg/dL Phosphorus (2.5-4.5) mg/dL AST (14-36) U/L Total Protein (6.3-8.2) g/dL Albumin (3.5-5.0) g/dL 02/11/22 Range/Units 20:11 WBC (3.8-10.6) k/uL RBC (3.80-5.40) m/uL Hgb (11.4-16.0) gm/dL Hct (34.0-46.0) % RDW (11.5-15.5) % Plt Count (150-450) k/uL Chloride (98-107) mmol/L Carbon Dioxide (22-30) mmol/L BUN (7-17) mg/dL Glucose (74-99) mg/dL POC Glucose (mg/dL) 127 H (75-99) mg/dL Calcium (8.4-10.2) mg/dL Phosphorus (2.5-4.5) mg/dL AST (14-36) U/L Total Protein (6.3-8.2) g/dL Albumin (3.5-5.0) g/dL Microbiology - Last 24 Hours (Table) 02/06/22 23:55 Blood Culture - Preliminary Blood No Growth after 96 hours 02/07/22 00:11 Blood Culture - Preliminary Blood No Growth after 96 hours Assessment and Plan Assessment: Assessment 1 Acute mechanical high grade obstruction. Status post exploratory laparotomy and lysis of additions on 02/07/2022.. -Acute renal failure secondary to acute tubular necrosis secondary to hypotension and severe dehydration. Currently with indwelling catheter in place. Nephrology is on consult. Creatinine 5.40 on admission. improving -Elevated troponins. -Hyponatremia, hypovolemic on admission secondary to severe dehydration from poor oral intake. Sodium currently 121 maintained on normal saline -Shock septic vs hypovolemic, blood culture, urine culture currently negative. Patient is monitored in the ICU and is currently maintained on vasopressin support -Lactic acidosis secondary to dehydration -Altered mental status secondary to acute metabolic encephalopathy with significant uremia -Leukocytosis secondary to above -Reported sacral decub -History of colorectal cancer diagnosed in 2018 status post bowel resection x 2, last surgery in Sep with right sided ileostomy present. -History of gastroesophageal reflux disease -History of cervical cancer in the 80s. -Remote history of smoking GI Prophylaxis Full Code Plan Continue on pressors support Continue on IV fluids. Continue empiric coverage with zosyn Status post exploratory laparotomy and lysis of adhesions. Continue with TPN. Continue with strict I&O. Complete wound/skin assessment Repeat labs in the morning Multiple consultations including liquefaction and regasification helper, oncology, surgical, nephrology, infectious disease Prognosis guarded. Time with Patient: Greater than 30
--- NOTE | 2022-02-12 10:54 | P.PN ---
Subjective Progress Note Date: 02/12/22 Principal diagnosis: Bowel obstruction. Patient was reevaluated today on 02/09/2022, patient remains in the ICU, intubated and mechanically ventilated. She is on assist control rate of 14, volume 400 FiO2 30% and PEEP of 5. Her ABG this morning showed pO2 of 151 pCO2 28 pH of 7.48. Hence no changes were made and her ventilator settings labs today were all reviewed. WBC count is 12.4 hemoglobin is 7.9. Basic metabolic profile is normal except for low potassium of 3.1, BUN is coming down to 90 and creatinine is down to 1.87. Chest x-ray this morning showed no evidence of active disease. No infiltrate, no pneumonia, no evidence of congestive heart failure. Patient remains on propofol at 35 mg/kg/m, vasopressin at 0.03, norepinephrine at 0.08, she is also on TPN and her IV fluid is at 100 mL per hour. Hence I'm planning to give the patient a trial of pressure support and CPAP today, and if tolerated and the patient is arousable and able to follow simple instructions, we'll likely proceed with extubating the patient today. Reevaluated today on 02/10/2022, patient remains in the ICU, she was extubated yesterday uneventfully. She is on room air, does not seem to be in any distress. Patient remains on pressors in the form of norepinephrine at 0.09, she still requiring vasopressin at 0.03, today I recommended that he continue IV fluids, 1 dose of Solu-Cortef will be given, she will be given a unit of blood for hemoglobin of 6.7 today, and hopefully we can taper down and discontinue norepinephrine and vasopressin. Patient remains on TPN at 50 MLS per hour. Her urine output is excellent at 40-50 mL per hour. And her mean arterial pressure is 65. Patient remains empirically on Zosyn. Patient is also on GI prophylaxis. Hemoglobin today is 6.7, no clear-cut evidence of bleeding. Platelets remained low at 47,000. Electrolytes are normal BUN is down to 68 creatinine is down to 1.16. This is improving significantly with hydration. And we will continue to hydrate the patient. Reevaluated today on 02/11/2022, patient remains in the ICU, she is on room air at 98%. Patient is still requiring a small dose of norepinephrine at 0.04 mitral kilo per minute, remains on TPN at 50 mL per hour, remains on IV fluid at 0.9 normal saline 75 mL per hour. Patient seems to be generally weak, her ileostomy is functioning well, she seems to be improving steadily on a regular basis. Patient was given yesterday Solu-Cortef was slight improvement in her blood pressure, today I will recommend 2 doses of Solu-Cortef 100 mg IV push every 12 hours. And we'll try to continue to titrate the norepinephrine. When asked to creative services producer evaluate for nutritional support. Labs were reviewed WBC count is 11.5 hemoglobin is 8.20 Sarcoma bicarb 21 BUN is 61 creatinine 0.98, steadily improving since admission, patient came in with acute renal failure/acute kidney injury, felt to be mostly related to dehydration. Progress note dated 02/12/2022. 71-year-old female again seen in room 253. The patient was admitted on February 07. She apparently came in with a bowel obstruction. She went to the operating room on February 07, and an exploratory laparotomy and lysis of adhesions. The patient came back to the intensive care unit on the February 07, and was landis ccessfully extubated on February 09. The patient's currently on room air. She's receiving TPN at 52 mL an hour, and lactated Ringer's at 75 is an hour. White count 8.4, hemoglobin 8.3, hematocrit 26.4, platelet count 70,000. Sodium 145, potassium 4, chlorides 121, CO2 19, anion gap 5, BUN 59, creatinine 0.91. Calcium 7.5. Albumin 2.1. Culture data is as far negative. No chest x-ray today. She remains on Zosyn. Objective - Vital Signs Vital signs: Vital Signs Temp 97.7 F 02/12/22 08:00 Pulse 108 H 02/12/22 10:00 Resp 18 02/12/22 10:00 BP 120/62 02/12/22 09:00 Pulse Ox 98 02/12/22 10:00 Intake & Output 02/11/22 02/12/22 02/12/22 18:59 06:59 18:59 Intake Total 2249.635 1536.625 558 Output Total 430 465 140 Balance 8135.235 2876.625 418 Weight 63 kg Intake: IV 1697 952 350 Lactated Ringers 1,000 ml 150 @ 75 mls/hr IV .[id number] [facility] Rx#:[id number] Mvi, Adult No.4 with Vit 312 K 10 ml Trace (Conc-1Ml/ Dose) 1 ml Potassium Phosphate 12 mmol Potassium Acetate 20 meq Sodium Acetate 40 meq Magnesium Sulfate gm 1 gm Calcium Chloride 1 gm In Amino Acid 5%-D15w 1,000 ml @ 52 mls/hr IV .BY DURATION [facility] Rx#: [id number] Piperacillin-Tazobactam 3 200 50 .375 gm In Sodium Chloride 0.9% 100 ml @ 25 mls/hr IVPB Q8HR [facility] Rx# :[id number] Potassium Phosphate 12 260 52 mmol Potassium Acetate 20 meq Sodium Acetate 40 meq Magnesium Sulfate gm 1 gm Calcium Chloride 1 gm In Amino Acid 5%-D15w 1,000 ml @ 52 mls/hr IV . BY DURATION [facility] Rx#: [id number] Sodium Chloride 0.9% 1, 825 900 150 000 ml @ 75 mls/hr IV . [id number] [facility] Rx#:[id number] Sodium Phosphate 10 mmol 100 In Sodium Chloride 0.9% 100 ml @ 50 mls/hr IVPB ONCE ONE Rx#:[id number] Intake, IV Titration 52.635 12.625 Amount Norepinephrine 8 mg In 52.635 12.625 Sodium Chloride 0.9% 250 ml @ 0.35 MCG/KG/MIN 32. 255 mls/hr IV .Q8H [facility] Rx #:[id number] Oral 500 TPN/PPN 572 208 Potassium Phosphate 12 156 mmol Potassium Acetate 20 meq Sodium Acetate 40 meq Magnesium Sulfate gm 1 gm Calcium Chloride 1 gm In Amino Acid 5%-D15w 1,000 ml @ 52 mls/hr IV . BY DURATION [facility] Rx#: [id number] TPN 416 208 Output: Urine 430 465 140 Other: Voiding Method Indwelling Catheter Indwelling Catheter Indwelling Catheter ABP, PAP, CO, CI - Last Documented Arterial Blood Pressure 121/65 - Exam No acute distress, poorly responsive, without respiratory distress. Currently on room air. HEENT examination is grossly unremarkable. Neck supple. Full range of motion. No adenopathy thyromegaly or neck vein distention. Cardiovascular examination reveals regular rhythm rate. S1-S2 normal. No S3 or S4. No discernible murmur noted. Heart sounds are distant. Heart rate 100 bpm. Lungs reveal mostly clear breath sounds. Scattered rhonchi. No wheezes or crackles. Breath sounds equal bilaterally. Room air saturation is 90%. Abdomen soft, without bowel sounds. Previous ileostomy is noted. No tenderness. Extremities are intact. No cyanosis or clubbing. Upper extremity edema is noted. Skin reveals multiple areas of ecchymoses. Neurologic examination is brief but nonfocal. - Labs CBC & Chem 7: 02/12/22 03:40 02/12/22 03:40 Labs: Abnormal Lab Results - Last 24 Hours (Table) 02/11/22 02/11/22 02/11/22 Range/Units 11:30 17:12 20:11 RBC (3.80-5.40) m/uL Hgb (11.4-16.0) gm/dL Hct (34.0-46.0) % RDW (11.5-15.5) % Plt Count (150-450) k/uL Chloride (98-107) mmol/L Carbon Dioxide (22-30) mmol/L BUN (7-17) mg/dL Glucose (74-99) mg/dL POC Glucose (mg/dL) 102 H 130 H 127 H (75-99) mg/dL Calcium (8.4-10.2) mg/dL AST (14-36) U/L Total Protein (6.3-8.2) g/dL Albumin (3.5-5.0) g/dL 02/12/22 02/12/22 02/12/22 Range/Units 01:58 03:40 03:40 RBC 2.70 L (3.80-5.40) m/uL Hgb 8.3 L (11.4-16.0) gm/dL Hct 26.4 L (34.0-46.0) % RDW 18.8 H (11.5-15.5) % Plt Count 70 L (150-450) k/uL Chloride 121 H (98-107) mmol/L Carbon Dioxide 19 L (22-30) mmol/L BUN 59 H (7-17) mg/dL Glucose 126 H (74-99) mg/dL POC Glucose (mg/dL) 144 H (75-99) mg/dL Calcium 7.5 L (8.4-10.2) mg/dL AST 51 H (14-36) U/L Total Protein 4.5 L (6.3-8.2) g/dL Albumin 2.1 L (3.5-5.0) g/dL 02/12/22 Range/Units 06:37 RBC (3.80-5.40) m/uL Hgb (11.4-16.0) gm/dL Hct (34.0-46.0) % RDW (11.5-15.5) % Plt Count (150-450) k/uL Chloride (98-107) mmol/L Carbon Dioxide (22-30) mmol/L BUN (7-17) mg/dL Glucose (74-99) mg/dL POC Glucose (mg/dL) 143 H (75-99) mg/dL Calcium (8.4-10.2) mg/dL AST (14-36) U/L Total Protein (6.3-8.2) g/dL Albumin (3.5-5.0) g/dL Microbiology - Last 24 Hours (Table) 02/07/22 00:11 Blood Culture - Preliminary Blood No Growth after 120 hours 02/06/22 23:55 Blood Culture - Preliminary Blood No Growth after 120 hours Assessment and Plan Assessment: Postop day #5, status post exploratory laparotomy, and lysis of adhesions, secondary to bowel obstruction. Status post intubation on February 07, with successful extubation on 02/09/2022. Acute renal failure. Hyponatremia. Thrombocytopenia. History of colorectal cancer, diagnosed 2018, with previous surgery 2, and a right-sided ileostomy placement,S/P chemotherapy. Paroxysmal atrial fibrillation. History of DJD. History of GERD History of cervical cancer. Prior history of tobacco use. Plan: Plan dated 02/12/2022. The patient is doing relatively well. We will continue to follow and make recommendations where appropriate. The patient is seen today in room 253. She remains on TPN at 52 mL an hour. In addition, we changed her saline to lactated Ringer's at 75 mL an hour. Additional recommendations and suggestions are forth coming. Prognosis is certainly guarded. Labs, x-rays, and medications are all reviewed. Time with Patient: Less than 30
[2022-02-12 11:44] LABS: Glucose,Whole Blood 124 mg/dL (75-99)
--- NOTE | 2022-02-12 12:11 | P.PN ---
Subjective Progress Note Date: 02/12/22 CHIEF COMPLAINT: Follow obstruction HISTORY OF PRESENT ILLNESS: Patient is postop day #5 status post exploratory laparotomy and lysis of adhesion for bowel obstruction secondary to adhesive band. Patient remains in the ICU. Patient was extubated on February 09. Her Levophed was discontinued yesterday. Her ostomy is functioning. She is on TPN for nutrition support. Afebrile. Mildly tachycardic heart rate 107 WBC normalized from 11.5-8.4 hemoglobin 8.3 platelets 70 creatinine 0.91 Patient seen and examined with Dr. connolly PHYSICAL EXAM: VITAL SIGNS: Reviewed. GENERAL: No acute distress HEENT: Head is atraumatic, normocephalic. ABDOMEN: Soft. Nondistended. Incision site clean dry and intact. Ostomy liquidy brown green stool Neuro: Patient is awake. not talking. She will say a couple words per nursing. She is able to follow simple commands ASSESSMENT: 1. Status post exploratory laparotomy and lysis of adhesion for bowel obstruction secondary to adhesive band 2. Acute renal failure likely due to dehydration. Resolved 3. Thrombocytopenia possibly chronic. Followed by oncology 4. History of colorectal cancer PLAN: -Continue ICU management -Continue supportive care -Continue IV fluids -Continue TPN -Continue NPO except ice chips and popsicles Physician Corporate Operations Compliance Manager note has been reviewed by physician. Signing provider agrees with the documented findings, assessment, and plan of care. Objective - Vital Signs Vital signs: Vital Signs Temp 97.7 F 02/12/22 08:00 Pulse 107 H 02/12/22 11:04 Resp 11 L 02/12/22 11:00 BP 119/61 02/12/22 11:00 Pulse Ox 100 02/12/22 11:00 Intake & Output 02/11/22 02/12/22 02/12/22 18:59 06:59 18:59 Intake Total 2249.635 1536.625 685 Output Total 430 465 190 Balance 8548.521 4557.625 495 Weight 63 kg Intake: IV 1697 952 425 Lactated Ringers 1,000 ml 225 @ 75 mls/hr IV .[id number] [facility] Rx#:[id number] Mvi, Adult No.4 with Vit 312 K 10 ml Trace (Conc-1Ml/ Dose) 1 ml Potassium Phosphate 12 mmol Potassium Acetate 20 meq Sodium Acetate 40 meq Magnesium Sulfate gm 1 gm Calcium Chloride 1 gm In Amino Acid 5%-D15w 1,000 ml @ 52 mls/hr IV .BY DURATION [facility] Rx#: [id number] Piperacillin-Tazobactam 3 200 50 .375 gm In Sodium Chloride 0.9% 100 ml @ 25 mls/hr IVPB Q8HR [facility] Rx# :[id number] Potassium Phosphate 12 260 52 mmol Potassium Acetate 20 meq Sodium Acetate 40 meq Magnesium Sulfate gm 1 gm Calcium Chloride 1 gm In Amino Acid 5%-D15w 1,000 ml @ 52 mls/hr IV . BY DURATION [facility] Rx#: [id number] Sodium Chloride 0.9% 1, 825 900 150 000 ml @ 75 mls/hr IV . [id number] [facility] Rx#:[id number] Sodium Phosphate 10 mmol 100 In Sodium Chloride 0.9% 100 ml @ 50 mls/hr IVPB ONCE ONE Rx#:[id number] Intake, IV Titration 52.635 12.625 Amount Norepinephrine 8 mg In 52.635 12.625 Sodium Chloride 0.9% 250 ml @ 0.35 MCG/KG/MIN 32. 255 mls/hr IV .Q8H [facility] Rx #:[id number] Oral 500 TPN/PPN 572 260 Potassium Phosphate 12 156 mmol Potassium Acetate 20 meq Sodium Acetate 40 meq Magnesium Sulfate gm 1 gm Calcium Chloride 1 gm In Amino Acid 5%-D15w 1,000 ml @ 52 mls/hr IV . BY DURATION [facility] Rx#: [id number] TPN 416 260 Output: Urine 430 465 190 Other: Voiding Method Indwelling Catheter Indwelling Catheter Indwelling Catheter ABP, PAP, CO, CI - Last Documented Arterial Blood Pressure 121/68 - Labs CBC & Chem 7: 02/12/22 03:40 02/12/22 03:40 Labs: Abnormal Lab Results - Last 24 Hours (Table) 02/11/22 02/11/22 02/12/22 Range/Units 17:12 20:11 01:58 RBC (3.80-5.40) m/uL Hgb (11.4-16.0) gm/dL Hct (34.0-46.0) % RDW (11.5-15.5) % Plt Count (150-450) k/uL Chloride (98-107) mmol/L Carbon Dioxide (22-30) mmol/L BUN (7-17) mg/dL Glucose (74-99) mg/dL POC Glucose (mg/dL) 130 H 127 H 144 H (75-99) mg/dL Calcium (8.4-10.2) mg/dL AST (14-36) U/L Total Protein (6.3-8.2) g/dL Albumin (3.5-5.0) g/dL 02/12/22 02/12/22 02/12/22 Range/Units 03:40 03:40 06:37 RBC 2.70 L (3.80-5.40) m/uL Hgb 8.3 L (11.4-16.0) gm/dL Hct 26.4 L (34.0-46.0) % RDW 18.8 H (11.5-15.5) % Plt Count 70 L (150-450) k/uL Chloride 121 H (98-107) mmol/L Carbon Dioxide 19 L (22-30) mmol/L BUN 59 H (7-17) mg/dL Glucose 126 H (74-99) mg/dL POC Glucose (mg/dL) 143 H (75-99) mg/dL Calcium 7.5 L (8.4-10.2) mg/dL AST 51 H (14-36) U/L Total Protein 4.5 L (6.3-8.2) g/dL Albumin 2.1 L (3.5-5.0) g/dL 02/12/22 Range/Units 11:43 RBC (3.80-5.40) m/uL Hgb (11.4-16.0) gm/dL Hct (34.0-46.0) % RDW (11.5-15.5) % Plt Count (150-450) k/uL Chloride (98-107) mmol/L Carbon Dioxide (22-30) mmol/L BUN (7-17) mg/dL Glucose (74-99) mg/dL POC Glucose (mg/dL) 124 H (75-99) mg/dL Calcium (8.4-10.2) mg/dL AST (14-36) U/L Total Protein (6.3-8.2) g/dL Albumin (3.5-5.0) g/dL Microbiology - Last 24 Hours (Table) 02/07/22 00:11 Blood Culture - Preliminary Blood No Growth after 120 hours 02/06/22 23:55 Blood Culture - Preliminary Blood No Growth after 120 hours
[2022-02-12 13:40] VITALS: BMI 25.4
[2022-02-12] MEDS ORDERED: POTASSIUM PHOSPHATE IV SCH ×7 (14:00)
[2022-02-12] MEDS ORDERED: [UNRECOGNIZED DRUG - OTHER] IV SCH ×7 (14:00)
[2022-02-12] MEDS ORDERED: SODIUM ACETATE IV SCH ×7 (14:00)
[2022-02-12] MEDS ORDERED: MAGNESIUM SULFATE IV SCH ×7 (14:00)
--- NOTE | 2022-02-12 14:20 | CDI ---
Documentation Clarification Form Date: 02/12/2022 01:42:02 PM From: Cailin Carpenter RN, CCDS Admit Date: 02/07/2022 01:45:00 AM Patient Name: Cindy Lazcano Visit Number: [id number] Discharge Date: ATTENTION: The Clinical Documentation Specialists (CDI) and [facility] Coding Staff appreciate your assistance in clarifying documentation. Please respond to the clarification below the line at the bottom and electronically sign. The CDI & [facility] Coding staff will review the response and follow-up if needed. Please note: Queries are made part of the Legal Health Record. If you have any questions, please contact the author of this message via ITS. Dr. Esha Hampton sacral/tailbone decubitus ulcer is documented in the ED assessment on 02/06/22, the H/P and subsequent progress notes. . Additional clarification regarding the stage of the pressure ulcer is requested. History/Risk Factors: Cervical cancer, Rectal cancer, Bowel Resection, Former smoker Cervical cancer, Rectal cancer, Bowel Resection, Former smoker Clinical Indicators: Cervical cancer, rectal cancer, Bowel Resection, Former smoker Location: Sacrum Wound description: 6 cm diameter roughly circular eschar overlying decubitus ulcer on the sacrum. 02/07 Nursing wound assessment: coccyx pressure injury -Unstageable Treatment: Skin integrity protocol Specialty Bed: Skin Guard Mattress Dietary consult Please clarify the stage of pressure ulcer [insert location], if known: [ ] Deep tissue injury [insert location] [ ] Stage 1 Pressure Ulcer [insert location] [ ] Stage 2 Pressure Ulcer [insert location] [ ] Stage 3 Pressure Ulcer [insert location] [ ] Stage 4 Pressure Ulcer [insert location] [ ] Unstageable Pressure ulcer [insert location] [ ] Other condition, please specify [ ] Unable to determine Clinical Definitions: Stage 1 Pressure Ulcer: intact skin, non-blanching redness of local area Stage 2 Pressure Ulcer: Partial thickness, loss of dermis, pink wound bed Stage 3 Pressure Ulcer: Full thickness tissue loss Stage 4 Pressure Ulcer: Full thickness tissue loss with exposed bone, tendon, or muscle. Unstageable pressure ulcer: Full thickness tissue loss in which the base of the ulcer is covered by slough (yellow, lira, cheng, green or brown) and/or eschar (lira, brown or black) in the wound bed. (Template Last Revised: December 2020) 02/16 Query response documented by Infectious Disease in the 02/13 Progress Note and subsequent progress notes. (CDS: GWEN) ROXANN
--- NOTE | 2022-02-12 15:17 | P.PN ---
Subjective Patient is seen for follow-up for acute kidney injury. Renal function has improved with creatinine down to 0.9 mg/dL from 6.47 on initial admission. Patient is maintained on TPN. Patient is status post explorative laparotomy and lysis of adhesions for bowel obstruction on 02/07/2022 Sodium was slightly elevated at 145 and IV fluids were switched to Ringer lactate in addition to the TPN. I have discussed with pharmacy regarding the potassium content in the TPN and they have already decreased it by about a third. Hopefully this will suffice and we do not need extra IV fluids as patient does have third spacing and edema of . .upper and lower extremities. Objective - Vital Signs Vital signs: Vital Signs Temp 98.3 F 02/12/22 15:01 Pulse 102 H 02/12/22 15:01 Resp 16 02/12/22 15:01 BP 112/57 02/12/22 15:01 Pulse Ox 99 02/12/22 15:01 Intake & Output 02/11/22 02/12/22 02/12/22 18:59 06:59 18:59 Intake Total 2249.635 1536.625 685 Output Total 430 465 190 Balance 4189.947 2067.625 495 Weight 63 kg 63 kg Intake: IV 1697 952 425 Lactated Ringers 1,000 ml 225 @ 75 mls/hr IV .[id number] [facility] Rx#:[id number] Mvi, Adult No.4 with Vit 312 K 10 ml Trace (Conc-1Ml/ Dose) 1 ml Potassium Phosphate 12 mmol Potassium Acetate 20 meq Sodium Acetate 40 meq Magnesium Sulfate gm 1 gm Calcium Chloride 1 gm In Amino Acid 5%-D15w 1,000 ml @ 52 mls/hr IV .BY DURATION [facility] Rx#: [id number] Piperacillin-Tazobactam 3 200 50 .375 gm In Sodium Chloride 0.9% 100 ml @ 25 mls/hr IVPB Q8HR [facility] Rx# :[id number] Potassium Phosphate 12 260 52 mmol Potassium Acetate 20 meq Sodium Acetate 40 meq Magnesium Sulfate gm 1 gm Calcium Chloride 1 gm In Amino Acid 5%-D15w 1,000 ml @ 52 mls/hr IV . BY DURATION [facility] Rx#: [id number] Sodium Chloride 0.9% 1, 825 900 150 000 ml @ 75 mls/hr IV . [id number] [facility] Rx#:[id number] Sodium Phosphate 10 mmol 100 In Sodium Chloride 0.9% 100 ml @ 50 mls/hr IVPB ONCE ONE Rx#:[id number] Intake, IV Titration 52.635 12.625 Amount Norepinephrine 8 mg In 52.635 12.625 Sodium Chloride 0.9% 250 ml @ 0.35 MCG/KG/MIN 32. 255 mls/hr IV .Q8H [facility] Rx #:[id number] Oral 500 TPN/PPN 572 260 Potassium Phosphate 12 156 mmol Potassium Acetate 20 meq Sodium Acetate 40 meq Magnesium Sulfate gm 1 gm Calcium Chloride 1 gm In Amino Acid 5%-D15w 1,000 ml @ 52 mls/hr IV . BY DURATION [facility] Rx#: [id number] TPN 416 260 Output: Urine 430 465 190 Other: Voiding Method Indwelling Catheter Indwelling Catheter Indwelling Catheter ABP, PAP, CO, CI - Last Documented Arterial Blood Pressure 121/68 - Exam Awake, comfortable Cachectic looking Examination of the heart S1 and S2 Examination lungs bilateral breath sounds are heard Abdomen is soft, mild tenderness Examination of extremities shows shows edema 2+ upper and lower extremities - Labs CBC & Chem 7: 02/12/22 03:40 02/12/22 03:40 Labs: Abnormal Lab Results - Last 24 Hours (Table) 02/11/22 02/11/22 02/12/22 Range/Units 17:12 20:11 01:58 RBC (3.80-5.40) m/uL Hgb (11.4-16.0) gm/dL Hct (34.0-46.0) % RDW (11.5-15.5) % Plt Count (150-450) k/uL Chloride (98-107) mmol/L Carbon Dioxide (22-30) mmol/L BUN (7-17) mg/dL Glucose (74-99) mg/dL POC Glucose (mg/dL) 130 H 127 H 144 H (75-99) mg/dL Calcium (8.4-10.2) mg/dL AST (14-36) U/L Total Protein (6.3-8.2) g/dL Albumin (3.5-5.0) g/dL 02/12/22 02/12/22 02/12/22 Range/Units 03:40 03:40 06:37 RBC 2.70 L (3.80-5.40) m/uL Hgb 8.3 L (11.4-16.0) gm/dL Hct 26.4 L (34.0-46.0) % RDW 18.8 H (11.5-15.5) % Plt Count 70 L (150-450) k/uL Chloride 121 H (98-107) mmol/L Carbon Dioxide 19 L (22-30) mmol/L BUN 59 H (7-17) mg/dL Glucose 126 H (74-99) mg/dL POC Glucose (mg/dL) 143 H (75-99) mg/dL Calcium 7.5 L (8.4-10.2) mg/dL AST 51 H (14-36) U/L Total Protein 4.5 L (6.3-8.2) g/dL Albumin 2.1 L (3.5-5.0) g/dL 02/12/22 Range/Units 11:43 RBC (3.80-5.40) m/uL Hgb (11.4-16.0) gm/dL Hct (34.0-46.0) % RDW (11.5-15.5) % Plt Count (150-450) k/uL Chloride (98-107) mmol/L Carbon Dioxide (22-30) mmol/L BUN (7-17) mg/dL Glucose (74-99) mg/dL POC Glucose (mg/dL) 124 H (75-99) mg/dL Calcium (8.4-10.2) mg/dL AST (14-36) U/L Total Protein (6.3-8.2) g/dL Albumin (3.5-5.0) g/dL Microbiology - Last 24 Hours (Table) 02/07/22 00:11 Blood Culture - Preliminary Blood No Growth after 120 hours 02/06/22 23:55 Blood Culture - Preliminary Blood No Growth after 120 hours Assessment and Plan Assessment: 1. Acute kidney injury ATN currently improved with serum creatinine down to 0.9 from 6.4 on initial admission. Etiology is hypotension/septic shock. Mild bilateral hydronephrosis noted on computed tomography scan. Urology on consult 2. Small bowel obstruction status post explorative laparotomy and lysis of edition's on 02/07/2022 3 Mild hypernatremia. TPN has been adjusted Plan: DC Ringer lactate Maintain lower sodium in TPN as discussed with pharmacy. Repeat labs in a.m.
[2022-02-12 16:21] LABS: Glucose,Whole Blood 116 mg/dL (75-99)
--- NOTE | 2022-02-12 17:03 | P.PN ---
Subjective Progress Note Date: 02/12/22 Seen in ICU this am, planning to move to out of ICU today, off levofed. Day 5 post op Objective - Vital Signs Vital signs: Vital Signs Temp 97.7 F 02/12/22 08:00 Pulse 112 H 02/12/22 08:00 Resp 19 02/12/22 08:00 BP 112/63 02/12/22 08:00 Pulse Ox 97 02/12/22 08:00 Intake & Output 02/11/22 02/12/22 02/12/22 18:59 06:59 18:59 Intake Total 2249.635 1536.625 254 Output Total 430 465 75 Balance 2260.351 8951.625 179 Weight 63 kg Intake: IV 1697 952 150 Mvi, Adult No.4 with Vit 312 K 10 ml Trace (Conc-1Ml/ Dose) 1 ml Potassium Phosphate 12 mmol Potassium Acetate 20 meq Sodium Acetate 40 meq Magnesium Sulfate gm 1 gm Calcium Chloride 1 gm In Amino Acid 5%-D15w 1,000 ml @ 52 mls/hr IV .BY DURATION [facility] Rx#: [id number] Piperacillin-Tazobactam 3 200 .375 gm In Sodium Chloride 0.9% 100 ml @ 25 mls/hr IVPB Q8HR TIM Rx# :[id number] Potassium Phosphate 12 260 52 mmol Potassium Acetate 20 meq Sodium Acetate 40 meq Magnesium Sulfate gm 1 gm Calcium Chloride 1 gm In Amino Acid 5%-D15w 1,000 ml @ 52 mls/hr IV . BY DURATION TIM Rx#: [id number] Sodium Chloride 0.9% 1, 825 900 150 000 ml @ 75 mls/hr IV . [id number] TIM Rx#:[id number] Sodium Phosphate 10 mmol 100 In Sodium Chloride 0.9% 100 ml @ 50 mls/hr IVPB ONCE ONE Rx#:[id number] Intake, IV Titration 52.635 12.625 Amount Norepinephrine 8 mg In 52.635 12.625 Sodium Chloride 0.9% 250 ml @ 0.35 MCG/KG/MIN 32. 255 mls/hr IV .Q8H TIM Rx #:[id number] Oral 500 TPN/PPN 572 104 Potassium Phosphate 12 156 mmol Potassium Acetate 20 meq Sodium Acetate 40 meq Magnesium Sulfate gm 1 gm Calcium Chloride 1 gm In Amino Acid 5%-D15w 1,000 ml @ 52 mls/hr IV . BY DURATION [facility] Rx#: [id number] TPN 416 104 Output: Urine 430 465 75 Other: Voiding Method Indwelling Catheter Indwelling Catheter ABP, PAP, CO, CI - Last Documented Arterial Blood Pressure 138/102 - Exam - Constitutional General appearance: no acute distress, thin, sleeping NG tube - EENT Eyes: anicteric sclerae - Cardiovascular Rhythm: irregularly irregular - Gastrointestinal General gastrointestinal: decreased bowel sounds, soft, ileostomy - Musculoskeletal Musculoskeletal: generalized weakness - Psychiatric Psychiatric:resting awakens to stimuli - Labs CBC & Chem 7: 02/12/22 03:40 02/12/22 03:40 Labs: Abnormal Lab Results - Last 24 Hours (Table) 02/11/22 02/11/22 02/11/22 Range/Units 11:30 17:12 20:11 RBC (3.80-5.40) m/uL Hgb (11.4-16.0) gm/dL Hct (34.0-46.0) % RDW (11.5-15.5) % Plt Count (150-450) k/uL Chloride (98-107) mmol/L Carbon Dioxide (22-30) mmol/L BUN (7-17) mg/dL Glucose (74-99) mg/dL POC Glucose (mg/dL) 102 H 130 H 127 H (75-99) mg/dL Calcium (8.4-10.2) mg/dL AST (14-36) U/L Total Protein (6.3-8.2) g/dL Albumin (3.5-5.0) g/dL 02/12/22 02/12/22 02/12/22 Range/Units 01:58 03:40 03:40 RBC 2.70 L (3.80-5.40) m/uL Hgb 8.3 L (11.4-16.0) gm/dL Hct 26.4 L (34.0-46.0) % RDW 18.8 H (11.5-15.5) % Plt Count 70 L (150-450) k/uL Chloride 121 H (98-107) mmol/L Carbon Dioxide 19 L (22-30) mmol/L BUN 59 H (7-17) mg/dL Glucose 126 H (74-99) mg/dL POC Glucose (mg/dL) 144 H (75-99) mg/dL Calcium 7.5 L (8.4-10.2) mg/dL AST 51 H (14-36) U/L Total Protein 4.5 L (6.3-8.2) g/dL Albumin 2.1 L (3.5-5.0) g/dL 02/12/22 Range/Units 06:37 RBC (3.80-5.40) m/uL Hgb (11.4-16.0) gm/dL Hct (34.0-46.0) % RDW (11.5-15.5) % Plt Count (150-450) k/uL Chloride (98-107) mmol/L Carbon Dioxide (22-30) mmol/L BUN (7-17) mg/dL Glucose (74-99) mg/dL POC Glucose (mg/dL) 143 H (75-99) mg/dL Calcium (8.4-10.2) mg/dL AST (14-36) U/L Total Protein (6.3-8.2) g/dL Albumin (3.5-5.0) g/dL Microbiology - Last 24 Hours (Table) 02/07/22 00:11 Blood Culture - Preliminary Blood No Growth after 120 hours 02/06/22 23:55 Blood Culture - Preliminary Blood No Growth after 120 hours Assessment and Plan Plan: Comments: abdomen/bladder ultrasound report reviewed Chest x-ray: report reviewed CT scan - abdomen: report reviewed CT scan - pelvis: report reviewed Assessment and Plan Plan: Dr. Titus discussed the case with the Critical Care team, Internal Medicine and the family. Patient's acute condition appears to be more related to postoperative complications, most suggestive of a stricture. Surgery is seeing the patient and is going to take the patient to surgery as soon as she is hemodynamically stable enough to tolerate. At this time, no evidence to suggest that her condition is related to a progressive malignancy. We will continue to follow up on her hospital course. She has continued to improve and plan to move from ICU to medical floor today Hemoglobin 8.3 Ileostomy active Post op day 5 CBC in am Doctor attests: I performed a history and physical examination of this patient, developed impression and plan of care, discussed with dictator. I agree with dictators note, documented as a scribe.
--- NOTE | 2022-02-12 21:12 | P.PN ---
Subjective Progress Note Date: 02/12/22 Principal diagnosis: Abdominal sepsis Patient is a 71 year female With a past medical history significant for rectal cancer with recent recurrence in this patient who is status post bowel resection with ileostomy placement in the summer of 2020 presented to the hospital with weakness no output from ileostomy noticed to have a high-grade small bowel obstruction patient is status post laparotomy with lysis of adhesion. The patient was extubated on 02/09/2022 On today's evaluation is 02/12/2022, the patient continues to be afebrile, the patient is breathing comfortably on room air, patient is hemodynamically stable and off pressor support, patient is awake but did not answer any question no vomiting or diarrhea has been reported, no concern per her at the bedside Objective - Vital Signs Vital signs: Vital Signs Temp 97.7 F 02/12/22 08:00 Pulse 107 H 02/12/22 11:04 Resp 11 L 02/12/22 11:00 BP 119/61 02/12/22 11:00 Pulse Ox 100 02/12/22 11:00 Intake & Output 02/11/22 02/12/22 02/12/22 18:59 06:59 18:59 Intake Total 2249.635 1536.625 685 Output Total 430 465 190 Balance 6296.953 8245.625 495 Weight 63 kg Intake: IV 1697 952 425 Lactated Ringers 1,000 ml 225 @ 75 mls/hr IV .[id number] TIM Rx#:[id number] Mvi, Adult No.4 with Vit 312 K 10 ml Trace (Conc-1Ml/ Dose) 1 ml Potassium Phosphate 12 mmol Potassium Acetate 20 meq Sodium Acetate 40 meq Magnesium Sulfate gm 1 gm Calcium Chloride 1 gm In Amino Acid 5%-D15w 1,000 ml @ 52 mls/hr IV .BY DURATION TIM Rx#: [id number] Piperacillin-Tazobactam 3 200 50 .375 gm In Sodium Chloride 0.9% 100 ml @ 25 mls/hr IVPB Q8HR TIM Rx# :[id number] Potassium Phosphate 12 260 52 mmol Potassium Acetate 20 meq Sodium Acetate 40 meq Magnesium Sulfate gm 1 gm Calcium Chloride 1 gm In Amino Acid 5%-D15w 1,000 ml @ 52 mls/hr IV . BY DURATION TIM Rx#: [id number] Sodium Chloride 0.9% 1, 825 900 150 000 ml @ 75 mls/hr IV . [id number] [facility] Rx#:[id number] Sodium Phosphate 10 mmol 100 In Sodium Chloride 0.9% 100 ml @ 50 mls/hr IVPB ONCE ONE Rx#:[id number] Intake, IV Titration 52.635 12.625 Amount Norepinephrine 8 mg In 52.635 12.625 Sodium Chloride 0.9% 250 ml @ 0.35 MCG/KG/MIN 32. 255 mls/hr IV .Q8H [facility] Rx #:[id number] Oral 500 TPN/PPN 572 260 Potassium Phosphate 12 156 mmol Potassium Acetate 20 meq Sodium Acetate 40 meq Magnesium Sulfate gm 1 gm Calcium Chloride 1 gm In Amino Acid 5%-D15w 1,000 ml @ 52 mls/hr IV . BY DURATION [facility] Rx#: [id number] TPN 416 260 Output: Urine 430 465 190 Other: Voiding Method Indwelling Catheter Indwelling Catheter Indwelling Catheter ABP, PAP, CO, CI - Last Documented Arterial Blood Pressure 121/68 - Exam GENERAL DESCRIPTION: An elderly female lying in bed in no distress RESPIRATORY SYSTEM: Unlabored breathing , decreased breath sounds at bases HEART: S1 S2 regular rate and rhythm , ABDOMEN: Soft , midline incision is currently dressed EXTREMITIES: No edema feet - Labs CBC & Chem 7: 02/12/22 03:40 02/12/22 03:40 Labs: Abnormal Lab Results - Last 24 Hours (Table) 02/11/22 02/11/22 02/12/22 Range/Units 17:12 20:11 01:58 RBC (3.80-5.40) m/uL Hgb (11.4-16.0) gm/dL Hct (34.0-46.0) % RDW (11.5-15.5) % Plt Count (150-450) k/uL Chloride (98-107) mmol/L Carbon Dioxide (22-30) mmol/L BUN (7-17) mg/dL Glucose (74-99) mg/dL POC Glucose (mg/dL) 130 H 127 H 144 H (75-99) mg/dL Calcium (8.4-10.2) mg/dL AST (14-36) U/L Total Protein (6.3-8.2) g/dL Albumin (3.5-5.0) g/dL 02/12/22 02/12/22 02/12/22 Range/Units 03:40 03:40 06:37 RBC 2.70 L (3.80-5.40) m/uL Hgb 8.3 L (11.4-16.0) gm/dL Hct 26.4 L (34.0-46.0) % RDW 18.8 H (11.5-15.5) % Plt Count 70 L (150-450) k/uL Chloride 121 H (98-107) mmol/L Carbon Dioxide 19 L (22-30) mmol/L BUN 59 H (7-17) mg/dL Glucose 126 H (74-99) mg/dL POC Glucose (mg/dL) 143 H (75-99) mg/dL Calcium 7.5 L (8.4-10.2) mg/dL AST 51 H (14-36) U/L Total Protein 4.5 L (6.3-8.2) g/dL Albumin 2.1 L (3.5-5.0) g/dL 02/12/22 Range/Units 11:43 RBC (3.80-5.40) m/uL Hgb (11.4-16.0) gm/dL Hct (34.0-46.0) % RDW (11.5-15.5) % Plt Count (150-450) k/uL Chloride (98-107) mmol/L Carbon Dioxide (22-30) mmol/L BUN (7-17) mg/dL Glucose (74-99) mg/dL POC Glucose (mg/dL) 124 H (75-99) mg/dL Calcium (8.4-10.2) mg/dL AST (14-36) U/L Total Protein (6.3-8.2) g/dL Albumin (3.5-5.0) g/dL Microbiology - Last 24 Hours (Table) 02/07/22 00:11 Blood Culture - Preliminary Blood No Growth after 120 hours 02/06/22 23:55 Blood Culture - Preliminary Blood No Growth after 120 hours Assessment and Plan (1) Leukocytosis Current Visit: Yes Status: Acute Code(s): D72.829 - ELEVATED WHITE BLOOD CELL COUNT, UNSPECIFIED SNOMED Code(s): 641371405 Plan: 1patient presented to hospital with sepsis in this we did have a significant elevated white count elevated lactic acid and hypotension requiring multiple pressor support source likely abdominal in this patient who do have a history of rectal cancer with a history of chemoradiation now with abnormal CT suspicious for high-grade small bowel obstruction need to cover for the enteric gram- negative both aerobes and anaerobes, patient is status post laparotomy and lysis of adhesion completed on 02/07/2022 2patient patient is gradually improving as the patient will continue with Zosyn and monitor clinical course closely, at the bedside questions were answered Time with Patient: Less than 30
[2022-02-12 21:15] LABS: Glucose,Whole Blood 93 mg/dL (75-99)
[2022-02-13] MEDS: PIPERACILLIN-TAZOBACTAM 3.375 GM in SODIUM CHLORIDE 0.9% 100 ML IVPB SCH ×4 (00:19→23:40)
[2022-02-13 01:44] LABS: Glucose,Whole Blood 87 mg/dL (75-99)
[2022-02-13] MEDS: INSULIN ASPART (NovoLOG) 100 UNIT/ML VIAL SQ SCH ×5 (03:04→21:50)
[2022-02-13 07:07] LABS: Glucose,Whole Blood 79 mg/dL (75-99)
[2022-02-13 07:56] LABS: African American GFR (CKD) 74 (>60 ml/min/1.73 sqM); Anion Gap 4 mmol/L; Blood Urea Nitrogen 53 mg/dL (7-17); Carbon Dioxide 22 mmol/L (22-30); Chloride 123 mmol/L (98-107); Glucose 78 mg/dL (74-99); Magnesium 2.2 mg/dL (1.6-2.3); Non-African American GFR(CKD) 64 (>60 ml/min/1.73 sqM); Phosphorus 3.1 mg/dL (2.5-4.5); Potassium 3.7 mmol/L (3.5-5.1); Sodium 149 mmol/L (137-145)
[2022-02-13] MEDS: PANTOPRAZOLE 40 MG/10 ML VIAL IVP SCH (08:25)
[2022-02-13] MEDS: IPRATROPIUM-ALBUTEROL 3 ML NEB INHALATION SCH ×4 (09:28→20:43)
--- NOTE | 2022-02-13 09:54 | P.PN ---
Subjective Progress Note Date: 02/12/22 This is a 71-year-old female presents to the emergency room from home, family called EMS. Medical history taken from family and patients chart. Patient has not been eating and drinking for about the last week per . Per , she has also not had stool from her ileostomy for the last 4 to 5 days as well, patient has had increasing confusion since last saturday to the point where he sates she did not know where she was. also reports she has an ulcer on her tailbone that was found about 2 weeks ago at home which [facility], today was the last day of antibiotics. The day before admission patient drank water, had a few bites of banana and had a small amount of emesis per family who reports it seemed dark in color and thought it was blood. Patient follows with dr Titus in the office for history of rectal cancer. Patient was initially diagnosed about 4 years ago and underwent bowel resection with ileostomy with subsequent reversal. She underwent chemoradiation at that time. In October of 2020 there was reoccurrence of cancer, she was taking oral c hemo and had a secondy bowel resection with ileostomy placement in September of 2021. Patients surgeon is Dr. Garcia out of [facility], family reports she has been to the office 1 time since surgery, family reports they were planning for ileostomy reversal around March of this year. She presents to the EC with hypotension and shock she is maintained on levophed infusion as well as empiric antibiotic coverage with IV Zosyn. She received 3 L of saline bolus in the EC and is now maintained on saline at 130 mls per hour. Blood cultures are currently pending. Patient had abdominal pelvis CT which did show high-grade mechanical bowel obstruction for which she has NG tube placed and surgical consult. There has been 900 mls of output from NG tube so far. Additional labs show sodium 117 which has improved some to 123. Troponin elevation at 0.141, 0.144. BUN today 55, creatinine 5.40 for which nephrology was consulted. There is evidence of some hydronephrosis with possible urinary retention found on computed tomography scan continue bladder ultrasound is requested and pending. Urinalysis showing cloudy urine, trace protein, large blood, RBC 161, rare bacteria, rate mucus, many yeast. Other pertinent medical history includes GERD osteoarthritis, cervical cancer in the 80s, EGD colonoscopies, former smoker very remote not since the 1980s. She is afebrile, heart rate 102, blood pressure 84/49, on 5 L nasal cannula which she initially required BiPAP. 02/08/2022 Patient is currently in the MICU. On my current ventilator with assist control tidal volume 400 FiO2 40% and PEEP of 5. Patient remains pressor support with vasopressin and norepinephrine. Patient underwent exploratory laparotomy yesterday and found to have bowel obstruction secondary to adhesive band. Patient had lysis of adhesions. Chest x-ray showed suspected newly seen small left apical pneumothorax. Short- term follow-up is required. Progressive infiltrates in the left lung base which could represent pneumonia however aspiration cannot be excluded. Laboratory data showed WBC 12.1 hemoglobin 9.5 and platelets 43 Sodium 127 potassium 3.9 chloride 102 bicarb is 17 BUN 108 and creatinine down to 2.9 today. Albumin 2.3 02/09/2022 Patient remains in the MICU and intubated on mechanical ventilator. Requiring p ressor support which is being tapered down.. Patient is status post expiratory laparotomy on 02/07/2022. Chest x-ray showed no acute pulmonary process. No significant change from most recent 5. Laboratory data showed WBC 12.4 hemoglobin 7.9 and platelets 46 sodium 133 potassium 3.1 chloride 101 bicarb is 18 BUN 19 and creatinine 1.87 calcium 7.5 Patient is being continued on antibiotics in the form of Zosyn. Currently on IV hydration and renal function is improving. 02/09/2022 Patient was extubated yesterday. Currently on room air. Otherwise patient is able to move her head with verbal stimuli. Unable to follow simple commands at this time. Still requiring pressor support. Patient was given a dose of hydrocortisone today. Otherwise laboratory data showed WBC 11.9 hemoglobin 6.7 and platelets 47 sodium 139 potassium 4.3 chloride 105 BUN 68 and creatinine 1.16 and albumin 1.9 chest x-ray showed increasing density left lower lobe may reflect underlying atelectasis or infiltrate. Patient remains on antibiotics of Zosyn. Currently on TPN for nutrition. 02/11/2022 Patient is currently in the MICU. Status post expiratory laparotomy and ileostomy. Currently room air. Patient is still requiring pressor support. Otherwise able to open her eyes with verbal stimuli. Patient is generally weak. Continued on TPN. Patient is being current hydrocortisone IV push. Still hypotensive.. Laboratory data showed WC 11.4 hemoglobin 8.1 and platelets 66 Sodium 143 potassium 4.1 chloride 117 bicarb is 21 BUN 61 and creatinine 0.98 liver enzymes are not elevated albumin 1.9. Patient is being continued IV hydration and antibiotics in the form of Zosyn. Pulmonary and general surgery is on board. 02/12/2022 Patient is currently being transferred to medical floor. Patient is off pressor support. Patient is otherwise awake alert and trying to communicate. Patient is otherwise generally weak. Currently on room air. Currently on TPN for nutrition. Also on venous lactate at 75 cc/h. Patient has been afebrile. No complaints of nausea. Abdominal pain is controlled. No headache or dizziness. Laboratory showed WBC 8.4 hemoglobin 8.3 and platelets 3 and platelets 70 Sodium 141 potassium 4.0 chloride 121 bicarb is 19 BUN 59 and creatinine 0.9 and calcium 7.4 albumin 2.1 cultures have been negative. Patient is being continued on antibiotics in the form of Zosyn. Pulmonary, surgery and nephrology is on board. Current medications reviewed. Objective - Vital Signs Vital signs: Vital Signs Temp 97.7 F 02/12/22 17:34 Pulse 105 H 02/12/22 19:34 Resp 17 02/12/22 17:34 BP 98/64 02/12/22 17:34 Pulse Ox 96 02/12/22 17:34 Intake & Output 02/12/22 02/12/22 02/13/22 06:59 18:59 06:59 Intake Total 1536.625 685 Output Total 465 1340 Balance 1071.625 -655 Weight 63 kg 63 kg Intake: IV 952 425 Lactated Ringers 1,000 ml 225 @ 75 mls/hr IV .[id number] TIM Rx#:[id number] Piperacillin-Tazobactam 3 50 .375 gm In Sodium Chloride 0.9% 100 ml @ 25 mls/hr IVPB Q8HR TIM Rx# :[id number] Potassium Phosphate 12 52 mmol Potassium Acetate 20 meq Sodium Acetate 40 meq Magnesium Sulfate gm 1 gm Calcium Chloride 1 gm In Amino Acid 5%-D15w 1,000 ml @ 52 mls/hr IV . BY DURATION TIM Rx#: [id number] Sodium Chloride 0.9% 1, 900 150 000 ml @ 75 mls/hr IV . [id number] TIM Rx#:[id number] Intake, IV Titration 12.625 Amount Norepinephrine 8 mg In 12.625 Sodium Chloride 0.9% 250 ml @ 0.35 MCG/KG/MIN 32. 255 mls/hr IV .Q8H TIM Rx #:[id number] TPN/PPN 572 260 Potassium Phosphate 12 156 mmol Potassium Acetate 20 meq Sodium Acetate 40 meq Magnesium Sulfate gm 1 gm Calcium Chloride 1 gm In Amino Acid 5%-D15w 1,000 ml @ 52 mls/hr IV . BY DURATION TIM Rx#: [id number] TPN 416 260 Output: Urine 465 1140 Stool 200 Other: Voiding Method Indwelling Catheter Indwelling Catheter ABP, PAP, CO, CI - Last Documented Arterial Blood Pressure 121/68 - Exam PHYSICAL EXAMINATION: Patient is is awake. Able to move her head with verbal stimuli. Could not f ollow commands. On room air. HEENT: Normocephalic. Neck is supple. Pupils reactive. Nostrils clear. Oral cavity is moist. Neck reveals no JVD, carotid bruits, or thyromegaly. CHEST EXAMINATION: Trachea is central.. Symmetrical expansion. Lung dunbar clear to auscultation and percussion. CARDIAC: Normal S1, S2 with no gallops. No murmurs ABDOMEN: Soft. Bowel sounds sluggish. Surgical site is bandaged. Extremities: reveal no edema. No clubbing or cyanosis Neurologically patient is currently lethargic.. No gross focal deficits noted Skin: No rash or skin lesions. Psychiatric: Could not be assessed at this time. Musculoskeletal: No joint swelling or deformity. - Labs CBC & Chem 7: 02/12/22 03:40 02/13/22 07:30 Labs: Abnormal Lab Results - Last 24 Hours (Table) 02/12/22 02/12/22 02/12/22 Range/Units 01:58 03:40 03:40 RBC 2.70 L (3.80-5.40) m/uL Hgb 8.3 L (11.4-16.0) gm/dL Hct 26.4 L (34.0-46.0) % RDW 18.8 H (11.5-15.5) % Plt Count 70 L (150-450) k/uL Chloride 121 H (98-107) mmol/L Carbon Dioxide 19 L (22-30) mmol/L BUN 59 H (7-17) mg/dL Glucose 126 H (74-99) mg/dL POC Glucose (mg/dL) 144 H (75-99) mg/dL Calcium 7.5 L (8.4-10.2) mg/dL AST 51 H (14-36) U/L Total Protein 4.5 L (6.3-8.2) g/dL Albumin 2.1 L (3.5-5.0) g/dL 02/12/22 02/12/22 02/12/22 Range/Units 06:37 11:43 16:17 RBC (3.80-5.40) m/uL Hgb (11.4-16.0) gm/dL Hct (34.0-46.0) % RDW (11.5-15.5) % Plt Count (150-450) k/uL Chloride (98-107) mmol/L Carbon Dioxide (22-30) mmol/L BUN (7-17) mg/dL Glucose (74-99) mg/dL POC Glucose (mg/dL) 143 H 124 H 116 H (75-99) mg/dL Calcium (8.4-10.2) mg/dL AST (14-36) U/L Total Protein (6.3-8.2) g/dL Albumin (3.5-5.0) g/dL Microbiology - Last 24 Hours (Table) 02/07/22 00:11 Blood Culture - Preliminary Blood No Growth after 120 hours 02/06/22 23:55 Blood Culture - Preliminary Blood No Growth after 120 hours Assessment and Plan Assessment: Assessment 1 Acute mechanical high grade obstruction. Status post exploratory laparotomy and lysis of additions on 02/07/2022.. -Acute renal failure secondary to acute tubular necrosis secondary to hypotension and severe dehydration. Currently with indwelling catheter in place. Nephrology is following. Creatinine 5.40 on admission. Improved. -Elevated troponins. Possible demand mismatch. -Hyponatremia, hypovolemic on admission secondary to severe dehydration from poor oral intake. Sodium level improved to 145 -Shock septic vs hypovolemic, blood culture, urine culture currently negative. Patient is monitored in the ICU and was on vasopressin support -Lactic acidosis secondary to dehydration -Altered mental status secondary to acute metabolic encephalopathy with significant uremia -Leukocytosis secondary to above -Reported sacral decub -History of colorectal cancer diagnosed in 2018 status post bowel resection x 2, last surgery in Sep with right sided ileostomy present. -History of gastroesophageal reflux disease -History of cervical cancer in the 80s. -Remote history of smoking GI Prophylaxis Full Code Plan Patient is off pressor support. Continue on IV fluids. Monitor sodium level and renal function. Continue empiric coverage with zosyn Status post exploratory laparotomy and lysis of adhesions. Continue with TPN. Continue with strict I&O. Complete wound/skin assessment Repeat labs in the morning Multiple consultations including torpedo man, oncology, surgical, nephrology, infectious disease Prognosis guarded. Time with Patient: Greater than 30
--- NOTE | 2022-02-13 11:10 | P.PN ---
Subjective Progress Note Date: 02/13/22 Principal diagnosis: Abdominal pain On 02/13/2022 patient seen in follow-up on medical surgical floor. Today is postoperative day #6 status post exploratory laparotomy, for bowel obstruction secondary to adhesive band, lysis of adhesions. Patient was transferred out of intensive care unit yesterday, she has had no acute events overnight, she is awake and alert, appears to be in no acute distress, denies any difficulty breathing, she is on room air pulse ox of 90%, hemodynamically she is stable, she is not on any IV fluids, her ileostomy producing liquid stool, positive bowel sounds, patient is being initiated on oral tube feedings by surgery. She will be on a modified diet with nectar thick liquids one-to-one supervision, and aspiration precautions. Clinically patient appears to be dry, with dry oral mucous membranes. Today's labs have been reviewed, her serum sodium is elevated at 149, potassium 3.7, chloride is 123, B1 is 53 and creatinine is 0.92. So far all blood sputum and urine cultures have been negative. She remains on Zosyn. Remains on break treatments, breathings seems to be, comfortable, no rhonchi no wheezing no dyspnea. She needs a lot of encouragement and reminded her to use incentive spirometer, and her effort is suboptimal only 500 cc. Last chest x- ray from a couple days ago was showing increased basilar density. Clinically patient denies any pulmonary symptoms Objective - Vital Signs Vital signs: Vital Signs Temp 98.4 F 02/13/22 08:00 Pulse 102 H 02/13/22 09:36 Resp 14 02/13/22 08:00 BP 100/64 02/13/22 08:00 Pulse Ox 98 02/13/22 08:00 Intake & Output 02/12/22 02/13/22 02/13/22 18:59 06:59 18:59 Intake Total 685 50 Output Total 1340 1050 Balance -655 -1000 Weight 63 kg Intake: IV 425 Lactated Ringers 1,000 ml 225 @ 75 mls/hr IV .[id number] [facility] Rx#:[id number] Piperacillin-Tazobactam 3 50 .375 gm In Sodium Chloride 0.9% 100 ml @ 25 mls/hr IVPB Q8HR [facility] Rx# :[id number] Sodium Chloride 0.9% 1, 150 000 ml @ 75 mls/hr IV . [id number] [facility] Rx#:[id number] Oral 50 TPN/PPN 260 TPN 260 Output: Urine 1140 500 Stool 200 550 Other: Voiding Method Indwelling Catheter Indwelling Catheter ABP, PAP, CO, CI - Last Documented Arterial Blood Pressure 121/68 - Exam GENERAL EXAM: Alert, less than, slightly pale and weak looking 71-year-old white female, on room air with pulse ox of 98%, comfortable in no apparent distress. HEAD: Normocephalic/atraumatic. EYES: Normal reaction of pupils, equal size. Conjunctiva pink, sclera white. NOSE: Clear with pink turbinates. THROAT: No erythema or exudates. NECK: No masses, no JVD, no thyroid enlargement, no adenopathy. CHEST: No chest wall deformity. Symmetrical expansion. LUNGS: Equal air entry with diminished breath sounds at the bases, no rhonchi or wheezing CVS: Regular rate and rhythm, normal S1 and S2, no gallops, no murmurs, no rubs ABDOMEN: Soft, nontender. No hepatosplenomegaly, normal bowel sounds, no gua rding or rigidity. Abdominal incision is clean dry and intact, covered with a dressing, ileostomy is in place producing small amount of liquid greenish stool EXTREMITIES: No clubbing, trace pretibial edema, no cyanosis, 2+ pulses and upper and lower extremities. MUSCULOSKELETAL: Muscle strength and tone normal. SPINE: No scoliosis or deformity SKIN: No rashes CENTRAL NERVOUS SYSTEM: Alert and oriented -3. No focal deficits, tone is normal in all 4 extremities. PSYCHIATRIC: Alert and oriented -3. Appropriate affect. Intact judgment and insight. - Labs CBC & Chem 7: 02/12/22 03:40 02/13/22 07:30 Labs: Abnormal Lab Results - Last 24 Hours (Table) 02/12/22 02/12/22 02/13/22 Range/Units 11:43 16:17 07:30 Sodium 149 H (137-145) mmol/L Chloride 123 H (98-107) mmol/L BUN 53 H (7-17) mg/dL POC Glucose (mg/dL) 124 H 116 H (75-99) mg/dL Calcium 8.0 L (8.4-10.2) mg/dL Microbiology - Last 24 Hours (Table) 02/06/22 23:55 Blood Culture - Final Blood No Growth after 144 hours 02/07/22 00:11 Blood Culture - Final Blood No Growth after 144 hours Assessment and Plan Plan: Assessment: #1. Bowel obstruction, status post exploratory laparotomy, with lysis of adhesions 02/07/2022 #2. Routine ventilator management postop exploratory laparotomy, successfully weaned and extubated on 02/09/2022 #3. Septic shock and hypovolemic shock, recovered #4. Acute kidney injury related to ATN, recovered #5. History of colorectal cancer, in 2018, with previous surgery 2 and right- sided ileostomy Lasix but status post chemotherapy #6. Paroxysmal atrial fibrillation #7. History of DJD #8. History of cervical cancer #9. History of tobacco use #10. Hypernatremia related to free water deficit, patient will be started on D5W at 75 ML per hour, she is also being initiated on oral feedings today Plan: Patient is breathing comfortably Vital signs have been stable Hemodynamically patient is stable TPN has been discontinued and patient will be started on oral feedings We'll add D5W at 75 ML per hour Continue encouraging deep breathing and coughing and some spirometer use Continue nebulized bronchodilators Electrolytes and renal profile tomorrow Physical therapy evaluation and treat I have personally seen and examined the patient, performed the documentation and the assessment and plan as written. Number of minutes spent on the visit: [10] Time with Patient: Less than 30
[2022-02-13 11:43] LABS: Glucose,Whole Blood 97 mg/dL (75-99)
--- NOTE | 2022-02-13 12:17 | P.PN ---
Subjective This is a 71-year-old female with a past medical history of gastroesophageal reflux disease, rheumatoid arthritis colorectal adenocarcinoma diagnosed in November 2020 status post chemotherapy, Status post right sided Port-A-Cath, s/p ileostomy placement at [facility]. 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 We have been consulted for Non-sustained ventricular tachycardia. Patient presented to the emergency department initially on 02/06/22 with altered mental status and shortness of breath, she was found to have low blood pressure and Family called EMS. She was found to be severely dehydrated. She required IV fluids and we will plan to support her blood pressure. She was intubated. CT abdomen and pelvis on admission revealed dilated stomach and multiple dilated small bowel loops stress from mechanical high-grade bowel obstruction. On 01/26 patient underwent exploratory laparotomy and lysis of adhesions with Dr. Samuels. She was in the ICU post op. Extubated on 02/09/22. She was transferred to on 02/12/22. Cardiology initially evaluated the patient on 02/08/22, for possible short run of atrial fibrillation which occurred in the same her critical condition also had mildly elevated troponins. Her elevated troponin was suggestive of oxygen mismatch and underlying sepsis. Rhythm strips were reviewed and no clear-cut evidence of atrial fibrillation. Echocardiogram revealed EF 5560% and no significant wall motion abnormalities, small generalized pericardial effusion was present. Cardiology signed off at that time. 02/13/2022 Patient seen and examined at bedside, she is alert. no acute distress. No complaints of chest pain, palpitations, shortness of breath. She is no longer receiving TPN. Has been evaluated by speech and having nectar thick liquids. Telemetry reviewed, patient with tachycardic episodes HR up to the 140s, appears to be in sinus tachycardia, P waves noted. EKG have not been performed by staff when this occurs. She is having episodes of non-sustained ventricular tachycardia. She is currently maintained on duonebs and IV zosyn VITALS: Blood pressure 104/64, HR 100, afebrile, 98% on room air. GENERAL: Well-appearing, well-nourished and in no acute distress. NECK: Supple without JVD or thyromegaly. LUNGS: Breath sounds clear to auscultation bilaterally. Respiration equal and unlabored. No wheezes, rales or rhonchi. HEART: Regular rate and rhythm without murmurs, rubs or gallops. S1 and S2 heard. EXTREMITIES: Normal range of motion, no edema. No clubbing or cyanosis. Peripheral pulses intact. ASSESSMENT Non-sustained ventricular tachycardia Sinus tachycardia Bowel obstruction, status post exploratory laparotomy, with lysis of adhesions 02/07/2022 Septic shock and hypovolemic shock Acute kidney injury History of colorectal cancer, in 2018, with previous surgery 2 and right-sided ileostomy and status post chemotherapy History of GERD History of rheumatoid arthritis History of cervical cancer History of tobacco use PLAN Start amiodarone 200mg TID for 7 days (02/13-02/19), then 200mg BID starting 02/20- 02/26 for 7 days. Then 200mg Daily starting 02/27. Monitor on telemetry Further recommendations based on clinical course Nurse Practitioner note has been reviewed, I agree with a documented findings and plan of care. Patient was seen and examined. Objective - Vital Signs Vital signs: Vital Signs Temp 98.4 F 02/13/22 08:00 Pulse 102 H 02/13/22 09:36 Resp 14 02/13/22 08:00 BP 100/64 02/13/22 08:00 Pulse Ox 98 02/13/22 08:00 Intake & Output 02/12/22 02/13/22 02/13/22 18:59 06:59 18:59 Intake Total 685 50 Output Total 1340 1050 Balance -655 -1000 Weight 63 kg Intake: IV 425 Lactated Ringers 1,000 ml 225 @ 75 mls/hr IV .[id number] [facility] Rx#:[id number] Piperacillin-Tazobactam 3 50 .375 gm In Sodium Chloride 0.9% 100 ml @ 25 mls/hr IVPB Q8HR [facility] Rx# :[id number] Sodium Chloride 0.9% 1, 150 000 ml @ 75 mls/hr IV . [id number] [facility] Rx#:[id number] Oral 50 TPN/PPN 260 TPN 260 Output: Urine 1140 500 Stool 200 550 Other: Voiding Method Indwelling Catheter Indwelling Catheter ABP, PAP, CO, CI - Last Documented Arterial Blood Pressure 121/68 - Labs CBC & Chem 7: 02/12/22 03:40 02/13/22 07:30 Labs: Abnormal Lab Results - Last 24 Hours (Table) 02/12/22 02/12/22 02/13/22 Range/Units 11:43 16:17 07:30 Sodium 149 H (137-145) mmol/L Chloride 123 H (98-107) mmol/L BUN 53 H (7-17) mg/dL POC Glucose (mg/dL) 124 H 116 H (75-99) mg/dL Calcium 8.0 L (8.4-10.2) mg/dL Microbiology - Last 24 Hours (Table) 02/06/22 23:55 Blood Culture - Final Blood No Growth after 144 hours 02/07/22 00:11 Blood Culture - Final Blood No Growth after 144 hours
[2022-02-13] MEDS: DEXTROSE 5% IN WATER 1,000 ML IV SCH ×2 (13:04→21:58)
[2022-02-13] MEDS: AMIODARONE 200 MG TAB PO SCH ×3 (13:04→21:58)
--- NOTE | 2022-02-13 14:45 | P.PN ---
Subjective Progress Note Date: 02/13/22 CHIEF COMPLAINT: Follow obstruction HISTORY OF PRESENT ILLNESS: Patient is postop day #6 status post exploratory laparotomy and lysis of adhesion for bowel obstruction secondary to adhesive band. Patient was transferred out of the ICU yesterday. She is sitting up in bedside chair. She reports that her pain is controlled. She has been able to eat a few bites of her pured diet. Denies any nausea vomiting. Ostomy is functioning. Afebrile. WBCs 8.4 limbs A.3 platelets 70 Sodium 149 creatinine 0.92 on patient is no longer on TPN due to not having the appropriate IV access for TPN. Nursing patient does have decubitus ulcers. Cardiology following for nonsustained ventricular tachycardia. They have started patient on amiodarone. Patient seen and examined with Dr. connolly PHYSICAL EXAM: VITAL SIGNS: Reviewed. GENERAL: No acute distress HEENT: Head is atraumatic, normocephalic. ABDOMEN: Soft. Nondistended. Incisional dressing with drainage from the colostomy bag. Ostomy liquidy brown green stool Neuro: Patient is able to say a few words. ASSESSMENT: 1. Status post exploratory laparotomy and lysis of adhesion for bowel obstruction secondary to adhesive band 2. Acute renal failure likely due to dehydration. Resolved 3. Thrombocytopenia possibly chronic. Followed by oncology 4. History of colorectal cancer PLAN: -Nursing staff changing the colostomy apparatus and incisional dressing. -Continue pureed Diet -Continue supportive care -Continue IV fluids -Encouraged patient to increase oral intake -Encouraged patient to increase activity level -Encouraged patient to use incentive spirometer -DVT prophylaxis SCDs Physician Piano Case Maker note has been reviewed by physician. Signing provider agrees with the documented findings, assessment, and plan of care. Objective - Vital Signs Vital signs: Vital Signs Temp 98.4 F 02/13/22 08:00 Pulse 98 02/13/22 12:05 Resp 14 02/13/22 08:00 BP 100/64 02/13/22 08:00 Pulse Ox 98 02/13/22 08:00 Intake & Output 02/12/22 02/13/22 02/13/22 18:59 06:59 18:59 Intake Total 685 50 Output Total 1340 1050 Balance -655 -1000 Weight 63 kg Intake: IV 425 Lactated Ringers 1,000 ml 225 @ 75 mls/hr IV .[id number] [facility] Rx#:[id number] Piperacillin-Tazobactam 3 50 .375 gm In Sodium Chloride 0.9% 100 ml @ 25 mls/hr IVPB Q8HR [facility] Rx# :[id number] Sodium Chloride 0.9% 1, 150 000 ml @ 75 mls/hr IV . [id number] [facility] Rx#:[id number] Oral 50 TPN/PPN 260 TPN 260 Output: Urine 1140 500 Stool 200 550 Other: Voiding Method Indwelling Catheter Indwelling Catheter ABP, PAP, CO, CI - Last Documented Arterial Blood Pressure 121/68 - Labs CBC & Chem 7: 02/12/22 03:40 02/13/22 07:30 Labs: Abnormal Lab Results - Last 24 Hours (Table) 02/12/22 02/13/22 Range/Units 16:17 07:30 Sodium 149 H (137-145) mmol/L Chloride 123 H (98-107) mmol/L BUN 53 H (7-17) mg/dL POC Glucose (mg/dL) 116 H (75-99) mg/dL Calcium 8.0 L (8.4-10.2) mg/dL Microbiology - Last 24 Hours (Table) 02/06/22 23:55 Blood Culture - Final Blood No Growth after 144 hours 02/07/22 00:11 Blood Culture - Final Blood No Growth after 144 hours
--- NOTE | 2022-02-13 16:45 | P.PN ---
Subjective Patient is seen for follow-up for acute kidney injury. Renal function has improved with creatinine down to 0.9 mg/dL from 6.47 on initial admission. Patient is maintained on TPN. Patient is status post explorative laparotomy and lysis of adhesions for bowel obstruction on 02/07/2022 Patient is sitting up in a chair this morning. She is currently off of TPN. Sodium was decreased in the TPN yesterday however the TPN is now discontinued and serum sodium was up to 149 this morning. Patient has been started on D5W which is appropriate Objective - Vital Signs Vital signs: Vital Signs Temp 98.7 F 02/13/22 14:00 Pulse 86 02/13/22 14:00 Resp 16 02/13/22 14:00 BP 130/64 02/13/22 14:00 Pulse Ox 98 02/13/22 14:00 Intake & Output 02/12/22 02/13/22 02/13/22 18:59 06:59 18:59 Intake Total 685 50 Output Total 1340 1050 Balance -655 -1000 Weight 63 kg Intake: IV 425 Lactated Ringers 1,000 ml 225 @ 75 mls/hr IV .[id number] [facility] Rx#:[id number] Piperacillin-Tazobactam 3 50 .375 gm In Sodium Chloride 0.9% 100 ml @ 25 mls/hr IVPB Q8HR [facility] Rx# :[id number] Sodium Chloride 0.9% 1, 150 000 ml @ 75 mls/hr IV . [id number] [facility] Rx#:[id number] Oral 50 TPN/PPN 260 TPN 260 Output: Urine 1140 500 Stool 200 550 Other: Voiding Method Indwelling Catheter Indwelling Catheter ABP, PAP, CO, CI - Last Documented Arterial Blood Pressure 121/68 - Exam Awake, comfortable Cachectic looking Examination of the heart S1 and S2 Examination lungs bilateral breath sounds are heard Abdomen is soft, mild tenderness Examination of extremities shows shows edema 2+ upper and lower extremities - Labs CBC & Chem 7: 02/12/22 03:40 02/13/22 07:30 Labs: Abnormal Lab Results - Last 24 Hours (Table) 02/13/22 Range/Units 07:30 Sodium 149 H (137-145) mmol/L Chloride 123 H (98-107) mmol/L BUN 53 H (7-17) mg/dL Calcium 8.0 L (8.4-10.2) mg/dL Microbiology - Last 24 Hours (Table) 02/06/22 23:55 Blood Culture - Final Blood No Growth after 144 hours 02/07/22 00:11 Blood Culture - Final Blood No Growth after 144 hours Assessment and Plan Assessment: 1. Acute kidney injury ATN currently improved with serum creatinine down to 0.9 from 6.4 on initial admission. Etiology is hypotension/septic shock. Mild bilateral hydronephrosis noted on computed tomography scan. Urology on consult. Currently with indwelling Omalley catheter. 2. Small bowel obstruction status post explorative laparotomy and lysis of edition's on 02/07/2022 3 Mild hypernatremia. TPN has been adjusted . Patient is currently off of TPN and sodium was elevated to 149 and patient has been appropriately started on D5W. Plan: Continue D5W repeat labs in a.m.
--- NOTE | 2022-02-13 21:06 | P.PN ---
Subjective Progress Note Date: 02/13/22 Principal diagnosis: Abdominal sepsis Patient is a 71 year female With a past medical history significant for rectal cancer with recent recurrence in this patient who is status post bowel resection with ileostomy placement in the summer of 2020 presented to the hospital with weakness no output from ileostomy noticed to have a high-grade small bowel obstruction patient is status post laparotomy with lysis of adhesion. The patient was extubated on 02/09/2022 On today's evaluation is 02/13/2022, the patient remains to be afebrile, the patient is breathing comfortably on room air, patient is awake but did not answer any question no vomiting or diarrhea has been reported by the nursing staff patient noticed to have deep tissue injury to the sacral area and appare ntly did have a unstageable pressure ulcer on the sacral area which was not reported by the nurses previously Objective - Vital Signs Vital signs: Vital Signs Temp 98.4 F 02/13/22 08:00 Pulse 98 02/13/22 12:05 Resp 14 02/13/22 08:00 BP 100/64 02/13/22 08:00 Pulse Ox 98 02/13/22 08:00 Intake & Output 02/12/22 02/13/22 02/13/22 18:59 06:59 18:59 Intake Total 685 50 Output Total 1340 1050 Balance -655 -1000 Weight 63 kg Intake: IV 425 Lactated Ringers 1,000 ml 225 @ 75 mls/hr IV .[id number] [facility] Rx#:[id number] Piperacillin-Tazobactam 3 50 .375 gm In Sodium Chloride 0.9% 100 ml @ 25 mls/hr IVPB Q8HR [facility] Rx# :[id number] Sodium Chloride 0.9% 1, 150 000 ml @ 75 mls/hr IV . [id number] [facility] Rx#:[id number] Oral 50 TPN/PPN 260 TPN 260 Output: Urine 1140 500 Stool 200 550 Other: Voiding Method Indwelling Catheter Indwelling Catheter ABP, PAP, CO, CI - Last Documented Arterial Blood Pressure 121/68 - Exam GENERAL DESCRIPTION: An elderly female lying in bed in no distress RESPIRATORY SYSTEM: Unlabored breathing , decreased breath sounds at bases HEART: S1 S2 regular rate and rhythm , ABDOMEN: Soft , midline incision is currently dressed Unstageable pressure ulcer to the sacral area with some deep tissue injury EXTREMITIES: No edema feet - Labs CBC & Chem 7: 02/12/22 03:40 02/13/22 07:30 Labs: Abnormal Lab Results - Last 24 Hours (Table) 02/12/22 02/13/22 Range/Units 16:17 07:30 Sodium 149 H (137-145) mmol/L Chloride 123 H (98-107) mmol/L BUN 53 H (7-17) mg/dL POC Glucose (mg/dL) 116 H (75-99) mg/dL Calcium 8.0 L (8.4-10.2) mg/dL Microbiology - Last 24 Hours (Table) 02/06/22 23:55 Blood Culture - Final Blood No Growth after 144 hours 02/07/22 00:11 Blood Culture - Final Blood No Growth after 144 hours Assessment and Plan (1) Leukocytosis Current Visit: Yes Status: Acute Code(s): D72.829 - ELEVATED WHITE BLOOD CELL COUNT, UNSPECIFIED SNOMED Code(s): 448187967 Plan: 1patient presented to hospital with sepsis in this we did have a significant elevated white count elevated lactic acid and hypotension requiring multiple pressor support source likely abdominal in this patient who do have a history of rectal cancer with a history of chemoradiation now with abnormal CT suspicious for high-grade small bowel obstruction need to cover for the enteric gram- negative both aerobes and anaerobes, patient is status post laparotomy and lysis of adhesion completed on 02/07/2022 2patient has shown slow clinical improvement and will continue with Zosyn and monitor clinical course closely 3-unstageable sacral pressure ulcer with some deep tissue injury to keep the area off the pressure and dry Time with Patient: Less than 30
[2022-02-13] MEDS ORDERED: SODIUM CHLORIDE 0.9% 500 ML 250 ML IV ONE ×2 (21:42→22:42)
[2022-02-13 22:27] LABS: African American GFR (CKD) 71 (>60 ml/min/1.73 sqM); Anion Gap 3 mmol/L; Blood Urea Nitrogen 48 mg/dL (7-17); Calcium 7.8 mg/dL (8.4-10.2); Carbon Dioxide 21 mmol/L (22-30); Chloride 120 mmol/L (98-107); Glucose 143 mg/dL (74-99); Magnesium 2.1 mg/dL (1.6-2.3); Non-African American GFR(CKD) 62 (>60 ml/min/1.73 sqM); Potassium 3.2 mmol/L (3.5-5.1); Sodium 144 mmol/L (137-145)
[2022-02-13] MEDS ORDERED: Potassium Replacement Protocol 1 EACH MISC MISCELLANE PRN (22:29)
[2022-02-13] MEDS: POTASSIUM CHLORIDE ER 20 MEQ TAB.ER PO SCH ×2 (22:45→23:39)
[2022-02-14 02:09] LABS: Glucose,Whole Blood 95 mg/dL (75-99)
[2022-02-14] MEDS: INSULIN ASPART (NovoLOG) 100 UNIT/ML VIAL SQ SCH ×5 (02:26→21:17)
[2022-02-14 06:00] LABS: Glucose,Whole Blood 101 mg/dL (75-99)
[2022-02-14] MEDS: IPRATROPIUM-ALBUTEROL 3 ML NEB INHALATION SCH ×4 (08:27→21:36)
[2022-02-14] MEDS: AMIODARONE 200 MG TAB PO SCH ×3 (08:31→21:17)
[2022-02-14] MEDS: PANTOPRAZOLE 40 MG/10 ML VIAL IVP SCH (08:31)
[2022-02-14] MEDS: PIPERACILLIN-TAZOBACTAM 3.375 GM in SODIUM CHLORIDE 0.9% 100 ML IVPB SCH ×3 (08:31→23:05)
[2022-02-14 09:25] LABS: ALT 144 U/L (4-34); AST 132 U/L (14-36); African American GFR (CKD) 81 (>60 ml/min/1.73 sqM); Albumin 2.1 g/dL (3.5-5.0); Albumin/Globulin Ratio 0.8; Alkaline Phosphatase 67 U/L (38-126); Anion Gap 3 mmol/L; Blood Urea Nitrogen 39 mg/dL (7-17); Calcium 7.6 mg/dL (8.4-10.2); Carbon Dioxide 20 mmol/L (22-30); Chloride 119 mmol/L (98-107); Globulin 2.5 g/dL; Glucose 162 mg/dL (74-99); Non-African American GFR(CKD) 70 (>60 ml/min/1.73 sqM); Phosphorus 2.3 mg/dL (2.5-4.5); Potassium 3.6 mmol/L (3.5-5.1); Sodium 142 mmol/L (137-145); Total Bilirubin 1.1 mg/dL (0.2-1.3); Total Protein 4.6 g/dL (6.3-8.2)
--- NOTE | 2022-02-14 10:49 | P.PN ---
Subjective Progress Note Date: 02/14/22 The patient is seen today 02/14/2022 in follow-up on the regular medical floor. She is currently sitting up in bed. Awake and alert in no acute distress. She is maintaining O2 saturations in the 90s on room air. She's afebrile. Hemodynamically stable. Blood and urine cultures revealed no growth. Sodium 142. Potassium 3.6. Bicarb 20. BUN 39. Creatinine 0.85. Glucose was 60. AST 132. ALT 144. She is continued on Zosyn, bronchodilators. Currently in amiodarone 200 mg 3 times a day. Objective - Vital Signs Vital signs: Vital Signs Temp 97.4 F L 02/14/22 08:25 Pulse 88 02/14/22 08:39 Resp 18 02/14/22 08:25 BP 91/54 02/14/22 08:25 Pulse Ox 98 02/14/22 08:25 Intake & Output 02/13/22 02/14/22 02/14/22 18:59 06:59 18:59 Output Total 300 880 Balance -300 -880 Output: Urine 300 280 Stool 600 Other: Voiding Method Indwelling Catheter ABP, PAP, CO, CI - Last Documented Arterial Blood Pressure 121/68 - Exam GENERAL EXAM: Alert, frail, 71-year-old female, on room air, comfortable in no apparent distress. HEAD: Normocephalic. EYES: Normal reaction of pupils, equal size. NOSE: Clear with pink turbinates. THROAT: No erythema or exudates. NECK: No masses, no JVD. CHEST: No chest wall deformity. LUNGS: Equal air entry with faint crackles in the posterior bases. CVS: S1 and S2 normal with no audible murmur, regular rhythm. ABDOMEN: Abdominal incision is clean dry and intact, covered with a dressing, ileostomy is in place producing small amount of liquid greenish stool. No hepatosplenomegaly, normal bowel sounds, no guarding or rigidity. SPINE: No scoliosis or deformity SKIN: No rashes CENTRAL NERVOUS SYSTEM: No focal deficits, tone is normal in all 4 extremities. EXTREMITIES: There is no peripheral edema. No clubbing, no cyanosis. Peripheral pulses are intact. - Labs CBC & Chem 7: 02/12/22 03:40 02/14/22 08:17 Labs: Abnormal Lab Results - Last 24 Hours (Table) 02/13/22 02/14/22 02/14/22 Range/Units 21:51 05:59 08:17 Potassium 3.2 L (3.5-5.1) mmol/L Chloride 120 H 119 H (98-107) mmol/L Carbon Dioxide 21 L 20 L (22-30) mmol/L BUN 48 H 39 H (7-17) mg/dL Glucose 143 H 162 H (74-99) mg/dL POC Glucose (mg/dL) 101 H (75-99) mg/dL Calcium 7.8 L 7.6 L (8.4-10.2) mg/dL Phosphorus 2.3 L (2.5-4.5) mg/dL AST 132 H (14-36) U/L ALT 144 H (4-34) U/L Total Protein 4.6 L (6.3-8.2) g/dL Albumin 2.1 L (3.5-5.0) g/dL Assessment and Plan Assessment: 1 Acute mechanical high-grade bowel obstruction. Status post exploratory laparotomy with lysis of adhesions on 02/07/2022 2 Acute renal failure secondary to acute tubular necrosis from hypotension and dehydration and poor appetite 1 week. With presenting creatinine 6.47, curren tly 0.85 3 Hyponatremia with presenting sodium 117. Currently 142. 4 Troponin leak. 5 Lactic acidosis secondary to above. Recovered 6 Leukocytosis, recovered 7 Thrombocytopenia initial platelets 49,000, currently 70,000 8 History of colorectal cancer initially diagnosed in 2018, with previous surgery 2 with a right-sided ileostomy. Status post chemotherapy, proton therapy 9 New-onset brief episode of atrial fibrillation 10 History of osteoarthritis 11 History of gastroesophageal reflux disease 12 History of cervical cancer back in the 1980s 13 Former smoker 14 Transaminitis, possible amiodarone effect Plan: The patient was seen and evaluated Labs reviewed Continue Zosyn, bronchodilators Stable and on room air Discharge planning in place Will most likely need subacute rehabilitation We will continue to follow I have personally seen and examined the patient, performed the documentation and the assessment and plan as written. Number of minutes spent on the visit: 10.
[2022-02-14 11:49] LABS: Glucose,Whole Blood 80 mg/dL (75-99)
[2022-02-14 12:12] LABS: Basophils # (A) 0 X 10*3/uL (0.00-0.10); Basophils % (A) 0 %; Eosinophils # (A) 0.04 X 10*3/uL (0.04-0.35); Eosinophils % (A) 0.6 %; HCT 26.6 % (37.2-46.3); Immature Grans, Automated 0.7 %; Lymphocytes # (A) 0.19 X 10*3/uL (0.90-5.00); Lymphocytes % (A) 2.8 %; MCH 30.8 pg (27.0-32.0); MCHC 30.1 g/dL (32.0-37.0); MCV 102.3 fL (80.0-97.0); Mean Platelet Volume 11.5 fL (9.5-12.2); Monocytes % (A) 4.5 %; NRBC Per 100 WBC 0.3 /100 WBCS (0.0-0.0); Neutrophils # (A) 6.09 X 10*3/uL (1.80-7.70); Neutrophils % (A) 91.4 %; Platelet Count 81 X 10*3/uL (140-440); WBC 6.67 X 10*3/uL (4.50-10.00)
--- NOTE | 2022-02-14 13:08 | P.PN ---
Subjective Progress Note Date: 02/14/22 This is a 71-year-old female with a past medical history of gastroesophageal reflux disease, rheumatoid arthritis colorectal adenocarcinoma diagnosed in November 2020 status post chemotherapy, Status post right sided Port-A-Cath, s/p ileostomy placement at [facility]. 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 We have been consulted for Non-sustained ventricular tachycardia. Patient presented to the emergency department initially on 02/06/22 with altered mental status and shortness of breath, she was found to have low blood pressure and Family called EMS. She was found to be severely dehydrated. She required IV fluids and we will plan to support her blood pressure. She was intubated. CT abdomen and pelvis on admission revealed dilated stomach and multiple dilated small bowel loops stress from mechanical high-grade bowel obstruction. On 02/07/2022 patient underwent exploratory laparotomy and lysis of adhesions with Dr. Samuels. She was in the ICU post op. Extubated on 02/09/22. She was transferred to on 02/12/22. Cardiology initially evaluated the patient on 02/08/22, for possible short run of atrial fibrillation which occurred in the same her critical condition also had mildly elevated troponins. Her elevated troponin was suggestive of oxygen mismatch and underlying sepsis. Rhythm strips were reviewed and no clear-cut evidence of atrial fibrillation. Echocardiogram revealed EF 5560% and no significant wall motion abnormalities, small generalized pericardial effusion was present. Cardiology signed off at that time. 02/13/2022 Patient seen and examined at bedside, she is alert. no acute distress. No complaints of chest pain, palpitations, shortness of breath. She is no longer receiving TPN. Has been evaluated by speech and having nectar thick liquids. Telemetry reviewed, patient with tachycardic episodes HR up to the 140s, appears to be in sinus tachycardia, P waves noted. EKG have not been performed by staff when this occurs. She is having episodes of non-sustained ventricular tachycardia. 02/14/2022 Patient examined this morning at the bedside. Patient denies chest pain or pressure. She denies shortness of breath. Telemetry reveals sinus mechanism. Vital signs are stable. VITALS: Blood pressure 104/64, HR 100, afebrile, 98% on room air. GENERAL: Well-appearing, well-nourished and in no acute distress. NECK: Supple without JVD or thyromegaly. LUNGS: Breath sounds clear to auscultation bilaterally. Respiration equal and unlabored. No wheezes, rales or rhonchi. HEART: Regular rate and rhythm without murmurs, rubs or gallops. S1 and S2 heard. EXTREMITIES: Normal range of motion, no edema. No clubbing or cyanosis. Peripheral pulses intact. ASSESSMENT Non-sustained ventricular tachycardia Sinus tachycardia Bowel obstruction, status post exploratory laparotomy, with lysis of adhesions 02/07/2022 Septic shock and hypovolemic shock Acute kidney injury History of colorectal cancer, in 2018, with previous surgery 2 and right-sided ileostomy and status post chemotherapy History of GERD History of rheumatoid arthritis History of cervical cancer History of tobacco use PLAN Continue amiodarone 200mg TID for 7 days (02/13-02/19), then 200mg BID starting 02/20-02/26 for 7 days. Then 200mg Daily starting 02/27. Continue telemetry monitoring No further inpatient recommendations from a cardiac standpoint. We will sign off. Please reconsult if needed. Nurse Practitioner note has been reviewed, I agree with a documented findings and plan of care. Patient was seen and examined. Objective - Vital Signs Vital signs: Vital Signs Temp 97.4 F L 02/14/22 12:15 Pulse 80 02/14/22 12:15 Resp 18 02/14/22 12:15 BP 90/54 02/14/22 12:15 Pulse Ox 97 02/14/22 12:15 Intake & Output 02/13/22 02/14/22 02/14/22 18:59 06:59 18:59 Output Total 300 880 500 Balance -300 -880 -500 Output: Urine 300 280 Stool 600 500 Other: Voiding Method Indwelling Catheter Indwelling Catheter ABP, PAP, CO, CI - Last Documented Arterial Blood Pressure 121/68 - Labs CBC & Chem 7: 02/14/22 08:17 02/14/22 08:17 Labs: Abnormal Lab Results - Last 24 Hours (Table) 02/13/22 02/14/22 02/14/22 Range/Units 21:51 05:59 08:17 RBC (4.10-5.20) X 10*6/uL Hgb (12.0-15.0) g/dL Hct (37.2-46.3) % MCV (80.0-97.0) fL MCHC (32.0-37.0) g/dL RDW (11.5-14.5) % Plt Count (140-440) X 10*3/uL Absolute Nucleated RBC (0.00-0.00) X 10*3/uL Immature Gran # (0.00-0.04) X 10*3/uL Lymphocytes # (0.90-5.00) X 10*3/uL NRBC/100 WBC Diff (0.0-0.0) /100 WBCS Potassium 3.2 L (3.5-5.1) mmol/L Chloride 120 H 119 H (98-107) mmol/L Carbon Dioxide 21 L 20 L (22-30) mmol/L BUN 48 H 39 H (7-17) mg/dL Glucose 143 H 162 H (74-99) mg/dL POC Glucose (mg/dL) 101 H (75-99) mg/dL Calcium 7.8 L 7.6 L (8.4-10.2) mg/dL Phosphorus 2.3 L (2.5-4.5) mg/dL AST 132 H (14-36) U/L ALT 144 H (4-34) U/L Total Protein 4.6 L (6.3-8.2) g/dL Albumin 2.1 L (3.5-5.0) g/dL / Range/Units 08:17 RBC 2.60 L (4.10-5.20) X 10*6/uL Hgb 8.0 L (12.0-15.0) g/dL Hct 26.6 L (37.2-46.3) % MCV 102.3 H (80.0-97.0) fL MCHC 30.1 L (32.0-37.0) g/dL RDW 21.0 H (11.5-14.5) % Plt Count 81 L (140-440) X 10*3/uL Absolute Nucleated RBC 0.02 H (0.00-0.00) X 10*3/uL Immature Gran # 0.05 H (0.00-0.04) X 10*3/uL Lymphocytes # 0.19 L (0.90-5.00) X 10*3/uL NRBC/100 WBC Diff 0.3 H (0.0-0.0) /100 WBCS Potassium (3.5-5.1) mmol/L Chloride (98-107) mmol/L Carbon Dioxide (22-30) mmol/L BUN (7-17) mg/dL Glucose (74-99) mg/dL POC Glucose (mg/dL) (75-99) mg/dL Calcium (8.4-10.2) mg/dL Phosphorus (2.5-4.5) mg/dL AST (14-36) U/L ALT (4-34) U/L Total Protein (6.3-8.2) g/dL Albumin (3.5-5.0) g/dL
--- NOTE | 2022-02-14 13:40 | P.PN ---
Subjective Patient is seen for follow-up for acute kidney injury. Renal function has improved with creatinine down to 0.9 mg/dL from 6.47 on initial admission. Patient was maintained on TPN. Patient is status post explorative laparotomy and lysis of adhesions for bowel obstruction on 02/07/2022 Patient is sitting up in bed. She is comfortable. Denies any significant complaints. Maintained on D5W for hypernatremia. Currently off of TPN Objective - Vital Signs Vital signs: Vital Signs Temp 97.4 F L 02/14/22 12:15 Pulse 80 02/14/22 12:15 Resp 18 02/14/22 12:15 BP 90/54 02/14/22 12:15 Pulse Ox 97 02/14/22 12:15 Intake & Output 02/13/22 02/14/22 02/14/22 18:59 06:59 18:59 Output Total 300 880 500 Balance -300 -880 -500 Weight 63 kg Output: Urine 300 280 Stool 600 500 Other: Voiding Method Indwelling Catheter Indwelling Catheter ABP, PAP, CO, CI - Last Documented Arterial Blood Pressure 121/68 - Exam Awake, comfortable Cachectic looking Examination of the heart S1 and S2 Examination lungs bilateral breath sounds are heard Abdomen is soft, mild tenderness Examination of extremities shows shows edema 2+ upper and lower extremities - Labs CBC & Chem 7: 02/14/22 08:17 02/14/22 08:17 Labs: Abnormal Lab Results - Last 24 Hours (Table) 02/13/22 02/14/22 02/14/22 Range/Units 21:51 05:59 08:17 RBC (4.10-5.20) X 10*6/uL Hgb (12.0-15.0) g/dL Hct (37.2-46.3) % MCV (80.0-97.0) fL MCHC (32.0-37.0) g/dL RDW (11.5-14.5) % Plt Count (140-440) X 10*3/uL Absolute Nucleated RBC (0.00-0.00) X 10*3/uL Immature Gran # (0.00-0.04) X 10*3/uL Lymphocytes # (0.90-5.00) X 10*3/uL NRBC/100 WBC Diff (0.0-0.0) /100 WBCS Potassium 3.2 L (3.5-5.1) mmol/L Chloride 120 H 119 H (98-107) mmol/L Carbon Dioxide 21 L 20 L (22-30) mmol/L BUN 48 H 39 H (7-17) mg/dL Glucose 143 H 162 H (74-99) mg/dL POC Glucose (mg/dL) 101 H (75-99) mg/dL Calcium 7.8 L 7.6 L (8.4-10.2) mg/dL Phosphorus 2.3 L (2.5-4.5) mg/dL AST 132 H (14-36) U/L ALT 144 H (4-34) U/L Total Protein 4.6 L (6.3-8.2) g/dL Albumin 2.1 L (3.5-5.0) g/dL 02/14/22 Range/Units 08:17 RBC 2.60 L (4.10-5.20) X 10*6/uL Hgb 8.0 L (12.0-15.0) g/dL Hct 26.6 L (37.2-46.3) % MCV 102.3 H (80.0-97.0) fL MCHC 30.1 L (32.0-37.0) g/dL RDW 21.0 H (11.5-14.5) % Plt Count 81 L (140-440) X 10*3/uL Absolute Nucleated RBC 0.02 H (0.00-0.00) X 10*3/uL Immature Gran # 0.05 H (0.00-0.04) X 10*3/uL Lymphocytes # 0.19 L (0.90-5.00) X 10*3/uL NRBC/100 WBC Diff 0.3 H (0.0-0.0) /100 WBCS Potassium (3.5-5.1) mmol/L Chloride (98-107) mmol/L Carbon Dioxide (22-30) mmol/L BUN (7-17) mg/dL Glucose (74-99) mg/dL POC Glucose (mg/dL) (75-99) mg/dL Calcium (8.4-10.2) mg/dL Phosphorus (2.5-4.5) mg/dL AST (14-36) U/L ALT (4-34) U/L Total Protein (6.3-8.2) g/dL Albumin (3.5-5.0) g/dL Assessment and Plan Assessment: 1. Acute kidney injury ATN currently improved with serum creatinine down to 0.9 from 6.4 on initial admission. Etiology is hypotension/septic shock. Mild bila teral hydronephrosis noted on computed tomography scan. Urology on consult. Currently with indwelling Omalley catheter. 2. Small bowel obstruction status post explorative laparotomy and lysis of edit ion's on 02/07/2022 3 Mild hypernatremia. Maintained on D5W, improving. Plan: Continue D5W for now. Can possibly discontinue tomorrow based on the serum sodium. We'll sign off
--- NOTE | 2022-02-14 14:32 | P.PN ---
Subjective Progress Note Date: 02/14/22 CHIEF COMPLAINT: Follow obstruction HISTORY OF PRESENT ILLNESS: Patient is postop day #7 status post exploratory laparotomy and lysis of adhesion for bowel obstruction secondary to adhesive band. Patient required a transfer to the cardiac floor yesterday due to hypotension and questionable atrial fibrillation. Patient received IV fluid boluses. Blood pressure 90/54. Patient followed by cardiology in regards to nonsustained ventricle tachycardia and she is currently on amiodarone. She's eating a few bites for pured diet. She denies any abdominal pain. Her ostomy is functioning. Denies any nausea or vomiting. Afebrile. WBC is 6.67 hemoglobin 8.0 platelets 81 sodium 142 potassium 3.6 creatinine 0.85 PHYSICAL EXAM: VITAL SIGNS: Reviewed. GENERAL: No acute distress HEENT: Head is atraumatic, normocephalic. ABDOMEN: Soft. Nondistended. Nontender. Incision site clean dry and intact. Ostomy functioning ASSESSMENT: 1. Status post exploratory laparotomy and lysis of adhesion for bowel obstruction secondary to adhesive band 2. Acute renal failure likely due to dehydration. Resolved 3. Thrombocytopenia possibly chronic. Followed by oncology 4. History of colorectal cancer PLAN: -Continue pureed Diet -Continue supportive care -Continue IV fluids -Encouraged patient to increase oral intake -Encouraged patient to increase activity level -Encouraged patient to use incentive spirometer -DVT prophylaxis SCDs Physician Exceptional Needs Teacher note has been reviewed by physician. Signing provider agrees with the documented findings, assessment, and plan of care. Objective - Vital Signs Vital signs: Vital Signs Temp 97.4 F L 02/14/22 12:15 Pulse 80 02/14/22 12:15 Resp 18 02/14/22 12:15 BP 90/54 02/14/22 12:15 Pulse Ox 97 02/14/22 12:15 Intake & Output 02/13/22 02/14/22 02/14/22 18:59 06:59 18:59 Output Total 300 880 650 Balance -300 -880 -650 Weight 63 kg Output: Urine 300 280 100 Stool 600 550 Other: Voiding Method Indwelling Catheter Indwelling Catheter ABP, PAP, CO, CI - Last Documented Arterial Blood Pressure 121/68 - Labs CBC & Chem 7: 02/14/22 08:17 02/14/22 08:17 Labs: Abnormal Lab Results - Last 24 Hours (Table) 02/13/22 02/14/2202/14/22 Range/Units 21:51 05:59 08:17 RBC (4.10-5.20) X 10*6/uL Hgb (12.0-15.0) g/dL Hct (37.2-46.3) % MCV (80.0-97.0) fL MCHC (32.0-37.0) g/dL RDW (11.5-14.5) % Plt Count (140-440) X 10*3/uL Absolute Nucleated RBC (0.00-0.00) X 10*3/uL Immature Gran # (0.00-0.04) X 10*3/uL Lymphocytes # (0.90-5.00) X 10*3/uL NRBC/100 WBC Diff (0.0-0.0) /100 WBCS Potassium 3.2 L (3.5-5.1) mmol/L Chloride 120 H 119 H (98-107) mmol/L Carbon Dioxide 21 L 20 L (22-30) mmol/L BUN 48 H 39 H (7-17) mg/dL Glucose 143 H 162 H (74-99) mg/dL POC Glucose (mg/dL) 101 H (75-99) mg/dL Calcium 7.8 L 7.6 L (8.4-10.2) mg/dL Phosphorus 2.3 L (2.5-4.5) mg/dL AST 132 H (14-36) U/L ALT 144 H (4-34) U/L Total Protein 4.6 L (6.3-8.2) g/dL Albumin 2.1 L (3.5-5.0) g/dL 02/14/22 Range/Units 08:17 RBC 2.60 L (4.10-5.20) X 10*6/uL Hgb 8.0 L (12.0-15.0) g/dL Hct 26.6 L (37.2-46.3) % MCV 102.3 H (80.0-97.0) fL MCHC 30.1 L (32.0-37.0) g/dL RDW 21.0 H (11.5-14.5) % Plt Count 81 L (140-440) X 10*3/uL Absolute Nucleated RBC 0.02 H (0.00-0.00) X 10*3/uL Immature Gran # 0.05 H (0.00-0.04) X 10*3/uL Lymphocytes # 0.19 L (0.90-5.00) X 10*3/uL NRBC/100 WBC Diff 0.3 H (0.0-0.0) /100 WBCS Potassium (3.5-5.1) mmol/L Chloride (98-107) mmol/L Carbon Dioxide (22-30) mmol/L BUN (7-17) mg/dL Glucose (74-99) mg/dL POC Glucose (mg/dL) (75-99) mg/dL Calcium (8.4-10.2) mg/dL Phosphorus (2.5-4.5) mg/dL AST (14-36) U/L ALT (4-34) U/L Total Protein (6.3-8.2) g/dL Albumin (3.5-5.0) g/dL
[2022-02-14 16:21] LABS: Glucose,Whole Blood 105 mg/dL (75-99)
[2022-02-14] MEDS: DEXTROSE 5% IN WATER 1,000 ML IV SCH (16:34)
[2022-02-14 20:42] LABS: Glucose,Whole Blood 121 mg/dL (75-99)
--- NOTE | 2022-02-14 21:22 | P.PN ---
Subjective Progress Note Date: 02/14/22 Principal diagnosis: Abdominal sepsis Patient is a 71 year female With a past medical history significant for rectal cancer with recent recurrence in this patient who is status post bowel resection with ileostomy placement in the summer of 2020 presented to the hospital with weakness no output from ileostomy noticed to have a high-grade small bowel obstruction patient is status post laparotomy with lysis of adhesion. The patient was extubated on 02/09/2022 On today's evaluation is 02/14/2022, the patient is afebrile, the patient is breathing comfortably on room air, patient is awake but did not answer any question , seemed to be slightly better but the at the bedside oral intake remains too poor, no vomiting or diarrhea has been reported Objective - Vital Signs Vital signs: Vital Signs Temp 97.4 F L 02/14/22 12:15 Pulse 80 02/14/22 12:15 Resp 18 02/14/22 12:15 BP 90/54 02/14/22 12:15 Pulse Ox 97 02/14/22 12:15 Intake & Output 02/13/22 02/14/22 02/14/22 18:59 06:59 18:59 Output Total 300 880 Balance -300 -880 Output: Urine 300 280 Stool 600 Other: Voiding Method Indwelling Catheter ABP, PAP, CO, CI - Last Documented Arterial Blood Pressure 121/68 - Exam GENERAL DESCRIPTION: An elderly female lying in bed in no distress RESPIRATORY SYSTEM: Unlabored breathing , decreased breath sounds at bases HEART: S1 S2 regular rate and rhythm , ABDOMEN: Soft , midline incision is currently dressed Unstageable pressure ulcer to the sacral area with some deep tissue injury EXTREMITIES: No edema feet - Labs CBC & Chem 7: 02/14/22 08:17 02/14/22 08:17 Labs: Abnormal Lab Results - Last 24 Hours (Table) 02/13/22 02/14/22 02/14/22 Range/Units 21:51 05:59 08:17 RBC (4.10-5.20) X 10*6/uL Hgb (12.0-15.0) g/dL Hct (37.2-46.3) % MCV (80.0-97.0) fL MCHC (32.0-37.0) g/dL RDW (11.5-14.5) % Plt Count (140-440) X 10*3/uL Absolute Nucleated RBC (0.00-0.00) X 10*3/uL Immature Gran # (0.00-0.04) X 10*3/uL Lymphocytes # (0.90-5.00) X 10*3/uL NRBC/100 WBC Diff (0.0-0.0) /100 WBCS Potassium 3.2 L (3.5-5.1) mmol/L Chloride 120 H 119 H (98-107) mmol/L Carbon Dioxide 21 L 20 L (22-30) mmol/L BUN 48 H 39 H (7-17) mg/dL Glucose 143 H 162 H (74-99) mg/dL POC Glucose (mg/dL) 101 H (75-99) mg/dL Calcium 7.8 L 7.6 L (8.4-10.2) mg/dL Phosphorus 2.3 L (2.5-4.5) mg/dL AST 132 H (14-36) U/L ALT 144 H (4-34) U/L Total Protein 4.6 L (6.3-8.2) g/dL Albumin 2.1 L (3.5-5.0) g/dL 02/14/22 Range/Units 08:17 RBC 2.60 L (4.10-5.20) X 10*6/uL Hgb 8.0 L (12.0-15.0) g/dL Hct 26.6 L (37.2-46.3) % MCV 102.3 H (80.0-97.0) fL MCHC 30.1 L (32.0-37.0) g/dL RDW 21.0 H (11.5-14.5) % Plt Count 81 L (140-440) X 10*3/uL Absolute Nucleated RBC 0.02 H (0.00-0.00) X 10*3/uL Immature Gran # 0.05 H (0.00-0.04) X 10*3/uL Lymphocytes # 0.19 L (0.90-5.00) X 10*3/uL NRBC/100 WBC Diff 0.3 H (0.0-0.0) /100 WBCS Potassium (3.5-5.1) mmol/L Chloride (98-107) mmol/L Carbon Dioxide (22-30) mmol/L BUN (7-17) mg/dL Glucose (74-99) mg/dL POC Glucose (mg/dL) (75-99) mg/dL Calcium (8.4-10.2) mg/dL Phosphorus (2.5-4.5) mg/dL AST (14-36) U/L ALT (4-34) U/L Total Protein (6.3-8.2) g/dL Albumin (3.5-5.0) g/dL Assessment and Plan (1) Leukocytosis Current Visit: Yes Status: Acute Code(s): D72.829 - ELEVATED WHITE BLOOD CELL COUNT, UNSPECIFIED SNOMED Code(s): 159701258 Plan: 1patient presented to hospital with sepsis in this we did have a significant elevated white count elevated lactic acid and hypotension requiring multiple pressor support source likely abdominal in this patient who do have a history of rectal cancer with a history of chemoradiation now with abnormal CT suspicious for high-grade small bowel obstruction need to cover for the enteric gram- negative both aerobes and anaerobes, patient is status post laparotomy and lysis of adhesion completed on 02/07/2022 2patient did have overall clinical improvement and will continue with Zosyn however may transition to oral Augmentin is oral intakes improves and the patient tolerates 3-unstageable sacral pressure ulcer with some deep tissue injury to keep the area off the pressure and dry Time with Patient: Less than 30
[2022-02-15 02:43] LABS: Glucose,Whole Blood 91 mg/dL (75-99)
[2022-02-15 05:22] LABS: Glucose,Whole Blood 109 mg/dL (75-99)
[2022-02-15] MEDS: INSULIN ASPART (NovoLOG) 100 UNIT/ML VIAL SQ SCH ×5 (05:27→21:00)
[2022-02-15] MEDS: IPRATROPIUM-ALBUTEROL 3 ML NEB INHALATION SCH ×4 (08:25→21:00)
[2022-02-15 08:39] LABS: ALT 140 U/L (4-34); AST 86 U/L (14-36); African American GFR (CKD) >90 (>60 ml/min/1.73 sqM); Albumin 2.2 g/dL (3.5-5.0); Alkaline Phosphatase 64 U/L (38-126); Anion Gap 3 mmol/L; Blood Urea Nitrogen 34 mg/dL (7-17); Calcium 7.8 mg/dL (8.4-10.2); Carbon Dioxide 21 mmol/L (22-30); Chloride 119 mmol/L (98-107); Glucose 100 mg/dL (74-99); Magnesium 1.9 mg/dL (1.6-2.3); Non-African American GFR(CKD) 78 (>60 ml/min/1.73 sqM); Phosphorus 2.3 mg/dL (2.5-4.5); Potassium 3.8 mmol/L (3.5-5.1); Sodium 143 mmol/L (137-145); Total Bilirubin 0.9 mg/dL (0.2-1.3); Total Protein 4.7 g/dL (6.3-8.2)
[2022-02-15] MEDS: AMIODARONE 200 MG TAB PO SCH ×3 (09:30→22:18)
[2022-02-15] MEDS: PANTOPRAZOLE 40 MG/10 ML VIAL IVP SCH (09:30)
[2022-02-15] MEDS: PIPERACILLIN-TAZOBACTAM 3.375 GM in SODIUM CHLORIDE 0.9% 100 ML IVPB SCH ×2 (09:30→16:35)
[2022-02-15] MEDS: DEXTROSE 5% IN WATER 1,000 ML IV SCH ×2 (09:31→22:20)
--- NOTE | 2022-02-15 09:57 | P.PN ---
Subjective Progress Note Date: 02/13/22 This is a 71-year-old female presents to the emergency room from home, family called EMS. Medical history taken from family and patients chart. Patient has not been eating and drinking for about the last week per . Per , she has also not had stool from her ileostomy for the last 4 to 5 days as well, patient has had increasing confusion since last saturday to the point where he sates she did not know where she was. also reports she has an ulcer on her tailbone that was found about 2 weeks ago at home which [facility], today was the last day of antibiotics. The day before admission patient drank water, had a few bites of banana and had a small amount of emesis per family who reports it seemed dark in color and thought it was blood. Patient follows with dr Titus in the office for history of rectal cancer. Patient was initially diagnosed about 4 years ago and underwent bowel resection with ileostomy with subsequent reversal. She underwent chemoradiation at that time. In October of 2020 there was reoccurrence of cancer, she was taking oral c hemo and had a secondy bowel resection with ileostomy placement in September of 2021. Patients surgeon is Dr. Garcia out of [facility], family reports she has been to the office 1 time since surgery, family reports they were planning for ileostomy reversal around March of this year. She presents to the EC with hypotension and shock she is maintained on levophed infusion as well as empiric antibiotic coverage with IV Zosyn. She received 3 L of saline bolus in the EC and is now maintained on saline at 130 mls per hour. Blood cultures are currently pending. Patient had abdominal pelvis CT which did show high-grade mechanical bowel obstruction for which she has NG tube placed and surgical consult. There has been 900 mls of output from NG tube so far. Additional labs show sodium 117 which has improved some to 123. Troponin elevation at 0.141, 0.144. BUN today 55, creatinine 5.40 for which nephrology was consulted. There is evidence of some hydronephrosis with possible urinary retention found on computed tomography scan continue bladder ultrasound is requested and pending. Urinalysis showing cloudy urine, trace protein, large blood, RBC 161, rare bacteria, rate mucus, many yeast. Other pertinent medical history includes GERD osteoarthritis, cervical cancer in the 80s, EGD colonoscopies, former smoker very remote not since the 1980s. She is afebrile, heart rate 102, blood pressure 84/49, on 5 L nasal cannula which she initially required BiPAP. 02/08/2022 Patient is currently in the MICU. On my current ventilator with assist control tidal volume 400 FiO2 40% and PEEP of 5. Patient remains pressor support with vasopressin and norepinephrine. Patient underwent exploratory laparotomy yesterday and found to have bowel obstruction secondary to adhesive band. Patient had lysis of adhesions. Chest x-ray showed suspected newly seen small left apical pneumothorax. Short- term follow-up is required. Progressive infiltrates in the left lung base which could represent pneumonia however aspiration cannot be excluded. Laboratory data showed WBC 12.1 hemoglobin 9.5 and platelets 43 Sodium 127 potassium 3.9 chloride 102 bicarb is 17 BUN 108 and creatinine down to 2.9 today. Albumin 2.3 02/09/2022 Patient remains in the MICU and intubated on mechanical ventilator. Requiring p ressor support which is being tapered down.. Patient is status post expiratory laparotomy on 02/07/2022. Chest x-ray showed no acute pulmonary process. No significant change from most recent 5. Laboratory data showed WBC 12.4 hemoglobin 7.9 and platelets 46 sodium 133 potassium 3.1 chloride 101 bicarb is 18 BUN 19 and creatinine 1.87 calcium 7.5 Patient is being continued on antibiotics in the form of Zosyn. Currently on IV hydration and renal function is improving. 02/09/2022 Patient was extubated yesterday. Currently on room air. Otherwise patient is able to move her head with verbal stimuli. Unable to follow simple commands at this time. Still requiring pressor support. Patient was given a dose of hydrocortisone today. Otherwise laboratory data showed WBC 11.9 hemoglobin 6.7 and platelets 47 sodium 139 potassium 4.3 chloride 105 BUN 68 and creatinine 1.16 and albumin 1.9 chest x-ray showed increasing density left lower lobe may reflect underlying atelectasis or infiltrate. Patient remains on antibiotics of Zosyn. Currently on TPN for nutrition. 02/11/2022 Patient is currently in the MICU. Status post expiratory laparotomy and ileostomy. Currently room air. Patient is still requiring pressor support. Otherwise able to open her eyes with verbal stimuli. Patient is generally weak. Continued on TPN. Patient is being current hydrocortisone IV push. Still hypotensive.. Laboratory data showed WC 11.4 hemoglobin 8.1 and platelets 66 Sodium 143 potassium 4.1 chloride 117 bicarb is 21 BUN 61 and creatinine 0.98 liver enzymes are not elevated albumin 1.9. Patient is being continued IV hydration and antibiotics in the form of Zosyn. Pulmonary and general surgery is on board. 02/12/2022 Patient is currently being transferred to medical floor. Patient is off pressor support. Patient is otherwise awake alert and trying to communicate. Patient is otherwise generally weak. Currently on room air. Currently on TPN for nutrition. Also on venous lactate at 75 cc/h. Patient has been afebrile. No complaints of nausea. Abdominal pain is controlled. No headache or dizziness. Laboratory showed WBC 8.4 hemoglobin 8.3 and platelets 3 and platelets 70 Sodium 141 potassium 4.0 chloride 121 bicarb is 19 BUN 59 and creatinine 0.9 and calcium 7.4 albumin 2.1 cultures have been negative. Patient is being continued on antibiotics in the form of Zosyn. Pulmonary, surgery and nephrology is on board. 02/13/2022 Patient is currently in the medical floor. Status post expiratory laparotomy due to high-grade obstruction and lysis of adhesions. Patient does have prior history of ileostomy which is functioning well. Patient was started on modified diet with honey thickened liquids with one-to-one supervision. TPN is on hold currently. Patient has been afebrile. Currently on antibiotics Zosyn. Laboratory data showed sodium 144 potassium 3.2 chloride 120 BUN 48 and creatinine 0.95 and calcium 7.8 and magnesium 2.1. Patient was also found to havenew sacral decubitus ulcers. Wound care and ID was consulted. No purulent drainage noted. Current medications reviewed. Objective - Vital Signs Vital signs: Vital Signs Temp 98.4 F 02/13/22 08:00 Pulse 98 02/13/22 12:05 Resp 14 02/13/22 08:00 BP 100/64 02/13/22 08:00 Pulse Ox 98 02/13/22 08:00 Intake & Output 02/12/22 02/13/22 02/13/22 18:59 06:59 18:59 Intake Total 685 50 Output Total 1340 1050 Balance -655 -1000 Weight 63 kg Intake: IV 425 Lactated Ringers 1,000 ml 225 @ 75 mls/hr IV .[id number] [facility] Rx#:[id number] Piperacillin-Tazobactam 3 50 .375 gm In Sodium Chloride 0.9% 100 ml @ 25 mls/hr IVPB Q8HR [facility] Rx# :[id number] Sodium Chloride 0.9% 1, 150 000 ml @ 75 mls/hr IV . [id number] [facility] Rx#:[id number] Oral 50 TPN/PPN 260 TPN 260 Output: Urine 1140 500 Stool 200 550 Other: Voiding Method Indwelling Catheter Indwelling Catheter ABP, PAP, CO, CI - Last Documented Arterial Blood Pressure 121/68 - Exam PHYSICAL EXAMINATION: Patient is is awake. Able to move her head with verbal stimuli. Could not follow commands. On room air. HEENT: Normocephalic. Neck is supple. Pupils reactive. Nostrils clear. Oral cavity is moist. Neck reveals no JVD, carotid bruits, or thyromegaly. CHEST EXAMINATION: Trachea is central.. Symmetrical expansion. Lung dunbar clear to auscultation and percussion. CARDIAC: Normal S1, S2 with no gallops. No murmurs ABDOMEN: Soft. Bowel sounds sluggish. Surgical site is bandaged. Extremities: reveal no edema. No clubbing or cyanosis Neurologically patient is currently lethargic.. No gross focal deficits noted Skin: No rash or skin lesions. Psychiatric: Could not be assessed at this time. Musculoskeletal: No joint swelling or deformity. - Labs CBC & Chem 7: 02/14/22 08:17 02/15/22 07:20 Labs: Abnormal Lab Results - Last 24 Hours (Table) 02/12/22 02/13/22 Range/Units 16:17 07:30 Sodium 149 H (137-145) mmol/L Chloride 123 H (98-107) mmol/L BUN 53 H (7-17) mg/dL POC Glucose (mg/dL) 116 H (75-99) mg/dL Calcium 8.0 L (8.4-10.2) mg/dL Microbiology - Last 24 Hours (Table) 02/06/22 23:55 Blood Culture - Final Blood No Growth after 144 hours 02/07/22 00:11 Blood Culture - Final Blood No Growth after 144 hours Assessment and Plan Assessment: Assessment 1 Acute mechanical high grade obstruction. Status post exploratory laparotomy and lysis of additions on 02/07/2022.. -Acute renal failure secondary to acute tubular necrosis secondary to hypotension and severe dehydration. Currently with indwelling catheter in place. Nephrology is following. Creatinine 5.40 on admission. Improved. -Elevated troponins. Possible demand mismatch. -Hyponatremia, hypovolemic on admission secondary to severe dehydration from poor oral intake. Sodium level improved to 145 -Shock septic vs hypovolemic, blood culture, urine culture currently negative. Patient is monitored in the ICU and was on vasopressin support -Lactic acidosis secondary to dehydration -Altered mental status secondary to acute metabolic encephalopathy with significant uremia -Leukocytosis secondary to above -Reported sacral decub -History of colorectal cancer diagnosed in 2018 status post bowel resection x 2, last surgery in Sep with right sided ileostomy present. -History of gastroesophageal reflux disease -History of cervical cancer in the 80s. -Remote history of smoking GI Prophylaxis Full Code Plan Patient is off pressor support. Continue on IV fluids. Monitor sodium level and renal function. Continue empiric coverage with zosyn . Continue with wound care. Status post exploratory laparotomy and lysis of adhesions. Continue with TPN. Continue with strict I&O. Complete wound/skin assessment Repeat labs in the morning Multiple consultations including fire supervisor, oncology, surgical, nephrology, i nfectious disease Prognosis guarded. Time with Patient: Greater than 30
--- NOTE | 2022-02-15 10:01 | P.PN ---
Subjective Progress Note Date: 02/14/22 This is a 71-year-old female presents to the emergency room from home, family called EMS. Medical history taken from family and patients chart. Patient has not been eating and drinking for about the last week per . Per , she has also not had stool from her ileostomy for the last 4 to 5 days as well, patient has had increasing confusion since last saturday to the point where he sates she did not know where she was. also reports she has an ulcer on her tailbone that was found about 2 weeks ago at home which she [facility], today was the last day of antibiotics. The day before admission patient drank water, had a few bites of banana and had a small amount of emesis per family who reports it seemed dark in color and thought it was blood. Patient follows with dr Titus in the office for history of rectal cancer. Patient was initially diagnosed about 4 years ago and underwent bowel resection with ileostomy with subsequent reversal. She underwent chemoradiation at that time. In October of 2020 there was reoccurrence of cancer, she was taking oral c hemo and had a secondy bowel resection with ileostomy placement in September of 2021. Patients surgeon is Dr. Garcia out of [facility], family reports she has been to the office 1 time since surgery, family reports they were planning for ileostomy reversal around March of this year. She presents to the EC with hypotension and shock she is maintained on levophed infusion as well as empiric antibiotic coverage with IV Zosyn. She received 3 L of saline bolus in the EC and is now maintained on saline at 130 mls per hour. Blood cultures are currently pending. Patient had abdominal pelvis CT which did show high-grade mechanical bowel obstruction for which she has NG tube placed and surgical consult. There has been 900 mls of output from NG tube so far. Additional labs show sodium 117 which has improved some to 123. Troponin elevation at 0.141, 0.144. BUN today 55, creatinine 5.40 for which nephrology was consulted. There is evidence of some hydronephrosis with possible urinary retention found on computed tomography scan continue bladder ultrasound is requested and pending. Urinalysis showing cloudy urine, trace protein, large blood, RBC 161, rare bacteria, rate mucus, many yeast. Other pertinent medical history includes GERD osteoarthritis, cervical cancer in the 80s, EGD colonoscopies, former smoker very remote not since the 1980s. She is afebrile, heart rate 102, blood pressure 84/49, on 5 L nasal cannula which she initially required BiPAP. 02/08/2022 Patient is currently in the MICU. On my current ventilator with assist control tidal volume 400 FiO2 40% and PEEP of 5. Patient remains pressor support with vasopressin and norepinephrine. Patient underwent exploratory laparotomy yesterday and found to have bowel obstruction secondary to adhesive band. Patient had lysis of adhesions. Chest x-ray showed suspected newly seen small left apical pneumothorax. Short- term follow-up is required. Progressive infiltrates in the left lung base which could represent pneumonia however aspiration cannot be excluded. Laboratory data showed WBC 12.1 hemoglobin 9.5 and platelets 43 Sodium 127 potassium 3.9 chloride 102 bicarb is 17 BUN 108 and creatinine down to 2.9 today. Albumin 2.3 02/09/2022 Patient remains in the MICU and intubated on mechanical ventilator. Requiring p ressor support which is being tapered down.. Patient is status post expiratory laparotomy on 02/07/2022. Chest x-ray showed no acute pulmonary process. No significant change from most recent 5. Laboratory data showed WBC 12.4 hemoglobin 7.9 and platelets 46 sodium 133 potassium 3.1 chloride 101 bicarb is 18 BUN 19 and creatinine 1.87 calcium 7.5 Patient is being continued on antibiotics in the form of Zosyn. Currently on IV hydration and renal function is improving. 02/09/2022 Patient was extubated yesterday. Currently on room air. Otherwise patient is able to move her head with verbal stimuli. Unable to follow simple commands at this time. Still requiring pressor support. Patient was given a dose of hydrocortisone today. Otherwise laboratory data showed WBC 11.9 hemoglobin 6.7 and platelets 47 sodium 139 potassium 4.3 chloride 105 BUN 68 and creatinine 1.16 and albumin 1.9 chest x-ray showed increasing density left lower lobe may reflect underlying atelectasis or infiltrate. Patient remains on antibiotics of Zosyn. Currently on TPN for nutrition. 02/11/2022 Patient is currently in the MICU. Status post expiratory laparotomy and ileostomy. Currently room air. Patient is still requiring pressor support. Otherwise able to open her eyes with verbal stimuli. Patient is generally weak. Continued on TPN. Patient is being current hydrocortisone IV push. Still hypotensive.. Laboratory data showed WC 11.4 hemoglobin 8.1 and platelets 66 Sodium 143 potassium 4.1 chloride 117 bicarb is 21 BUN 61 and creatinine 0.98 liver enzymes are not elevated albumin 1.9. Patient is being continued IV hydration and antibiotics in the form of Zosyn. Pulmonary and general surgery is on board. 02/12/2022 Patient is currently being transferred to medical floor. Patient is off pressor support. Patient is otherwise awake alert and trying to communicate. Patient is otherwise generally weak. Currently on room air. Currently on TPN for nutrition. Also on venous lactate at 75 cc/h. Patient has been afebrile. No complaints of nausea. Abdominal pain is controlled. No headache or dizziness. Laboratory showed WBC 8.4 hemoglobin 8.3 and platelets 3 and platelets 70 Sodium 141 potassium 4.0 chloride 121 bicarb is 19 BUN 59 and creatinine 0.9 and calcium 7.4 albumin 2.1 cultures have been negative. Patient is being continued on antibiotics in the form of Zosyn. Pulmonary, surgery and nephrology is on board. 02/13/2022 Patient is currently in the medical floor. Status post expiratory laparotomy due to high-grade obstruction and lysis of adhesions. Patient does have prior history of ileostomy which is functioning well. Patient was started on modified diet with honey thickened liquids with one-to-one supervision. TPN is on hold currently. Patient has been afebrile. Currently on antibiotics Zosyn. Laboratory data showed sodium 144 potassium 3.2 chloride 120 BUN 48 and creatinine 0.95 and calcium 7.8 and magnesium 2.1. Patient was also found to havenew sacral decubitus ulcers. Wound care and ID was consulted. No purulent drainage noted. 02/14/2022 Patient is currently lying in the bed comfortably but awake alert and able to speak slowly. Still with very weak and lethargic. No other acute overnight issues. Patient has been afebrile. Currently on room air. No complaints of chest pain or shortness breath. Denied any abdominal pain. No nausea vomiting. Tolerating minimal oral diet. Not on any pressors support. Laboratory data showedWBC 6.67. Hemoglobin 8.0 and platelets 81 Sodium 142 potassium 3.6 chloride 109 bicarb is 20 BUN 13 and creatinine 0.85, patient remains on IV hydration with D5 water and duo nebs and antibiotics in the form of Zosyn. ID and pulmonary is on board. Current medications reviewed. Objective - Vital Signs Vital signs: Vital Signs Temp 98.4 F 02/14/22 21:00 Pulse 86 02/14/22 21:49 Resp 17 02/14/22 21:00 BP 89/58 02/14/22 21:00 Pulse Ox 93 L 02/14/22 21:00 Intake & Output 02/14/22 02/14/22 02/15/22 06:59 18:59 06:59 Output Total 880 650 50 Balance -880 -650 -50 Weight 63 kg Output: Urine 280 100 Stool 600 550 50 Other: Voiding Method Indwelling Catheter Indwelling Catheter Indwelling Catheter ABP, PAP, CO, CI - Last Documented Arterial Blood Pressure 121/68 - Exam PHYSICAL EXAMINATION: Patient is is awake alert and oriented. Able to come in. Slowly.. On room air. HEENT: Normocephalic. Neck is supple. Pupils reactive. Nostrils clear. Oral cavity is moist. Neck reveals no JVD, carotid bruits, or thyromegaly. CHEST EXAMINATION: Trachea is central.. Symmetrical expansion. Lung dunbar clear to auscultation and percussion. CARDIAC: Normal S1, S2 with no gallops. No murmurs ABDOMEN: Soft. Bowel sounds present. Surgical site is bandaged. Extremities: reveal no edema. No clubbing or cyanosis Neurologically patient is awake alert but very weak... No gross focal deficits noted Skin: Sacral decub ulcers Psychiatric: Could not be assessed at this time. Musculoskeletal: No joint swelling or deformity. - Labs CBC & Chem 7: 02/14/22 08:17 02/15/22 07:20 Labs: Abnormal Lab Results - Last 24 Hours (Table) 02/14/22 02/14/22 02/14/22 Range/Units 05:59 08:17 08:17 RBC 2.60 L (4.10-5.20) X 10*6/uL Hgb 8.0 L (12.0-15.0) g/dL Hct 26.6 L (37.2-46.3) % MCV 102.3 H (80.0-97.0) fL MCHC 30.1 L (32.0-37.0) g/dL RDW 21.0 H (11.5-14.5) % Plt Count 81 L (140-440) X 10*3/uL Absolute Nucleated RBC 0.02 H (0.00-0.00) X 10*3/uL Immature Gran # 0.05 H (0.00-0.04) X 10*3/uL Lymphocytes # 0.19 L (0.90-5.00) X 10*3/uL NRBC/100 WBC Diff 0.3 H (0.0-0.0) /100 WBCS Chloride 119 H (98-107) mmol/L Carbon Dioxide 20 L (22-30) mmol/L BUN 39 H (7-17) mg/dL Glucose 162 H (74-99) mg/dL POC Glucose (mg/dL) 101 H (75-99) mg/dL Calcium 7.6 L (8.4-10.2) mg/dL Phosphorus 2.3 L (2.5-4.5) mg/dL AST 132 H (14-36) U/L ALT 144 H (4-34) U/L Total Protein 4.6 L (6.3-8.2) g/dL Albumin 2.1 L (3.5-5.0) g/dL 02/14/22 02/14/22 Range/Units 16:20 20:40 RBC (4.10-5.20) X 10*6/uL Hgb (12.0-15.0) g/dL Hct (37.2-46.3) % MCV (80.0-97.0) fL MCHC (32.0-37.0) g/dL RDW (11.5-14.5) % Plt Count (140-440) X 10*3/uL Absolute Nucleated RBC (0.00-0.00) X 10*3/uL Immature Gran # (0.00-0.04) X 10*3/uL Lymphocytes # (0.90-5.00) X 10*3/uL NRBC/100 WBC Diff (0.0-0.0) /100 WBCS Chloride (98-107) mmol/L Carbon Dioxide (22-30) mmol/L BUN (7-17) mg/dL Glucose (74-99) mg/dL POC Glucose (mg/dL) 105 H 121 H (75-99) mg/dL Calcium (8.4-10.2) mg/dL Phosphorus (2.5-4.5) mg/dL AST (14-36) U/L ALT (4-34) U/L Total Protein (6.3-8.2) g/dL Albumin (3.5-5.0) g/dL Assessment and Plan Assessment: Assessment 1 Acute mechanical high grade obstruction. Status post exploratory laparotomy and lysis of additions on 02/07/2022.. -Acute renal failure secondary to acute tubular necrosis secondary to hypotension and severe dehydration. Currently with indwelling catheter in place. Nephrology is following. Creatinine 5.40 on admission. Improved. -Elevated troponins. Possible demand mismatch. -Hyponatremia, hypovolemic on admission secondary to severe dehydration from poor oral intake. Sodium level improved to 145 -Shock septic vs hypovolemic, blood culture, urine culture currently negative. Patient is monitored in the ICU and was on vasopressin support -Lactic acidosis secondary to dehydration -Altered mental status secondary to acute metabolic encephalopathy with signific ant uremia -Leukocytosis secondary to above -Reported sacral decub -History of colorectal cancer diagnosed in 2018 status post bowel resection x 2, last surgery in Sep with right sided ileostomy present. -History of gastroesophageal reflux disease -History of cervical cancer in the 80s. -Remote history of smoking GI Prophylaxis Full Code Plan Patient is off pressor support. Continue on IV fluids with D5 water. Monitor sodium level and renal function. Continue antibiotic, zosyn . Continue with wound care. Status post exploratory laparotomy and lysis of adhesions on 02/07/2022. Con tinue with TPN. Continue with strict I&O. Complete wound/skin assessment Repeat labs in the morning Multiple consultations including rotary drill operator helper, oncology, surgical, nephrology, infectious disease Prognosis guarded. Time with Patient: Greater than 30
[2022-02-15 11:49] LABS: Glucose,Whole Blood 79 mg/dL (75-99)
--- NOTE | 2022-02-15 11:57 | P.PN ---
Subjective Progress Note Date: 02/15/22 CHIEF COMPLAINT: Follow obstruction HISTORY OF PRESENT ILLNESS: Patient is postop day #8 status post exploratory laparotomy and lysis of adhesion for bowel obstruction secondary to adhesive band. Patient's ostomy is functioning. She is sitting up in bed. She reports that her pain is controlled. She is currently on a ground diet. Afebrile. Sodium 143 potassium 3.8 creatinine 0.78 cardiology signed off. They're following nonsustained ventricle tachycardia. PHYSICAL EXAM: VITAL SIGNS: Reviewed. GENERAL: No acute distress HEENT: Head is atraumatic, normocephalic. ABDOMEN: Soft. Nondistended. Nontender. Incision site clean dry and intact. Ostomy functioning ASSESSMENT: 1. Status post exploratory laparotomy and lysis of adhesion for bowel obstruction secondary to adhesive band 2. Acute renal failure likely due to dehydration. Resolved 3. Thrombocytopenia possibly chronic. Followed by oncology 4. History of colorectal cancer PLAN: -Continue ground Diet -Continue supportive care -Encouraged patient to increase oral intake -Encouraged patient to increase activity level -Encouraged patient to use incentive spirometer -DVT prophylaxis SCDs Physician Commercial Truck Driver note has been reviewed by physician. Signing provider agrees with the documented findings, assessment, and plan of care. Objective - Vital Signs Vital signs: Vital Signs Temp 97.5 F L 02/15/22 03:40 Pulse 88 02/15/22 08:36 Resp 16 02/15/22 08:00 BP 97/58 02/15/22 08:00 Pulse Ox 95 02/15/22 08:00 Intake & Output 02/14/22 02/15/22 02/15/22 18:59 06:59 18:59 Output Total 650 1000 Balance -650 -1000 Weight 63 kg Output: Urine 100 800 Stool 550 50 Urine/Stool Mix 150 Other: Voiding Method Indwelling Catheter Indwelling Catheter Indwelling Catheter ABP, PAP, CO, CI - Last Documented Arterial Blood Pressure 121/68 - Labs CBC & Chem 7: 02/14/22 08:17 02/15/22 07:20 Labs: Abnormal Lab Results - Last 24 Hours (Table) 02/14/22 02/14/22 02/14/22 Range/Units 08:17 16:20 20:40 RBC 2.60 L (4.10-5.20) X 10*6/uL Hgb 8.0 L (12.0-15.0) g/dL Hct 26.6 L (37.2-46.3) % MCV 102.3 H (80.0-97.0) fL MCHC 30.1 L (32.0-37.0) g/dL RDW 21.0 H (11.5-14.5) % Plt Count 81 L (140-440) X 10*3/uL Absolute Nucleated RBC 0.02 H (0.00-0.00) X 10*3/uL Immature Gran # 0.05 H (0.00-0.04) X 10*3/uL Lymphocytes # 0.19 L (0.90-5.00) X 10*3/uL NRBC/100 WBC Diff 0.3 H (0.0-0.0) /100 WBCS Chloride (98-107) mmol/L Carbon Dioxide (22-30) mmol/L BUN (7-17) mg/dL Glucose (74-99) mg/dL POC Glucose (mg/dL) 105 H 121 H (75-99) mg/dL Calcium (8.4-10.2) mg/dL Phosphorus (2.5-4.5) mg/dL AST (14-36) U/L ALT (4-34) U/L Total Protein (6.3-8.2) g/dL Albumin (3.5-5.0) g/dL 02/15/22 02/15/22 Range/Units 05:18 07:20 RBC (4.10-5.20) X 10*6/uL Hgb (12.0-15.0) g/dL Hct (37.2-46.3) % MCV (80.0-97.0) fL MCHC (32.0-37.0) g/dL RDW (11.5-14.5) % Plt Count (140-440) X 10*3/uL Absolute Nucleated RBC (0.00-0.00) X 10*3/uL Immature Gran # (0.00-0.04) X 10*3/uL Lymphocytes # (0.90-5.00) X 10*3/uL NRBC/100 WBC Diff (0.0-0.0) /100 WBCS Chloride 119 H (98-107) mmol/L Carbon Dioxide 21 L (22-30) mmol/L BUN 34 H (7-17) mg/dL Glucose 100 H (74-99) mg/dL POC Glucose (mg/dL) 109 H (75-99) mg/dL Calcium 7.8 L (8.4-10.2) mg/dL Phosphorus 2.3 L (2.5-4.5) mg/dL AST 86 H (14-36) U/L ALT 140 H (4-34) U/L Total Protein 4.7 L (6.3-8.2) g/dL Albumin 2.2 L (3.5-5.0) g/dL
[2022-02-15 16:26] LABS: Glucose,Whole Blood 84 mg/dL (75-99)
[2022-02-15] MEDS: ACETAMINOPHEN TAB 325 MG TAB PO PRN (17:57)
--- NOTE | 2022-02-15 18:30 | P.PN ---
Subjective Progress Note Date: 02/15/22 Objective - Vital Signs Vital signs: Vital Signs Temp 97.9 F 02/15/22 15:50 Pulse 83 02/15/22 15:50 Resp 18 02/15/22 15:50 BP 101/62 02/15/22 15:50 Pulse Ox 96 02/15/22 15:50 Intake & Output 02/14/22 02/15/22 02/15/22 18:59 06:59 18:59 Intake Total 700 Output Total 650 1000 1250 Balance -650 -1000 -550 Weight 63 kg Intake: IV 700 Piperacillin-Tazobactam 3 100 .375 gm In Sodium Chloride 0.9% 100 ml @ 25 mls/hr IVPB Q8HR TIM Rx# :[id number] Sodium Chloride 0.9% 1, 600 000 ml @ 75 mls/hr IV . [id number] TIM Rx#:[id number] Output: Urine 100 800 750 Stool 550 50 500 Urine/Stool Mix 150 Other: Voiding Method Indwelling Catheter Indwelling Catheter Indwelling Catheter ABP, PAP, CO, CI - Last Documented Arterial Blood Pressure 121/68 - Labs CBC & Chem 7: 02/14/22 08:17 02/15/22 07:20 Labs: Abnormal Lab Results - Last 24 Hours (Table) 02/14/22 02/15/22 02/15/22 Range/Units 20:40 05:18 07:20 Chloride 119 H (98-107) mmol/L Carbon Dioxide 21 L (22-30) mmol/L BUN 34 H (7-17) mg/dL Glucose 100 H (74-99) mg/dL POC Glucose (mg/dL) 121 H 109 H (75-99) mg/dL Calcium 7.8 L (8.4-10.2) mg/dL Phosphorus 2.3 L (2.5-4.5) mg/dL AST 86 H (14-36) U/L ALT 140 H (4-34) U/L Total Protein 4.7 L (6.3-8.2) g/dL Albumin 2.2 L (3.5-5.0) g/dL Assessment and Plan Plan: Comments: abdomen/bladder ultrasound report reviewed Chest x-ray: report reviewed CT scan - abdomen: report reviewed CT scan - pelvis: report reviewed Assessment and Plan Plan: Dr. Titus discussed the case with the Critical Care team, Internal Medicine and the family. Patient's acute condition appears to be more related to postoperative complications, most suggestive of a stricture. Surgery is seeing the patient and is going to take the patient to surgery as soon as she is hemodynamically stable enough to tolerate. At this time, no evidence to suggest that her condition is related to a progressive malignancy. We will continue to follow up on her hospital course. She has continued to improve and plan to move from ICU to medical floor today Hemoglobin 8.repeat cbc in am Elevated LFTs, CMP in for am Ileostomy active Status post exploratory laparotomy and lysis of adhesion for bowel obstruction secondary to adhesive band CBC in am 2. Acute renal failure likely due to dehydration. Resolved Doctor attests: I performed a history and physical examination of this patient, developed impression and plan of care, discussed with dictator. I agree with dictators note, documented as a scribe.
[2022-02-15] MEDS: COLLAGENASE 250 UNIT/GM OINTMENT 30 GM TUBE TOPICAL SCH (19:58)
[2022-02-15 20:14] LABS: Glucose,Whole Blood 61 mg/dL (75-99)
[2022-02-15 20:36] LABS: Glucose,Whole Blood 75 mg/dL (75-99)
--- NOTE | 2022-02-15 21:07 | P.PN ---
Subjective Progress Note Date: 02/15/22 Principal diagnosis: Abdominal sepsis Patient is a 71 year female With a past medical history significant for rectal cancer with recent recurrence in this patient who is status post bowel resection with ileostomy placement in the summer of 2020 presented to the hospital with weakness no output from ileostomy noticed to have a high-grade small bowel obstruction patient is status post laparotomy with lysis of adhesion. The patient was extubated on 02/09/2022 On today's evaluation is 02/15/2022, the patient remains to be afebrile, the patient is breathing comfortably on room air, patient is awake but usually shakes head and did not answer any question oral intakes remains to be poor but her at the bedside no vomiting has been reported should have outpatient colostomy bag Objective - Vital Signs Vital signs: Vital Signs Temp 97.5 F L 02/15/22 03:40 Pulse 85 02/15/22 12:17 Resp 16 02/15/22 12:00 BP 94/75 02/15/22 12:00 Pulse Ox 96 02/15/22 12:00 Intake & Output 02/14/22 02/15/22 02/15/22 18:59 06:59 18:59 Output Total 650 1000 Balance -650 -1000 Weight 63 kg Output: Urine 100 800 Stool 550 50 Urine/Stool Mix 150 Other: Voiding Method Indwelling Catheter Indwelling Catheter Indwelling Catheter ABP, PAP, CO, CI - Last Documented Arterial Blood Pressure 121/68 - Exam GENERAL DESCRIPTION: An elderly female lying in bed in no distress RESPIRATORY SYSTEM: Unlabored breathing , decreased breath sounds at bases HEART: S1 S2 regular rate and rhythm , ABDOMEN: Soft , midline incision is currently dressed Unstageable pressure ulcer to the sacral area with some deep tissue injury EXTREMITIES: No edema feet - Labs CBC & Chem 7: 02/14/22 08:17 02/15/22 07:20 Labs: Abnormal Lab Results - Last 24 Hours (Table) 02/14/22 02/14/22 02/15/22 Range/Units 16:20 20:40 05:18 Chloride (98-107) mmol/L Carbon Dioxide (22-30) mmol/L BUN (7-17) mg/dL Glucose (74-99) mg/dL POC Glucose (mg/dL) 105 H 121 H 109 H (75-99) mg/dL Calcium (8.4-10.2) mg/dL Phosphorus (2.5-4.5) mg/dL AST (14-36) U/L ALT (4-34) U/L Total Protein (6.3-8.2) g/dL Albumin (3.5-5.0) g/dL 02/15/22 Range/Units 07:20 Chloride 119 H (98-107) mmol/L Carbon Dioxide 21 L (22-30) mmol/L BUN 34 H (7-17) mg/dL Glucose 100 H (74-99) mg/dL POC Glucose (mg/dL) (75-99) mg/dL Calcium 7.8 L (8.4-10.2) mg/dL Phosphorus 2.3 L (2.5-4.5) mg/dL AST 86 H (14-36) U/L ALT 140 H (4-34) U/L Total Protein 4.7 L (6.3-8.2) g/dL Albumin 2.2 L (3.5-5.0) g/dL Assessment and Plan (1) Leukocytosis Current Visit: Yes Status: Acute Code(s): D72.829 - ELEVATED WHITE BLOOD CELL COUNT, UNSPECIFIED SNOMED Code(s): 088538293 Plan: 1patient presented to hospital with sepsis in this we did have a significant elevated white count elevated lactic acid and hypotension requiring multiple pressor support source likely abdominal in this patient who do have a history of rectal cancer with a history of chemoradiation now with abnormal CT suspicious for high-grade small bowel obstruction need to cover for the enteric gram- negative both aerobes and anaerobes, patient is status post laparotomy and lysis of adhesion completed on 02/07/2022 2patient did have overall clinical improvement and patient to continue with Zosyn will be able to transition to oral Augmentin once oral intakes improves 3-unstageable sacral pressure ulcer with some deep tissue injury RN to check with the surgical team for any surgical debridement, we'll apply Santyl and keep the area off the pressure Time with Patient: Less than 30
[2022-02-15 22:28] LABS: Glucose,Whole Blood 155 mg/dL (75-99)
[2022-02-16] MEDS: PIPERACILLIN-TAZOBACTAM 3.375 GM in SODIUM CHLORIDE 0.9% 100 ML IVPB SCH ×3 (00:38→17:31)
[2022-02-16 02:58] LABS: Glucose,Whole Blood 101 mg/dL (75-99)
[2022-02-16] MEDS: INSULIN ASPART (NovoLOG) 100 UNIT/ML VIAL SQ SCH ×4 (05:24→16:50)
[2022-02-16] MEDS: ACETAMINOPHEN TAB 325 MG TAB PO PRN (05:27)
[2022-02-16] MEDS: DEXTROSE 5% IN WATER 1,000 ML IV SCH (05:30)
[2022-02-16 05:40] VITALS: TEMP 97.8
[2022-02-16 06:01] LABS: Glucose,Whole Blood 72 mg/dL (75-99)
[2022-02-16 06:47] LABS: Glucose,Whole Blood 79 mg/dL (75-99)
[2022-02-16] MEDS: IPRATROPIUM-ALBUTEROL 3 ML NEB INHALATION SCH ×3 (07:14→16:58)
[2022-02-16] MEDS: PANTOPRAZOLE 40 MG/10 ML VIAL IVP SCH (08:49)
[2022-02-16] MEDS: AMIODARONE 200 MG TAB PO SCH ×2 (08:50→17:32)
[2022-02-16 09:45] LABS: Anisocytosis Slight; Basophils % (A) 0 %; Eosinophils # (A) 0.1 k/uL (0-0.7); Eosinophils % (A) 2 %; HCT 30.2 % (34.0-46.0); HGB 9.2 gm/dL (11.4-16.0); Hypochromasia Marked; Lymphocytes # (A) 0.3 k/uL (1.0-4.8); Lymphocytes % (A) 5 %; MCH 32.4 pg (25.0-35.0); MCHC 30.6 g/dL (31.0-37.0); Macrocytosis Marked; Monocytes # (A) 0.2 k/uL (0-1.0); Monocytes % (A) 4 %; Neutrophils # (A) 4.7 k/uL (1.3-7.7); Neutrophils % (A) 88 %; RBC 2.85 m/uL (3.80-5.40); RDW 19.2 % (11.5-15.5); WBC 5.4 k/uL (3.8-10.6)
[2022-02-16 09:59] LABS: MCV 105.9 fL (80.0-100.0)
[2022-02-16 10:00] LABS: Platelet Count 89 k/uL (150-450)
[2022-02-16 10:06] LABS: ALT 104 U/L (4-34); AST 68 U/L (14-36); African American GFR (CKD) >90 (>60 ml/min/1.73 sqM); Albumin 2.1 g/dL (3.5-5.0); Alkaline Phosphatase 64 U/L (38-126); Anion Gap 5 mmol/L; Blood Urea Nitrogen 27 mg/dL (7-17); Calcium 7.6 mg/dL (8.4-10.2); Carbon Dioxide 17 mmol/L (22-30); Chloride 116 mmol/L (98-107); Glucose 113 mg/dL (74-99); Magnesium 1.7 mg/dL (1.6-2.3); Non-African American GFR(CKD) 90 (>60 ml/min/1.73 sqM); Phosphorus 1.5 mg/dL (2.5-4.5); Sodium 138 mmol/L (137-145); Total Bilirubin 0.9 mg/dL (0.2-1.3); Total Protein 4.8 g/dL (6.3-8.2)
[2022-02-16 10:22] LABS: Potassium 3.7 mmol/L (3.5-5.1)
--- NOTE | 2022-02-16 10:45 | P.CONS ---
History of Present Illness - Reason for Consult Consult date: 02/16/22 wound care - History of Present Illness This is a 71-year-old patient being seen on [facility] for an unstageable pressure ulcer to the coccyx and right heel. Patient also has a stage I/stage II ulcerations to the right and left buttocks. The unstageable coccyx ulceration measures approximately 4 x 4 x 0.1 cm with significant amount of eschar in place. Patient was ordered Santyl to the site. The right and left buttocks have ecchymosis noted throughout with a small ulceration to the right buttocks. The right heel is unstageable pressure ulcer measuring approximately 1 x 1 x 0.1 cm with eschar present. Patient is a poor historian. Review Of Systems: Constitutional: No fever, no chills, no night sweats. No weight change. No weakness, fatigue or lethargy. No daytime sleepiness. Integumentary:reports wounds, no lesions. No rash or pruritus. No unusual bruising. No change in hair or nails. Physical exam: General Appearance: Alert, cooperative, no distress, appears stated age. Skin: See HPI all other Skin color, texture, tugor normal, no rashes or lesions. Neurologic: Alert oriented x3 Assessment: 1. Unstageable pressure ulcer coccyx 2. Unstageable pressure ulcer right heel Stage II pressure ulcer right buttocks Plan: 1. Coccyx and l right heel ulceration apply Santyl. Patient would benefit from continued debridement and in wound care center. We will be happy to see her upon discharge. 2. Right and left buttocks apply triad daily. Thank you for the consultation any questions please contact the wound care center DNP note has been reviewed and discussed with Dr. Fischer and the impression and plan of care has been directed as dictated. Past Medical History Past Medical History: Cancer, GERD/Reflux, Osteoarthritis (OA) Additional Past Medical History / Comment(s): Hx Cervical cancer in the 's, varicose Veins, hx rectal cancer 2018, finished chemo 06-05-19, recent recurrance of rectal cancer. History of Any Multi-Drug Resistant Organisms: None Reported Past Surgical History: Adenoidectomy, Appendectomy, Bowel Resection, Hernia Repair, Tonsillectomy Additional Past Surgical History / Comment(s): EGD, colonoscopies, ileostomy, hiatal hernia repair, reversal of ileostomy. Past Anesthesia/Blood Transfusion Reactions: Previous Problems w/ Anesthesia Additional Past Anesthesia/Blood Transfusion Reaction / Comm: WOKE UP DURING COLONOSCOPY X1. Past Psychological History: No Psychological Hx Reported Smoking Status: Former smoker - Past Family History Mother Family Medical History: AFIB, Hypertension, Memory Impairment Additional Family Medical History / Comment(s): Memory impairment Father Family Medical History: Cancer Additional Family Medical History / Comment(s): " from blood cancer." Medications and Allergies Home Medications Medication Instructions Recorded Confirmed Type No Known Home Medications 02/06/22 02/06/22 History Allergies Allergy/AdvReac Type Severity Reaction Status Date / Time ciprofloxacin [From Cipro] Allergy Rash/Hives Verified 02/06/22 23:00 ciprofloxacin HCl Allergy Rash/Hives Verified 02/06/22 23:00 [From Cipro] Physical Exam Vitals: Vital Signs Temp Pulse Pulse Pulse Pulse Resp BP 02/16/22 08:00 81 20 94/56 02/16/22 07:24 72 02/16/22 07:14 72 02/16/22 04:00 97.8 F 65 16 100/56 02/16/22 00:00 97.2 F L 86 24 96/54 02/15/22 21:13 88 02/15/22 21:02 86 02/15/22 20:00 98.2 F 87 18 114/56 02/15/22 15:50 97.9 F 83 18 101/62 02/15/22 12:17 85 02/15/22 12:06 85 02/15/22 12:00 75 16 94/75 Pulse Ox 02/16/22 08:00 95 02/16/22 07:24 02/16/22 07:14 02/16/22 04:00 95 02/16/22 00:00 96 02/15/22 21:13 02/15/22 21:02 02/15/22 20:00 96 02/15/22 15:50 96 02/15/22 12:17 02/15/22 12:06 02/15/22 12:00 96 Intake and Output 02/15/22 02/16/22 02/16/22 22:59 06:59 14:59 Intake Total 1080 600 120 Output Total 500 Balance 580 600 120 Intake: IV 600 Sodium Chloride 0.9% 1, 600 000 ml @ 75 mls/hr IV . [id number] [facility] Rx#:[id number] Oral 480 600 120 Output: Stool 500 Other: Voiding Method Indwelling Catheter Indwelling Catheter Results CBC & Chem 7: 02/16/22 09:16 02/16/22 09:16 Labs: Abnormal Lab Results - Last 24 Hours (Table) 02/15/22 02/15/22 02/16/22 Range/Units 20:12 22:26 02:56 RBC (3.80-5.40) m/uL Hgb (11.4-16.0) gm/dL Hct (34.0-46.0) % MCV (80.0-100.0) fL MCHC (31.0-37.0) g/dL RDW (11.5-15.5) % Plt Count (150-450) k/uL Macrocytosis Chloride (98-107) mmol/L Carbon Dioxide (22-30) mmol/L BUN (7-17) mg/dL Glucose (74-99) mg/dL POC Glucose (mg/dL) 61 L 155 H 101 H (75-99) mg/dL Calcium (8.4-10.2) mg/dL Phosphorus (2.5-4.5) mg/dL AST (14-36) U/L ALT (4-34) U/L Total Protein (6.3-8.2) g/dL Albumin (3.5-5.0) g/dL 02/16/22 02/16/22 02/16/22 Range/Units 06:00 09:16 09:16 RBC 2.85 L (3.80-5.40) m/uL Hgb 9.2 L (11.4-16.0) gm/dL Hct 30.2 L (34.0-46.0) % MCV 105.9 H D (80.0-100.0) fL MCHC 30.6 L (31.0-37.0) g/dL RDW 19.2 H (11.5-15.5) % Plt Count 89 L (150-450) k/uL Macrocytosis Marked A Chloride 116 H (98-107) mmol/L Carbon Dioxide 17 L (22-30) mmol/L BUN 27 H (7-17) mg/dL Glucose 113 H (74-99) mg/dL POC Glucose (mg/dL) 72 L (75-99) mg/dL Calcium 7.6 L (8.4-10.2) mg/dL Phosphorus 1.5 L (2.5-4.5) mg/dL AST 68 H (14-36) U/L ALT 104 H (4-34) U/L Total Protein 4.8 L (6.3-8.2) g/dL Albumin 2.1 L (3.5-5.0) g/dL Assessment and Plan (1) Pressure injury of coccygeal region, unstageable Current Visit: Yes Status: Acute Code(s): L89.150 - PRESSURE ULCER OF SACRAL REGION, UNSTAGEABLE SNOMED Code(s): 439286173 (2) Pressure ulcer, heel, right, unstageable Current Visit: Yes Status: Acute Code(s): L89.610 - PRESSURE ULCER OF RIGHT HEEL, UNSTAGEABLE SNOMED Code(s): 072292906 (3) Stage II pressure ulcer of right buttock Current Visit: Yes Status: Acute Code(s): L89.312 - PRESSURE ULCER OF RIGHT BUTTOCK, STAGE 2 SNOMED Code(s): 01321605653707557
[2022-02-16 11:44] LABS: Glucose,Whole Blood 49 mg/dL (75-99)
[2022-02-16 11:44] LABS: Glucose,Whole Blood 57 mg/dL (75-99)
[2022-02-16] MEDS ORDERED: HYDROPHILIC CREAM 180 GM TUBE TOPICAL SCH (12:00)
[2022-02-16 12:12] LABS: Glucose,Whole Blood 52 mg/dL (75-99)
[2022-02-16] MEDS ORDERED: DEXTROSE 50% SYRINGE 50 ML IVP ONE (12:30)
[2022-02-16] MEDS ORDERED: DEXTROSE 50% SYRINGE 50 ML IVP STA (12:31)
[2022-02-16 12:35] LABS: Glucose,Whole Blood 41 mg/dL (75-99)
[2022-02-16 12:35] LABS: Glucose,Whole Blood 41 mg/dL (75-99)
[2022-02-16 13:05] LABS: Glucose,Whole Blood 71 mg/dL (75-99)
[2022-02-16 13:05] LABS: Glucose,Whole Blood 35 mg/dL (75-99)
[2022-02-16 13:10] LABS: Glucose,Whole Blood 50 mg/dL (75-99)
[2022-02-16 13:13] LABS: Glucose,Whole Blood 103 mg/dL (75-99)
--- NOTE | 2022-02-16 13:58 | P.PN ---
Subjective Progress Note Date: 02/16/22 CHIEF COMPLAINT: Follow obstruction HISTORY OF PRESENT ILLNESS: Patient is postop day #9 status post exploratory laparotomy and lysis of adhesion for bowel obstruction secondary to adhesive band. Patient's ostomy is functioning. She is sitting up in bed. She reports that her pain is controlled. She is currently on a ground diet. Afebrile. Patient seen by wound care service for her pressure ulcer on her coccyx, right buttocks and right heel. Patient is scheduled for discharge to [facility] today. WBC is 5.4 hemoglobin 9.2 platelets 89 Patient seen and examined with Dr. connolly PHYSICAL EXAM: VITAL SIGNS: Reviewed. GENERAL: No acute distress HEENT: Head is atraumatic, normocephalic. ABDOMEN: Soft. Nondistended. Nontender. Incision site clean dry and intact. Ostomy functioning ASSESSMENT: 1. Status post exploratory laparotomy and lysis of adhesion for bowel obstruction secondary to adhesive band 2. Acute renal failure likely due to dehydration. Resolved 3. Thrombocytopenia possibly chronic. Followed by oncology 4. History of colorectal cancer PLAN: -Patient can be discharged from surgical standpoint -Continue ground Diet -Continue supportive care -Encouraged patient to increase oral intake -Encouraged patient to increase activity level -Encouraged patient to use incentive spirometer -DVT prophylaxis SCDs Physician Nursing Attendant note has been reviewed by physician. Signing provider agrees with the documented findings, assessment, and plan of care. Objective - Vital Signs Vital signs: Vital Signs Temp 97.8 F 02/16/22 04:00 Pulse 84 02/16/22 11:21 Resp 20 02/16/22 08:00 BP 94/56 02/16/22 08:00 Pulse Ox 95 02/16/22 08:00 Intake & Output 02/15/22 02/16/22 02/16/22 18:59 06:59 18:59 Intake Total 700 1680 120 Output Total 1250 500 Balance -550 1180 120 Weight 63 kg Intake: IV 700 600 Piperacillin-Tazobactam 3 100 .375 gm In Sodium Chloride 0.9% 100 ml @ 25 mls/hr IVPB Q8HR TIM Rx# :[id number] Sodium Chloride 0.9% 1, 600 600 000 ml @ 75 mls/hr IV . [id number] TIM Rx#:[id number] Oral 1080 120 Output: Urine 750 Stool 500 500 Other: Voiding Method Indwelling Catheter Indwelling Catheter Indwelling Catheter # Bowel Movements 200 ABP, PAP, CO, CI - Last Documented Arterial Blood Pressure 121/68 - Labs CBC & Chem 7: 02/16/22 09:16 02/16/22 09:16 Labs: Abnormal Lab Results - Last 24 Hours (Table) 02/15/22 02/15/22 02/16/22 Range/Units 20:12 22:26 02:56 RBC (3.80-5.40) m/uL Hgb (11.4-16.0) gm/dL Hct (34.0-46.0) % MCV (80.0-100.0) fL MCHC (31.0-37.0) g/dL RDW (11.5-15.5) % Plt Count (150-450) k/uL Lymphocytes # (1.0-4.8) k/uL Macrocytosis Chloride (98-107) mmol/L Carbon Dioxide (22-30) mmol/L BUN (7-17) mg/dL Glucose (74-99) mg/dL POC Glucose (mg/dL) 61 L 155 H 101 H (75-99) mg/dL Calcium (8.4-10.2) mg/dL Phosphorus (2.5-4.5) mg/dL AST (14-36) U/L ALT (4-34) U/L Total Protein (6.3-8.2) g/dL Albumin (3.5-5.0) g/dL 02/16/22 02/16/22 02/16/22 Range/Units 06:00 09:16 09:16 RBC 2.85 L (3.80-5.40) m/uL Hgb 9.2 L (11.4-16.0) gm/dL Hct 30.2 L (34.0-46.0) % MCV 105.9 H D (80.0-100.0) fL MCHC 30.6 L (31.0-37.0) g/dL RDW 19.2 H (11.5-15.5) % Plt Count 89 L (150-450) k/uL Lymphocytes # 0.3 L (1.0-4.8) k/uL Macrocytosis Marked A Chloride 116 H (98-107) mmol/L Carbon Dioxide 17 L (22-30) mmol/L BUN 27 H (7-17) mg/dL Glucose 113 H (74-99) mg/dL POC Glucose (mg/dL) 72 L (75-99) mg/dL Calcium 7.6 L (8.4-10.2) mg/dL Phosphorus 1.5 L (2.5-4.5) mg/dL AST 68 H (14-36) U/L ALT 104 H (4-34) U/L Total Protein 4.8 L (6.3-8.2) g/dL Albumin 2.1 L (3.5-5.0) g/dL 02/16/22 02/16/22 02/16/22 Range/Units 11:38 11:40 12:05 RBC (3.80-5.40) m/uL Hgb (11.4-16.0) gm/dL Hct (34.0-46.0) % MCV (80.0-100.0) fL MCHC (31.0-37.0) g/dL RDW (11.5-15.5) % Plt Count (150-450) k/uL Lymphocytes # (1.0-4.8) k/uL Macrocytosis Chloride (98-107) mmol/L Carbon Dioxide (22-30) mmol/L BUN (7-17) mg/dL Glucose (74-99) mg/dL POC Glucose (mg/dL) 49 L 57 L 52 L (75-99) mg/dL Calcium (8.4-10.2) mg/dL Phosphorus (2.5-4.5) mg/dL AST (14-36) U/L ALT (4-34) U/L Total Protein (6.3-8.2) g/dL Albumin (3.5-5.0) g/dL 02/16/22 02/16/22 02/16/22 Range/Units 12:26 12:29 13:01 RBC (3.80-5.40) m/uL Hgb (11.4-16.0) gm/dL Hct (34.0-46.0) % MCV (80.0-100.0) fL MCHC (31.0-37.0) g/dL RDW (11.5-15.5) % Plt Count (150-450) k/uL Lymphocytes # (1.0-4.8) k/uL Macrocytosis Chloride (98-107) mmol/L Carbon Dioxide (22-30) mmol/L BUN (7-17) mg/dL Glucose (74-99) mg/dL POC Glucose (mg/dL) 41 L 41 L 35 L (75-99) mg/dL Calcium (8.4-10.2) mg/dL Phosphorus (2.5-4.5) mg/dL AST (14-36) U/L ALT (4-34) U/L Total Protein (6.3-8.2) g/dL Albumin (3.5-5.0) g/dL 02/16/22 02/16/22 02/16/22 Range/Units 13:03 13:06 13:11 RBC (3.80-5.40) m/uL Hgb (11.4-16.0) gm/dL Hct (34.0-46.0) % MCV (80.0-100.0) fL MCHC (31.0-37.0) g/dL RDW (11.5-15.5) % Plt Count (150-450) k/uL Lymphocytes # (1.0-4.8) k/uL Macrocytosis Chloride (98-107) mmol/L Carbon Dioxide (22-30) mmol/L BUN (7-17) mg/dL Glucose (74-99) mg/dL POC Glucose (mg/dL) 71 L 50 L 103 H (75-99) mg/dL Calcium (8.4-10.2) mg/dL Phosphorus (2.5-4.5) mg/dL AST (14-36) U/L ALT (4-34) U/L Total Protein (6.3-8.2) g/dL Albumin (3.5-5.0) g/dL
--- NOTE | 2022-02-16 14:11 | P.PN ---
Subjective Progress Note Date: 02/15/22 This is a 71-year-old female presents to the emergency room from home, family called EMS. Medical history taken from family and patients chart. Patient has not been eating and drinking for about the last week per . Per , she has also not had stool from her ileostomy for the last 4 to 5 days as well, patient has had increasing confusion since last saturday to the point where he sates she did not know where she was. also reports she has an ulcer on her tailbone that was found about 2 weeks ago at home which [facility], today was the last day of antibiotics. The day before admission patient drank water, had a few bites of banana and had a small amount of emesis per family who reports it seemed dark in color and thought it was blood. Patient follows with dr Titus in the office for history of rectal cancer. Patient was initially diagnosed about 4 years ago and underwent bowel resection with ileostomy with subsequent reversal. She underwent chemoradiation at that time. In October of 2020 there was reoccurrence of cancer, she was taking oral c hemo and had a secondy bowel resection with ileostomy placement in September of 2021. Patients surgeon is Dr. Garcia out of [facility], family reports she has been to the office 1 time since surgery, family reports they were planning for ileostomy reversal around March of this year. She presents to the [facility] with hypotension and shock she is maintained on levophed infusion as well as empiric antibiotic coverage with IV Zosyn. She received 3 L of saline bolus in the EC and is now maintained on saline at 130 mls per hour. Blood cultures are currently pending. Patient had abdominal pelvis CT which did show high-grade mechanical bowel obstruction for which she has NG tube placed and surgical consult. There has been 900 mls of output from NG tube so far. Additional labs show sodium 117 which has improved some to 123. Troponin elevation at 0.141, 0.144. BUN today 55, creatinine 5.40 for which nephrology was consulted. There is evidence of some hydronephrosis with possible urinary retention found on computed tomography scan continue bladder ultrasound is requested and pending. Urinalysis showing cloudy urine, trace protein, large blood, RBC 161, rare bacteria, rate mucus, many yeast. Other pertinent medical history includes GERD osteoarthritis, cervical cancer in the 80s, EGD colonoscopies, former smoker very remote not since the 1980s. She is afebrile, heart rate 102, blood pressure 84/49, on 5 L nasal cannula which she initially required BiPAP. 02/08/2022 Patient is currently in the MICU. On my current ventilator with assist control tidal volume 400 FiO2 40% and PEEP of 5. Patient remains pressor support with vasopressin and norepinephrine. Patient underwent exploratory laparotomy yesterday and found to have bowel obstruction secondary to adhesive band. Patient had lysis of adhesions. Chest x-ray showed suspected newly seen small left apical pneumothorax. Short- term follow-up is required. Progressive infiltrates in the left lung base which could represent pneumonia however aspiration cannot be excluded. Laboratory data showed WBC 12.1 hemoglobin 9.5 and platelets 43 Sodium 127 potassium 3.9 chloride 102 bicarb is 17 BUN 108 and creatinine down to 2.9 today. Albumin 2.3 02/09/2022 Patient remains in the MICU and intubated on mechanical ventilator. Requiring p ressor support which is being tapered down.. Patient is status post expiratory laparotomy on 02/07/2022. Chest x-ray showed no acute pulmonary process. No significant change from most recent 5. Laboratory data showed WBC 12.4 hemoglobin 7.9 and platelets 46 sodium 133 potassium 3.1 chloride 101 bicarb is 18 BUN 19 and creatinine 1.87 calcium 7.5 Patient is being continued on antibiotics in the form of Zosyn. Currently on IV hydration and renal function is improving. 02/09/2022 Patient was extubated yesterday. Currently on room air. Otherwise patient is able to move her head with verbal stimuli. Unable to follow simple commands at this time. Still requiring pressor support. Patient was given a dose of hydrocortisone today. Otherwise laboratory data showed WBC 11.9 hemoglobin 6.7 and platelets 47 sodium 139 potassium 4.3 chloride 105 BUN 68 and creatinine 1.16 and albumin 1.9 chest x-ray showed increasing density left lower lobe may reflect underlying atelectasis or infiltrate. Patient remains on antibiotics of Zosyn. Currently on TPN for nutrition. 02/11/2022 Patient is currently in the MICU. Status post expiratory laparotomy and ileostomy. Currently room air. Patient is still requiring pressor support. Otherwise able to open her eyes with verbal stimuli. Patient is generally weak. Continued on TPN. Patient is being current hydrocortisone IV push. Still hypotensive.. Laboratory data showed WC 11.4 hemoglobin 8.1 and platelets 66 Sodium 143 potassium 4.1 chloride 117 bicarb is 21 BUN 61 and creatinine 0.98 liver enzymes are not elevated albumin 1.9. Patient is being continued IV hydration and antibiotics in the form of Zosyn. Pulmonary and general surgery is on board. 02/12/2022 Patient is currently being transferred to medical floor. Patient is off pressor support. Patient is otherwise awake alert and trying to communicate. Patient is otherwise generally weak. Currently on room air. Currently on TPN for nutrition. Also on venous lactate at 75 cc/h. Patient has been afebrile. No complaints of nausea. Abdominal pain is controlled. No headache or dizziness. Laboratory showed WBC 8.4 hemoglobin 8.3 and platelets 3 and platelets 70 Sodium 141 potassium 4.0 chloride 121 bicarb is 19 BUN 59 and creatinine 0.9 and calcium 7.4 albumin 2.1 cultures have been negative. Patient is being continued on antibiotics in the form of Zosyn. Pulmonary, surgery and nephrology is on board. 02/13/2022 Patient is currently in the medical floor. Status post expiratory laparotomy due to high-grade obstruction and lysis of adhesions. Patient does have prior history of ileostomy which is functioning well. Patient was started on modified diet with honey thickened liquids with one-to-one supervision. TPN is on hold currently. Patient has been afebrile. Currently on antibiotics Zosyn. Laboratory data showed sodium 144 potassium 3.2 chloride 120 BUN 48 and creatinine 0.95 and calcium 7.8 and magnesium 2.1. Patient was also found to havenew sacral decubitus ulcers. Wound care and ID was consulted. No purulent drainage noted. 02/14/2022 Patient is currently lying in the bed comfortably but awake alert and able to speak slowly. Still with very weak and lethargic. No other acute overnight issues. Patient has been afebrile. Currently on room air. No complaints of chest pain or shortness breath. Denied any abdominal pain. No nausea vomiting. Tolerating minimal oral diet. Not on any pressors support. Laboratory data showedWBC 6.67. Hemoglobin 8.0 and platelets 81 Sodium 142 potassium 3.6 chloride 109 bicarb is 20 BUN 13 and creatinine 0.85, patient remains on IV hydration with D5 water and duo nebs and antibiotics in the form of Zosyn. ID and pulmonary is on board. 02/15/2022 Patient is currently resting in the bed. Awake alert but very weak and lethargic. Patient is status post expiratory laparotomy and lysis of additions due to high-grade bowel obstruction. Patient was started back on oral diet now and ileostomy is functioning. No fever no chills. Patient was seen by wound care and ID due to sacral decub ulcers unstageable at this time. Patient will be current on Zosyn and will be transition to Augmentin. Patient is able to tolerate oral diet slowly but very minimal oral intake. No complaints of abdominal pain. No nausea or vomiting or diarrhea. Patient has been afebrile. No cough or sputum production. Lab data showed sodium 143 potassium 3.8 chloride 111, bicarb is 21 BUN 34 and creatinine 0.78 calcium 7.8 phosphorus 2.3 AST 86 and ALT 140 alk phos 64 albumin 2.2 and blood pressure is 101/62 and pulse 83 respiration 18 temperature treatment breath pulse ox is 90 exposes on room air. Current medications reviewed. Objective - Vital Signs Vital signs: Vital Signs Temp 97.5 F L 02/15/22 03:40 Pulse 88 02/15/22 08:36 Resp 16 02/15/22 08:00 BP 97/58 02/15/22 08:00 Pulse Ox 95 02/15/22 08:00 Intake & Output 02/14/22 02/15/22 02/15/22 18:59 06:59 18:59 Output Total 650 1000 Balance -650 -1000 Weight 63 kg Output: Urine 100 800 Stool 550 50 Urine/Stool Mix 150 Other: Voiding Method Indwelling Catheter Indwelling Catheter ABP, PAP, CO, CI - Last Documented Arterial Blood Pressure 121/68 - Exam PHYSICAL EXAMINATION: Patient is is awake alert and oriented. Able to come in. Slowly.. On room air. HEENT: Normocephalic. Neck is supple. Pupils reactive. Nostrils clear. Oral cavity is moist. Neck reveals no JVD, carotid bruits, or thyromegaly. CHEST EXAMINATION: Trachea is central.. Symmetrical expansion. Lung dunbar clear to auscultation and percussion. CARDIAC: Normal S1, S2 with no gallops. No murmurs ABDOMEN: Soft. Bowel sounds present. Surgical site is bandaged. Extremities: reveal no edema. No clubbing or cyanosis Neurologically patient is awake alert but very weak... No gross focal deficits noted Skin: Sacral decub ulcers Psychiatric: Could not be assessed at this time. Musculoskeletal: No joint swelling or deformity. - Labs CBC & Chem 7: 02/16/22 09:16 02/16/22 09:16 Labs: Abnormal Lab Results - Last 24 Hours (Table) 02/14/22 02/14/22 02/14/22 Range/Units 08:17 16:20 20:40 RBC 2.60 L (4.10-5.20) X 10*6/uL Hgb 8.0 L (12.0-15.0) g/dL Hct 26.6 L (37.2-46.3) % MCV 102.3 H (80.0-97.0) fL MCHC 30.1 L (32.0-37.0) g/dL RDW 21.0 H (11.5-14.5) % Plt Count 81 L (140-440) X 10*3/uL Absolute Nucleated RBC 0.02 H (0.00-0.00) X 10*3/uL Immature Gran # 0.05 H (0.00-0.04) X 10*3/uL Lymphocytes # 0.19 L (0.90-5.00) X 10*3/uL NRBC/100 WBC Diff 0.3 H (0.0-0.0) /100 WBCS Chloride (98-107) mmol/L Carbon Dioxide (22-30) mmol/L BUN (7-17) mg/dL Glucose (74-99) mg/dL POC Glucose (mg/dL) 105 H 121 H (75-99) mg/dL Calcium (8.4-10.2) mg/dL Phosphorus (2.5-4.5) mg/dL AST (14-36) U/L ALT (4-34) U/L Total Protein (6.3-8.2) g/dL Albumin (3.5-5.0) g/dL 02/15/22 02/15/22 Range/Units 05:18 07:20 RBC (4.10-5.20) X 10*6/uL Hgb (12.0-15.0) g/dL Hct (37.2-46.3) % MCV (80.0-97.0) fL MCHC (32.0-37.0) g/dL RDW (11.5-14.5) % Plt Count (140-440) X 10*3/uL Absolute Nucleated RBC (0.00-0.00) X 10*3/uL Immature Gran # (0.00-0.04) X 10*3/uL Lymphocytes # (0.90-5.00) X 10*3/uL NRBC/100 WBC Diff (0.0-0.0) /100 WBCS Chloride 119 H (98-107) mmol/L Carbon Dioxide 21 L (22-30) mmol/L BUN 34 H (7-17) mg/dL Glucose 100 H (74-99) mg/dL POC Glucose (mg/dL) 109 H (75-99) mg/dL Calcium 7.8 L (8.4-10.2) mg/dL Phosphorus 2.3 L (2.5-4.5) mg/dL AST 86 H (14-36) U/L ALT 140 H (4-34) U/L Total Protein 4.7 L (6.3-8.2) g/dL Albumin 2.2 L (3.5-5.0) g/dL Assessment and Plan Assessment: Assessment 1 Acute mechanical high grade obstruction. Status post exploratory laparotomy and lysis of additions on 02/07/2022..Patient was on TPN and currently started on oral diet. -Acute renal failure secondary to acute tubular necrosis secondary to hypotension and severe dehydration. Currently with indwelling catheter in place. Nephrology is following. Creatinine 5.40 on admission. Improved. -Elevated troponins. Possible demand mismatch. -Hyponatremia, hypovolemic on admission secondary to severe dehydration from poor oral intake. Sodium level improved to 145 -Shock septic vs hypovolemic, blood culture, urine culture currently negative. Patient is monitored in the ICU and was on vasopressin support - Non sustained Vtach -Lactic acidosis secondary to dehydration -Altered mental status secondary to acute metabolic encephalopathy with significant uremia -Leukocytosis secondary to above -Reported sacral decub -History of colorectal cancer diagnosed in 2018 status post bowel resection x 2, last surgery in Sep with right sided ileostomy present. -History of gastroesophageal reflux disease -History of cervical cancer in the 80s. -Remote history of smoking GI Prophylaxis Full Code Plan Patient is off pressor support. Continue on IV fluids and encourage oral intake.Monitor sodium level and renal function. Continue antibiotic, zosyn . Continue with wound care. Status post exploratory laparotomy and lysis of adhesions on 02/07/2022. off TPN. Continue with strict I&O. Complete wound/skin assessment Repeat labs in the morning Multiple consultations including sash assembler, oncology, surgical, nephrology, infectious disease Prognosis guarded. Time with Patient: Greater than 30
[2022-02-16] MEDS ORDERED: POTAS-SOD-PHOS 278-164-250 MG 1 EACH PACKET PO SCH (14:13)
--- NOTE | 2022-02-16 14:16 | P.DS ---
Providers Date of admission: 02/07/22 01:45 Expected date of discharge: 02/16/22 Attending physician: Juan Bernard MD Consults: 02/07/22 01:46 Consult Physician Routine Consulting Provider: Justus Steele Consult Reason/Comments: Severe dehydration with acute kidney injury Do you want consulting provider notified?: Yes 02/07/22 01:47 Consult Physician Routine Consulting Provider: Kang Titus Consult Reason/Comments: Patient known to you Do you want consulting provider notified?: Yes 02/07/22 06:05 Consult Physician Routine Consulting Provider: Ajay Samuels Consult Reason/Comments: Coffee ground emesis Do you want consulting provider notified?: Yes 02/07/22 07:06 Consult Physician Routine Consulting Provider: Leon Rodriguez Consult Reason/Comments: hypotension Do you want consulting provider notified?: Already Contacted 02/07/22 10:19 Consult Physician Urgent Consulting Provider: Latha Pan Consult Reason/Comments: afib Do you want consulting provider notified?: Yes 02/07/22 11:01 Consult Physician Routine Consulting Provider: Tarik Lundberg Consult Reason/Comments: Septic shock. Possible abdominal source Do you want consulting provider notified?: Yes 02/08/22 09:08 Consult Physician Routine Consulting Provider: Naveen Coello Consult Reason/Comments: hydronephrosis Do you want consulting provider notified?: Yes Primary care physician: Stated None Hospital Course: discharge diagnosis Acute mechanical high grade obstruction. Status post exploratory laparotomy and lysis of additions on 02/07/2022..Patient was on TPN and currently started on oral diet. -Acute renal failure secondary to acute tubular necrosis secondary to hypotension and severe dehydration. Currently with indwelling catheter in place. Nephrology is following. Creatinine 5.40 on admission. Improved. -Elevated troponins. Possible demand mismatch. -Hyponatremia, hypovolemic on admission secondary to severe dehydration from poor oral intake. Sodium level improved to 145 -hypoglycemia due to poor oral intake. -Shock septic vs hypovolemic, blood culture, urine culture currently negative. Patient is monitored in the ICU and was on vasopressin support - Non sustained Vtach -Lactic acidosis secondary to dehydration -Altered mental status secondary to acute metabolic encephalopathy with significant uremia -Leukocytosis secondary to above -Reported sacral decub -History of colorectal cancer diagnosed in 2018 status post bowel resection x 2, last surgery in Sep with right sided ileostomy present. -History of gastroesophageal reflux disease -History of cervical cancer in the 80s. -Remote history of smoking GI Prophylaxis Full Code Hospital course This is a 71-year-old female presents to the emergency room from home, family called EMS. Medical history taken from family and patients chart. Patient has not been eating and drinking for about the last week per . Per , she has also not had stool from her ileostomy for the last 4 to 5 days as well, patient has had increasing confusion since last saturday to the point where he sates she did not know where she was. also reports she has an ulcer on her tailbone that was found about 2 weeks ago at home which she has been on oral antibiotics from the [facility], today was the last day of antibiotics. The day before admission patient drank water, had a few bites of banana and had a small amount of emesis per family who reports it seemed dark in color and thought it was blood. Patient follows with dr Titus in the office for history of rectal cancer. Patient was initially diagnosed about 4 years ago and underwent bowel resection with ileostomy with subsequent reversal. She underwent chemoradiation at that time. In October of 2020 there was reoccurrence of cancer, she was taking oral chemo and had a secondy bowel resection with ileostomy placement in September of 2021. Patients surgeon is Dr. Garcia out of [facility], family reports she has been to the office 1 time since surgery, family reports they were planning for ileostomy reversal around March of this year. She presents to the EC with hypotension and shock she is maintained on levophed infusion as well as empiric antibiotic coverage with IV Zosyn. She received 3 L of saline bolus in the EC and is now maintained on saline at 130 mls per hour. Blood cultures are currently pending. Patient had abdominal pelvis CT which did show high-grade mechanical bowel obstruction for which she has NG tube placed and surgical consult. There has been 900 mls of output from NG tube so far. Additional labs show sodium 117 which has improved some to 123. Troponin elevation at 0.141, 0.144. BUN today 55, creatinine 5.40 for which nephrology was consulted. There is evidence of some hydronephrosis with possible urinary retention found on computed tomography scan continue bladder ultrasound is requested and pending. Urinalysis showing cloudy urine, trace protein, large blood, RBC 161, rare bacteria, rate mucus, many yeast. Other pertinent medical history includes GERD osteoarthritis, cervical cancer in the 80s, EGD colonoscopies, former smoker very remote not since the . She is afebrile, heart rate 102, blood pressure 84/49, on 5 L nasal cannula which she initially required BiPAP. 02/08/2022 Patient is currently in the MICU. On my current ventilator with assist control tidal volume 400 FiO2 40% and PEEP of 5. Patient remains pressor support with vasopressin and norepinephrine. Patient underwent exploratory laparotomy yesterday and found to have bowel obstruction secondary to adhesive band. Patient had lysis of adhesions. Chest x-ray showed suspected newly seen small left apical pneumothorax. Short- term follow-up is required. Progressive infiltrates in the left lung base which could represent pneumonia however aspiration cannot be excluded. Laboratory data showed WBC 12.1 hemoglobin 9.5 and platelets 43 Sodium 127 potassium 3.9 chloride 102 bicarb is 17 BUN 108 and creatinine down to 2.9 today. Albumin 2.3 02/09/2022 Patient remains in the MICU and intubated on mechanical ventilator. Requiring pressor support which is being tapered down.. Patient is status post expiratory laparotomy on 02/07/2022. Chest x-ray showed no acute pulmonary process. No significant change from most recent 5. Laboratory data showed WBC 12.4 hemoglobin 7.9 and platelets 46 sodium 133 potassium 3.1 chloride 101 bicarb is 18 BUN 19 and creatinine 1.87 calcium 7.5 Patient is being continued on antibiotics in the form of Zosyn. Currently on IV hydration and renal function is improving. 02/09/2022 Patient was extubated yesterday. Currently on room air. Otherwise patient is able to move her head with verbal stimuli. Unable to follow simple commands at this time. Still requiring pressor support. Patient was given a dose of hydrocortisone today. Otherwise laboratory data showed WBC 11.9 hemoglobin 6.7 and platelets 47 sodium 139 potassium 4.3 chloride 105 BUN 68 and creatinine 1.16 and albumin 1.9 chest x-ray showed increasing density left lower lobe may reflect underlying atelectasis or infiltrate. Patient remains on antibiotics of Zosyn. Currently on TPN for nutrition. 02/11/2022 Patient is currently in the MICU. Status post expiratory laparotomy and ileostomy. Currently room air. Patient is still requiring pressor support. Otherwise able to open her eyes with verbal stimuli. Patient is generally weak. Continued on TPN. Patient is being current hydrocortisone IV push. Still hypotensive.. Laboratory data showed WC 11.4 hemoglobin 8.1 and platelets 66 Sodium 143 potassium 4.1 chloride 117 bicarb is 21 BUN 61 and creatinine 0.98 liver enzymes are not elevated albumin 1.9. Patient is being continued IV hydration and antibiotics in the form of Zosyn. Pulmonary and general surgery is on board. 02/12/2022 Patient is currently being transferred to medical floor. Patient is off pressor support. Patient is otherwise awake alert and trying to communicate. Patient is otherwise generally weak. Currently on room air. Currently on TPN for nutrition. Also on venous lactate at 75 cc/h. Patient has been afebrile. No complaints of nausea. Abdominal pain is controlled. No headache or dizziness. Laboratory showed WBC 8.4 hemoglobin 8.3 and platelets 3 and platelets 70 Sodium 141 potassium 4.0 chloride 121 bicarb is 19 BUN 59 and creatinine 0.9 and calcium 7.4 albumin 2.1 cultures have been negative. Patient is being continued on antibiotics in the form of Zosyn. Pulmonary, surgery and nephrology is on board. 02/13/2022 Patient is currently in the medical floor. Status post expiratory laparotomy due to high-grade obstruction and lysis of adhesions. Patient does have prior history of ileostomy which is functioning well. Patient was started on modified diet with honey thickened liquids with one-to-one supervision. TPN is on hold currently. Patient has been afebrile. Currently on antibiotics Zosyn. Laboratory data showed sodium 144 potassium 3.2 chloride 120 BUN 48 and creatinine 0.95 and calcium 7.8 and magnesium 2.1. Patient was also found to havenew sacral decubitus ulcers. Wound care and ID was consulted. No purulent drainage noted. 02/14/2022 Patient is currently lying in the bed comfortably but awake alert and able to speak slowly. Still with very weak and lethargic. No other acute overnight issues. Patient has been afebrile. Currently on room air. No complaints of chest pain or shortness breath. Denied any abdominal pain. No nausea vomiting. Tolerating minimal oral diet. Not on any pressors support. Laboratory data showedWBC 6.67. Hemoglobin 8.0 and platelets 81 Sodium 142 potassium 3.6 chloride 109 bicarb is 20 BUN 13 and creatinine 0.85, patient remains on IV hydration with D5 water and duo nebs and antibiotics in the form of Zosyn. ID and pulmonary is on board. 02/15/2022 Patient is currently resting in the bed. Awake alert but very weak and lethargic. Patient is status post expiratory laparotomy and lysis of additions due to high-grade bowel obstruction. Patient was started back on oral diet now and ileostomy is functioning. No fever no chills. Patient was seen by wound care and ID due to sacral decub ulcers unstageable at this time. Patient will be current on Zosyn and will be transition to Augmentin. Patient is able to tolerate oral diet slowly but very minimal oral intake. No complaints of abdominal pain. No nausea or vomiting or diarrhea. Patient has been afebrile. No cough or sputum production. Lab data showed sodium 143 potassium 3.8 chloride 111, bicarb is 21 BUN 34 and creatinine 0.78 calcium 7.8 phosphorus 2.3 AST 86 and ALT 140 alk phos 64 albumin 2.2 and blood pressure is 101/62 and pulse 83 respiration 18 temperature treatment breath pulse ox is 90 exposes on room air. 02/16/2022 Patient is currently resting in the bed. Awake alert and oriented. Patient is very weak otherwise. Minimal oral intake. No complaints of chest pain or w orsening shortness of breath. Patient is being current on wound care and antibiotics will be transitioned to Augmentin as per ID recommendations. No fever no chills. No cough or sputum production. Denies any abdominal pain. Ostomy is functioning. Laboratory data showed WBC 5.4 hemoglobin 9.2 and platelets 89 Sodium 138 potassium 3.7 chloride 106 bicarb is 17 BUN 27 creatinine 0.68 and blood sugar is [birth year]29 this morning. Phosphorus 1.5 and AST 68 and alk phos 64 ALT 104 and albumin 2.1 patient is otherwise being discharged to rehab. - Exam PHYSICAL EXAMINATION: Patient is is awake alert and oriented. Able to communicate Slowly.. On room air. HEENT: Normocephalic. Neck is supple. Pupils reactive. Nostrils clear. Oral cavity is moist. Neck reveals no JVD, carotid bruits, or thyromegaly. CHEST EXAMINATION: Trachea is central.. Symmetrical expansion. Lung dunbar clear to auscultation and percussion. CARDIAC: Normal S1, S2 with no gallops. No murmurs ABDOMEN: Soft. Bowel sounds present. Surgical site is bandaged. Extremities: reveal no edema. No clubbing or cyanosis Neurologically patient is awake alert but very weak... No gross focal deficits noted Skin: Sacral decub ulcers Psychiatric: Could not be assessed at this time. Musculoskeletal: No joint swelling or deformity. Vital Signs 02/16/22 02/16/22 02/16/22 07:14 07:24 08:00 Pulse Rate 72 72 Pulse Rate [ 81 Bilateral Radial] Respiratory 20 Rate Blood Pressure 94/56 [Right Arm] O2 Sat by Pulse 95 Oximetry 02/16/22 02/16/22 11:10 11:21 Pulse Rate 80 84 Pulse Rate [ Bilateral Radial] Respiratory Rate Blood Pressure [Right Arm] O2 Sat by Pulse Oximetry Total time taken greater than 35 minutes including 18 minutes for counseling and coordination of care. Patient Condition at Discharge: Serious Plan - Discharge Summary Discharge Rx Participant: No New Discharge Prescriptions: New Amiodarone [Cordarone] 200 mg PO DAILY #30 tab Megestrol [Megace] 40 mg PO DAILY #30 tablet Amoxicillin/Potassium Clav [Augmentin 875-125 Tablet] 1 tab PO Q12HR 5 Days #10 tab Amiodarone [Cordarone] 200 mg PO TID 3 Days #9 tab Amiodarone [Cordarone] 200 mg PO BID 7 Days #14 tab Discharge Medication List Amiodarone [Cordarone] 200 mg PO BID 7 Days #14 tab 02/16/22 [Rx] Amiodarone [Cordarone] 200 mg PO DAILY #30 tab 02/16/22 [Rx] Amiodarone [Cordarone] 200 mg PO TID 3 Days #9 tab 02/16/22 [Rx] Amoxicillin/Potassium Clav [Augmentin 875-125 Tablet] 1 tab PO Q12HR 5 Days #10 tab 02/16/22 [Rx] Megestrol [Megace] 40 mg PO DAILY #30 tablet 02/16/22 [Rx] Follow up Appointment(s)/Referral(s): Latha Pan MD [STAFF PHYSICIAN] - 2 Weeks None,Stated [Primary Care Provider] - 1-2 days Ajay Samuels MD [STAFF PHYSICIAN] - 1 Week Patient Instructions/Handouts: Amiodarone (By mouth) Activity/Diet/Wound Care/Special Instructions: Amiodarone Taper Instructions: Amiodarone 200mg Three times a day for 7 days (02/13-02/19) Then take Amiodarone 200mg BID starting 02/20-02/26 for 7 days Then 200mg Daily thereafter starting 02/27. Further changes by your decorative cutting machine tender when you follow up in the office. You may shower. No soaking or tub baths for 2 weeks Very light activity until you are reevaluated at your follow up appointment with your surgeon Discharge Disposition: TRANSFER TO SNF/ECF
--- NOTE | 2022-02-16 15:13 | P.PN ---
Subjective Progress Note Date: 02/16/22 Principal diagnosis: Abdominal sepsis Patient is a 71 year female With a past medical history significant for rectal cancer with recent recurrence in this patient who is status post bowel resection with ileostomy placement in the summer of 2020 presented to the hospital with weakness no output from ileostomy noticed to have a high-grade small bowel obstruction patient is status post laparotomy with lysis of adhesion. The patient was extubated on 02/09/2022 On today's evaluation is 02/16/2022, the patient continues to be afebrile, the patient is breathing comfortably on room air, patient denies any chest pain shortness breath or cough no abdominal pain oral intake remains to be poor no vomiting or diarrhea reported Objective - Vital Signs Vital signs: Vital Signs Temp 97.8 F 02/16/22 04:00 Pulse 84 02/16/22 11:21 Resp 20 02/16/22 08:00 BP 94/56 02/16/22 08:00 Pulse Ox 95 02/16/22 08:00 Intake & Output 02/15/22 02/16/22 02/16/22 18:59 06:59 18:59 Intake Total 700 1680 120 Output Total 1250 500 100 Balance -550 1180 20 Weight 63 kg Intake: IV 700 600 Piperacillin-Tazobactam 3 100 .375 gm In Sodium Chloride 0.9% 100 ml @ 25 mls/hr IVPB Q8HR [facility] Rx# :[id number] Sodium Chloride 0.9% 1, 600 600 000 ml @ 75 mls/hr IV . [id number] TIM Rx#:[id number] Oral 1080 120 Output: Urine 750 Stool 500 500 100 Other: Voiding Method Indwelling Catheter Indwelling Catheter Indwelling Catheter # Bowel Movements 200 ABP, PAP, CO, CI - Last Documented Arterial Blood Pressure 121/68 - Exam GENERAL DESCRIPTION: An elderly female lying in bed in no distress RESPIRATORY SYSTEM: Unlabored breathing , decreased breath sounds at bases HEART: S1 S2 regular rate and rhythm , ABDOMEN: Soft , midline incision is currently dressed Unstageable pressure ulcer to the sacral area with some deep tissue injury EXTREMITIES: No edema feet - Labs CBC & Chem 7: 02/16/22 09:16 02/16/22 09:16 Labs: Abnormal Lab Results - Last 24 Hours (Table) 02/15/22 02/15/22 02/16/22 Range/Units 20:12 22:26 02:56 RBC (3.80-5.40) m/uL Hgb (11.4-16.0) gm/dL Hct (34.0-46.0) % MCV (80.0-100.0) fL MCHC (31.0-37.0) g/dL RDW (11.5-15.5) % Plt Count (150-450) k/uL Lymphocytes # (1.0-4.8) k/uL Macrocytosis Chloride (98-107) mmol/L Carbon Dioxide (22-30) mmol/L BUN (7-17) mg/dL Glucose (74-99) mg/dL POC Glucose (mg/dL) 61 L 155 H 101 H (75-99) mg/dL Calcium (8.4-10.2) mg/dL Phosphorus (2.5-4.5) mg/dL AST (14-36) U/L ALT (4-34) U/L Total Protein (6.3-8.2) g/dL Albumin (3.5-5.0) g/dL 02/16/22 02/16/22 02/16/22 Range/Units 06:00 09:16 09:16 RBC 2.85 L (3.80-5.40) m/uL Hgb 9.2 L (11.4-16.0) gm/dL Hct 30.2 L (34.0-46.0) % MCV 105.9 H D (80.0-100.0) fL MCHC 30.6 L (31.0-37.0) g/dL RDW 19.2 H (11.5-15.5) % Plt Count 89 L (150-450) k/uL Lymphocytes # 0.3 L (1.0-4.8) k/uL Macrocytosis Marked A Chloride 116 H (98-107) mmol/L Carbon Dioxide 17 L (22-30) mmol/L BUN 27 H (7-17) mg/dL Glucose 113 H (74-99) mg/dL POC Glucose (mg/dL) 72 L (75-99) mg/dL Calcium 7.6 L (8.4-10.2) mg/dL Phosphorus 1.5 L (2.5-4.5) mg/dL AST 68 H (14-36) U/L ALT 104 H (4-34) U/L Total Protein 4.8 L (6.3-8.2) g/dL Albumin 2.1 L (3.5-5.0) g/dL 02/16/22 02/16/22 02/16/22 Range/Units 11:38 11:40 12:05 RBC (3.80-5.40) m/uL Hgb (11.4-16.0) gm/dL Hct (34.0-46.0) % MCV (80.0-100.0) fL MCHC (31.0-37.0) g/dL RDW (11.5-15.5) % Plt Count (150-450) k/uL Lymphocytes # (1.0-4.8) k/uL Macrocytosis Chloride (98-107) mmol/L Carbon Dioxide (22-30) mmol/L BUN (7-17) mg/dL Glucose (74-99) mg/dL POC Glucose (mg/dL) 49 L 57 L 52 L (75-99) mg/dL Calcium (8.4-10.2) mg/dL Phosphorus (2.5-4.5) mg/dL AST (14-36) U/L ALT (4-34) U/L Total Protein (6.3-8.2) g/dL Albumin (3.5-5.0) g/dL 02/16/22 02/16/22 02/16/22 Range/Units 12:26 12:29 13:01 RBC (3.80-5.40) m/uL Hgb (11.4-16.0) gm/dL Hct (34.0-46.0) % MCV (80.0-100.0) fL MCHC (31.0-37.0) g/dL RDW (11.5-15.5) % Plt Count (150-450) k/uL Lymphocytes # (1.0-4.8) k/uL Macrocytosis Chloride (98-107) mmol/L Carbon Dioxide (22-30) mmol/L BUN (7-17) mg/dL Glucose (74-99) mg/dL POC Glucose (mg/dL) 41 L 41 L 35 L (75-99) mg/dL Calcium (8.4-10.2) mg/dL Phosphorus (2.5-4.5) mg/dL AST (14-36) U/L ALT (4-34) U/L Total Protein (6.3-8.2) g/dL Albumin (3.5-5.0) g/dL 02/16/22 02/16/22 02/16/22 Range/Units 13:03 13:06 13:11 RBC (3.80-5.40) m/uL Hgb (11.4-16.0) gm/dL Hct (34.0-46.0) % MCV (80.0-100.0) fL MCHC (31.0-37.0) g/dL RDW (11.5-15.5) % Plt Count (150-450) k/uL Lymphocytes # (1.0-4.8) k/uL Macrocytosis Chloride (98-107) mmol/L Carbon Dioxide (22-30) mmol/L BUN (7-17) mg/dL Glucose (74-99) mg/dL POC Glucose (mg/dL) 71 L 50 L 103 H (75-99) mg/dL Calcium (8.4-10.2) mg/dL Phosphorus (2.5-4.5) mg/dL AST (14-36) U/L ALT (4-34) U/L Total Protein (6.3-8.2) g/dL Albumin (3.5-5.0) g/dL Assessment and Plan (1) Leukocytosis Current Visit: Yes Status: Acute Code(s): D72.829 - ELEVATED WHITE BLOOD CELL COUNT, UNSPECIFIED SNOMED Code(s): 560106262 Plan: 1patient presented to hospital with sepsis in this we did have a significant elevated white count elevated lactic acid and hypotension requiring multiple pressor support source likely abdominal in this patient who do have a history of rectal cancer with a history of chemoradiation now with abnormal CT suspicious for high-grade small bowel obstruction need to cover for the enteric gram- negative both aerobes and anaerobes, patient is status post laparotomy and lysis of adhesion completed on 02/07/2022 2patient did have overall clinical improvement and patient has been advised sure course of oral Augmentin on discharge 3-unstageable sacral pressure ulcer with some deep tissue injury continue local wound care with Santyl and keep the area off the pressure Time with Patient: Less than 30
[2022-02-16 16:40] LABS: Glucose,Whole Blood 87 mg/dL (75-99)
[2022-02-16] MEDS: COLLAGENASE 250 UNIT/GM OINTMENT 30 GM TUBE TOPICAL SCH (17:32)
[2022-02-16 20:28] VITALS: BP 112/61; PULSE 64; RESP 18
--- NOTE | 2022-02-16 21:18 | P.PN ---
Subjective Progress Note Date: 02/16/22 Patient is still "not herself" she appears slow to comprehend discussion. Plan is for rehab at discharge and no immediate cancer progression to address. Objective - Vital Signs Vital signs: Vital Signs Temp 97.8 F 02/16/22 04:00 Pulse 84 02/16/22 11:21 Resp 20 02/16/22 08:00 BP 94/56 02/16/22 08:00 Pulse Ox 95 02/16/22 08:00 Intake & Output 02/15/22 02/16/22 02/16/22 18:59 06:59 18:59 Intake Total 700 1680 120 Output Total 1250 500 Balance -550 1180 120 Weight 63 kg Intake: IV 700 600 Piperacillin-Tazobactam 3 100 .375 gm In Sodium Chloride 0.9% 100 ml @ 25 mls/hr IVPB Q8HR [facility] Rx# :[id number] Sodium Chloride 0.9% 1, 600 600 000 ml @ 75 mls/hr IV . [id number] TIM Rx#:[id number] Oral 1080 120 Output: Urine 750 Stool 500 500 Other: Voiding Method Indwelling Catheter Indwelling Catheter Indwelling Catheter # Bowel Movements 200 ABP, PAP, CO, CI - Last Documented Arterial Blood Pressure 121/68 - Exam - Constitutional General appearance: no acute distress, thin, sleeping NG tube - EENT Eyes: anicteric sclerae - Cardiovascular Rhythm: irregularly irregular - Gastrointestinal General gastrointestinal: decreased bowel sounds, soft, ileostomy - Musculoskeletal Musculoskeletal: generalized weakness - Psychiatric Psychiatric:resting awakens to stimuli - Labs CBC & Chem 7: 02/16/22 09:16 02/16/22 09:16 Labs: Abnormal Lab Results - Last 24 Hours (Table) 02/15/22 02/15/22 02/16/22 Range/Units 20:12 22:26 02:56 RBC (3.80-5.40) m/uL Hgb (11.4-16.0) gm/dL Hct (34.0-46.0) % MCV (80.0-100.0) fL MCHC (31.0-37.0) g/dL RDW (11.5-15.5) % Plt Count (150-450) k/uL Lymphocytes # (1.0-4.8) k/uL Macrocytosis Chloride (98-107) mmol/L Carbon Dioxide (22-30) mmol/L BUN (7-17) mg/dL Glucose (74-99) mg/dL POC Glucose (mg/dL) 61 L 155 H 101 H (75-99) mg/dL Calcium (8.4-10.2) mg/dL Phosphorus (2.5-4.5) mg/dL AST (14-36) U/L ALT (4-34) U/L Total Protein (6.3-8.2) g/dL Albumin (3.5-5.0) g/dL 02/16/22 02/16/22 02/16/22 Range/Units 06:00 09:16 09:16 RBC 2.85 L (3.80-5.40) m/uL Hgb 9.2 L (11.4-16.0) gm/dL Hct 30.2 L (34.0-46.0) % MCV 105.9 H D (80.0-100.0) fL MCHC 30.6 L (31.0-37.0) g/dL RDW 19.2 H (11.5-15.5) % Plt Count 89 L (150-450) k/uL Lymphocytes # 0.3 L (1.0-4.8) k/uL Macrocytosis Marked A Chloride 116 H (98-107) mmol/L Carbon Dioxide 17 L (22-30) mmol/L BUN 27 H (7-17) mg/dL Glucose 113 H (74-99) mg/dL POC Glucose (mg/dL) 72 L (75-99) mg/dL Calcium 7.6 L (8.4-10.2) mg/dL Phosphorus 1.5 L (2.5-4.5) mg/dL AST 68 H (14-36) U/L ALT 104 H (4-34) U/L Total Protein 4.8 L (6.3-8.2) g/dL Albumin 2.1 L (3.5-5.0) g/dL 02/16/22 02/16/22 02/16/22 Range/Units 11:38 11:40 12:05 RBC (3.80-5.40) m/uL Hgb (11.4-16.0) gm/dL Hct (34.0-46.0) % MCV (80.0-100.0) fL MCHC (31.0-37.0) g/dL RDW (11.5-15.5) % Plt Count (150-450) k/uL Lymphocytes # (1.0-4.8) k/uL Macrocytosis Chloride (98-107) mmol/L Carbon Dioxide (22-30) mmol/L BUN (7-17) mg/dL Glucose (74-99) mg/dL POC Glucose (mg/dL) 49 L 57 L 52 L (75-99) mg/dL Calcium (8.4-10.2) mg/dL Phosphorus (2.5-4.5) mg/dL AST (14-36) U/L ALT (4-34) U/L Total Protein (6.3-8.2) g/dL Albumin (3.5-5.0) g/dL 02/16/22 02/16/22 02/16/22 Range/Units 12:26 12:29 13:01 RBC (3.80-5.40) m/uL Hgb (11.4-16.0) gm/dL Hct (34.0-46.0) % MCV (80.0-100.0) fL MCHC (31.0-37.0) g/dL RDW (11.5-15.5) % Plt Count (150-450) k/uL Lymphocytes # (1.0-4.8) k/uL Macrocytosis Chloride (98-107) mmol/L Carbon Dioxide (22-30) mmol/L BUN (7-17) mg/dL Glucose (74-99) mg/dL POC Glucose (mg/dL) 41 L 41 L 35 L (75-99) mg/dL Calcium (8.4-10.2) mg/dL Phosphorus (2.5-4.5) mg/dL AST (14-36) U/L ALT (4-34) U/L Total Protein (6.3-8.2) g/dL Albumin (3.5-5.0) g/dL 02/16/22 02/16/22 02/16/22 Range/Units 13:03 13:06 13:11 RBC (3.80-5.40) m/uL Hgb (11.4-16.0) gm/dL Hct (34.0-46.0) % MCV (80.0-100.0) fL MCHC (31.0-37.0) g/dL RDW (11.5-15.5) % Plt Count (150-450) k/uL Lymphocytes # (1.0-4.8) k/uL Macrocytosis Chloride (98-107) mmol/L Carbon Dioxide (22-30) mmol/L BUN (7-17) mg/dL Glucose (74-99) mg/dL POC Glucose (mg/dL) 71 L 50 L 103 H (75-99) mg/dL Calcium (8.4-10.2) mg/dL Phosphorus (2.5-4.5) mg/dL AST (14-36) U/L ALT (4-34) U/L Total Protein (6.3-8.2) g/dL Albumin (3.5-5.0) g/dL Assessment and Plan Plan: Comments: abdomen/bladder ultrasound report reviewed Chest x-ray: report reviewed CT scan - abdomen: report reviewed CT scan - pelvis: report reviewed Assessment and Plan Plan: Dr. Titus discussed the case with the Critical Care team, Internal Medicine and the family. Patient's acute condition appears to be more related to postoperative complications, most suggestive of a stricture. Surgery is seeing the patient and is going to take the patient to surgery as soon as she is hemodynamically stable enough to tolerate. At this time, no evidence to suggest that her condition is related to a progressive malignancy. We will continue to follow up on her hospital course. She has continued to improve and plan to move from ICU to medical floor today Hemoglobin 8.repeat cbc in am Elevated LFTs, CMP in for am Ileostomy active Status post exploratory laparotomy and lysis of adhesion for bowel obstruction secondary to adhesive band CBC in am 2. Acute renal failure likely due to dehydration. Resolved Will be discharged to rehab to regain strength and see dr titus in 3-4 weeks in office Doctor attests: I performed a history and physical examination of this patient, developed impression and plan of care, discussed with dictator. I agree with dictators note, documented as a scribe.
--- NOTE | 2022-02-20 08:09 | CDI ---
Documentation Clarification Form Date: 02/20/22 From: Abby Benavidez Admit Date: 02/07/2022 01:45:00 AM Patient Name: Cindy Lazcano Visit Number: [id number] Discharge Date: 02/16/2022 06:37:00 PM ATTENTION: The Clinical Documentation Specialists (CDI) and [facility] Coding Staff appreciate your assistance in clarifying documentation. Please respond to the clarification below the line at the bottom and electronically sign. The CDI & [facility] Coding staff will review the response and follow-up if needed. Please note: Queries are made part of the Legal Health Record. If you have any questions, please contact the author of this message via ITS. Dr. Esha Kumar, Per ED Note and Dr Rodriguez's consult document frail, severely cachectic female, Based on this information and the findings below, is there an additional diagnosis that is clinically appropriate for this patient? History/Risk Factors: GERD hx cervical CA, rectal CA, chemo & radiation, Clinical Indicators: Frail, severely cachectic and very dehydrated. Sacral decubitus ulcer, right heel decubitus ulcer (both unstageable) and Stage II right buttock pressure ulcer. RD Consult Assessment: Nutrition intake poor, has NG tube and TPN. Current BMI: 21.9 Loss of muscle mass: significant muscle wasting Treatment: Dietary Consult, TPN, lab monitoring and discharge to SNF for rehab to regain strength. Is there an additional diagnosis that is clinically appropriate for this patient? [ ] Mild Protein-Calorie Malnutrition [ x ] Moderate Protein-Calorie Malnutrition [ ] Severe Protein-Calorie Malnutrition [ ] Other condition, please specify [ ] Unable to Determine MTDD
== END 2022-02-16 18:37 | DRG 853 ==
LOC: EC 22:05 → 3SCARD 02-07 01:45 → 2SICU 02-07 07:30 → 4SSUR 02-12 13:36 → 3SCARD 02-14 01:17
PROVIDERS: ADMIT Internal Medicine; ATTEND Internal Medicine
PROC: 5A09357 Assistance with Respiratory Ventilation, Less than 24 Consecutive Hours, Continuous Positive Airway Pressure (ICD-10-PCS; 2022-02-06)
PROC: 5A1945Z Respiratory Ventilation, 24-96 Consecutive Hours (ICD-10-PCS; 2022-02-07)
PROC: 06HN33Z Insertion of Infusion Device into Left Femoral Vein, Percutaneous Approach (ICD-10-PCS; 2022-02-07)
PROC: 3E033XZ Introduction of Vasopressor into Peripheral Vein, Percutaneous Approach (ICD-10-PCS; 2022-02-07)
PROC: 03HY32Z Insertion of Monitoring Device into Upper Artery, Percutaneous Approach (ICD-10-PCS; 2022-02-07)
PROC: 4A133B1 Monitoring of Arterial Pressure, Peripheral, Percutaneous Approach (ICD-10-PCS; 2022-02-07)
PROC: 4A133J1 Monitoring of Arterial Pulse, Peripheral, Percutaneous Approach (ICD-10-PCS; 2022-02-07)
PROC: 0D9670Z Drainage of Stomach with Drainage Device, Via Natural or Artificial Opening (ICD-10-PCS; 2022-02-07)
PROC: 0DN80ZZ Release Small Intestine, Open Approach (ICD-10-PCS; principal; 2022-02-07 09:30)
PROC: 3E0436Z Introduction of Nutritional Substance into Central Vein, Percutaneous Approach (ICD-10-PCS; 2022-02-08)
PROC: 30243N1 Transfusion of Nonautologous Red Blood Cells into Central Vein, Percutaneous Approach (ICD-10-PCS; 2022-02-10)
PROC: 05HC33Z Insertion of Infusion Device into Left Basilic Vein, Percutaneous Approach (ICD-10-PCS; 2022-02-12)
DX: A41.9 Sepsis, unspecified organism (principal); N17.0 Acute kidney failure with tubular necrosis; R65.21 Severe sepsis with septic shock; R57.1 Hypovolemic shock; J96.01 Acute respiratory failure with hypoxia; G93.41 Metabolic encephalopathy; K65.1 Peritoneal abscess; K56.52 Intestinal adhesions [bands] with complete obstruction; E44.0 Moderate protein-calorie malnutrition; R64 Cachexia; I47.2 Ventricular tachycardia; E87.4 Mixed disorder of acid-base balance; E87.0 Hyperosmolality and hypernatremia; E87.1 Hypo-osmolality and hyponatremia; N13.30 Unspecified hydronephrosis; C19 Malignant neoplasm of rectosigmoid junction; L89.150 Pressure ulcer of sacral region, unstageable; L89.312 Pressure ulcer of right buttock, stage 2; D69.6 Thrombocytopenia, unspecified; Z43.2 Encounter for attention to ileostomy; L89.610 Pressure ulcer of right heel, unstageable; I48.0 Paroxysmal atrial fibrillation; M06.9 Rheumatoid arthritis, unspecified; R62.7 Adult failure to thrive; R54 Age-related physical debility; Z68.21 Body mass index [BMI] 21.0-21.9, adult; E86.0 Dehydration; E16.2 Hypoglycemia, unspecified; E87.6 Hypokalemia; E03.9 Hypothyroidism, unspecified; E86.1 Hypovolemia; R33.9 Retention of urine, unspecified; I49.3 Ventricular premature depolarization; G89.29 Other chronic pain; R77.8 Other specified abnormalities of plasma proteins; K21.9 Gastro-esophageal reflux disease without esophagitis; I83.90 Asymptomatic varicose veins of unspecified lower extremity; R74.01 Elevation of levels of liver transaminase levels; T46.2X5A Adverse effect of other antidysrhythmic drugs, initial encounter; M19.90 Unspecified osteoarthritis, unspecified site; Z85.41 Personal history of malignant neoplasm of cervix uteri; Z92.21 Personal history of antineoplastic chemotherapy; Z92.3 Personal history of irradiation; Z90.89 Acquired absence of other organs; Z90.49 Acquired absence of other specified parts of digestive tract; Z87.19 Personal history of other diseases of the digestive system; Z87.891 Personal history of nicotine dependence; Z98.890 Other specified postprocedural states; Z71.3 Dietary counseling and surveillance; Z88.1 Allergy status to other antibiotic agents; Z82.49 Family history of ischemic heart disease and other diseases of the circulatory system; Z82.0 Family history of epilepsy and other diseases of the nervous system
CPT/HCPCS: 36410; 36415; 36556; 36600; 71045; 74176; 76770; 76937; 80048; 80053; 81001; 82330; 82805; 83605; 83735; 83880; 84100; 84132; 84295; 84484; 85025; 85027; 85610; 85730; 86850; 86870; 86880; 86900; 86901; 86902; 86920; 87040; 87070; 87086; 87205; 93005; 93306; 94002; 94003; 94640; 94660; 96361; 96365; 96375; 99291